=== PATIENT | male | born 1950 | race American Indian/Alaskan Native ===

== ENCOUNTER 2016-06-21 13:07 | Emergency (ER) | payer MEDICARE ==
[2016-06-21 19:16] LABS: Basophils % (Auto) 0.9 % (0.0-1.8); Eosinophils % (Auto) 1.7 % (0.0-4.3); Hematocrit 33.9 % (35.5-45.6); Hemoglobin 11.3 gm/dl (11.8-15.2); Mean Corpuscular HGB Conc 33 % (32-34); Mean Corpuscular Hemoglobin 29 pg (28-32); Mean Corpuscular Volume 85 fl (84-94); Platelet Count 353 K/mm3 (140-440); Red Blood Count 3.96 M/mm3 (3.65-5.03); Red Cell Distribution Width 16.9 % (13.2-15.2); White Blood Count 7.5 K/mm3 (4.5-11.0)
[2016-06-21 19:28] LABS: BUN/Creatinine Ratio 17.5; Calcium 10.2 mg/dL (8.4-10.2); Chloride 93.4 mmol/L (98-107); Potassium 3.9 mmol/L (3.6-5.0)
--- NOTE | 2016-06-21 21:30 | Emergency Department Report ---
ED General Adult HPI - General Chief complaint: Tube Replacement Stated complaint: G TUBE CLOGGED Time Seen by Provider: 06/21/16 21:13 Source: patient Mode of arrival: Wheelchair Limitations: No Limitations - History of Present Illness Initial comments: Patient here due to clogged G-tube since yesterday afternoon. Patient indicates that G-tube was placed approximately 3-1/2 weeks ago. He has not had any other complications prior to this. States he is feeling at his baseline otherwise. G-tube was placed due to recent stroke. Onset/Timin -: Sudden, days(s) Severity scale (0 -10): 0 Improves with: none Worsens with: none Treatments Prior to Arrival: none - Related Data Home Medications Medication Instructions Recorded Confirmed Last Taken Atenolol [Atenolol] 1 tab PO DAILY 03/13/14 03/13/14 03/13/14 Clopidogrel Bisulfate [Clopidogrel] 1 tab PO DAILY 03/13/14 03/13/14 03/13/14 Gabapentin [Gabapentin] 1 cap PO DAILY 03/13/14 03/13/14 03/13/14 Isosorbide Mononitrate [Isosorbide 20 mg PO BID 03/13/14 03/13/14 03/13/14 Mononitrate] Lisinopril [Lisinopril] 1 tab PO DAILY 03/13/14 03/13/14 03/13/14 Pantoprazole [Protonix] 1 tab PO DAILY 03/13/14 03/13/14 03/13/14 Solifenacin Succinate [Vesicare] 1 tab PO DAILY 03/13/14 03/13/14 03/13/14 Tamsulosin HCl [Tamsulosin HCl] 1 tab PO DAILY 03/13/14 03/13/14 03/13/14 Tramadol HCl [Tramadol HCl] 1 tab PO PRN PRN 03/13/14 03/13/14 Unknown Allergies Allergy/AdvReac Type Severity Reaction Status Date / Time No Known Allergies Allergy Verified 06/21/16 14:21 ED Review of Systems ROS: Stated complaint: G TUBE CLOGGED Other details as noted in HPI Constitutional: denies: fever, malaise Respiratory: denies: cough, SOB at rest Cardiovascular: denies: chest pain Gastrointestinal: other (hungry). denies: abdominal pain, nausea, vomiting ED Past Medical Hx - Past Medical History Hx Hypertension: Yes ([id number]; takes beta benita took 03/18 next dose noon 03/19) Hx Diabetes: Yes Hx Asthma: No Hx COPD: No Hx Tuberculosis: No Hx HIV: No - Social History Smoking Status: Current Every Day Smoker - Medications Home Medications: Home Medications Medication Instructions Recorded Confirmed Last Taken Type Atenolol [Atenolol] 1 tab PO DAILY 03/13/14 03/13/14 03/13/14 History Clopidogrel Bisulfate [Clopidogrel] 1 tab PO DAILY 03/13/14 03/13/14 03/13/14 History Gabapentin [Gabapentin] 1 cap PO DAILY 03/13/14 03/13/14 03/13/14 History Isosorbide Mononitrate [Isosorbide 20 mg PO BID 03/13/14 03/13/14 03/13/14 History Mononitrate] Lisinopril [Lisinopril] 1 tab PO DAILY 03/13/14 03/13/14 03/13/14 History Pantoprazole [Protonix] 1 tab PO DAILY 03/13/14 03/13/14 03/13/14 History Solifenacin Succinate [Vesicare] 1 tab PO DAILY 03/13/14 03/13/14 03/13/14 History Tamsulosin HCl [Tamsulosin HCl] 1 tab PO DAILY 03/13/14 03/13/14 03/13/14 History Tramadol HCl [Tramadol HCl] 1 tab PO PRN PRN 03/13/14 03/13/14 Unknown History ED Physical Exam - General Limitations: No Limitations, Language Barrier, Physical Limitation General appearance: alert, in no apparent distress - Head Head exam: Present: atraumatic, normocephalic - ENT ENT exam: Present: other (dry mucous membranes. Nml pharynx) - Neck Neck exam: Present: normal inspection. Absent: lymphadenopathy, thyromegaly - Respiratory Respiratory exam: Present: rales (bibasilarly). Absent: wheezes - Cardiovascular Cardiovascular Exam: Present: regular rate, normal rhythm. Absent: systolic murmur - GI/Abdominal GI/Abdominal exam: Present: other (G tube in place with button at 3cm. Well healed ostomy with no surrounding erythema. 2 little buttons sutured in place at R edge of ostomy skin margin) - Skin Skin exam: Present: warm, dry ED Course Vital Signs 06/21/16 14:18 Temperature 98.1 F Pulse Rate 86 Respiratory 18 Rate Blood Pressure 97/54 O2 Sat by Pulse 100 Oximetry - Reevaluation(s) Reevaluation #1: 06/21/16 21:34 Attempt was made to clear the obstruction and the current gastric tube using a small guidewire. This was unsuccessful. A [place] syringe was used with flushing without success. Possibly another 18 [place] G-tube was placed this was done under clean conditions after sterilely prepping the ostomy site. He' ll G-tube was removed after evacuating a total of 6 mL of fluid from the balloon the new G-tube was placed and then instilled with 14 mL of sterile water. This easily passed without difficulty there was no blood loss. I did flush and 60 mL through [place] syringe into the stomach cavity. I was then able to evacuate stomach contents without any difficulty. Patient tolerated the procedure very well. Safe for return to facility. Safe for routine use of G-tube as needed. - Procedure Description Procedures done: G-tube replacement as per notes and ED course. Procedure performed by me verbal consent given. There were no complications. Indication was clogged G-tube. ED Medical Decision Making - Lab Data Result diagrams: 06/21/16 18:57 06/21/16 18:57 Critical care attestation.: If time is entered above; I have spent that time in minutes in the direct care of this critically ill patient, excluding procedure time. ED Disposition Clinical Impression: Gastrostomy malfunction Disposition: DC/TX ANOTHER TYPE HEALTHCARE Is pt being admited?: No Does the pt Need Aspirin: No Condition: Stable Additional Instructions: Routine instructions regarding Gastrostomy tube. It has been filled with 14cc. Referrals: PRIMARY CARE, [Primary Care Provider] - 3-5 Days
[2016-06-21 22:46] VITALS: BP 124/76
== END 2016-06-21 22:00 | disposition other institution (70) ==
LOC: ED 13:07
DX: K94.23 Gastrostomy malfunction (principal); I10 Essential (primary) hypertension; E11.9 Type 2 diabetes mellitus without complications; F17.200 Nicotine dependence, unspecified, uncomplicated; Y83.3 Surgical operation with formation of external stoma as the cause of abnormal reaction of the patient, or of later complication, without mention of misadventure at the time of the procedure
CPT/HCPCS: 36415; 80048; 82962; 85025

== ENCOUNTER 2020-10-19 06:01 | Day surgery (SDC) | payer MEDICARE | END 2020-10-19 06:02 | disposition home or self-care (01) | LOC: OR 06:01 | DX: I13.2 Hypertensive heart and chronic kidney disease with heart failure and with stage 5 chronic kidney disease, or end stage renal disease (principal); E11.22 Type 2 diabetes mellitus with diabetic chronic kidney disease; I50.31 Acute diastolic (congestive) heart failure; N18.6 End stage renal disease; I25.118 Atherosclerotic heart disease of native coronary artery with other forms of angina pectoris; E78.00 Pure hypercholesterolemia, unspecified; K21.9 Gastro-esophageal reflux disease without esophagitis; F32.9 Major depressive disorder, single episode, unspecified; D64.9 Anemia, unspecified; F41.9 Anxiety disorder, unspecified; I25.2 Old myocardial infarction; E11.51 Type 2 diabetes mellitus with diabetic peripheral angiopathy without gangrene; Z98.890 Other specified postprocedural states; Z88.8 Allergy status to other drugs, medicaments and biological substances; Z79.899 Other long term (current) drug therapy; Z79.82 Long term (current) use of aspirin; Z79.4 Long term (current) use of insulin; Z86.73 Personal history of transient ischemic attack (TIA), and cerebral infarction without residual deficits | CPT/HCPCS: 36415; 36830; 64415; 80048; 82962; 85027; C1768; J0690; J0735; J1644; J2250; J2405; J2704; J3490; J7030; J7040; J7050 ==

== ENCOUNTER 2020-10-21 03:07 | Inpatient (IN) | payer MEDICARE ==
[2020-10-21] MEDS ORDERED: ONDANSETRON 4 MG/2 ML INJ IV ONE (03:11)
[2020-10-21] MEDS ORDERED: IPRATROPIUM/ALBUTEROL SULFATE 3 ML AMPUL.NEB IH ONE (03:19)
[2020-10-21] MEDS ORDERED: IPRATROPIUM 0.02% NEBU 2.5 ML IH ONE ×2 (03:19→03:31)
--- NOTE | 2020-10-21 03:20 | Emergency Department Report ---
HPI - General Time Seen by Provider: 10/21/20 03:10 - HPI HPI: This is a 70-year-old male who presents to the emergency department via EMS from home with complaints of shortness of breath, nausea with vomiting and left upper arm pain that started earlier this evening. The patient was a short stay admission here yesterday, in order to go to the OR with vascular for placement of a left brachial AV graft so the patient can start getting dialysis. His leaf binner is Dr. Dangelo. When EMS arrived the patient was moaning, vomiting, appeared short of breath, and had a pulse ox seen to be in the 70s. On top of the chronic kidney disease, the patient also has a history of hypertension, hyperlipidemia and diabetes. ED Past Medical Hx - Past Medical History Hx Hypertension: Yes Hx Heart Attack/AMI: Yes Hx Congestive Heart Failure: (ENLARGED HEART-RESOLVED) Hx Diabetes: Yes Hx Renal Disease: Yes Hx Kidney Stones: Yes (RESOLVED) Hx Asthma: No Hx COPD: No Hx Tuberculosis: No Hx HIV: No - Social History Smoking Status: Former Smoker - Medications Home Medications: Home Medications Medication Instructions Recorded Confirmed Last Taken Type Clopidogrel Bisulfate [Clopidogrel] 1 tab PO DAILY 03/13/14 10/21/20 10/18/20 History Tamsulosin HCl 1 tab PO DAILY 03/13/14 10/21/20 10/18/20 History Aspirin [Adult Aspirin] 81 mg PO DAILY 10/12/20 10/21/20 10/18/20 History AtorvaSTATin [Lipitor] 40 mg PO QHS 10/12/20 10/21/20 10/18/20 History Dicyclomine [Bentyl] 20 mg PO BID 10/12/20 10/21/20 10/18/20 History Finasteride [Proscar] 5 mg PO BID 10/12/20 10/21/20 10/18/20 History Insulin NPH Human Isophane 15 unit SQ BID 10/12/20 10/21/20 10/18/20 20:30 History [Novolin N] Insulin Regular, Human [Novolin R] 10 units SUB-Q BID 10/12/20 10/21/20 10/18/20 20:30 History Metoprolol [Lopressor TAB] 50 mg PO QDAY 10/12/20 10/21/20 10/18/20 20:30 History Sertraline [Zoloft] 100 mg PO QDAY 10/12/20 10/21/20 10/18/20 History amLODIPine 10 mg PO DAILY 10/12/20 10/21/20 10/18/20 20:30 History HYDROcodone/APAP 7.5-325 [[place] 1 each PO Q6HR PRN #40 tablet 10/19/20 10/21/20 Unknown Rx 7.5/325] Ergocalciferol (Vitamin D2) 1,250 unit PO DAILY 10/21/20 10/21/20 Unknown History [Vitamin D2] ED Review of Systems ROS: Stated complaint: LT ARM PAIN Other details as noted in HPI Comment: All other systems reviewed and negative Constitutional: denies: chills, fever Eyes: denies: eye pain, vision change ENT: denies: ear pain, throat pain Respiratory: cough, shortness of breath Cardiovascular: denies: chest pain, edema Gastrointestinal: nausea, vomiting Genitourinary: denies: dysuria, discharge Musculoskeletal: myalgia. denies: back pain Skin: denies: rash, lesions Neurological: denies: headache, numbness, paresthesias Physical Exam - Physical Exam Physical Exam: GENERAL: The patient is ill-appearing. He is actively vomiting. HENT: Normocephalic. Atraumatic. Patient has moist mucous membranes. EYES: Extraocular motions are intact. NECK: Supple. Trachea is midline. CHEST/LUNGS: Coarse breath sounds throughout the chest. There is tachypnea, conversational dyspnea and accessory muscle use. HEART/CARDIOVASCULAR: Regular. There is no tachycardia. There is no murmur. ABDOMEN: Abdomen is soft, nontender. Patient has normal bowel sounds. There is no abdominal distention. SKIN: Skin is warm and dry. There is some mild swelling and ecchymosis to the left upper extremity where the patient had a recent AV graft placement. NEURO: The patient is awake, alert, and oriented. The patient is cooperative. MUSCULOSKELETAL: There is no tenderness or deformity. There is no limitation range of motion. ED Course - Consultations Consultation #1: 10/21/20 04:[address] eHath, the leaf binner on-call for Dr. Dangelo. He says that they usually have to wait for about 2 weeks after AV graft placement before they can use it for dialysis. Since he has not yet been getting dialysis, Dr. Heath recommends an 80 mg IV Lasix dose to try and diurese from the volume overload and interstitial edema. They will evaluate the patient in the morning to see if he requires a temporary Vas-Cath or access for dialysis. ED Medical Decision Making - Lab Data Result diagrams: 10/21/20 03:14 10/21/20 03:14 Lab Results 10/21/20 10/21/20 10/21/20 Range/Units 03:14 03:14 03:14 WBC 14.5 H (4.5-11.0) K/mm3 RBC 4.28 (3.65-5.03) M/mm3 Hgb 12.9 (11.8-15.2) gm/dl Hct 38.1 (35.5-45.6) % MCV 89 (84-94) fl MCH 30 (28-32) pg MCHC 34 (32-34) % RDW 16.1 H (13.2-15.2) % Plt Count 272 (140-440) K/mm3 Add Manual Diff Complete Total Counted 100 Seg Neuts % (Manual) 85.0 H (40.0-70.0) % Band Neutrophils % 1.0 % Lymphocytes % (Manual) 7.0 L (13.4-35.0) % Monocytes % (Manual) 6.0 (0.0-7.3) % Basophils % (Manual) 1.0 (0.0-1.8) % Nucleated RBC % Not Reportable Seg Neutrophils # Man 12.3 H (1.8-7.7) K/mm3 Band Neutrophils # 0.1 K/mm3 Lymphocytes # (Manual) 1.0 L (1.2-5.4) K/mm3 Abs React Lymphs (Man) 0.0 K/mm3 Monocytes # (Manual) 0.9 H (0.0-0.8) K/mm3 Eosinophils # (Manual) 0.0 (0.0-0.4) K/mm3 Basophils # (Manual) 0.1 (0.0-0.1) K/mm3 Metamyelocytes # 0.0 K/mm3 Myelocytes # 0.0 K/mm3 Promyelocytes # 0.0 K/mm3 Blast Cells # 0.0 K/mm3 WBC Morphology Not Reportable Hypersegmented Neuts Not Reportable Hyposegmented Neuts Not Reportable Hypogranular Neuts Not Reportable Smudge Cells Not Reportable Toxic Granulation Not Reportable Toxic Vacuolation Not Reportable Dohle Bodies Not Reportable Pelger-Huet Anomaly Not Reportable Linh Rods Not Reportable Platelet Estimate Consistent w auto Clumped Platelets Not Reportable Plt Clumps, EDTA Not Reportable Large Platelets Not Reportable Giant Platelets Not Reportable Platelet Satelliting Not Reportable Plt Morphology Comment Not Reportable RBC Morphology Normal Dimorphic RBCs Not Reportable Polychromasia Not Reportable Hypochromasia Not Reportable Poikilocytosis Not Reportable Anisocytosis Not Reportable Microcytosis Not Reportable Macrocytosis Not Reportable Spherocytes Not Reportable Pappenheimer Bodies Not Reportable Sickle Cells Not Reportable Target Cells Not Reportable Tear Drop Cells Not Reportable Ovalocytes Not Reportable Helmet Cells Not Reportable [place] Bodies Not Reportable [place] Rings Not Reportable Cheryl Cells Not Reportable Bite Cells Not Reportable Crenated Cell Not Reportable Elliptocytes Not Reportable Acanthocytes (Spur) Not Reportable Rouleaux Not Reportable Hemoglobin C Crystals Not Reportable Schistocytes Not Reportable Malaria parasites Not Reportable Shay Bodies Not Reportable Hem Pathologist Commnt No PT 13.4 (12.2-14.9) Sec. INR 0.96 (0.87-1.13) APTT 23.5 L (24.2-36.6) Sec. D-Dimer 2466.38 H (0-234) ng/mlDDU Sodium 137 (137-145) mmol/L Potassium 4.3 (3.6-5.0) mmol/L Chloride 98.4 (98-107) mmol/L Carbon Dioxide 16 L D (22-30) mmol/L Anion Gap 27 mmol/L BUN 55 H (9-20) mg/dL Creatinine 3.7 H (0.8-1.3) mg/dL Estimated GFR 20 ml/min BUN/Creatinine Ratio 15 % Glucose 333 H (75-100) mg/dL Calcium 8.3 L (8.4-10.2) mg/dL Total Bilirubin 0.30 (0.1-1.2) mg/dL AST 23 (5-40) units/L ALT 7 (7-56) units/L Alkaline Phosphatase 104 (35-129) units/L Troponin T (0.00-0.029) ng/mL Total Protein 7.1 (6.3-8.2) g/dL Albumin 3.9 (3.9-5) g/dL Albumin/Globulin Ratio 1.2 % Triglycerides (2-149) mg/dL Cholesterol (50-199) mg/dL LDL Cholesterol Direct (50-130) mg/dL HDL Cholesterol (40-59) mg/dL Cholesterol/HDL Ratio % // Range/Units 03:14 WBC (4.5-11.0) K/mm3 RBC (3.65-5.03) M/mm3 Hgb (11.8-15.2) gm/dl Hct (35.5-45.6) % MCV (84-94) fl MCH (28-32) pg MCHC (32-34) % RDW (13.2-15.2) % Plt Count (140-440) K/mm3 Add Manual Diff Total Counted Seg Neuts % (Manual) (40.0-70.0) % Band Neutrophils % % Lymphocytes % (Manual) (13.4-35.0) % Monocytes % (Manual) (0.0-7.3) % Basophils % (Manual) (0.0-1.8) % Nucleated RBC % Seg Neutrophils # Man (1.8-7.7) K/mm3 Band Neutrophils # K/mm3 Lymphocytes # (Manual) (1.2-5.4) K/mm3 Abs React Lymphs (Man) K/mm3 Monocytes # (Manual) (0.0-0.8) K/mm3 Eosinophils # (Manual) (0.0-0.4) K/mm3 Basophils # (Manual) (0.0-0.1) K/mm3 Metamyelocytes # K/mm3 Myelocytes # K/mm3 Promyelocytes # K/mm3 Blast Cells # K/mm3 WBC Morphology Hypersegmented Neuts Hyposegmented Neuts Hypogranular Neuts Smudge Cells Toxic Granulation Toxic Vacuolation Dohle Bodies Pelger-Huet Anomaly Linh Rods Platelet Estimate Clumped Platelets Plt Clumps, EDTA Large Platelets Giant Platelets Platelet Satelliting Plt Morphology Comment RBC Morphology Dimorphic RBCs Polychromasia Hypochromasia Poikilocytosis Anisocytosis Microcytosis Macrocytosis Spherocytes Pappenheimer Bodies Sickle Cells Target Cells Tear Drop Cells Ovalocytes Helmet Cells [place] Bodies [place] Rings Cheryl Cells Bite Cells Crenated Cell Elliptocytes Acanthocytes (Spur) Rouleaux Hemoglobin C Crystals Schistocytes Malaria parasites Shay Bodies Hem Pathologist Commnt PT (12.2-14.9) Sec. INR (0.87-1.13) APTT (24.2-36.6) Sec. D-Dimer (0-234) ng/mlDDU Sodium (137-145) mmol/L Potassium (3.6-5.0) mmol/L Chloride (98-107) mmol/L Carbon Dioxide (22-30) mmol/L Anion Gap mmol/L BUN (9-20) mg/dL Creatinine (0.8-1.3) mg/dL Estimated GFR ml/min BUN/Creatinine Ratio % Glucose (75-100) mg/dL Calcium (8.4-10.2) mg/dL Total Bilirubin (0.1-1.2) mg/dL AST (5-40) units/L ALT (7-56) units/L Alkaline Phosphatase (35-129) units/L Troponin T 0.241 H* (0.00-0.029) ng/mL Total Protein (6.3-8.2) g/dL Albumin (3.9-5) g/dL Albumin/Globulin Ratio % Triglycerides 154 H (2-149) mg/dL Cholesterol 212 H (50-199) mg/dL LDL Cholesterol Direct 137 H (50-130) mg/dL HDL Cholesterol 65 H (40-59) mg/dL Cholesterol/HDL Ratio 3.26 % - EKG Data -: EKG Interpreted by Me EKG shows normal: sinus rhythm, axis, intervals, QRS complexes (Q waves to the inferior and septal leads), ST-T waves Rate: normal - EKG Data When compared to previous EKG there are: previous EKG unavailable Interpretation: other (Sinus rhythm at 87 bpm, normal axis, normal intervals, Q waves to the septal and inferior leads. No ST elevation [place].) - Radiology Data Radiology results: image reviewed interpreted by me: Chest x-ray shows diffuse bilateral interstitial opacities concerning for pulmonary edema. No pneumothorax. No widened mediastinum. - Medical Decision Making This patient presents with shortness of breath, nausea and vomiting that started earlier this afternoon and into this evening. He presents in some respiratory d istress with tachypnea, coarse breath sounds, conversational dyspnea and some accessory muscle use. The patient is also actively vomiting. An IV was placed and the patient was given Zofran. He was placed on a nonrebreather and given nebulized breathing treatments with both Atrovent and albuterol. Chest x-ray shows diffuse interstitial edema. After the breathing treatments, the patient was able to attempt a Venturi mask. He was doing better with his tachypnea and work of breathing, but his oxygen saturation was down into the low 90s. The patient was placed on a BiPAP. EKG does not have any morphology consistent with ST elevation myocardial infarction. Nephrology was contacted and consulted. The patient was given IV Lasix for diuresis. He was given some IV insulin for his mild hyperglycemia. The patient will be admitted to the [facility] and was accepted for admission by the hospitalist, Dr. Ward. Critical Care Time: Yes Critical care time in (mins) excluding proc time.: 35 Critical care attestation.: If time is entered above; I have spent that time in minutes in the direct care of this critically ill patient, excluding procedure time. Critical care time was spent on this patient in doing his initial evaluation, multiple reevaluations, ordering and interpretation of labs and imaging, IV Lasix for diuresis, IV insulin for hyperglycemia, BiPAP management, discussion with the nephrology service, multiple discussions with the patient and his . Critical Care Time: 35 minutes ED Disposition Clinical Impression: Hyperglycemia Acute respiratory failure Qualifiers: Respiratory failure complication: hypoxia Qualified Code(s): J96.01 - Acute respiratory failure with hypoxia Volume overload Qualifiers: Hypervolemia type: unspecified Qualified Code(s): E87.70 - Fluid overload, unspecified Hypertension Qualifiers: Hypertension type: essential hypertension Qualified Code(s): I10 - Essential (primary) hypertension CKD (chronic kidney disease) Qualifiers: Chronic kidney disease stage: unspecified stage Qualified Code(s): N18.9 - Chronic kidney disease, unspecified Pulmonary edema Qualifiers: Chronicity: acute Qualified Code(s): J81.0 - Acute pulmonary edema Disposition: OP ADMIT IP TO THIS HOSP Is pt being admited?: Yes Condition: Serious Time of Disposition: 04:52
[2020-10-21] MEDS ORDERED: ALBUTEROL 2.5 MG/3 ML NEBU IH ONE ×2 (03:21→03:29)
[2020-10-21 03:34] LABS: Hematocrit 38.1 % (35.5-45.6); Hemoglobin 12.9 gm/dl (11.8-15.2); Mean Corpuscular HGB Conc 34 % (32-34); Mean Corpuscular Volume 89 fl (84-94); Platelet Count 272 K/mm3 (140-440); Red Blood Count 4.28 M/mm3 (3.65-5.03); Red Cell Distribution Width 16.1 % (13.2-15.2)
[2020-10-21 03:47] LABS: INR 0.96 (0.87-1.13)
[2020-10-21 03:48] LABS: Partial Thromboplastin Time 23.5 Sec. (24.2-36.6)
[2020-10-21 03:56] LABS: Albumin 3.9 g/dL (3.9-5); Calcium 8.3 mg/dL (8.4-10.2)
[2020-10-21] MEDS ORDERED: INSULIN REGULAR, HUMAN 100 UNITS/1 ML IV ONE (04:03)
[2020-10-21] MEDS ORDERED: FUROSEMIDE 40 MG/4 ML INJ IV ONE (04:09)
[2020-10-21 04:13] LABS: Band Neutrophils # (Manual) 0.1 K/mm3; Platelet Estimate Consistent w Auto; RBC Morphology Normal; Total Cells Counted 100
[2020-10-21 04:23] LABS: Chol/HDL Ratio 3.26 %
[2020-10-21] MEDS ORDERED: NITROGLYCERIN 0.4 MG TAB SUBL SL PRN ×2 (05:28)
[2020-10-21] MEDS ORDERED: ACETAMINOPHEN 325 MG TAB PO PRN ×2 (05:28)
[2020-10-21] MEDS ORDERED: ALBUTEROL 2.5 MG/3 ML NEBU IH PRN (05:28)
[2020-10-21] MEDS ORDERED: ONDANSETRON 4 MG/2 ML INJ IV PRN (05:28)
--- NOTE | 2020-10-21 05:39 | History and Physical Report ---
History of Present Illness Date of examination: 10/21/20 Date of admission: 10/21/20 04:53 Chief complaint: Shortness of breath History of present illness: 70-year-old male with past medical history of hypertension, hyperlipidemia and diabetes, Chronic kidney disease was brought to the emergency department via EMS from home with complaints of shortness of breath, nausea with vomiting and left upper arm pain that started earlier this evening. The patient was a short stay admission here yesterday, in order to go to the OR with vascular for placement of a left brachial AV graft so the patient can start getting dialysis. 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 When EMS arrived the patient was moaning, vomiting, appeared short of breath, and had a pulse ox seen to be in the 70s. In the emergency room patient is found to have acute respiratory failure, volume overload pulmonary edema. Patient troponin is 0.241 Past History Past Medical History: diabetes, hypertension, hyperlipidemia, renal failure Medications and Allergies Allergies Allergy/AdvReac Type Severity Reaction Status Date / Time pollen extracts Allergy Unknown Verified 10/21/20 05:23 Home Medications Medication Instructions Recorded Confirmed Last Taken Type Clopidogrel Bisulfate [Clopidogrel] 1 tab PO DAILY 03/13/14 10/21/20 10/18/20 History Tamsulosin HCl 1 tab PO DAILY 03/13/14 10/21/20 10/18/20 History Aspirin [Adult Aspirin] 81 mg PO DAILY 10/12/20 10/21/20 10/18/20 History AtorvaSTATin [Lipitor] 40 mg PO QHS 10/12/20 10/21/20 10/18/20 History Dicyclomine [Bentyl] 20 mg PO BID 10/12/20 10/21/20 10/18/20 History Finasteride [Proscar] 5 mg PO BID 10/12/20 10/21/20 10/18/20 History Insulin NPH Human Isophane 15 unit SQ BID 10/12/20 10/21/20 10/18/20 20:30 History [Novolin N] Insulin Regular, Human [Novolin R] 10 units SUB-Q BID 10/12/20 10/21/20 10/18/20 20:30 History Metoprolol [Lopressor TAB] 50 mg PO QDAY 10/12/20 10/21/20 10/18/20 20:30 History Sertraline [Zoloft] 100 mg PO QDAY 10/12/20 10/21/20 10/18/20 History amLODIPine 10 mg PO DAILY 10/12/20 10/21/20 10/18/20 20:30 History HYDROcodone/APAP 7.5-325 [[place] 1 each PO Q6HR PRN #40 tablet 10/19/20 10/21/20 Unknown Rx 7.5/325] Ergocalciferol (Vitamin D2) 1,250 unit PO DAILY 10/21/20 10/21/20 Unknown History [Vitamin D2] Review of Systems Cardiovascular: shortness of breath, dyspnea on exertion Respiratory: cough, shortness of breath, dyspnea on exertion Musculoskeletal: myalgias Exam - Constitutional Vitals: Temp Pulse Resp BP Pulse Ox 97.5 F L 77 25 H 125/54 96 10/21/20 03:10 10/21/20 05:08 10/21/20 05:08 10/21/20 05:01 10/21/20 05:08 General appearance: Present: mild distress, well-nourished - EENT Eyes: Present: PERRL ENT: hearing intact, clear oral mucosa - Neck Neck: Present: supple, normal ROM - Respiratory Respiratory effort: normal Respiratory: bilateral: CTA, rales - Cardiovascular Heart Sounds: Present: S1 & S2. Absent: rub, click - Extremities Extremities: pulses symmetrical, No edema Peripheral Pulses: within normal limits - Abdominal General gastrointestinal: Present: soft, non-tender, non-distended, normal bowel sounds Male genitourinary: Present: normal - Integumentary Integumentary: Present: clear, warm, dry - Musculoskeletal Musculoskeletal: gait normal, strength equal bilaterally - Psychiatric Psychiatric: appropriate mood/affect, intact judgment & insight - Neurologic Neurologic: CNII-XII intact, moves all extremities HEART Score - HEART Score Troponin: Troponin T 0.241 ng/mL (0.00-0.029) H* 10/21/20 03:14 Results - Labs CBC & Chem 7: 10/21/20 03:14 10/21/20 03:14 Labs: Laboratory Last Values WBC 14.5 K/mm3 (4.5-11.0) H 10/21/20 03:14 RBC 4.28 M/mm3 (3.65-5.03) 10/21/20 03:14 Hgb 12.9 gm/dl (11.8-15.2) 10/21/20 03:14 Hct 38.1 % (35.5-45.6) 10/21/20 03:14 MCV 89 fl (84-94) 10/21/20 03:14 MCH 30 pg (28-32) 10/21/20 03:14 MCHC 34 % (32-34) 10/21/20 03:14 RDW 16.1 % (13.2-15.2) H 10/21/20 03:14 Plt Count 272 K/mm3 (140-440) 10/21/20 03:14 Add Manual Diff Complete 10/21/20 03:14 Total Counted 100 10/21/20 03:14 Seg Neuts % (Manual) 85.0 % (40.0-70.0) H 10/21/20 03:14 Band Neutrophils % 1.0 % 10/21/20 03:14 Lymphocytes % (Manual) 7.0 % (13.4-35.0) L 10/21/20 03:14 Monocytes % (Manual) 6.0 % (0.0-7.3) 10/21/20 03:14 Basophils % (Manual) 1.0 % (0.0-1.8) 10/21/20 03:14 Nucleated RBC % Not Reportable 10/21/20 03:14 Seg Neutrophils # Man 12.3 K/mm3 (1.8-7.7) H 10/21/20 03:14 Band Neutrophils # 0.1 K/mm3 10/21/20 03:14 Lymphocytes # (Manual) 1.0 K/mm3 (1.2-5.4) L 10/21/20 03:14 Abs React Lymphs (Man) 0.0 K/mm3 10/21/20 03:14 Monocytes # (Manual) 0.9 K/mm3 (0.0-0.8) H 10/21/20 03:14 Eosinophils # (Manual) 0.0 K/mm3 (0.0-0.4) 10/21/20 03:14 Basophils # (Manual) 0.1 K/mm3 (0.0-0.1) 10/21/20 03:14 Metamyelocytes # 0.0 K/mm3 10/21/20 03:14 Myelocytes # 0.0 K/mm3 10/21/20 03:14 Promyelocytes # 0.0 K/mm3 10/21/20 03:14 Blast Cells # 0.0 K/mm3 10/21/20 03:14 WBC Morphology Not Reportable 10/21/20 03:14 Hypersegmented Neuts Not Reportable 10/21/20 03:14 Hyposegmented Neuts Not Reportable 10/21/20 03:14 Hypogranular Neuts Not Reportable 10/21/20 03:14 Smudge Cells Not Reportable 10/21/20 03:14 Toxic Granulation Not Reportable 10/21/20 03:14 Toxic Vacuolation Not Reportable 10/21/20 03:14 Dohle Bodies Not Reportable 10/21/20 03:14 Pelger-Huet Anomaly Not Reportable 10/21/20 03:14 Linh Rods Not Reportable 10/21/20 03:14 Platelet Estimate Consistent w auto 10/21/20 03:14 Clumped Platelets Not Reportable 10/21/20 03:14 Plt Clumps, EDTA Not Reportable 10/21/20 03:14 Large Platelets Not Reportable 10/21/20 03:14 Giant Platelets Not Reportable 10/21/20 03:14 Platelet Satelliting Not Reportable 10/21/20 03:14 Plt Morphology Comment Not Reportable 10/21/20 03:14 RBC Morphology Normal 10/21/20 03:14 Dimorphic RBCs Not Reportable 10/21/20 03:14 Polychromasia Not Reportable 10/21/20 03:14 Hypochromasia Not Reportable 10/21/20 03:14 Poikilocytosis Not Reportable 10/21/20 03:14 Anisocytosis Not Reportable 10/21/20 03:14 Microcytosis Not Reportable 10/21/20 03:14 Macrocytosis Not Reportable 10/21/20 03:14 Spherocytes Not Reportable 10/21/20 03:14 Pappenheimer Bodies Not Reportable 10/21/20 03:14 Sickle Cells Not Reportable 10/21/20 03:14 Target Cells Not Reportable 10/21/20 03:14 Tear Drop Cells Not Reportable 10/21/20 03:14 Ovalocytes Not Reportable 10/21/20 03:14 Helmet Cells Not Reportable 10/21/20 03:14 [place] Bodies Not Reportable 10/21/20 03:14 [place] Rings Not Reportable 10/21/20 03:14 [place] Cells Not Reportable 10/21/20 03:14 Bite Cells Not Reportable 10/21/20 03:14 Crenated Cell Not Reportable 10/21/20 03:14 Elliptocytes Not Reportable 10/21/20 03:14 Acanthocytes (Spur) Not Reportable 10/21/20 03:14 Rouleaux Not Reportable 10/21/20 03:14 Hemoglobin C Crystals Not Reportable 10/21/20 03:14 Schistocytes Not Reportable 10/21/20 03:14 Malaria parasites Not Reportable 10/21/20 03:14 Shay Bodies Not Reportable 10/21/20 03:14 Hem Pathologist Commnt No 10/21/20 03:14 PT 13.4 Sec. (12.2-14.9) 10/21/20 03:14 INR 0.96 (0.87-1.13) 10/21/20 03:14 APTT 23.5 Sec. (24.2-36.6) L 10/21/20 03:14 D-Dimer 2466.38 ng/mlDDU (0-234) H 10/21/20 03:14 Sodium 137 mmol/L (137-145) 10/21/20 03:14 Potassium 4.3 mmol/L (3.6-5.0) 10/21/20 03:14 Chloride 98.4 mmol/L (98-107) 10/21/20 03:14 Carbon Dioxide 16 mmol/L (22-30) L D 10/21/20 03:14 Anion Gap 27 mmol/L 10/21/20 03:14 BUN 55 mg/dL (9-20) H 10/21/20 03:14 Creatinine 3.7 mg/dL (0.8-1.3) H 10/21/20 03:14 Estimated GFR 20 ml/min 10/21/20 03:14 BUN/Creatinine Ratio 15 % 10/21/20 03:14 Glucose 333 mg/dL (75-100) H 10/21/20 03:14 Calcium 8.3 mg/dL (8.4-10.2) L 10/21/20 03:14 Total Bilirubin 0.30 mg/dL (0.1-1.2) 10/21/20 03:14 AST 23 units/L (5-40) 10/21/20 03:14 ALT 7 units/L (7-56) 10/21/20 03:14 Alkaline Phosphatase 104 units/L (35-129) 10/21/20 03:14 Troponin T 0.241 ng/mL (0.00-0.029) H* 10/21/20 03:14 Total Protein 7.1 g/dL (6.3-8.2) 10/21/20 03:14 Albumin 3.9 g/dL (3.9-5) 10/21/20 03:14 Albumin/Globulin Ratio 1.2 % 10/21/20 03:14 Triglycerides 154 mg/dL (2-149) H 10/21/20 03:14 Cholesterol 212 mg/dL (50-199) H 10/21/20 03:14 LDL Cholesterol Direct 137 mg/dL (50-130) H 10/21/20 03:14 HDL Cholesterol 65 mg/dL (40-59) H 10/21/20 03:14 Cholesterol/HDL Ratio 3.26 % 10/21/20 03:14 - Imaging and Cardiology Chest x-ray: report reviewed Assessment and Plan VTE prophylaxis?: Chemical Plan of care discussed with patient/family: Yes - Patient Problems (1) Acute respiratory failure Current Visit: Yes Status: Acute Qualifiers: Respiratory failure complication: hypoxia Qualified Code(s): J96.01 - Acute respiratory failure with hypoxia Plan to address problem: Admit the patient to the IMCU. Put the patient on BiPAP. DuoNeb by nebulizer every 4 hours. Albuterol via nebulizer every 4 hours as needed Lasix 40 mg IV every 12 hours. Echocardiogram. Consult pulmonary if needed (2) Pulmonary edema Current Visit: Yes Status: Acute Qualifiers: Chronicity: acute Qualified Code(s): J81.0 - Acute pulmonary edema Plan to address problem: Put the patient on BiPAP. DuoNeb by nebulizer every 4 hours. Albuterol via nebulizer every 4 hours as needed, Lasix 40 mg IV every 12 hours. Fluid restriction. Maintain input output. Echocardiogram. We consulted cardiology and nephrology for evaluation (3) Elevated troponin Current Visit: Yes Status: Acute Plan to address problem: Aspirin 81 mg p.o. daily. Plavix 75 mg p.o. daily. Lipitor 40 mg p.o. daily. Nitroglycerin as needed we will do the serial cardiac enzymes we also do echocardiogram consult cardiology (4) CKD (chronic kidney disease) Current Visit: Yes Status: Acute Qualifiers: Chronic kidney disease stage: unspecified stage Qualified Code(s): N18.9 - Chronic kidney disease, unspecified Plan to address problem: Avoid nephrotoxic drug renal dose medication. We consulted nephrology for possible dialysis in the morning. Recheck BMP in the morning (5) Hyperlipidemia Current Visit: Yes Status: Acute Plan to address problem: Lipitor 40 mg p.o. nightly. Recheck lipid panel (6) Volume overload Current Visit: Yes Status: Acute Qualifiers: Hypervolemia type: unspecified Qualified Code(s): E87.70 - Fluid overload, unspecified Plan to address problem: Put the patient on BiPAP. DuoNeb by nebulizer every 4 hours. Albuterol via nebulizer every 4 hours as needed, Lasix 40 mg IV every 12 hours. Fluid restriction. Maintain input output. Echocardiogram. We consulted cardiology and nephrology for evaluation (7) Hyperglycemia Current Visit: Yes Status: Acute Plan to address problem: Insulin regular 10 units subcu twice daily. Insulin NPH 15 units subcu twice daily. Will consult diabetic education (8) Hypertension Current Visit: Yes Status: Acute Qualifiers: Hypertension type: essential hypertension Qualified Code(s): I10 - Essential (primary) hypertension (9) DVT prophylaxis Current Visit: Yes Status: Acute Plan to address problem: Heparin 5000 units subcu every 8 hours for DVT prophylaxis. Pepcid 20 mg p.o. twice daily for GI prophylaxis. Patient is a full code
[2020-10-21] MEDS ORDERED: FUROSEMIDE 40 MG/4 ML INJ IV SCH ×2 (06:00→12:53)
[2020-10-21] MEDS: IPRATROPIUM/ALBUTEROL SULFATE 3 ML AMPUL.NEB IH SCH ×3 (07:34→20:59)
[2020-10-21] MEDS ORDERED: METOPROLOL TARTRATE 50 MG TAB PO SCH (08:00)
[2020-10-21] MEDS ORDERED: INSULIN NPH, HUMAN 100 UNIT/1 ML SUB-Q SCH (08:00)
[2020-10-21 08:04] LABS: Basophils % (Auto) 0.3 % (0.0-1.8); Eosinophils % (Auto) 0.1 % (0.0-4.3); Hemoglobin 12.5 gm/dl (11.8-15.2); Lymphocytes # (Auto) 0.5 K/mm3 (1.2-5.4); Lymphocytes % (Auto) 3.7 % (13.4-35.0); Mean Corpuscular HGB Conc 33 % (32-34); Mean Corpuscular Volume 88 fl (84-94); Monocytes # (Auto) 0.9 K/mm3 (0.0-0.8); Monocytes % (Auto) 6.3 % (0.0-7.3); Platelet Count 234 K/mm3 (140-440); Red Blood Count 4.31 M/mm3 (3.65-5.03); Red Cell Distribution Width 16.4 % (13.2-15.2)
--- NOTE | 2020-10-21 08:06 | XRay Report ---
CHEST 1 VIEW INDICATION: SOB COMPARISON: None FINDINGS: SUPPORT DEVICES: None. HEART / MEDIASTINUM: No significant abnormality. LUNGS / PLEURA: Diffuse interstitial pulmonary process present.. No pneumothorax. ADDITIONAL FINDINGS: IMPRESSION: 1. Diffuse interstitial pulmonary process, pulmonary edema is Signer Name: Mono Gomez MD Signed: 10/21/2020 3:40 AM Workstation Name: [id number]
[2020-10-21 08:24] LABS: Calcium 8.3 mg/dL (8.4-10.2)
[2020-10-21] MEDS ORDERED: HEPARIN 5,000 UNIT/1 ML VIAL SUB-Q SCH (08:45)
--- NOTE | 2020-10-21 09:45 | Consultation ---
History of Present Illness Consult date: 10/21/20 Requesting physician: MELINAD FERNANDEZ Consult reason: elevated troponin History of present illness: Primary Tailing Hand: Laith Marie Pt is a 70-year-old AA male with a hx of CKD who recently underwent AV graft placement in anticipation of hemodyalisis. He presents with complaints of N/V x 1 day prior to arrival. Pt also reports progressively worsening SOB x 3 days prior to arrival. Per at bedside, pt had an episode of chest pain yesterday as well. Upon further questioning, pt states "my chest was aching from the right side to the left then back to the right." No aggravating or relieving factors. He reports the episode lasted approximately 30 minutes. He is chest pain-free upon assessment this AM. Cardiology has been consulted for evaluation of elevated cardiac enzymes. Trop 0.241 -> 0.730 thus far. ECG reveals no acute ischemic changes. CXR reveals pulmonary edema. Lexiscan stress MPI 08/27/2020 - inferoapical scar, no reversible ischemia noted. 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 Past History Past Medical History: CAD, diabetes, hypertension, hyperlipidemia, PVD, renal failure, stroke, other (aortic stenosis) Past Surgical History: PTCA Social history: smoking (former, quit 2019). denies: alcohol abuse Family history: denies: CAD Medications and Allergies Allergies Allergy/AdvReac Type Severity Reaction Status Date / Time pollen extracts Allergy Unknown Verified 10/21/20 05:23 Home Medications Medication Instructions Recorded Confirmed Last Taken Type Clopidogrel Bisulfate [Clopidogrel] 1 tab PO DAILY 03/13/14 10/21/20 10/18/20 History Tamsulosin HCl 1 tab PO DAILY 03/13/14 10/21/20 10/18/20 History Aspirin [Adult Aspirin] 81 mg PO DAILY 10/12/20 10/21/20 10/18/20 History AtorvaSTATin [Lipitor] 40 mg PO QHS 10/12/20 10/21/20 10/18/20 History Dicyclomine [Bentyl] 20 mg PO BID 10/12/20 10/21/20 10/18/20 History Finasteride [Proscar] 5 mg PO BID 10/12/20 10/21/20 10/18/20 History Insulin NPH Human [place] 15 unit SQ BID 10/12/20 10/21/20 10/18/20 20:30 History [Novolin N] Insulin Regular, Human [Novolin R] 10 units SUB-Q BID 10/12/20 10/21/20 10/18/20 20:30 History Metoprolol [Lopressor TAB] 50 mg PO QDAY 10/12/20 10/21/20 10/18/20 20:30 History Sertraline [Zoloft] 100 mg PO QDAY 10/12/20 10/21/20 10/18/20 History amLODIPine 10 mg PO DAILY 10/12/20 10/21/20 10/18/20 20:30 History HYDROcodone/APAP 7.5-325 [[place] 1 each PO Q6HR PRN #40 tablet 10/19/20 10/21/20 Unknown Rx 7.5/325] Ergocalciferol (Vitamin D2) 1,250 unit PO DAILY 10/21/20 10/21/20 Unknown History [Vitamin D2] Active Meds: Active Medications Acetaminophen (Acetaminophen 325 Mg Tab) 650 mg PO Q4H PRN PRN Reason: Pain MILD(1-3)/Fever >100.5/PRIETO Albuterol (Albuterol 2.5 Mg/3 Ml Nebu) 2.5 mg IH Q4HRT PRN PRN Reason: Shortness Of Breath Albuterol/Ipratropium (Ipratropium/Albuterol Sulfate 3 Ml Ampul.Neb) 1 ampul IH Q6HRT [facility] Last Admin: 10/21/20 07:34 Dose: 1 ampul Documented by: Amlodipine Besylate (Amlodipine 10 Mg Tab) 10 mg PO DAILY [facility] Aspirin (Aspirin Ec 81 Mg Tab) 81 mg PO DAILY [facility] Atorvastatin Calcium (Atorvastatin 40 Mg Tab) 40 mg PO QHS [facility] Cholecalciferol (Cholecalciferol (Vit D3) 1000 Unit (25 Mcg) Tab) 2,000 unit PO DAILY [facility] Clopidogrel Bisulfate (Clopidogrel 75 Mg Tab) 75 mg PO DAILY [facility] Famotidine (Famotidine 20 Mg Tab) 20 mg PO QAM [facility] Finasteride (Finasteride 5 Mg Tab) 5 mg PO BID [facility] Furosemide (Furosemide 40 Mg/4 Ml Inj) 40 mg IV BID@0600,1800 [facility] Last Admin: 10/21/20 06:25 Dose: Not Given Documented by: Heparin Sodium (Porcine) (Heparin 5,000 Unit/1 Ml Vial) 5,000 unit SUB-Q Q8HR [facility] Insulin Human Isoph/Insulin Regular (Insulin Nph/Regular 70/30 Inj) 20 unit SUB-Q BIDDIAB [facility] Insulin Human Lispro (Insulin Lispro 100 Unit/Ml) 0 unit SUB-Q ACHS [facility]; Protocol Insulin Human Regular (Insulin Regular, Human 100 Units/1 Ml) 10 units SUB-Q BIDDIAB [facility] Metoprolol Tartrate (Metoprolol Tartrate 50 Mg Tab) 50 mg PO QDAY@0800 [facility] Nitroglycerin (Nitroglycerin 0.4 Mg Tab Subl) 0.4 mg SL Q5M PRN PRN Reason: Chest Pain Ondansetron HCl (Ondansetron 4 Mg/2 Ml Inj) 4 mg IV Q8H PRN PRN Reason: Nausea And Vomiting Sertraline HCl (Sertraline 100 Mg Tab) 100 mg PO QDAY [facility] Sodium Chloride (Sodium Chloride 0.9% 10 Ml Flush Syringe) 10 ml IV BID [facility] Sodium Chloride (Sodium Chloride 0.9% 10 Ml Flush Syringe) 10 ml IV PRN PRN PRN Reason: LINE FLUSH Tamsulosin HCl (Tamsulosin 0.4 Mg Cap) 0.4 mg PO DAILY [facility] Tramadol HCl (Tramadol 50 Mg Tab) 50 mg PO Q6H PRN PRN Reason: Pain, Moderate (4-6) Review of Systems Constitutional: weakness, no fever, no chills, no sweats Ears, nose, mouth and throat: no nasal congestion, no sore throat Cardiovascular: chest pain, shortness of breath, dyspnea on exertion, no palpitations, no edema, no syncope, no lightheadedness, no paroxysmal nocturnal dyspnea, no claudication Respiratory: shortness of breath, dyspnea on exertion, no cough Gastrointestinal: nausea, vomiting, no diarrhea, no constipation Genitourinary Male: no dysuria, no flank pain Musculoskeletal: frequent falls, no neck stiffness, no neck pain Integumentary: no rash, no wounds Neurological: weakness (BLE), no head injury, no paralysis, no parathesias, no numbness, no tingling, no seizures, no syncope, no vertigo, no headaches, no change in mentation Endocrine: no cold intolerance, no heat intolerance Hematologic/Lymphatic: no easy bruising, no easy bleeding Allergic/Immunologic: no anaphylaxis Physical Examination Last Vital Signs Temp 97.5 F L 10/21/20 03:10 Pulse 82 10/21/20 14:07 Resp 24 10/21/20 14:07 BP 133/93 10/21/20 10:57 Pulse Ox 100 10/21/20 14:07 General appearance: no acute distress HEENT: Positive: EOMI, Normocephaly, Mucus Membranes Moist Neck: Positive: neck supple, trachea midline Cardiac: Positive: Reg Rate and Rhythm, S1/S2, Systolic Murmur (2/6) Lungs: Positive: Rales (bibasilar) Neuro: Positive: Grossly Intact Abdomen: Positive: Soft. Negative: Tender Skin: Negative: Rash Musculoskeletal: No Pain Extremities: Present: lower extr. pulses. Absent: edema Results 10/21/20 07:53 10/21/20 07:53 Cardiac Enzymes 10/21/20 Range/Units 03:14 AST 23 (5-40) units/L Coagulation 10/21/20 Range/Units 03:14 PT 13.4 (12.2-14.9) Sec. INR 0.96 (0.87-1.13) APTT 23.5 L (24.2-36.6) Sec. Lipids 10/21/20 Range/Units 03:14 Triglycerides 154 H (2-149) mg/dL Cholesterol 212 H (50-199) mg/dL HDL Cholesterol 65 H (40-59) mg/dL Cholesterol/HDL Ratio 3.26 % CBC 10/21/20 10/21/20 Range/Units 03:14 07:53 WBC 14.5 H 13.6 H (4.5-11.0) K/mm3 RBC 4.28 4.31 (3.65-5.03) M/mm3 Hgb 12.9 12.5 (11.8-15.2) gm/dl Hct 38.1 38.0 (35.5-45.6) % Plt Count 272 234 (140-440) K/mm3 Lymph # (Auto) 0.5 L (1.2-5.4) K/mm3 [place] # (Auto) 0.9 H (0.0-0.8) K/mm3 Eos # (Auto) 0.0 (0.0-0.4) K/mm3 Baso # (Auto) 0.0 (0.0-0.1) K/mm3 Comprehensive Metabolic Panel 10/21/20 10/21/20 Range/Units 03:14 07:53 Sodium 137 137 (137-145) mmol/L Potassium 4.3 4.7 (3.6-5.0) mmol/L Chloride 98.4 97.4 L (98-107) mmol/L Carbon Dioxide 16 L D 19 L (22-30) mmol/L BUN 55 H 63 H (9-20) mg/dL Creatinine 3.7 H 4.0 H (0.8-1.3) mg/dL Glucose 333 H 337 H (75-100) mg/dL Calcium 8.3 L 8.3 L (8.4-10.2) mg/dL AST 23 (5-40) units/L ALT 7 (7-56) units/L Alkaline Phosphatase 104 (35-129) units/L Total Protein 7.1 (6.3-8.2) g/dL Albumin 3.9 (3.9-5) g/dL - Imaging and Cardiology Echo: report reviewed (08/27/2020 - mod concentric LVH, EF 55-69%, grade 2 diastolic dysfxn, increased LA volume, mod AV stenosis, 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, mild MR, mild-mod TR, RVSP 42 mmHg, trace anterior pericardial effusion) EKG: report reviewed, image reviewed - EKG Interpretation EKG: no acute changes EKG interpretations - EKG Sinus rhythms and dysrhythmias: sinus rhythm Repolarization changes or abnormalities: nonspecific abnormality, ST segment, and/or T wave Myocardial infarction: inferior NM (old age inde Assessment and Plan Echo 08/27/2020 reviewed - mod concentric LVH, EF 55-69%, grade 2 diastolic dysfx n, increased LA volume, mod AV stenosis, 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 Trend cardiac enzymes. Initiate heparin gtt x 48 hrs total. Continue ASA, Plavix, statin, and BB. Agree with IV diuresis as per Nephro recs until adequate vascular access is achieved for initiation of HD. Plan for LHC when clinically stable. Pt seen in conjunction with Dr. Ricardo, who agrees with the assessment and plan of care. - Patient Problems (1) Acute respiratory failure Current Visit: Yes Status: Acute Qualifiers: Respiratory failure complication: hypoxia Qualified Code(s): J96.01 - Acute respiratory failure with hypoxia (2) Acute heart failure with preserved ejection fraction (HFpEF) Current Visit: Yes Status: Acute (3) Acute kidney injury superimposed on CKD Current Visit: Yes Status: Acute (4) NSTEMI (non-ST elevated myocardial infarction) Current Visit: Yes Status: Acute Plan to address problem: ?Type 2 (5) CAD (coronary artery disease) Current Visit: Yes Status: Chronic (6) S/P PTCA (percutaneous transluminal coronary angioplasty) Current Visit: Yes Status: Chronic (7) Aortic stenosis Current Visit: Yes Status: Chronic (8) Hypertension Current Visit: Yes Status: Chronic Qualifiers: Hypertension type: essential hypertension Qualified Code(s): I10 - Essential (primary) hypertension (9) Hyperlipidemia Current Visit: Yes Status: Chronic Qualifiers: Hyperlipidemia type: mixed hyperlipidemia Qualified Code(s): E78.2 - Mixed hyperlipidemia (10) DM2 (diabetes mellitus, type 2) Current Visit: Yes Status: Chronic (11) PVD (peripheral vascular disease) Current Visit: Yes Status: Chronic (12) Frequent falls Current Visit: Yes Status: Chronic (13) H/O: CVA (cerebrovascular accident) Current Visit: Yes Status: Chronic
[2020-10-21] MEDS: ASPIRIN EC 81 MG TAB PO SCH (10:55)
[2020-10-21] MEDS: FINASTERIDE 5 MG TAB PO SCH ×2 (10:55→22:09)
[2020-10-21] MEDS: CHOLECALCIFEROL (VIT D3) 1000 UNIT (25 mcg) TAB PO SCH (10:56)
[2020-10-21] MEDS: SERTRALINE 100 MG TAB PO SCH (10:56)
[2020-10-21] MEDS: INSULIN NPH/REGULAR 70/30 INJ SUB-Q SCH ×2 (10:57→17:05)
[2020-10-21] MEDS: amLODIPine 10 MG TAB PO SCH (10:57)
[2020-10-21] MEDS: FAMOTIDINE 20 MG TAB PO SCH (10:59)
[2020-10-21] MEDS: TAMSULOSIN 0.4 MG CAP PO SCH (11:02)
[2020-10-21] MEDS: CLOPIDOGREL 75 MG TAB PO SCH (11:07)
[2020-10-21] MEDS: INSULIN LISPRO 100 UNIT/ML SUB-Q SCH ×3 (11:28→22:14)
[2020-10-21] MEDS: INSULIN REGULAR, HUMAN 100 UNITS/1 ML SUB-Q SCH ×2 (11:28→17:13)
[2020-10-21] MEDS ORDERED: HEPARIN 10,000 UNITS/10 ML VIAL IV ONE (12:01)
[2020-10-21] MEDS ORDERED: HEPARIN 10,000 UNITS/10 ML VIAL IV PRN (12:01)
--- NOTE | 2020-10-21 13:01 | Consultation ---
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 in ER patient was found to be hypoxic, with O2 sat 70% on RA, CXR showed evidence of bilateral pulmonary edema, labs showed elevated troponin 0.241 -> 0.730, d-dimer 2466, elevated BUN/Cr at 63/4mg/dl along with metabolic acidosis. Pt is admitted for IV diuresis for volume control and further cardiac work up. Renal consult is requested for management of progressive CKD/volume control. Past History Past Medical History: diabetes, hypertension, hyperlipidemia, renal failure Medications and Allergies Allergies Allergy/AdvReac Type Severity Reaction Status Date / Time pollen extracts Allergy Unknown Verified 10/21/20 05:23 Home Medications Medication Instructions Recorded Confirmed Last Taken Type Clopidogrel Bisulfate [Clopidogrel] 1 tab PO DAILY 03/13/14 10/21/20 10/18/20 History Tamsulosin HCl 1 tab PO DAILY 03/13/14 10/21/20 10/18/20 History Aspirin [Adult Aspirin] 81 mg PO DAILY 10/12/20 10/21/20 10/18/20 History AtorvaSTATin [Lipitor] 40 mg PO QHS 10/12/20 10/21/20 10/18/20 History Dicyclomine [Bentyl] 20 mg PO BID 10/12/20 10/21/20 10/18/20 History Finasteride [Proscar] 5 mg PO BID 10/12/20 10/21/20 10/18/20 History Insulin NPH Human Isophane 15 unit SQ BID 10/12/20 10/21/20 10/18/20 20:30 History [Novolin N] Insulin Regular, Human [Novolin R] 10 units SUB-Q BID 10/12/20 10/21/20 10/18/20 20:30 History Metoprolol [Lopressor TAB] 50 mg PO QDAY 10/12/20 10/21/20 10/18/20 20:30 History Sertraline [Zoloft] 100 mg PO QDAY 10/12/20 10/21/20 10/18/20 History amLODIPine 10 mg PO DAILY 10/12/20 10/21/20 10/18/20 20:30 History HYDROcodone/APAP 7.5-325 [[place] 1 each PO Q6HR PRN #40 tablet 10/19/20 10/21/20 Unknown Rx 7.5/325] Ergocalciferol (Vitamin D2) 1,250 unit PO DAILY 10/21/20 10/21/20 Unknown History [Vitamin D2] Active Meds: Active Medications Acetaminophen (Acetaminophen 325 Mg Tab) 650 mg PO Q4H PRN PRN Reason: Pain MILD(1-3)/Fever >100.5/PRIETO Albuterol (Albuterol 2.5 Mg/3 Ml Nebu) 2.5 mg IH Q4HRT PRN PRN Reason: Shortness Of Breath Albuterol/Ipratropium (Ipratropium/Albuterol Sulfate 3 Ml Ampul.Neb) 1 ampul IH Q6HRT [facility] Last Admin: 10/21/20 07:34 Dose: 1 ampul Documented by: Amlodipine Besylate (Amlodipine 10 Mg Tab) 10 mg PO DAILY [facility] Last Admin: 10/21/20 10:57 Dose: 10 mg Documented by: Aspirin (Aspirin Ec 81 Mg Tab) 81 mg PO DAILY [facility] Last Admin: 10/21/20 10:55 Dose: 81 mg Documented by: Atorvastatin Calcium (Atorvastatin 40 Mg Tab) 40 mg PO QHS [facility] Cholecalciferol (Cholecalciferol (Vit D3) 1000 Unit (25 Mcg) Tab) 2,000 unit PO DAILY [facility] Last Admin: 10/21/20 10:56 Dose: 2,000 unit Documented by: Clopidogrel Bisulfate (Clopidogrel 75 Mg Tab) 75 mg PO DAILY [facility] Last Admin: 10/21/20 11:07 Dose: 75 mg Documented by: Famotidine (Famotidine 20 Mg Tab) 20 mg PO QAM [facility] Last Admin: 10/21/20 10:59 Dose: 20 mg Documented by: Finasteride (Finasteride 5 Mg Tab) 5 mg PO BID [facility] Last Admin: 10/21/20 10:55 Dose: 5 mg Documented by: Furosemide (Furosemide 100 Mg/10 Ml Inj) 80 mg IV 0600,1800 [facility] Heparin Sodium (Porcine) (Heparin 10,000 Units/10 Ml Vial) 3,200 unit 40 unit/kg (3200 unit) IV Q6H PRN PRN Reason: Anti-Xa Assay < 0.1 units/ml Heparin Sodium/Sodium Chloride (Heparin/ 0.45% Nacl-25,000 Unit/500 Ml) 25,000 unit in 500 mls @ 20 mls/hr IV TITRATE [facility]; Protocol Insulin Human Isoph/Insulin Regular (Insulin Nph/Regular 70/30 Inj) 20 unit BAR B-Q BIDDIAB [facility] Last Admin: 10/21/20 10:57 Dose: 20 unit Documented by: Insulin Human Lispro (Insulin Lispro 100 Unit/Ml) 0 unit SUB-Q ACHS [facility]; Protocol Last Admin: 10/21/20 11:28 Dose: Not Given Documented by: Insulin Human Regular (Insulin Regular, Human 100 Units/1 Ml) 10 units SUB-Q B IDDIAB [facility] Last Admin: 10/21/20 11:28 Dose: Not Given Documented by: Metoprolol Tartrate (Metoprolol Tartrate 25 Mg Tab) 25 mg PO BID [facility] Nitroglycerin (Nitroglycerin 0.4 Mg Tab Subl) 0.4 mg SL Q5M PRN PRN Reason: Chest Pain Ondansetron HCl (Ondansetron 4 Mg/2 Ml Inj) 4 mg IV Q8H PRN PRN Reason: Nausea And Vomiting Sertraline HCl (Sertraline 100 Mg Tab) 100 mg PO QDAY [facility] Last Admin: 10/21/20 10:56 Dose: 100 mg Documented by: Sodium Chloride (Sodium Chloride 0.9% 10 Ml Flush Syringe) 10 ml IV BID [facility] Sodium Chloride (Sodium Chloride 0.9% 10 Ml Flush Syringe) 10 ml IV PRN PRN PRN Reason: LINE FLUSH Tamsulosin HCl (Tamsulosin 0.4 Mg Cap) 0.4 mg PO DAILY [facility] Last Admin: 10/21/20 11:02 Dose: 0.4 mg Documented by: Tramadol HCl (Tramadol 50 Mg Tab) 50 mg PO Q6H PRN PRN Reason: Pain, Moderate (4-6) Review of Systems Constitutional: fatigue, weakness, malaise, lethargy Cardiovascular: orthopnea, shortness of breath, dyspnea on exertion, paroxysmal nocturnal dyspnea Respiratory: cough, shortness of breath, dyspnea on exertion Gastrointestinal: nausea, vomiting Exam - Vital Signs Vital signs: Vital Signs Temp Pulse Resp BP Pulse Ox 97.5 F L 105 H 36 H 176/70 85 10/21/20 03:10 10/21/20 03:10 10/21/20 03:10 10/21/20 03:10 10/21/20 03:10 - General Appearance General appearance: well-developed, well-nourished, appears stated age EENT: ATNC, PERRL, mucous membranes moist Neck: Present: neck supple Respiratory: Decreased Breath Sounds Heart: regular, S1S2 Gastrointestinal: Present: normoactive bowel sounds Integumentary: no rash, other (no pitting edema ) Neurologic: no focal deficit, alert and oriented x3, strength 5/5, CN 3-12 intact Psychiatric: mood/affect appropriate, cooperative Results - Lab Results 10/21/20 07:53 10/21/20 07:53 Most recent lab results WBC 13.6 K/mm3 (4.5-11.0) H 10/21/20 07:53 RBC 4.31 M/mm3 (3.65-5.03) 10/21/20 07:53 Hgb 12.5 gm/dl (11.8-15.2) 10/21/20 07:53 Hct 38.0 % (35.5-45.6) 10/21/20 07:53 MCV 88 fl (84-94) 10/21/20 07:53 MCH 29 pg (28-32) 10/21/20 07:53 MCHC 33 % (32-34) 10/21/20 07:53 RDW 16.4 % (13.2-15.2) H 10/21/20 07:53 Plt Count 234 K/mm3 (140-440) 10/21/20 07:53 Lymph % (Auto) 3.7 % (13.4-35.0) L 10/21/20 07:53 Green % (Auto) 6.3 % (0.0-7.3) 10/21/20 07:53 Eos % (Auto) 0.1 % (0.0-4.3) 10/21/20 07:53 Baso % (Auto) 0.3 % (0.0-1.8) 10/21/20 07:53 Lymph # (Auto) 0.5 K/mm3 (1.2-5.4) L 10/21/20 07:53 Green # (Auto) 0.9 K/mm3 (0.0-0.8) H 10/21/20 07:53 Eos # (Auto) 0.0 K/mm3 (0.0-0.4) 10/21/20 07:53 Baso # (Auto) 0.0 K/mm3 (0.0-0.1) 10/21/20 07:53 Add Manual Diff Complete 10/21/20 03:14 Total Counted 100 10/21/20 03:14 Seg Neutrophils % 89.6 % (40.0-70.0) H 10/21/20 07:53 Seg Neuts % (Manual) 85.0 % (40.0-70.0) H 10/21/20 03:14 Band Neutrophils % 1.0 % 10/21/20 03:14 Lymphocytes % (Manual) 7.0 % (13.4-35.0) L 10/21/20 03:14 Monocytes % (Manual) 6.0 % (0.0-7.3) 10/21/20 03:14 Basophils % (Manual) 1.0 % (0.0-1.8) 10/21/20 03:14 Nucleated RBC % Not Reportable 10/21/20 03:14 Seg Neutrophils # 12.2 K/mm3 (1.8-7.7) H 10/21/20 07:53 Seg Neutrophils # Man 12.3 K/mm3 (1.8-7.7) H 10/21/20 03:14 Band Neutrophils # 0.1 K/mm3 10/21/20 03:14 Lymphocytes # (Manual) 1.0 K/mm3 (1.2-5.4) L 10/21/20 03:14 Abs React Lymphs (Man) 0.0 K/mm3 10/21/20 03:14 Monocytes # (Manual) 0.9 K/mm3 (0.0-0.8) H 10/21/20 03:14 Eosinophils # (Manual) 0.0 K/mm3 (0.0-0.4) 10/21/20 03:14 Basophils # (Manual) 0.1 K/mm3 (0.0-0.1) 10/21/20 03:14 Metamyelocytes # 0.0 K/mm3 10/21/20 03:14 Myelocytes # 0.0 K/mm3 10/21/20 03:14 Promyelocytes # 0.0 K/mm3 10/21/20 03:14 Blast Cells # 0.0 K/mm3 10/21/20 03:14 WBC Morphology Not Reportable 10/21/20 03:14 Hypersegmented Neuts Not Reportable 10/21/20 03:14 Hyposegmented Neuts Not Reportable 10/21/20 03:14 Hypogranular Neuts Not Reportable 10/21/20 03:14 Smudge Cells Not Reportable 10/21/20 03:14 Toxic Granulation Not Reportable 10/21/20 03:14 Toxic Vacuolation Not Reportable 10/21/20 03:14 Dohle Bodies Not Reportable 10/21/20 03:14 Pelger-Huet Anomaly Not Reportable 10/21/20 03:14 Linh Rods Not Reportable 10/21/20 03:14 Platelet Estimate Consistent w auto 10/21/20 03:14 Clumped Platelets Not Reportable 10/21/20 03:14 Plt Clumps, EDTA Not Reportable 10/21/20 03:14 Large Platelets Not Reportable 10/21/20 03:14 Giant Platelets Not Reportable 10/21/20 03:14 Platelet Satelliting Not Reportable 10/21/20 03:14 Plt Morphology Comment Not Reportable 10/21/20 03:14 RBC Morphology Normal 10/21/20 03:14 Dimorphic RBCs Not Reportable 10/21/20 03:14 Polychromasia Not Reportable 10/21/20 03:14 Hypochromasia Not Reportable 10/21/20 03:14 Poikilocytosis Not Reportable 10/21/20 03:14 Anisocytosis Not Reportable 10/21/20 03:14 Microcytosis Not Reportable 10/21/20 03:14 Macrocytosis Not Reportable 10/21/20 03:14 Spherocytes Not Reportable 10/21/20 03:14 Pappenheimer Bodies Not Reportable 10/21/20 03:14 Sickle Cells Not Reportable 10/21/20 03:14 Target Cells Not Reportable 10/21/20 03:14 Tear Drop Cells Not Reportable 10/21/20 03:14 Ovalocytes Not Reportable 10/21/20 03:14 Helmet Cells Not Reportable 10/21/20 03:14 [place] Bodies Not Reportable 10/21/20 03:14 [place] Rings Not Reportable 10/21/20 03:14 Cheryl Cells Not Reportable 10/21/20 03:14 Bite Cells Not Reportable 10/21/20 03:14 Crenated Cell Not Reportable 10/21/20 03:14 Elliptocytes Not Reportable 10/21/20 03:14 Acanthocytes (Spur) Not Reportable 10/21/20 03:14 Rouleaux Not Reportable 10/21/20 03:14 Hemoglobin C Crystals Not Reportable 10/21/20 03:14 Schistocytes Not Reportable 10/21/20 03:14 Malaria parasites Not Reportable 10/21/20 03:14 Shay Bodies Not Reportable 10/21/20 03:14 Hem Pathologist Commnt No 10/21/20 03:14 PT 13.4 Sec. (12.2-14.9) 10/21/20 03:14 INR 0.96 (0.87-1.13) 10/21/20 03:14 APTT 23.5 Sec. (24.2-36.6) L 10/21/20 03:14 D-Dimer 2466.38 ng/mlDDU (0-234) H 10/21/20 03:14 Sodium 137 mmol/L (137-145) 10/21/20 07:53 Potassium 4.7 mmol/L (3.6-5.0) 10/21/20 07:53 Chloride 97.4 mmol/L (98-107) L 10/21/20 07:53 Carbon Dioxide 19 mmol/L (22-30) L 10/21/20 07:53 Anion Gap 25 mmol/L 10/21/20 07:53 BUN 63 mg/dL (9-20) H 10/21/20 07:53 Creatinine 4.0 mg/dL (0.8-1.3) H 10/21/20 07:53 Estimated GFR 18 ml/min 10/21/20 07:53 BUN/Creatinine Ratio 16 % 10/21/20 07:53 Glucose 337 mg/dL (75-100) H 10/21/20 07:53 POC Glucose 320 mg/dL (70-105) H 10/21/20 10:52 Calcium 8.3 mg/dL (8.4-10.2) L 10/21/20 07:53 Total Bilirubin 0.30 mg/dL (0.1-1.2) 10/21/20 03:14 AST 23 units/L (5-40) 10/21/20 03:14 ALT 7 units/L (7-56) 10/21/20 03:14 Alkaline Phosphatase 104 units/L (35-129) 10/21/20 03:14 Troponin T 0.730 ng/mL (0.00-0.029) H* D 10/21/20 10:55 Total Protein 7.1 g/dL (6.3-8.2) 10/21/20 03:14 Albumin 3.9 g/dL (3.9-5) 10/21/20 03:14 Albumin/Globulin Ratio 1.2 % 10/21/20 03:14 Triglycerides 154 mg/dL (2-149) H 10/21/20 03:14 Cholesterol 212 mg/dL (50-199) H 10/21/20 03:14 LDL Cholesterol Direct 137 mg/dL (50-130) H 10/21/20 03:14 HDL Cholesterol 65 mg/dL (40-59) H 10/21/20 03:14 Cholesterol/HDL Ratio 3.26 % 10/21/20 03:14 Assessment and Plan - Patient Problems (1) Acute heart failure with preserved ejection fraction (HFpEF) Current Visit: Yes Status: Acute Plan to address problem: due to volume overload in the setting of progressive CKD, most recent Echo from08/27/2020 reviewed - mod concentric LVH, EF 55-69%, grade 2 diastolic dysfxn, increased LA volume, mod AV stenosis, mild-mod TR, RVSP 42 mmHg, trace anterior pericardial effusion. Will cont aggressive IV diuresis with IV lasix 80mg bid to target net negative fluid balance. current on BB, RUSTY-I/ARB on hold d/t advanced CKD. Appreciate cardiology recommendations. If volume status does not improve further on escalating dose of diuretics will consider renal replacement therapy. (2) Acute respiratory failure Current Visit: Yes Status: Acute Qualifiers: Respiratory failure complication: hypoxia Qualified Code(s): J96.01 - Acute respiratory failure with hypoxia Plan to address problem: d/t pulmonary edema, IV diuresis with lasix 80mg bid (3) Pulmonary edema Current Visit: Yes Status: Acute Qualifiers: Chronicity: acute Qualified Code(s): J81.0 - Acute pulmonary edema Plan to address problem: cont IV lasix 80mg bid to target net negative fluid balance. If volume status does not improve further on escalating dose of diuretics will consider renal replacement therapy. (4) CKD (chronic kidney disease) Current Visit: Yes Status: Acute Qualifiers: Chronic kidney disease stage: unspecified stage Qualified Code(s): N18.9 - Chronic kidney disease, unspecified Plan to address problem: 2/2 underlying hypertensive nephrosclerosis/diabetic nephropathy, progressive CKD, currently being prepared for future HD, s/p LUE AVG placement on 10/19/20. Cont supportive care for CKD, avoid nephrotoxins, NSAIDs, IV contrast. cont volume control with IV lasix 80mg bid. start po Na bicarb for treatment of met acidosis. no urgent indication for renal replacement therapy at present. however If volume status does not improve further on escalating dose of diuretics, met acidosis is refractory to oral bicarb and/or significant uremic complications occur, will consider renal replacement therapy. (5) Hypertensive chronic kidney disease with stage 1 through stage 4 chronic kidney disease, or unspecified chronic kidney disease Current Visit: Yes Status: Acute Plan to address problem: monitor BP on current regimen (6) Type 2 diabetes mellitus with diabetic chronic kidney disease Current Visit: Yes Status: Acute Plan to address problem: diabetes management as per primary attending (7) Acidosis Current Visit: Yes Status: Acute Plan to address problem: start Na bicarb 650mg po bid
[2020-10-21] MEDS: HEPARIN/ 0.45% NACL DRIP 25,000 UNIT/500 ML BAG IV SCH (13:18)
[2020-10-21 15:31] LABS: Hematocrit 36.4 % (35.5-45.6); Hemoglobin 11.5 gm/dl (11.8-15.2)
[2020-10-21 15:35] LABS: INR 1.22 (0.87-1.13)
[2020-10-21 15:56] LABS: Partial Thromboplastin Time 135.3 Sec. (24.2-36.6)
[2020-10-21] MEDS: FUROSEMIDE 100 MG/10 ML INJ IV SCH (17:05)
[2020-10-21] MEDS: METOPROLOL TARTRATE 25 MG TAB PO SCH (22:08)
[2020-10-21] MEDS: SODIUM BICARBONATE 650 MG TAB PO SCH (22:08)
[2020-10-22] MEDS: IPRATROPIUM/ALBUTEROL SULFATE 3 ML AMPUL.NEB IH SCH ×4 (02:15→19:37)
[2020-10-22 03:04] LABS: Basophils # (Auto) 0.1 K/mm3 (0.0-0.1); Basophils % (Auto) 0.4 % (0.0-1.8); Eosinophils # (Auto) 0.1 K/mm3 (0.0-0.4); Eosinophils % (Auto) 0.6 % (0.0-4.3); Hematocrit 35.9 % (35.5-45.6); Hemoglobin 12.1 gm/dl (11.8-15.2); Lymphocytes # (Auto) 1.3 K/mm3 (1.2-5.4); Lymphocytes % (Auto) 8.2 % (13.4-35.0); Mean Corpuscular HGB Conc 34 % (32-34); Mean Corpuscular Volume 89 fl (84-94); Monocytes # (Auto) 1.5 K/mm3 (0.0-0.8); Monocytes % (Auto) 9.5 % (0.0-7.3); Platelet Count 224 K/mm3 (140-440); Red Blood Count 4.05 M/mm3 (3.65-5.03); Red Cell Distribution Width 16.2 % (13.2-15.2)
[2020-10-22 03:21] LABS: Calcium 8.4 mg/dL (8.4-10.2)
[2020-10-22] MEDS: FUROSEMIDE 100 MG/10 ML INJ IV SCH ×2 (05:42→17:47)
--- NOTE | 2020-10-22 07:00 | Event Note ---
Date: 10/21/20 Patient seen and reevaluated Shortness of breath is better Had extensive work-up in August Lexiscan stress MPI 08/27/2020 - inferoapical scar, no reversible ischemia noted. 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 If CHF improves patient can be discharged Will defer to primary team coming on tomorrow Patient also has chronic kidney disease Nephrology on board
[2020-10-22] MEDS: INSULIN LISPRO 100 UNIT/ML SUB-Q SCH ×4 (09:01→21:44)
[2020-10-22] MEDS: INSULIN NPH/REGULAR 70/30 INJ SUB-Q SCH ×2 (09:01→17:46)
--- NOTE | 2020-10-22 10:04 | Electrocardiograph Report ---
[facility] Test Date: 2020-10-21 Test Time: 03:53:31 Pat Name: MAGALI SHAH JR Department: Room: A473 Gender: M Department Supervisor: VANESSA : 1950 Requested By: MARY ANNE GEORGE Order Number: [id number] Reading MD: Renard Ricardo Measurements Intervals [place] Rate: 87 P: 67 [place]: 165 QRS: 7 QRSD: 82 T: 167 QT: 392 QTc: 473 Interpretive Statements Sinus rhythm Inferior infarct, old Probable anterolateral infarct, age indeterm No previous ECG available for comparison Electronically Signed On 10-22-2020 10:03:57 EDT by Renard Ricardo
[2020-10-22] MEDS: amLODIPine 10 MG TAB PO SCH (10:58)
[2020-10-22] MEDS: SERTRALINE 100 MG TAB PO SCH (10:59)
[2020-10-22] MEDS: FAMOTIDINE 20 MG TAB PO SCH (10:59)
[2020-10-22] MEDS: CLOPIDOGREL 75 MG TAB PO SCH (10:59)
[2020-10-22] MEDS: TAMSULOSIN 0.4 MG CAP PO SCH (10:59)
[2020-10-22] MEDS: SODIUM BICARBONATE 650 MG TAB PO SCH ×2 (10:59→21:43)
[2020-10-22] MEDS: CHOLECALCIFEROL (VIT D3) 1000 UNIT (25 mcg) TAB PO SCH (10:59)
[2020-10-22] MEDS: FINASTERIDE 5 MG TAB PO SCH ×2 (10:59→21:44)
[2020-10-22] MEDS: METOPROLOL TARTRATE 25 MG TAB PO SCH (10:59)
[2020-10-22] MEDS: ASPIRIN EC 81 MG TAB PO SCH (10:59)
--- NOTE | 2020-10-22 11:17 | Progress Note ---
Assessment and Plan Assessment and plan: 70-year-old male with past medical history of hypertension, hyperlipidemia and diabetes, Chronic kidney disease was brought to the emergency department via EMS from home with complaints of shortness of breath, nausea with vomiting and left upper arm pain that started earlier this evening. The patient was a short stay admission here yesterday, in order to go to the OR with vascular for placement of a left brachial AV graft so the patient can start getting dialysis. His independent consultant is Dr. Dangelo. When EMS arrived the patient was moaning, vomiting, appeared short of breath, and had a pulse ox seen to be in the 70s. In the emergency room patient is found to have acute respiratory failure, volume overload pulmonary edema. Patient troponin is 0.241 Patient this morning is in acute respiratory failure on BiPAP 10/22: Continue supportive care. Will obtain pulmonary consultation in addition to current management. Nephrology and cardiology input appreciated. Leukocytosis etiology not quite clear patient is afebrile will monitor closely if worsening or development of fever will start patient on empiric antibiotic coverage. (1) Acute respiratory failure Current Visit: Yes Status: Acute Qualifiers: Respiratory failure complication: hypoxia Qualified Code(s): J96.01 - Acute respiratory failure with hypoxia Plan to address problem: Admit the patient to the IMCU. Put the patient on BiPAP. DuoNeb by nebulizer every 4 hours. Albuterol via nebulizer every 4 hours as needed Lasix 40 mg IV every 12 hours. Echocardiogram. Consult pulmonary if needed (2) Pulmonary edema Current Visit: Yes Status: Acute Qualifiers: Chronicity: acute Qualified Code(s): J81.0 - Acute pulmonary edema Plan to address problem: Put the patient on BiPAP. DuoNeb by nebulizer every 4 hours. Albuterol via nebulizer every 4 hours as needed, Lasix 40 mg IV every 12 hours. Fluid restriction. Maintain input output. Echocardiogram. We consulted cardiology and nephrology for evaluation (3) Elevated troponin Current Visit: Yes Status: Acute Plan to address problem: Aspirin 81 mg p.o. daily. Plavix 75 mg p.o. daily. Lipitor 40 mg p.o. daily. Nitroglycerin as needed we will do the serial cardiac enzymes we also do echocardiogram consult cardiology (4) CKD (chronic kidney disease) Current Visit: Yes Status: Acute Qualifiers: Chronic kidney disease stage: unspecified stage Qualified Code(s): N18.9 - Chronic kidney disease, unspecified Plan to address problem: Avoid nephrotoxic drug renal dose medication. We consulted nephrology for possi ble dialysis in the morning. Recheck BMP in the morning (5) Hyperlipidemia Current Visit: Yes Status: Acute Plan to address problem: Lipitor 40 mg p.o. nightly. Recheck lipid panel (6) Volume overload Current Visit: Yes Status: Acute Qualifiers: Hypervolemia type: unspecified Qualified Code(s): E87.70 - Fluid overload, unspecified Plan to address problem: Put the patient on BiPAP. DuoNeb by nebulizer every 4 hours. Albuterol via nebulizer every 4 hours as needed, Lasix 40 mg IV every 12 hours. Fluid restriction. Maintain input output. Echocardiogram. We consulted cardiology and nephrology for evaluation (7) Hyperglycemia Current Visit: Yes Status: Acute Plan to address problem: Insulin regular 10 units subcu twice daily. Insulin NPH 15 units subcu twice daily. Will consult diabetic education (8) Hypertension Current Visit: Yes Status: Acute Qualifiers: Hypertension type: essential hypertension Qualified Code(s): I10 - Essential (primary) hypertension (9) systemic inflammatory response syndrome (10) Acidosis (11) DVT prophylaxis Current Visit: Yes Status: Acute Plan to address problem: Heparin 5000 units subcu every 8 hours for DVT prophylaxis. Pepcid 20 mg p.o. twice daily for GI prophylaxis. Patient is a full code History Interval history: Patient seen and examined this morning, on BiPAP, patient was upset refusing to answer any questions for me but the nurse tells me that the patient desats to the 80s when BiPAP is removed. Hospitalist Physical - Physical exam Narrative exam: VITAL SIGNS: Reviewed. GENERAL: The patient appears normally developed, otherwise increased work of breathing, vital signs as documented. HEAD: No signs of head trauma. EYES: Pupils are equal. Extraocular motions intact. EARS: Hearing grossly intact. MOUTH: Oropharynx is normal. NECK: No adenopathy, no JVD. CHEST: Chest with crackles breath sounds bilaterally. CARDIAC: Regular rate and rhythm. S1 and S2, without murmurs, gallops, or rubs. VASCULAR: No Edema. Peripheral pulses normal and equal in all extremities. ABDOMEN: Soft, non tender and non distended. No rebound or guarding, and no masses palpated. Bowel Sounds normal. MUSCULOSKELETAL: Good range of motion of all major joints. Extremities without clubbing, cyanosis or edema. NEUROLOGIC EXAM: Alert and oriented x 3 No focal sensory or strength deficits. Speech normal. Follows commands. PSYCHIATRIC: Mood normal. SKIN: detail exam as documented in skin assessment - Constitutional Vitals: Temp Pulse Resp BP Pulse Ox 99.0 F 84 26 H 166/78 95 10/22/20 08:16 10/22/20 10:59 10/22/20 10:00 10/22/20 10:59 10/22/20 10:00 General appearance: Present: no acute distress HEART Score - HEART Score Troponin: Troponin T 1.190 ng/mL (0.00-0.029) H* D 10/21/20 14:59 Results - Labs CBC & Chem 7: 10/22/20 02:45 10/22/20 02:45 Labs: Laboratory Last Values WBC 15.5 K/mm3 (4.5-11.0) H 10/22/20 02:45 RBC 4.05 M/mm3 (3.65-5.03) 10/22/20 02:45 Hgb 12.1 gm/dl (11.8-15.2) 10/22/20 02:45 Hct 35.9 % (35.5-45.6) 10/22/20 02:45 MCV 89 fl (84-94) 10/22/20 02:45 MCH 30 pg (28-32) 10/22/20 02:45 MCHC 34 % (32-34) 10/22/20 02:45 RDW 16.2 % (13.2-15.2) H 10/22/20 02:45 Plt Count 224 K/mm3 (140-440) 10/22/20 02:45 Lymph % (Auto) 8.2 % (13.4-35.0) L 10/22/20 02:45 [place] % (Auto) 9.5 % (0.0-7.3) H 10/22/20 02:45 Eos % (Auto) 0.6 % (0.0-4.3) 10/22/20 02:45 Baso % (Auto) 0.4 % (0.0-1.8) 10/22/20 02:45 Lymph # (Auto) 1.3 K/mm3 (1.2-5.4) 10/22/20 02:45 [place] # (Auto) 1.5 K/mm3 (0.0-0.8) H 10/22/20 02:45 Eos # (Auto) 0.1 K/mm3 (0.0-0.4) 10/22/20 02:45 Baso # (Auto) 0.1 K/mm3 (0.0-0.1) 10/22/20 02:45 Add Manual Diff Complete 10/21/20 03:14 Total Counted 100 10/21/20 03:14 Seg Neutrophils % 81.3 % (40.0-70.0) H 10/22/20 02:45 Seg Neuts % (Manual) 85.0 % (40.0-70.0) H 10/21/20 03:14 Band Neutrophils % 1.0 % 10/21/20 03:14 Lymphocytes % (Manual) 7.0 % (13.4-35.0) L 10/21/20 03:14 Monocytes % (Manual) 6.0 % (0.0-7.3) 10/21/20 03:14 Basophils % (Manual) 1.0 % (0.0-1.8) 10/21/20 03:14 Nucleated RBC % Not Reportable 10/21/20 03:14 Seg Neutrophils # 12.6 K/mm3 (1.8-7.7) H 10/22/20 02:45 Seg Neutrophils # Man 12.3 K/mm3 (1.8-7.7) H 10/21/20 03:14 Band Neutrophils # 0.1 K/mm3 10/21/20 03:14 Lymphocytes # (Manual) 1.0 K/mm3 (1.2-5.4) L 10/21/20 03:14 Abs React Lymphs (Man) 0.0 K/mm3 10/21/20 03:14 Monocytes # (Manual) 0.9 K/mm3 (0.0-0.8) H 10/21/20 03:14 Eosinophils # (Manual) 0.0 K/mm3 (0.0-0.4) 10/21/20 03:14 Basophils # (Manual) 0.1 K/mm3 (0.0-0.1) 10/21/20 03:14 Metamyelocytes # 0.0 K/mm3 10/21/20 03:14 Myelocytes # 0.0 K/mm3 10/21/20 03:14 Promyelocytes # 0.0 K/mm3 10/21/20 03:14 Blast Cells # 0.0 K/mm3 10/21/20 03:14 WBC Morphology Not Reportable 10/21/20 03:14 Hypersegmented Neuts Not Reportable 10/21/20 03:14 Hyposegmented Neuts Not Reportable 10/21/20 03:14 Hypogranular Neuts Not Reportable 10/21/20 03:14 Smudge Cells Not Reportable 10/21/20 03:14 Toxic Granulation Not Reportable 10/21/20 03:14 Toxic Vacuolation Not Reportable 10/21/20 03:14 Dohle Bodies Not Reportable 10/21/20 03:14 Pelger-Huet Anomaly Not Reportable 10/21/20 03:14 Linh Rods Not Reportable 10/21/20 03:14 Platelet Estimate Consistent w auto 10/21/20 03:14 Clumped Platelets Not Reportable 10/21/20 03:14 Plt Clumps, EDTA Not Reportable 10/21/20 03:14 Large Platelets Not Reportable 10/21/20 03:14 Giant Platelets Not Reportable 10/21/20 03:14 Platelet Satelliting Not Reportable 10/21/20 03:14 Plt Morphology Comment Not Reportable 10/21/20 03:14 RBC Morphology Normal 10/21/20 03:14 Dimorphic RBCs Not Reportable 10/21/20 03:14 Polychromasia Not Reportable 10/21/20 03:14 Hypochromasia Not Reportable 10/21/20 03:14 Poikilocytosis Not Reportable 10/21/20 03:14 Anisocytosis Not Reportable 10/21/20 03:14 Microcytosis Not Reportable 10/21/20 03:14 Macrocytosis Not Reportable 10/21/20 03:14 Spherocytes Not Reportable 10/21/20 03:14 Pappenheimer Bodies Not Reportable 10/21/20 03:14 Sickle Cells Not Reportable 10/21/20 03:14 Target Cells Not Reportable 10/21/20 03:14 Tear Drop Cells Not Reportable 10/21/20 03:14 Ovalocytes Not Reportable 10/21/20 03:14 Helmet Cells Not Reportable 10/21/20 03:14 [place] Bodies Not Reportable 10/21/20 03:14 [place] Rings Not Reportable 10/21/20 03:14 [place] Cells Not Reportable 10/21/20 03:14 Bite Cells Not Reportable 10/21/20 03:14 Crenated Cell Not Reportable 10/21/20 03:14 Elliptocytes Not Reportable 10/21/20 03:14 Acanthocytes (Spur) Not Reportable 10/21/20 03:14 Rouleaux Not Reportable 10/21/20 03:14 Hemoglobin C Crystals Not Reportable 10/21/20 03:14 Schistocytes Not Reportable 10/21/20 03:14 Malaria parasites Not Reportable 10/21/20 03:14 Shay Bodies Not Reportable 10/21/20 03:14 Hem Pathologist Commnt No 10/21/20 03:14 PT 15.9 Sec. (12.2-14.9) H 10/21/20 14:59 INR 1.22 (0.87-1.13) H 10/21/20 14:59 APTT 135.3 Sec. (24.2-36.6) H* 10/21/20 14:59 D-Dimer 2466.38 ng/mlDDU (0-234) H 10/21/20 03:14 Heparin Anti-Xa Level 0.51 U.I./ml (0.3-0.7) 10/22/20 07:00 Sodium 141 mmol/L (137-145) 10/22/20 02:45 Potassium 4.7 mmol/L (3.6-5.0) 10/22/20 02:45 Chloride 100.3 mmol/L (98-107) 10/22/20 02:45 Carbon Dioxide 20 mmol/L (22-30) L 10/22/20 02:45 Anion Gap 25 mmol/L 10/22/20 02:45 BUN 76 mg/dL (9-20) H 10/22/20 02:45 Creatinine 4.4 mg/dL (0.8-1.3) H 10/22/20 02:45 Estimated GFR 16 ml/min 10/22/20 02:45 BUN/Creatinine Ratio 17 % 10/22/20 02:45 Glucose 113 mg/dL (75-100) H 10/22/20 02:45 POC Glucose 181 mg/dL (70-105) H 10/22/20 08:18 Hemoglobin A1c 7.8 % (4-6) H 10/22/20 07:00 Calcium 8.4 mg/dL (8.4-10.2) 10/22/20 02:45 Total Bilirubin 0.30 mg/dL (0.1-1.2) 10/21/20 03:14 AST 23 units/L (5-40) 10/21/20 03:14 ALT 7 units/L (7-56) 10/21/20 03:14 Alkaline Phosphatase 104 units/L (35-129) 10/21/20 03:14 Troponin T 1.190 ng/mL (0.00-0.029) H* D 10/21/20 14:59 Total Protein 7.1 g/dL (6.3-8.2) 10/21/20 03:14 Albumin 3.9 g/dL (3.9-5) 10/21/20 03:14 Albumin/Globulin Ratio 1.2 % 10/21/20 03:14 Triglycerides 154 mg/dL (2-149) H 10/21/20 03:14 Cholesterol 212 mg/dL (50-199) H 10/21/20 03:14 LDL Cholesterol Direct 137 mg/dL (50-130) H 10/21/20 03:14 HDL Cholesterol 65 mg/dL (40-59) H 10/21/20 03:14 Cholesterol/HDL Ratio 3.26 % 10/21/20 03:14 [place]/IV: Voiding Method Condom Catheter Active Medications - Current Medications Current Medications: Generic Name Dose Route Start Last Admin Trade Name Freq PRN Reason Stop Dose Admin Acetaminophen 650 mg 10/21/20 05:28 Acetaminophen 325 Mg Tab PO Q4H PRN Pain MILD(1-3)/Fever >100.5/PRIETO Albuterol 2.5 mg 10/21/20 05:28 Albuterol 2.5 Mg/3 Ml Nebu IH Q4HRT PRN Shortness Of Breath Albuterol/Ipratropium 1 ampul 10/22/20 08:00 10/22/20 07:30 Ipratropium/Albuterol Sulfate 3 Ml Ampul.Neb IH 1 ampul TIDRT ALANNA Administration Amlodipine Besylate 10 mg 10/21/20 10:00 10/22/20 10:58 Amlodipine 10 Mg Tab PO 10 mg DAILY ALANAN Administration Aspirin 81 mg 10/21/20 10:00 10/22/20 10:59 Aspirin Ec 81 Mg Tab PO 81 mg DAILY ALANNA Administration Atorvastatin Calcium 40 mg 10/21/20 22:00 10/21/20 22:09 Atorvastatin 40 Mg Tab PO 40 mg QHS ALANNA Administration Cholecalciferol 2,000 unit 10/21/20 10:00 10/22/20 10:59 Cholecalciferol (Vit D3) 1000 Unit (25 Mcg) Tab PO 2,000 unit DAILY ALANNA Administration Clopidogrel Bisulfate 75 mg 10/21/20 10:00 10/22/20 10:59 Clopidogrel 75 Mg Tab PO 75 mg DAILY ALANNA Administration Famotidine 20 mg 10/21/20 10:00 10/22/20 10:59 Famotidine 20 Mg Tab PO 20 mg QAM ALANNA Administration Finasteride 5 mg 10/21/20 10:00 10/22/20 10:59 Finasteride 5 Mg Tab PO 5 mg BID [facility] Administration Furosemide 80 mg 10/21/20 18:00 10/22/20 05:42 Furosemide 100 Mg/10 Ml Inj IV 80 mg 0600,1800 ALANNA Administration Heparin Sodium (Porcine) 3,200 unit 10/21/20 12:01 Heparin 10,000 Units/10 Ml Vial 40 unit/kg (3200 unit) IV Q6H PRN Anti-Xa Assay < 0.1 units/ml Heparin Sodium/Sodium Chloride 25,000 unit in 500 mls @ 20 mls/hr 10/21/20 13:00 10/22/20 00:22 Heparin/ 0.45% Nacl-25,000 Unit/500 Ml IV 10/23/20 12:59 900 units/hr TITRATE ALANNA 18 mls/hr Titration Protocol 1,000 UNITS/HR Insulin Human Isoph/Insulin Regular 20 unit 10/21/20 09:00 10/22/20 09:01 Insulin Nph/Regular 70/30 Inj SUB-Q Not Given BIDDIAB [facility] Insulin Human Lispro 0 unit 10/21/20 11:30 10/22/20 09:01 Insulin Lispro 100 Unit/Ml SUB-Q Not Given ACHS [facility] Protocol Metoprolol Tartrate 25 mg 10/21/20 22:00 10/22/20 10:59 Metoprolol Tartrate 25 Mg Tab PO 25 mg BID ALANNA Administration Nitroglycerin 0.4 mg 10/21/20 05:28 Nitroglycerin 0.4 Mg Tab Subl SL Q5M PRN Chest Pain Ondansetron HCl 4 mg 10/21/20 05:28 Ondansetron 4 Mg/2 Ml Inj IV Q8H PRN Nausea And Vomiting Sertraline HCl 100 mg 10/21/20 10:00 10/22/20 10:59 Sertraline 100 Mg Tab PO 100 mg QDAY ALANNA Administration Sodium Bicarbonate 650 mg 10/21/20 22:00 10/22/20 10:59 Sodium Bicarbonate 650 Mg Tab PO 650 mg BID ALANNA Administration Sodium Chloride 10 ml 10/21/20 10:00 10/22/20 10:59 Sodium Chloride 0.9% 10 Ml Flush Syringe IV 10 ml BID ALANNA Administration Sodium Chloride 10 ml 10/21/20 05:28 Sodium Chloride 0.9% 10 Ml Flush Syringe IV PRN PRN LINE FLUSH Tamsulosin HCl 0.4 mg 10/21/20 10:00 10/22/20 10:59 Tamsulosin 0.4 Mg Cap PO 0.4 mg DAILY ALANNA Administration Tramadol HCl 50 mg 10/21/20 05:28 Tramadol 50 Mg Tab PO Q6H PRN Pain, Moderate (4-6)
--- NOTE | 2020-10-22 13:05 | Progress Note ---
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 Continue heparin gtt x 48 hrs total. Continue ASA, Plavix, statin, and BB. Plan for LHC when clinically stable. Minimal UOP noted overnight. Will defer to Nephro for diuretic dosing given renal fxn. Pt seen in conjunction with Dr. Ricardo, who agrees with the assessment and plan of care. - Patient Problems (1) Acute encephalopathy Current Visit: Yes Status: Acute (2) Acute respiratory failure Current Visit: Yes Status: Acute Qualifiers: Respiratory failure complication: hypoxia Qualified Code(s): J96.01 - Acute respiratory failure with hypoxia (3) Acute heart failure with preserved ejection fraction (HFpEF) Current Visit: Yes Status: Acute (4) Acute kidney injury superimposed on CKD Current Visit: Yes Status: Acute (5) NSTEMI (non-ST elevated myocardial infarction) Current Visit: Yes Status: Acute Plan to address problem: ?Type 2 (6) CAD (coronary artery disease) Current Visit: Yes Status: Chronic (7) S/P PTCA (percutaneous transluminal coronary angioplasty) Current Visit: Yes Status: Chronic (8) Aortic stenosis Current Visit: Yes Status: Chronic (9) Hypertension Current Visit: Yes Status: Chronic Qualifiers: Hypertension type: essential hypertension Qualified Code(s): I10 - Essential (primary) hypertension (10) Hyperlipidemia Current Visit: Yes Status: Chronic Qualifiers: Hyperlipidemia type: mixed hyperlipidemia Qualified Code(s): E78.2 - Mixed hyperlipidemia (11) DM2 (diabetes mellitus, type 2) Current Visit: Yes Status: Chronic (12) PVD (peripheral vascular disease) Current Visit: Yes Status: Chronic (13) Frequent falls Current Visit: Yes Status: Chronic (14) H/O: CVA (cerebrovascular accident) Current Visit: Yes Status: Chronic Subjective Date of service: 10/22/20 Principal diagnosis: NNAMDI/CKD, NSTEMI Interval history: On BiPAP upon assessment. No chest pain overnight or this AM. Mildly confused. present at bedside. Tele reviewed - SR 80-90s with occasional PVCs. Objective Last Vital Signs Temp 97.9 F 10/22/20 11:57 Pulse 82 06/04/21 14:27 Resp 27 H 10/22/20 14:27 BP 169/75 10/22/20 11:57 Pulse Ox 99 10/22/20 11:57 - Physical Examination General: No Apparent Distress HEENT: Positive: EOMI, Normocephaly, Mucus Membranes Moist Neck: Positive: neck supple, trachea midline. Negative: JVD/HJR Cardiac: Positive: Reg Rate and Rhythm Lungs: Positive: Decreased Breath Sounds (bases) Neuro: Positive: Grossly Intact Abdomen: Positive: Soft. Negative: Tender Skin: Negative: Rash Musculoskeletal: No Pain Extremities: Present: lower extr. pulses, edema (trace BLE) - Labs and Meds Coagulation 10/21/20 Range/Units 14:59 PT 15.9 H (12.2-14.9) Sec. INR 1.22 H (0.87-1.13) APTT 135.3 H* (24.2-36.6) Sec. CBC 10/21/20 10/22/20 Range/Units 14:59 02:45 WBC 15.5 H (4.5-11.0) K/mm3 RBC 4.05 (3.65-5.03) M/mm3 Hgb 11.5 L 12.1 (11.8-15.2) gm/dl Hct 36.4 35.9 (35.5-45.6) % Plt Count 241 224 (140-440) K/mm3 Lymph # (Auto) 1.3 (1.2-5.4) K/mm3 [place] # (Auto) 1.5 H (0.0-0.8) K/mm3 Eos # (Auto) 0.1 (0.0-0.4) K/mm3 Baso # (Auto) 0.1 (0.0-0.1) K/mm3 Comprehensive Metabolic Panel 10/22/20 Range/Units 02:45 Sodium 141 (137-145) mmol/L Potassium 4.7 (3.6-5.0) mmol/L Chloride 100.3 (98-107) mmol/L Carbon Dioxide 20 L (22-30) mmol/L BUN 76 H (9-20) mg/dL Creatinine 4.4 H (0.8-1.3) mg/dL Glucose 113 H (75-100) mg/dL Calcium 8.4 (8.4-10.2) mg/dL - Imaging and Cardiology EKG: report reviewed, image reviewed Pharmacologic stress test: report reviewed (08/27/2020 - inferoapical scar, no reversible ischemia noted) Echo: report reviewed (08/27/2020 - mod concentric LVH, EF 55-69%, grade 2 diastolic dysfxn, increased LA volume, mod AV stenosis, 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
--- NOTE | 2020-10-22 13:27 | Progress Note ---
Assessment and Plan - Patient Problems (1) Acute heart failure with preserved ejection fraction (HFpEF) Current Visit: Yes Status: Acute Plan to address problem: due to volume overload in the setting of progressive CKD, most recent Echo from08/27/2020 reviewed - mod concentric LVH, EF 55-69%, grade 2 diastolic dysfxn, increased LA volume, mod AV stenosis, mild-mod TR, RVSP 42 mmHg, trace anterior pericardial effusion. Cont diuresis with IV lasix 80mg bid to target net negative fluid balance. added diuril 500mg daily given persistent respiratory distress now requiring BIPAP. cont BB. RUSTY-I/ARB on hold d/t advanced CKD. Appreciate cardiology recommendations. If volume status does not improve further on escalating dose of diuretics will consider renal replacement therapy. (2) Acute respiratory failure Current Visit: Yes Status: Acute Qualifiers: Respiratory failure complication: hypoxia Qualified Code(s): J96.01 - Acute respiratory failure with hypoxia Plan to address problem: d/t pulmonary edema, IV diuresis with lasix and diuril (3) Pulmonary edema Current Visit: Yes Status: Acute Qualifiers: Chronicity: acute Qualified Code(s): J81.0 - Acute pulmonary edema Plan to address problem: cont IV lasix 80mg bid + diuril 500mg IV daily to target net negative fluid balance. If volume status does not improve further on escalating dose of diuretics will consider renal replacement therapy. (4) CKD (chronic kidney disease) Current Visit: Yes Status: Acute Qualifiers: Chronic kidney disease stage: unspecified stage Qualified Code(s): N18.9 - Chronic kidney disease, unspecified Plan to address problem: 2/2 underlying hypertensive nephrosclerosis/diabetic nephropathy, progressive CKD, currently being prepared for future HD, s/p LUE AVG placement on 10/19/20. Cont supportive care for CKD, avoid nephrotoxins, NSAIDs, IV contrast. cont volume control with IV lasix 80mg bid. start po Na bicarb for treatment of met acidosis. no urgent indication for renal replacement therapy at present. however If volume status does not improve further on escalating dose of diuretics, met acidosis is refractory to oral bicarb and/or significant uremic complications occur, will consider renal replacement therapy. (5) Hypertensive chronic kidney disease with stage 1 through stage 4 chronic kidney disease, or unspecified chronic kidney disease Current Visit: Yes Status: Acute Plan to address problem: monitor BP on current regimen (6) Type 2 diabetes mellitus with diabetic chronic kidney disease Current Visit: Yes Status: Acute Plan to address problem: diabetes management as per primary attending (7) Acidosis Current Visit: Yes Status: Acute Plan to address problem: start Na bicarb 650mg po bid Subjective Date of service: 10/22/20 Principal diagnosis: NNAMDI/CKD, NSTEMI Interval history: pt is currently on BIPAP for respiratory distress, pt with increased UOP on IV lasix. Objective - Vital Signs Vital signs: Vital Signs - 12hr 10/22/20 10/22/20 10/22/20 02:00 05:12 07:30 Temperature 98.2 F Pulse Rate 83 79 79 Pulse Rate [ Bilateral] Respiratory 27 H 24 32 H Rate Respiratory Rate [Bilateral ] Blood Pressure 145/60 Blood Pressure 140/68 [Left] O2 Sat by Pulse 98 95 94 Oximetry 10/22/20 10/22/20 10/22/20 07:35 08:16 10:00 Temperature 99.0 F Pulse Rate 64 84 Pulse Rate [ 92 H Bilateral] Respiratory 18 26 H Rate Respiratory 32 H Rate [Bilateral ] Blood Pressure 166/78 Blood Pressure [Left] O2 Sat by Pulse 93 95 Oximetry 10/22/20 10/22/20 10/22/20 10:58 10:59 11:57 Temperature 97.9 F Pulse Rate 84 84 89 Pulse Rate [ Bilateral] Respiratory 18 Rate Respiratory Rate [Bilateral ] Blood Pressure 166/78 166/78 169/75 Blood Pressure [Left] O2 Sat by Pulse 99 Oximetry - General Appearance General appearance: well-developed, well-nourished, appears stated age EENT: ATNC, PERRL, mucous membranes moist Neck: no JVD Respiratory: Present: Decreased Breath Sounds Cardiology: regular, S1S2 Gastrointestinal: normoactive bowel sounds Integumentary: no rash, other (no edema ) Neurologic: no focal deficit, alert and oriented x3, strength 5/5, CN 3-12 intact Psychiatric: mood/affect appropriate, cooperative - Lab 10/22/20 02:45 10/22/20 02:45 Most recent lab results Calcium 8.4 mg/dL (8.4-10.2) 10/22/20 02:45 Medications & Allergies - Medications Allergies/Adverse Reactions: Allergies pollen extracts Allergy (Verified 10/21/20 05:23) Unknown Home Medications: Home Medications Medication Instructions Recorded Confirmed Last Taken Type Clopidogrel Bisulfate [Clopidogrel] 1 tab PO DAILY 03/13/14 10/21/20 10/18/20 History Tamsulosin HCl 1 tab PO DAILY 03/13/14 10/21/20 10/18/20 History Aspirin [Adult Aspirin] 81 mg PO DAILY 10/12/20 10/21/20 10/18/20 History AtorvaSTATin [Lipitor] 40 mg PO QHS 10/12/20 10/21/20 10/18/20 History Dicyclomine [Bentyl] 20 mg PO BID 10/12/20 10/21/20 10/18/20 History Finasteride [Proscar] 5 mg PO BID 10/12/20 10/21/20 10/18/20 History Insulin NPH Human Isophane 15 unit SQ BID 10/12/20 10/21/20 10/18/20 20:30 History [Novolin N] Insulin Regular, Human [Novolin R] 10 units SUB-Q BID 10/12/20 10/21/20 10/18/20 20:30 History Metoprolol [Lopressor TAB] 50 mg PO QDAY 10/12/20 10/21/20 10/18/20 20:30 History Sertraline [Zoloft] 100 mg PO QDAY 10/12/20 10/21/20 10/18/20 History amLODIPine 10 mg PO DAILY 10/12/20 10/21/20 10/18/20 20:30 History HYDROcodone/APAP 7.5-325 [[place] 1 each PO Q6HR PRN #40 tablet 10/19/20 10/21/20 Unknown Rx 7.5/325] Ergocalciferol (Vitamin D2) 1,250 unit PO DAILY 10/21/20 10/21/20 Unknown History [Vitamin D2] Active Medications: Generic Name Dose Route Start Last Admin Trade Name Freq PRN Reason Stop Dose Admin Acetaminophen 650 mg 10/21/20 05:28 Acetaminophen 325 Mg Tab PO Q4H PRN Pain MILD(1-3)/Fever >100.5/PRIETO Albuterol 2.5 mg 10/21/20 05:28 Albuterol 2.5 Mg/3 Ml Nebu IH Q4HRT PRN Shortness Of Breath Albuterol/Ipratropium 1 ampul 10/22/20 08:00 10/22/20 07:30 Ipratropium/Albuterol Sulfate 3 Ml Ampul.Neb IH 1 ampul TIDRT ALANNA Administration Amlodipine Besylate 10 mg 10/21/20 10:00 10/22/20 10:58 Amlodipine 10 Mg Tab PO 10 mg DAILY ALANNA Administration Aspirin 81 mg 10/21/20 10:00 10/22/20 10:59 Aspirin Ec 81 Mg Tab PO 81 mg DAILY ALANNA Administration Atorvastatin Calcium 40 mg 10/21/20 22:00 10/21/20 22:09 Atorvastatin 40 Mg Tab PO 40 mg QHS ALANNA Administration Cholecalciferol 2,000 unit 10/21/20 10:00 10/22/20 10:59 Cholecalciferol (Vit D3) 1000 Unit (25 Mcg) Tab PO 2,000 unit DAILY ALANNA Administration Clopidogrel Bisulfate 75 mg 10/21/20 10:00 10/22/20 10:59 Clopidogrel 75 Mg Tab PO 75 mg DAILY ALANNA Administration Famotidine 20 mg 10/21/20 10:00 10/22/20 10:59 Famotidine 20 Mg Tab PO 20 mg QAM ALANNA Administration Finasteride 5 mg 10/21/20 10:00 10/22/20 10:59 Finasteride 5 Mg Tab PO 5 mg BID ALANNA Administration Furosemide 80 mg 10/21/20 18:00 10/22/20 05:42 Furosemide 100 Mg/10 Ml Inj IV 80 mg 0600,1800 ALANNA Administration Heparin Sodium (Porcine) 3,200 unit 10/21/20 12:01 Heparin 10,000 Units/10 Ml Vial 40 unit/kg (3200 unit) IV Q6H PRN Anti-Xa Assay < 0.1 units/ml Heparin Sodium/Sodium Chloride 25,000 unit in 500 mls @ 20 mls/hr 10/21/20 13:00 10/22/20 00:22 Heparin/ 0.45% Nacl-25,000 Unit/500 Ml IV 10/23/20 12:59 900 units/hr TITRATE ALANNA 18 mls/hr Titration Protocol 1,000 UNITS/HR Insulin Human Isoph/Insulin Regular 20 unit 10/21/20 09:00 10/22/20 09:01 Insulin Nph/Regular 70/30 Inj SUB-Q Not Given BIDDIAB [facility] Insulin Human Lispro 0 unit 10/21/20 11:30 10/22/20 12:02 Insulin Lispro 100 Unit/Ml SUB-Q Not Given ACHS [facility] Protocol Metoprolol Tartrate 25 mg 10/21/20 22:00 10/22/20 10:59 Metoprolol Tartrate 25 Mg Tab PO 25 mg BID ALANNA Administration Nitroglycerin 0.4 mg 10/21/20 05:28 Nitroglycerin 0.4 Mg Tab Subl SL Q5M PRN Chest Pain Ondansetron HCl 4 mg 10/21/20 05:28 Ondansetron 4 Mg/2 Ml Inj IV Q8H PRN Nausea And Vomiting Sertraline HCl 100 mg 10/21/20 10:00 10/22/20 10:59 Sertraline 100 Mg Tab PO 100 mg QDAY ALANNA Administration Sodium Bicarbonate 650 mg 10/21/20 22:00 10/22/20 10:59 Sodium Bicarbonate 650 Mg Tab PO 650 mg BID ALANNA Administration Sodium Chloride 10 ml 10/21/20 10:00 10/22/20 10:59 Sodium Chloride 0.9% 10 Ml Flush Syringe IV 10 ml BID ALANNA Administration Sodium Chloride 10 ml 10/21/20 05:28 Sodium Chloride 0.9% 10 Ml Flush Syringe IV PRN PRN LINE FLUSH Tamsulosin HCl 0.4 mg 10/21/20 10:00 10/22/20 10:59 Tamsulosin 0.4 Mg Cap PO 0.4 mg DAILY ALANNA Administration Tramadol HCl 50 mg 10/21/20 05:28 Tramadol 50 Mg Tab PO Q6H PRN Pain, Moderate (4-6)
--- NOTE | 2020-10-22 13:33 | Consultation ---
History of Present Illness Consult date: 10/22/20 Requesting physician: FORD ESPARZA Reason for consult: dyspnea, other (Acute Hypoxemic Respiratory Failure) History of present illness: PULMONARY/CCM CONSULT NOTE (Full dictation # [id number]) Please see dictated notes for full details Past History Past Medical History: CAD, diabetes, hypertension, hyperlipidemia, PVD, renal failure, stroke, other (aortic stenosis) Past Surgical History: PTCA Social history: smoking (former, quit 2020). denies: alcohol abuse Family history: denies: CAD Medications and Allergies Allergies Allergy/AdvReac Type Severity Reaction Status Date / Time pollen extracts Allergy Unknown Verified 10/21/20 05:23 Home Medications Medication Instructions Recorded Confirmed Last Taken Type Clopidogrel Bisulfate [Clopidogrel] 1 tab PO DAILY 03/13/14 10/21/20 10/18/20 History Tamsulosin HCl 1 tab PO DAILY 03/13/14 10/21/20 10/18/20 History Aspirin [Adult Aspirin] 81 mg PO DAILY 10/12/20 10/21/20 10/18/20 History AtorvaSTATin [Lipitor] 40 mg PO QHS 10/12/20 10/21/20 10/18/20 History Dicyclomine [Bentyl] 20 mg PO BID 10/12/20 10/21/20 10/18/20 History Finasteride [Proscar] 5 mg PO BID 10/12/20 10/21/20 10/18/20 History Insulin NPH Human [place]oph[place] 15 unit SQ BID 10/12/20 10/21/20 10/18/20 20:30 History [Novolin N] Insulin Regular, Human [Novolin R] 10 units SUB-Q BID 10/12/20 10/21/20 10/18/20 20:30 History Metoprolol [Lopressor TAB] 50 mg PO QDAY 10/12/20 10/21/20 10/18/20 20:30 History Sertraline [Zoloft] 100 mg PO QDAY 10/12/20 10/21/20 10/18/20 History amLODIPine 10 mg PO DAILY 10/12/20 10/21/20 10/18/20 20:30 History HYDROcodone/APAP 7.5-325 [[place] 1 each PO Q6HR PRN #40 tablet 10/19/20 10/21/20 Unknown Rx 7.5/325] Ergocalciferol (Vitamin D2) 1,250 unit PO DAILY 10/21/20 10/21/20 Unknown History [Vitamin D2] Active Meds: Active Medications Acetaminophen (Acetaminophen 325 Mg Tab) 650 mg PO Q4H PRN PRN Reason: Pain MILD(1-3)/Fever >100.5/PRIETO Albuterol (Albuterol 2.5 Mg/3 Ml Nebu) 2.5 mg IH Q4HRT PRN PRN Reason: Shortness Of Breath Albuterol/Ipratropium (Ipratropium/Albuterol Sulfate 3 Ml Ampul.Neb) 1 ampul IH TIDRT COUNT INCLUDES THE [facility] Last Admin: 10/22/20 07:30 Dose: 1 ampul Documented by: Amlodipine Besylate (Amlodipine 10 Mg Tab) 10 mg PO DAILY COUNT INCLUDES THE [facility] Last Admin: 10/22/20 10:58 Dose: 10 mg Documented by: Aspirin (Aspirin Ec 81 Mg Tab) 81 mg PO DAILY COUNT INCLUDES THE [facility] Last Admin: 10/22/20 10:59 Dose: 81 mg Documented by: Atorvastatin Calcium (Atorvastatin 40 Mg Tab) 40 mg PO QHS COUNT INCLUDES THE [facility] Last Admin: 10/21/20 22:09 Dose: 40 mg Documented by: Chlorothiazide Sodium (Chlorothiazide 500 Mg Vial) 500 mg IV QDAY COUNT INCLUDES THE [facility] Cholecalciferol (Cholecalciferol (Vit D3) 1000 Unit (25 Mcg) Tab) 2,000 unit PO DAILY COUNT INCLUDES THE [facility] Last Admin: 10/22/20 10:59 Dose: 2,000 unit Documented by: Clopidogrel Bisulfate (Clopidogrel 75 Mg Tab) 75 mg PO DAILY COUNT INCLUDES [facility] Last Admin: 10/22/20 10:59 Dose: 75 mg Documented by: Famotidine (Famotidine 20 Mg Tab) 20 mg PO QAM COUNT INCLUDES THE [facility] Last Admin: 10/22/20 10:59 Dose: 20 mg Documented by: Finasteride (Finasteride 5 Mg Tab) 5 mg PO BID COUNT INCLUDES THE [facility] Last Admin: 10/22/20 10:59 Dose: 5 mg Documented by: Furosemide (Furosemide 100 Mg/10 Ml Inj) 80 mg IV 0600,1800 COUNT INCLUDES THE [facility] Last Admin: 10/22/20 05:42 Dose: 80 mg Documented by: Heparin Sodium (Porcine) (Heparin 10,000 Units/10 Ml Vial) 3,200 unit 40 unit/kg (3200 unit) IV Q6H PRN PRN Reason: Anti-Xa Assay < 0.1 units/ml Heparin Sodium/Sodium Chloride (Heparin/ 0.45% Nacl-25,000 Unit/500 Ml) 25,000 unit in 500 mls @ 20 mls/hr IV TITRATE COUNT INCLUDES THE [facility]; Protocol Stop: 10/23/20 12:59 Last Titration: 10/22/20 00:22 Dose: 900 units/hr, 18 mls/hr Documented by: Insulin Human Isoph/Insulin Regular (Insulin Nph/Regular 70/30 Inj) 20 unit SUB-Q BIDDIAB COUNT INCLUDES THE [facility] Last Admin: 10/22/20 09:01 Dose: Not Given Documented by: Insulin Human Lispro (Insulin Lispro 100 Unit/Ml) 0 unit SUB-Q ACHS COUNT INCLUDES THE [facility]; Protocol Last Admin: 10/22/20 12:02 Dose: Not Given Documented by: Metoprolol Tartrate (Metoprolol Tartrate 25 Mg Tab) 25 mg PO BID COUNT INCLUDES THE [facility] Last Admin: 10/22/20 10:59 Dose: 25 mg Documented by: Nitroglycerin (Nitroglycerin 0.4 Mg Tab Subl) 0.4 mg SL Q5M PRN PRN Reason: Chest Pain Ondansetron HCl (Ondansetron 4 Mg/2 Ml Inj) 4 mg IV Q8H PRN PRN Reason: Nausea And Vomiting Sertraline HCl (Sertraline 100 Mg Tab) 100 mg PO QDAY COUNT INCLUDES THE [facility] Last Admin: 10/22/20 10:59 Dose: 100 mg Documented by: Sodium Bicarbonate (Sodium Bicarbonate 650 Mg Tab) 650 mg PO BID COUNT INCLUDES THE [facility] Last Admin: 10/22/20 10:59 Dose: 650 mg Documented by: Sodium Chloride (Sodium Chloride 0.9% 10 Ml Flush Syringe) 10 ml IV BID COUNT INCLUDES THE [facility] Last Admin: 10/22/20 10:59 Dose: 10 ml Documented by: Sodium Chloride (Sodium Chloride 0.9% 10 Ml Flush Syringe) 10 ml IV PRN PRN PRN Reason: LINE FLUSH Tamsulosin HCl (Tamsulosin 0.4 Mg Cap) 0.4 mg PO DAILY COUNT INCLUDES [facility] Last Admin: 10/22/20 10:59 Dose: 0.4 mg Documented by: Tramadol HCl (Tramadol 50 Mg Tab) 50 mg PO Q6H PRN PRN Reason: Pain, Moderate (4-6) Physical Examination Vital signs: Vital Signs Temp Pulse Resp BP Pulse Ox 97.5 F L 105 H 36 H 176/70 85 10/21/20 03:10 10/21/20 03:10 10/21/20 03:10 10/21/20 03:10 10/21/20 03:10 Results - Laboratory Findings CBC and BMP: 10/22/20 02:45 10/22/20 02:45 PT/INR, D-dimer PT 15.9 Sec. (12.2-14.9) H 10/21/20 14:59 INR 1.22 (0.87-1.13) H 10/21/20 14:59 D-Dimer 2466.38 ng/mlDDU (0-234) H 10/21/20 03:14 Abnormal lab findings: Abnormal Labs 10/21/20 10/21/20 10/21/20 03:14 03:14 03:14 WBC 14.5 H Hgb RDW 16.1 H Lymph % (Auto) [place] % (Auto) Lymph # (Auto) [place] # (Auto) Seg Neutrophils % Seg Neuts % (Manual) 85.0 H Lymphocytes % (Manual) 7.0 L Seg Neutrophils # Seg Neutrophils # Man 12.3 H Lymphocytes # (Manual) 1.0 L Monocytes # (Manual) 0.9 H PT INR APTT 23.5 L D-Dimer 2466.38 H Chloride Carbon Dioxide 16 L D BUN 55 H Creatinine 3.7 H Glucose 333 H POC Glucose Hemoglobin A1c Calcium 8.3 L Troponin T Triglycerides Cholesterol LDL Cholesterol Direct HDL Cholesterol 10/21/20 10/21/20 10/21/20 03:14 05:56 07:53 WBC 13.6 H Hgb RDW 16.4 H Lymph % (Auto) 3.7 L [place] % (Auto) Lymph # (Auto) 0.5 L [place] # (Auto) 0.9 H Seg Neutrophils % 89.6 H Seg Neuts % (Manual) Lymphocytes % (Manual) Seg Neutrophils # 12.2 H Seg Neutrophils # Man Lymphocytes # (Manual) Monocytes # (Manual) PT INR APTT D-Dimer Chloride Carbon Dioxide BUN Creatinine Glucose POC Glucose 307 H Hemoglobin A1c Calcium Troponin T 0.241 H* Triglycerides 154 H Cholesterol 212 H LDL Cholesterol Direct 137 H HDL Cholesterol 65 H 10/21/20 10/21/20 10/21/20 07:53 10:52 10:55 WBC Hgb RDW Lymph % (Auto) [place] % (Auto) Lymph # (Auto) [place] # (Auto) Seg Neutrophils % Seg Neuts % (Manual) Lymphocytes % (Manual) Seg Neutrophils # Seg Neutrophils # Man Lymphocytes # (Manual) Monocytes # (Manual) PT INR APTT D-Dimer Chloride 97.4 L Carbon Dioxide 19 L BUN 63 H Creatinine 4.0 H Glucose 337 H POC Glucose 320 H Hemoglobin A1c Calcium 8.3 L Troponin T 0.730 H* D Triglycerides Cholesterol LDL Cholesterol Direct HDL Cholesterol 10/21/20 10/21/20 10/21/20 14:59 14:59 14:59 WBC Hgb 11.5 L RDW Lymph % (Auto) [place] % (Auto) Lymph # (Auto) [place] # (Auto) Seg Neutrophils % Seg Neuts % (Manual) Lymphocytes % (Manual) Seg Neutrophils # Seg Neutrophils # Man Lymphocytes # (Manual) Monocytes # (Manual) PT 15.9 H INR 1.22 H APTT 135.3 H* D-Dimer Chloride Carbon Dioxide BUN Creatinine Glucose POC Glucose Hemoglobin A1c Calcium Troponin T 1.190 H* D Triglycerides Cholesterol LDL Cholesterol Direct HDL Cholesterol 10/21/20 10/22/20 10/22/20 16:55 02:45 02:45 WBC 15.5 H Hgb RDW 16.2 H Lymph % (Auto) 8.2 L [place] % (Auto) 9.5 H Lymph # (Auto) [place] # (Auto) 1.5 H Seg Neutrophils % 81.3 H Seg Neuts % (Manual) Lymphocytes % (Manual) Seg Neutrophils # 12.6 H Seg Neutrophils # Man Lymphocytes # (Manual) Monocytes # (Manual) PT INR APTT D-Dimer Chloride Carbon Dioxide 20 L BUN 76 H Creatinine 4.4 H Glucose 113 H POC Glucose 312 H Hemoglobin A1c Calcium Troponin T Triglycerides Cholesterol LDL Cholesterol Direct HDL Cholesterol 10/22/20 10/22/20 10/22/20 07:00 08:18 11:58 WBC Hgb RDW Lymph % (Auto) [place] % (Auto) Lymph # (Auto) [place] # (Auto) Seg Neutrophils % Seg Neuts % (Manual) Lymphocytes % (Manual) Seg Neutrophils # Seg Neutrophils # Man Lymphocytes # (Manual) Monocytes # (Manual) PT INR APTT D-Dimer Chloride Carbon Dioxide BUN Creatinine Glucose POC Glucose 181 H 237 H Hemoglobin A1c 7.8 H Calcium Troponin T Triglycerides Cholesterol LDL Cholesterol Direct HDL Cholesterol
[2020-10-22] MEDS: METOPROLOL TARTRATE 50 MG TAB PO SCH ×2 (17:45→21:43)
[2020-10-22] MEDS: CHLOROTHIAZIDE 500 MG VIAL IV SCH (17:50)
[2020-10-22] MEDS: HEPARIN/ 0.45% NACL DRIP 25,000 UNIT/500 ML BAG IV SCH (17:52)
--- NOTE | 2020-10-23 01:40 | Consultation ---
DATE OF CONSULTATION: 10/22/2020 PULMONARY CONSULTATION CONSULTING PHYSICIAN: Dr. Schilling. REASON FOR CONSULTATION: Shortness of breath. CHIEF COMPLAINT AND HISTORY OF PRESENT ILLNESS: As follows: The patient is a 70-year-old male with past medical history according to the records and the patient's significant for a diagnosis of chronic kidney disease, who came into the emergency room a couple of days ago with complaints of shortness of breath, nausea, vomiting, and generalized malaise. He recently had a left upper extremity brachial AV graft for tentative dialysis and he states that over the preceding days, before coming to the ER, he had just developed increasing shortness of breath and dyspnea on exertion. In the emergency room, he was found to be hypoxemic, O2 sats in the 70s. He was evaluated and admitted to the regular floor, requiring noninvasive ventilation and 50% FIO2 for management. When I stopped by to see him, he was resting in bed. He remained on continuous BiPAP therapy, but was pretty comfortable on it. He felt a little bit better. He admitted to streaky hemoptysis before coming into the hospital. He admits to a little bit of pleuritic-type chest pain. Of note, he had nausea and vomiting before admission, but denies overt aspiration. Of note, he has been tried on high dose of Lasix to see if the pulmonary edema can be relieved or improved. He denied any new-onset leg pain or swelling, either unilaterally or bilaterally prior to presentation. He does admit to a 10+ pack year tobacco smoking history, smoking as much as a pack of cigarettes a day at a point and states he is now determined to quit. This really is as much of the history of presentation as I have. PAST MEDICAL HISTORY: Hypertension, coronary artery disease, cardiomegaly, diabetes, chronic kidney disease, history of nephrolithiasis. PAST SURGICAL HISTORY: Denies. MEDICATIONS: He was on at the time I stopped by to see him, according to the medication administration record included the following: Tylenol 650 mg p.o. q. 4 hours p.r.n. mild pain or fever, albuterol nebulizer treatments 2.5 mg nebulized q. 4 hours p.r.n. shortness of breath, DuoNeb treatments as scheduled t.i.d., amlodipine 10 mg p.o. daily, aspirin 81 mg p.o. daily, Lipitor 40 mg p.o. at bedtime, chlorothiazide sodium 500 mg IV daily, vitamin D3 2000 units p.o. daily, Plavix 75 mg p.o. daily, Pepcid 20 mg p.o. daily, Proscar 5 mg p.o. b.i.d., Lasix 80 mg IV b.i.d., heparin drip per ACS protocol, insulin via sliding scale as well as 70/30 insulin 20 units subcutaneous b.i.d., metoprolol 25 mg p.o. b.i.d., p.r.n. Nitrostat 0.4 mg sublingual q. 5 minutes p.r.n. chest pain, Zofran 4 mg IV q. 8 hours p.r.n. nausea and vomiting, Zoloft 100 mg p.o. daily, Flomax 0.4 mg p.o. daily, tramadol 50 mg p.o. q. 6 hours p.r.n. moderate pain. ALLERGIES: TO POLLEN EXTRACT. NATURE OF THIS ALLERGY IS UNKNOWN. DIET: Well built gentleman. Denies acute weight loss or gain in the preceding few weeks to months. FAMILY AND SOCIAL HISTORY: Lives in the community. He has a 10+ plus pack year tobacco smoking history. He states he has actually quit for a few years now. Denies alcohol or illicit drug use or abuse. FAMILY HISTORY: Otherwise, noncontributory. REVIEW OF SYSTEMS: No loss of consciousness. No new onset seizures. No new onset focal weakness. No gross hematochezia or melena. No gross hematuria. He had the streaky hemoptysis. He denies heat or cold intolerance. He admitted to some orthopnea prior to presentation. He denies polydipsia or polyuria. Complete 13 system review of systems obtained. Pertinent positives and/or negatives as in body of history above, otherwise they are noncontributory. PHYSICAL EXAMINATION: VITAL SIGNS: At presentation in the emergency room and since he has been afebrile. On presentation, temperature 97.5 degrees Fahrenheit, pulse of 105, respiratory rate of 36, blood pressure 158/66, O2 sats were 85%. At that time, his inspired oxygen concentration was not recorded. When I stopped by to see him, O2 sats were 98%, that was on the noninvasive ventilation BiPAP, FiO2 of 50% and 18/10. GENERAL: Again, he is an elderly male. Normocephalic, atraumatic. Resting in bed with mildly increased respiratory effort at rest on the noninvasive ventilation. HEAD, EYES, EARS, NOSE, AND THROAT: No conjunctival erythema. He is anicteric. NECK: No gross jugular venous distention. No thyromegaly. Grossly, there were no palpable lymph nodes in the supraclavicular or submandibular lymph node chains. LUNGS: Auscultation of both lung hendricks with faint crackles in particular in the bases. Diminished bilateral breath sounds. No active wheezing. HEART: Sounds 1 and 2 are heard. There were regular rate and rhythm at the time of my evaluation without overt rubs or murmurs. ABDOMEN: Soft, full, bowel sounds are positive, nontender, no palpable hepatosplenomegaly. EXTREMITIES: Without overt digital clubbing or cyanosis, no pedal edema. NEUROLOGIC: Pupils are equal, round, about 3 mm, reactive to light. Extraocular muscle movements are intact. He moves all 4 extremities spontaneously. SKIN: Normal turgor in the areas examined without overt cellulitis or rash. In the left upper extremity, he has a fresh AV graft without a palpable thrill and with mild erythema around the area of the inner left upper arm. PSYCHIATRIC: His mood was normal. Affect was appropriate. He had intact judgment and insight. LABORATORY DATA: From my review are as follows: Admission white cell count 14,500, hemoglobin 12.9, hematocrit 38.1, and platelet count 272. No significant band forms on the manual differential. D-dimer was 2466. INR within normal limits. Serum sodium was 137, potassium 4.3, chloride 98, bicarbonate 16, BUN 55, creatinine 3.7, glucose was 333. Troponin was up at 0.24. It is up to 1.19 now. LDL cholesterol was 137. Liver function tests otherwise within normal limits. No microbiology studies for my review. Chest x-ray was done, which shows cardiomegaly. It is a lordotic film. It also shows perihilar and diffuse alveolar-type infiltrates. No gross pneumothorax. No gross bony fractures. ASSESSMENT: 1. Acute hypoxemic respiratory failure. 2. Acute pulmonary edema, presumably secondary to #3. 3. Acute on chronic kidney injury. 4. Cardiomyopathy, history of congestive heart failure. 5. Leukocytosis, was present at presentation. 6. Hypertension. 7. History of diabetes. 8. History of nephrolithiasis. 9. Tobacco use disorder. 10. Mild metabolic acidosis, improving. 11. Hyperlipidemia. 12. Non-ST elevation myocardial infarction. PLAN: We will keep him on noninvasive ventilation, which will be scheduled at bedtime and p.r.n. daytime use is allowed. Hopefully, they can get some fluid out of him with diuretics. If not, dialysis will likely be necessary. Oxygen will be weaned to keep sats greater than or equal to about 90%. Aspiration precautions will be maintained. No longer having episodes of nausea and vomiting thankfully at this point. No acute indication for antibiotic therapy in my opinion. I will go ahead and order a procalcitonin level, just to help better evaluate the true infectious potential of this leukocytosis. I do believe it may be partially secondary to uremia. Metabolic acidosis is better. He is appropriately on GI prophylaxis as well as DVT prophylaxis. Flu and pneumonia vaccination will be addressed per protocol. Again, thank you very much for the consult. I should mention that tobacco abstinence has been strongly counseled at the bedside. Continued tobacco abstinence that is. We will follow along and make further recommendations as picture progresses/becomes clearer. TID: [id number] RECEIPT: [id number] ARIANNA/EDDY MORGAN
[2020-10-23 05:31] LABS: Hematocrit 30.7 % (35.5-45.6); Hemoglobin 10.4 gm/dl (11.8-15.2); Mean Corpuscular HGB Conc 34 % (32-34); Mean Corpuscular Volume 88 fl (84-94); Platelet Count 207 K/mm3 (140-440); Red Blood Count 3.49 M/mm3 (3.65-5.03); Red Cell Distribution Width 15.9 % (13.2-15.2)
[2020-10-23 05:52] LABS: Calcium 8.9 mg/dL (8.4-10.2)
[2020-10-23] MEDS: FUROSEMIDE 100 MG/10 ML INJ IV SCH ×2 (06:08→19:04)
[2020-10-23] MEDS: IPRATROPIUM/ALBUTEROL SULFATE 3 ML AMPUL.NEB IH SCH ×3 (07:25→21:30)
[2020-10-23] MEDS: INSULIN LISPRO 100 UNIT/ML SUB-Q SCH ×4 (08:08→21:33)
[2020-10-23] MEDS: INSULIN NPH/REGULAR 70/30 INJ SUB-Q SCH ×2 (08:09→17:07)
--- NOTE | 2020-10-23 10:03 | Progress Note ---
Assessment and Plan - Patient Problems (1) Acute heart failure with preserved ejection fraction (HFpEF) Current Visit: Yes Status: Acute Plan to address problem: due to volume overload in the setting of progressive CKD, most recent Echo from08/27/2020 reviewed - mod concentric LVH, EF 55-69%, grade 2 diastolic dysfxn, increased LA volume, mod AV stenosis, mild-mod TR, RVSP 42 mmHg, trace anterior pericardial effusion. Cont diuresis with IV lasix 80mg bid and diuril 500mg daily to target net negative fluid balance. cont BB. RUSTY-I/ARB on hold d/t adv anced CKD. Appreciate cardiology recommendations. no urgent indication for renal replacement therapy at this time (2) Acute respiratory failure Current Visit: Yes Status: Acute Qualifiers: Respiratory failure complication: hypoxia Qualified Code(s): J96.01 - Acute respiratory failure with hypoxia Plan to address problem: d/t pulmonary edema, IV diuresis with lasix and diuril (3) Pulmonary edema Current Visit: Yes Status: Acute Qualifiers: Chronicity: acute Qualified Code(s): J81.0 - Acute pulmonary edema Plan to address problem: cont IV lasix 80mg bid + diuril 500mg IV daily to target net negative fluid balance. If volume status does not improve further on escalating dose of diure tics will consider renal replacement therapy. (4) CKD (chronic kidney disease) Current Visit: Yes Status: Acute Qualifiers: Chronic kidney disease stage: unspecified stage Qualified Code(s): N18.9 - Chronic kidney disease, unspecified Plan to address problem: 2/2 underlying hypertensive nephrosclerosis/diabetic nephropathy, progressive CKD, currently being prepared for future HD, s/p LUE AVG placement on 10/19/20. Cont supportive care for CKD, avoid nephrotoxins, NSAIDs, IV contrast. cont volume control with IV lasix 80mg bid. start po Na bicarb for treatment of met acidosis. no urgent indication for renal replacement therapy at present. however If volume status does not improve further on escalating dose of diuretics, met acidosis is refractory to oral bicarb and/or significant uremic complications occur, will consider renal replacement therapy. (5) Hypertensive chronic kidney disease with stage 1 through stage 4 chronic kidney disease, or unspecified chronic kidney disease Current Visit: Yes Status: Acute Plan to address problem: monitor BP on current regimen (6) Type 2 diabetes mellitus with diabetic chronic kidney disease Current Visit: Yes Status: Acute Plan to address problem: diabetes management as per primary attending (7) Acidosis Current Visit: Yes Status: Acute Plan to address problem: start Na bicarb 650mg po bid Subjective Date of service: 10/23/20 Principal diagnosis: NNAMDI/CKD, NSTEMI Interval history: pt is currently on BIPAP for respiratory distress, pt with good response to current IV diuretics . Objective - Vital Signs Vital signs: Vital Signs - 12hr 10/23/20 10/23/20 10/23/20 00:11 04:12 07:19 Temperature 98.0 F 98.0 F 98.9 F Pulse Rate 72 76 Respiratory 18 18 20 Rate Blood Pressure 126/56 99/43 136/49 O2 Sat by Pulse 98 100 Oximetry - General Appearance General appearance: well-developed, well-nourished, appears stated age EENT: ATNC, PERRL, mucous membranes moist Neck: no JVD Respiratory: Present: Decreased Breath Sounds Cardiology: regular, S1S2 Gastrointestinal: normoactive bowel sounds Integumentary: no rash, other (no edema ) Neurologic: no focal deficit, alert and oriented x3, strength 5/5, CN 3-12 intact Psychiatric: mood/affect appropriate, cooperative - Lab 10/23/20 04:29 10/23/20 04:29 Most recent lab results Calcium 8.9 mg/dL (8.4-10.2) 10/23/20 04:29 Medications & Allergies - Medications Allergies/Adverse Reactions: Allergies pollen extracts Allergy (Verified 10/21/20 05:23) Unknown Home Medications: Home Medications Medication Instructions Recorded Confirmed Last Taken Type Clopidogrel Bisulfate [Clopidogrel] 1 tab PO DAILY 03/13/14 10/21/20 10/18/20 History Tamsulosin HCl 1 tab PO DAILY 03/13/14 10/21/20 10/18/20 History Aspirin [Adult Aspirin] 81 mg PO DAILY 10/12/20 10/21/20 10/18/20 History AtorvaSTATin [Lipitor] 40 mg PO QHS 10/12/20 10/21/20 10/18/20 History Dicyclomine [Bentyl] 20 mg PO BID 10/12/20 10/21/20 10/18/20 History Finasteride [Proscar] 5 mg PO BID 10/12/20 10/21/20 10/18/20 History Insulin NPH Human Isophane 15 unit SQ BID 10/12/20 10/21/20 10/18/20 20:30 History [Novolin N] Insulin Regular, Human [Novolin R] 10 units SUB-Q BID 10/12/20 10/21/20 10/18/20 20:30 History Metoprolol [Lopressor TAB] 50 mg PO QDAY 10/12/20 10/21/20 10/18/20 20:30 History Sertraline [Zoloft] 100 mg PO QDAY 10/12/20 10/21/20 10/18/20 History amLODIPine 10 mg PO DAILY 10/12/20 10/21/20 10/18/20 20:30 History HYDROcodone/APAP 7.5-325 [[place] 1 each PO Q6HR PRN #40 tablet 10/19/20 10/21/20 Unknown Rx 7.5/325] Ergocalciferol (Vitamin D2) 1,250 unit PO DAILY 10/21/20 10/21/20 Unknown History [Vitamin D2] Active Medications: Generic Name Dose Route Start Last Admin Trade Name Freq PRN Reason Stop Dose Admin Acetaminophen 650 mg 10/21/20 05:28 Acetaminophen 325 Mg Tab PO Q4H PRN Pain MILD(1-3)/Fever >100.5/PRIETO Albuterol 2.5 mg 10/21/20 05:28 Albuterol 2.5 Mg/3 Ml Nebu IH Q4HRT PRN Shortness Of Breath Albuterol/Ipratropium 1 ampul 10/22/20 08:00 10/23/20 07:25 Ipratropium/Albuterol Sulfate 3 Ml Ampul.Neb IH 1 ampul TIDRT ALANNA Administration Amlodipine Besylate 10 mg 10/21/20 10:00 10/22/20 10:58 Amlodipine 10 Mg Tab PO 10 mg DAILY ALANNA Administration Aspirin 81 mg 10/21/20 10:00 10/22/20 10:59 Aspirin Ec 81 Mg Tab PO 81 mg DAILY ALANNA Administration Atorvastatin Calcium 40 mg 10/21/20 22:00 10/22/20 21:43 Atorvastatin 40 Mg Tab PO 40 mg QHS ALANNA Administration Chlorothiazide Sodium 500 mg 10/22/20 15:00 10/22/20 17:50 Chlorothiazide 500 Mg Vial IV 500 mg QDAY [facility] Administration Cholecalciferol 2,000 unit 10/21/20 10:00 10/22/20 10:59 Cholecalciferol (Vit D3) 1000 Unit (25 Mcg) Tab PO 2,000 unit DAILY ALANNA Administration Clopidogrel Bisulfate 75 mg 10/21/20 10:00 10/22/20 10:59 Clopidogrel 75 Mg Tab PO 75 mg DAILY ALANNA Administration Famotidine 20 mg 10/21/20 10:00 10/22/20 10:59 Famotidine 20 Mg Tab PO 20 mg QAM ALANNA Administration Finasteride 5 mg 10/21/20 10:00 10/22/20 21:44 Finasteride 5 Mg Tab PO 5 mg BID ALANNA Administration Furosemide 80 mg 10/21/20 18:00 10/23/20 06:08 Furosemide 100 Mg/10 Ml Inj IV 80 mg 0600,1800 [facility] Administration Heparin Sodium (Porcine) 3,200 unit 10/21/20 12:01 Heparin 10,000 Units/10 Ml Vial 40 unit/kg (3200 unit) IV Q6H PRN Anti-Xa Assay < 0.1 units/ml Heparin Sodium/Sodium Chloride 25,000 unit in 500 mls @ 20 mls/hr 10/21/20 13:00 10/23/20 06:00 Heparin/ 0.45% Nacl-25,000 Unit/500 Ml IV 10/23/20 12:59 1,000 units/hr TITRATE ALANNA 20 mls/hr Titration Protocol 1,000 UNITS/HR Insulin Human Isoph/Insulin Regular 20 unit 10/21/20 09:00 10/23/20 08:09 Insulin Nph/Regular 70/30 Inj SUB-Q Not Given BIDDIAB [facility] Insulin Human Lispro 0 unit 10/21/20 11:30 10/23/20 08:08 Insulin Lispro 100 Unit/Ml SUB-Q Not Given ACHS [facility] Protocol Metoprolol Tartrate 50 mg 10/22/20 17:00 10/22/20 21:43 Metoprolol Tartrate 50 Mg Tab PO 50 mg BID ALANNA Administration Nitroglycerin 0.4 mg 10/21/20 05:28 Nitroglycerin 0.4 Mg Tab Subl SL Q5M PRN Chest Pain Ondansetron HCl 4 mg 10/21/20 05:28 Ondansetron 4 Mg/2 Ml Inj IV Q8H PRN Nausea And Vomiting Sertraline HCl 100 mg 10/21/20 10:00 10/22/20 10:59 Sertraline 100 Mg Tab PO 100 mg QDAY ALANNA Administration Sodium Bicarbonate 650 mg 10/21/20 22:00 10/22/20 21:43 Sodium Bicarbonate 650 Mg Tab PO 650 mg BID ALANNA Administration Sodium Chloride 10 ml 10/21/20 10:00 10/22/20 21:44 Sodium Chloride 0.9% 10 Ml Flush Syringe IV 10 ml BID ALANNA Administration Sodium Chloride 10 ml 10/21/20 05:28 Sodium Chloride 0.9% 10 Ml Flush Syringe IV PRN PRN LINE FLUSH Tamsulosin HCl 0.4 mg 10/21/20 10:00 10/22/20 10:59 Tamsulosin 0.4 Mg Cap PO 0.4 mg DAILY ALANNA Administration Tramadol HCl 50 mg 10/21/20 05:28 Tramadol 50 Mg Tab PO Q6H PRN Pain, Moderate (4-6)
[2020-10-23] MEDS: FINASTERIDE 5 MG TAB PO SCH ×2 (10:58→21:34)
[2020-10-23] MEDS: SERTRALINE 100 MG TAB PO SCH (10:59)
[2020-10-23] MEDS: TAMSULOSIN 0.4 MG CAP PO SCH (10:59)
[2020-10-23] MEDS: FAMOTIDINE 20 MG TAB PO SCH (10:59)
[2020-10-23] MEDS: METOPROLOL TARTRATE 50 MG TAB PO SCH ×2 (10:59→21:34)
[2020-10-23] MEDS: CHOLECALCIFEROL (VIT D3) 1000 UNIT (25 mcg) TAB PO SCH (10:59)
[2020-10-23] MEDS: SODIUM BICARBONATE 650 MG TAB PO SCH ×2 (10:59→21:34)
[2020-10-23] MEDS: ASPIRIN EC 81 MG TAB PO SCH (10:59)
[2020-10-23] MEDS: CLOPIDOGREL 75 MG TAB PO SCH (11:00)
--- NOTE | 2020-10-23 11:10 | Progress Note ---
Assessment and Plan Assessment and plan: 70-year-old male with past medical history of hypertension, hyperlipidemia and diabetes, Chronic kidney disease was brought to the emergency department via EMS from home with complaints of shortness of breath, nausea with vomiting and left upper arm pain that started earlier this evening. The patient was a short stay admission here yesterday, in order to go to the OR with vascular for placement of a left brachial AV graft so the patient can start getting dialysis. His licensing and registration director is Dr. Dangelo. When EMS arrived the patient was moaning, vomiting, appeared short of breath, and had a pulse ox seen to be in the 70s. In the emergency room patient is found to have acute respiratory failure, volume overload pulmonary edema. Patient troponin is 0.241 Patient this morning is in acute respiratory failure on BiPAP 10/22: Continue supportive care. Will obtain pulmonary consultation in addition to current management. Nephrology and cardiology input appreciated. Leukocytosis etiology not quite clear patient is afebrile will monitor closely if worsening or development of fever will start patient on empiric antibiotic coverage. 10/23. Remains on BiPAP. On IV Lasix and Diuril. Nephrology following. No urgent indication for renal replacement therapy at this time per nephrology. Problems #Acute respiratory failure Current Visit: Yes Status: Acute Qualifiers: Respiratory failure complication: hypoxia Qualified Code(s): J96.01 - Acute respiratory failure with hypoxia Plan to address problem: Secondary to pulmonary edema Continue BiPAP Bronchodilators Diuretics Pulmonology evaluation Cardiology evaluation #Pulmonary edema Current Visit: Yes Status: Acute Qualifiers: Chronicity: acute Qualified Code(s): J81.0 - Acute pulmonary edema Plan to address problem: Management as per above #Elevated troponin Current Visit: Yes Status: Acute Plan to address problem: Continue aspirin and Plavix Statins Cardiology evaluation Heparin drip x 48 hrs Plan for left heart cath per cardiology #CKD (chronic kidney disease) Current Visit: Yes Status: Acute Qualifiers: Chronic kidney disease stage: unspecified stage Qualified Code(s): N18.9 - Chronic kidney disease, unspecified Plan to address problem: Nephrology following #Hyperlipidemia Current Visit: Yes Status: Acute Plan to address problem: Statins #Diabetes mellitus Current Visit: Yes Status: Acute Plan to address problem: Continue insulin regimen Monitor blood glucose #Hypertension Current Visit: Yes Status: Acute Qualifiers: Hypertension type: essential hypertension Qualified Code(s): I10 - Essential (primary) hypertension # DVT prophylaxis Current Visit: Yes Status: Acute Plan to address problem: Heparin drip History Interval history: Patient seen and examined at bedside this morning. Patient remains on BiPAP On diuretics States that he is hungry Hospitalist Physical - Physical exam Narrative exam: VITAL SIGNS: Reviewed. GENERAL: Awake HEAD: No signs of head trauma. EYES: Pupils are equal. Extraocular motions intact. MOUTH: Oropharynx is normal. NECK: No adenopathy, no JVD. CHEST: Diminished breath sounds bilaterally CARDIAC: normal S1 and S2, without murmurs, gallops, or rubs. ABDOMEN: Soft, non tender and non distended. No rebound or guarding, and no masses palpated. Bowel Sounds normal. MUSCULOSKELETAL: No edema NEUROLOGIC EXAM: Alert and oriented x3. No focal neurologic deficits SKIN: No obvious lesions - Constitutional Vitals: Temp Pulse Resp BP Pulse Ox 98.9 F 76 22 136/49 100 10/23/20 07:19 10/23/20 10:59 10/23/20 08:00 10/23/20 10:59 10/23/20 07:35 HEART Score - HEART Score Troponin: Troponin T 1.190 ng/mL (0.00-0.029) H* D 10/21/20 14:59 Results - Labs CBC & Chem 7: 10/23/20 04:29 10/23/20 04:29 Labs: Laboratory Last Values WBC 10.6 K/mm3 (4.5-11.0) 10/23/20 04:29 RBC 3.49 M/mm3 (3.65-5.03) L 10/23/20 04:29 Hgb 10.4 gm/dl (11.8-15.2) L 10/23/20 04:29 Hct 30.7 % (35.5-45.6) L 10/23/20 04:29 MCV 88 fl (84-94) 10/23/20 04:29 MCH 30 pg (28-32) 10/23/20 04:29 MCHC 34 % (32-34) 10/23/20 04:29 RDW 15.9 % (13.2-15.2) H 10/23/20 04:29 Plt Count 207 K/mm3 (140-440) 10/23/20 04:29 Lymph % (Auto) 8.2 % (13.4-35.0) L 10/22/20 02:45 [place] % (Auto) 9.5 % (0.0-7.3) H 10/22/20 02:45 Eos % (Auto) 0.6 % (0.0-4.3) 10/22/20 02:45 Baso % (Auto) 0.4 % (0.0-1.8) 10/22/20 02:45 Lymph # (Auto) 1.3 K/mm3 (1.2-5.4) 10/22/20 02:45 [place] # (Auto) 1.5 K/mm3 (0.0-0.8) H 10/22/20 02:45 Eos # (Auto) 0.1 K/mm3 (0.0-0.4) 10/22/20 02:45 Baso # (Auto) 0.1 K/mm3 (0.0-0.1) 10/22/20 02:45 Add Manual Diff Complete 10/21/20 03:14 Total Counted 100 10/21/20 03:14 Seg Neutrophils % 81.3 % (40.0-70.0) H 10/22/20 02:45 Seg Neuts % (Manual) 85.0 % (40.0-70.0) H 10/21/20 03:14 Band Neutrophils % 1.0 % 10/21/20 03:14 Lymphocytes % (Manual) 7.0 % (13.4-35.0) L 10/21/20 03:14 Monocytes % (Manual) 6.0 % (0.0-7.3) 10/21/20 03:14 Basophils % (Manual) 1.0 % (0.0-1.8) 10/21/20 03:14 Nucleated RBC % Not Reportable 10/21/20 03:14 Seg Neutrophils # 12.6 K/mm3 (1.8-7.7) H 10/22/20 02:45 Seg Neutrophils # Man 12.3 K/mm3 (1.8-7.7) H 10/21/20 03:14 Band Neutrophils # 0.1 K/mm3 10/21/20 03:14 Lymphocytes # (Manual) 1.0 K/mm3 (1.2-5.4) L 10/21/20 03:14 Abs React Lymphs (Man) 0.0 K/mm3 10/21/20 03:14 Monocytes # (Manual) 0.9 K/mm3 (0.0-0.8) H 10/21/20 03:14 Eosinophils # (Manual) 0.0 K/mm3 (0.0-0.4) 10/21/20 03:14 Basophils # (Manual) 0.1 K/mm3 (0.0-0.1) 10/21/20 03:14 Metamyelocytes # 0.0 K/mm3 10/21/20 03:14 Myelocytes # 0.0 K/mm3 10/21/20 03:14 Promyelocytes # 0.0 K/mm3 10/21/20 03:14 Blast Cells # 0.0 K/mm3 10/21/20 03:14 WBC Morphology Not Reportable 10/21/20 03:14 Hypersegmented Neuts Not Reportable 10/21/20 03:14 Hyposegmented Neuts Not Reportable 10/21/20 03:14 Hypogranular Neuts Not Reportable 10/21/20 03:14 Smudge Cells Not Reportable 10/21/20 03:14 Toxic Granulation Not Reportable 10/21/20 03:14 Toxic Vacuolation Not Reportable 10/21/20 03:14 Dohle Bodies Not Reportable 10/21/20 03:14 Pelger-Huet Anomaly Not Reportable 10/21/20 03:14 Linh Rods Not Reportable 10/21/20 03:14 Platelet Estimate Consistent w auto 10/21/20 03:14 Clumped Platelets Not Reportable 10/21/20 03:14 Plt Clumps, EDTA Not Reportable 10/21/20 03:14 Large Platelets Not Reportable 10/21/20 03:14 Giant Platelets Not Reportable 10/21/20 03:14 Platelet Satelliting Not Reportable 10/21/20 03:14 Plt Morphology Comment Not Reportable 10/21/20 03:14 RBC Morphology Normal 10/21/20 03:14 Dimorphic RBCs Not Reportable 10/21/20 03:14 Polychromasia Not Reportable 10/21/20 03:14 Hypochromasia Not Reportable 10/21/20 03:14 Poikilocytosis Not Reportable 10/21/20 03:14 Anisocytosis Not Reportable 10/21/20 03:14 Microcytosis Not Reportable 10/21/20 03:14 Macrocytosis Not Reportable 10/21/20 03:14 Spherocytes Not Reportable 10/21/20 03:14 Pappenheimer Bodies Not Reportable 10/21/20 03:14 Sickle Cells Not Reportable 10/21/20 03:14 Target Cells Not Reportable 10/21/20 03:14 Tear Drop Cells Not Reportable 10/21/20 03:14 Ovalocytes Not Reportable 10/21/20 03:14 Helmet Cells Not Reportable 10/21/20 03:14 Wray-[place]garden Bodies Not Reportable 10/21/20 03:14 Boyden Rings Not Reportable 10/21/20 03:14 [place] Cells Not Reportable 10/21/20 03:14 Bite Cells Not Reportable 10/21/20 03:14 Crenated Cell Not Reportable 10/21/20 03:14 Elliptocytes Not Reportable 10/21/20 03:14 Acanthocytes (Spur) Not Reportable 10/21/20 03:14 Rouleaux Not Reportable 10/21/20 03:14 Hemoglobin C Crystals Not Reportable 10/21/20 03:14 Schistocytes Not Reportable 10/21/20 03:14 Malaria parasites Not Reportable 10/21/20 03:14 Shay Bodies Not Reportable 10/21/20 03:14 Hem Pathologist Commnt No 10/21/20 03:14 PT 15.9 Sec. (12.2-14.9) H 10/21/20 14:59 INR 1.22 (0.87-1.13) H 10/21/20 14:59 APTT 135.3 Sec. (24.2-36.6) H* 10/21/20 14:59 D-Dimer 2466.38 ng/mlDDU (0-234) H 10/21/20 03:14 Heparin Anti-Xa Level 0.20 U.I./ml (0.3-0.7) L 10/23/20 04:29 Sodium 139 mmol/L (137-145) 10/23/20 04:29 Potassium 4.5 mmol/L (3.6-5.0) 10/23/20 04:29 Chloride 99.5 mmol/L (98-107) 10/23/20 04:29 Carbon Dioxide 25 mmol/L (22-30) 10/23/20 04:29 Anion Gap 19 mmol/L 10/23/20 04:29 BUN 78 mg/dL (9-20) H 10/23/20 04:29 Creatinine 4.3 mg/dL (0.8-1.3) H 10/23/20 04:29 Estimated GFR 17 ml/min 10/23/20 04:29 BUN/Creatinine Ratio 18 % 10/23/20 04:29 Glucose 139 mg/dL (75-100) H 10/23/20 04:29 POC Glucose 272 mg/dL (70-105) H 10/22/20 21:25 Hemoglobin A1c 7.8 % (4-6) H 10/22/20 07:00 Calcium 8.9 mg/dL (8.4-10.2) 10/23/20 04:29 Total Bilirubin 0.30 mg/dL (0.1-1.2) 10/21/20 03:14 AST 23 units/L (5-40) 10/21/20 03:14 ALT 7 units/L (7-56) 10/21/20 03:14 Alkaline Phosphatase 104 units/L (35-129) 10/21/20 03:14 Troponin T 1.190 ng/mL (0.00-0.029) H* D 10/21/20 14:59 Total Protein 7.1 g/dL (6.3-8.2) 10/21/20 03:14 Albumin 3.9 g/dL (3.9-5) 10/21/20 03:14 Albumin/Globulin Ratio 1.2 % 10/21/20 03:14 Triglycerides 154 mg/dL (2-149) H 10/21/20 03:14 Cholesterol 212 mg/dL (50-199) H 10/21/20 03:14 LDL Cholesterol Direct 137 mg/dL (50-130) H 10/21/20 03:14 HDL Cholesterol 65 mg/dL (40-59) H 10/21/20 03:14 Cholesterol/HDL Ratio 3.26 % 10/21/20 03:14 [place]/IV: Voiding Method Urinal Active Medications - Current Medications Current Medications: Generic Name Dose Route Start Last Admin Trade Name Freq PRN Reason Stop Dose Admin Acetaminophen 650 mg 10/21/20 05:28 Acetaminophen 325 Mg Tab PO Q4H PRN Pain MILD(1-3)/Fever >100.5/PRIETO Albuterol 2.5 mg 10/21/20 05:28 Albuterol 2.5 Mg/3 Ml Nebu IH Q4HRT PRN Shortness Of Breath Albuterol/Ipratropium 1 ampul 10/22/20 08:00 10/23/20 07:25 Ipratropium/Albuterol Sulfate 3 Ml Ampul.Neb IH 1 ampul TIDRT ALANNA Administration Amlodipine Besylate 10 mg 10/21/20 10:00 10/22/20 10:58 Amlodipine 10 Mg Tab PO 10 mg DAILY ALANNA Administration Aspirin 81 mg 10/21/20 10:00 10/23/20 10:59 Aspirin Ec 81 Mg Tab PO 81 mg DAILY ALANNA Administration Atorvastatin Calcium 40 mg 10/21/20 22:00 10/22/20 21:43 Atorvastatin 40 Mg Tab PO 40 mg QHS ALANNA Administration Chlorothiazide Sodium 500 mg 10/22/20 15:00 10/22/20 17:50 Chlorothiazide 500 Mg Vial IV 500 mg QDAY ALANNA Administration Cholecalciferol 2,000 unit 10/21/20 10:00 10/23/20 10:59 Cholecalciferol (Vit D3) 1000 Unit (25 Mcg) Tab PO 2,000 unit DAILY ALANNA Administration Clopidogrel Bisulfate 75 mg 10/21/20 10:00 10/23/20 11:00 Clopidogrel 75 Mg Tab PO 75 mg DAILY ALANNA Administration Famotidine 20 mg 10/21/20 10:00 10/23/20 10:59 Famotidine 20 Mg Tab PO 20 mg QAM ALANNA Administration Finasteride 5 mg 10/21/20 10:00 10/23/20 10:58 Finasteride 5 Mg Tab PO 5 mg BID ALANNA Administration Furosemide 80 mg 10/21/20 18:00 10/23/20 06:08 Furosemide 100 Mg/10 Ml Inj IV 80 mg 0600,1800 ALANNA Administration Heparin Sodium (Porcine) 3,200 unit 10/21/20 12:01 Heparin 10,000 Units/10 Ml Vial 40 unit/kg (3200 unit) IV Q6H PRN Anti-Xa Assay < 0.1 units/ml Heparin Sodium/Sodium Chloride 25,000 unit in 500 mls @ 20 mls/hr 06/03/21 13:00 10/23/20 06:00 Heparin/ 0.45% Nacl-25,000 Unit/500 Ml IV 10/23/20 12:59 1,000 units/hr TITRATE ALANNA 20 mls/hr Titration Protocol 1,000 UNITS/HR Insulin Human Isoph/Insulin Regular 20 unit 10/21/20 09:00 10/23/20 08:09 Insulin Nph/Regular 70/30 Inj SUB-Q Not Given BIDDIAB ALANNA Insulin Human Lispro 0 unit 10/21/20 11:30 10/23/20 08:08 Insulin Lispro 100 Unit/Ml SUB-Q Not Given ACHS [facility] Protocol Metoprolol Tartrate 50 mg 10/22/20 17:00 10/23/20 10:59 Metoprolol Tartrate 50 Mg Tab PO 50 mg BID ALANNA Administration Nitroglycerin 0.4 mg 10/21/20 05:28 Nitroglycerin 0.4 Mg Tab Subl SL Q5M PRN Chest Pain Ondansetron HCl 4 mg 10/21/20 05:28 Ondansetron 4 Mg/2 Ml Inj IV Q8H PRN Nausea And Vomiting Sertraline HCl 100 mg 10/21/20 10:00 10/23/20 10:59 Sertraline 100 Mg Tab PO 100 mg QDAY ALANNA Administration Sodium Bicarbonate 650 mg 10/21/20 22:00 10/23/20 10:59 Sodium Bicarbonate 650 Mg Tab PO 650 mg BID ALANNA Administration Sodium Chloride 10 ml 10/21/20 10:00 10/23/20 11:00 Sodium Chloride 0.9% 10 Ml Flush Syringe IV 10 ml BID ALANNA Administration Sodium Chloride 10 ml 10/21/20 05:28 Sodium Chloride 0.9% 10 Ml Flush Syringe IV PRN PRN LINE FLUSH Tamsulosin HCl 0.4 mg 10/21/20 10:00 10/23/20 10:59 Tamsulosin 0.4 Mg Cap PO 0.4 mg DAILY ALANNA Administration Tramadol HCl 50 mg 10/21/20 05:28 Tramadol 50 Mg Tab PO Q6H PRN Pain, Moderate (4-6)
[2020-10-23] MEDS: amLODIPine 10 MG TAB PO SCH (11:21)
--- NOTE | 2020-10-23 13:01 | Progress Note ---
Assessment and Plan Acute hypoxemic respiratory failure Acute pulmonary edema Acute on chronic kidney injury Cardiomyopathy (H/O CHF) Leukocytosis Hypertension History of diabetes History of nephrolithiasis Tobacco use disorder Mild metabolic acidosis, improving Hyperlipidemia Non-ST elevation myocardial infarction - continue diuresis (good negative fluid balance) - HD/UF per nephrology prescription (no acute indication) - continue BIPAP scheduled qhs with prn daytime use - continue care as below otherwise; - continue to wean supplemental oxygen to keep O2 sats > 90% - prn bronchodilators (MICHELET) with pulm hygiene per RT - continue to avoid nephrotoxins, renally dose all medications - mobility protocols to prevent pressure ulcers - PT/OT as tolerated - Wound care per RN/WCT - accuchecks with glycemic control per SSI for target blood glucose < 180 mg/dL - continued tobacco abstinence strongly counseled at the bedside - home oxygen evaluation at discharge - GI & VTE prophylaxis - Flu & pneumovax per protocol - Pulmonary out patient follow up for PFTs and optimization of respiratory status - continue other care per attending / other consultants - prn analgesia per pain score ... re-evaluate in am & prn Subjective Date of service: 10/23/20 Principal diagnosis: Ac. hypoxemic resp failure; Pulm edema; NNAMDI; H/O CHF; DM II; NSTEMI Interval history: Patient is seen today for: Acute hypoxemic respiratory failure; Acute pulmonary edema; NNAMDI on CKD; H/O CHF; Leukocytosis; DM II; NSTEMI Seen and examined at bedside; 24hour events reviewed; nursing and respiratory care staff consulted; no adverse overnight events reported to me; resting peacefully in bed; still requesting BIPAP use during the day intermittently; denies acute chest pains or palpitations; afebrile Objective Vital Signs - 12hr 10/23/20 10/23/20 10/23/20 04:12 07:19 07:30 Temperature 98.0 F 98.9 F Pulse Rate 76 Pulse Rate [ Anterior Bilateral Throughout] Respiratory 18 20 Rate Respiratory Rate [Anterior Bilateral Throughout] Blood Pressure 99/43 136/49 O2 Sat by Pulse 100 100 Oximetry 10/23/20 10/23/20 10/23/20 07:35 08:00 10:59 Temperature Pulse Rate 76 76 Pulse Rate [ 76 Anterior Bilateral Throughout] Respiratory 22 Rate Respiratory 22 Rate [Anterior Bilateral Throughout] Blood Pressure 136/49 O2 Sat by Pulse 100 Oximetry 10/23/20 10/23/20 10/23/20 11:08 11:21 12:17 Temperature 98.3 F Pulse Rate 78 78 Pulse Rate [ Anterior Bilateral Throughout] Respiratory 20 Rate Respiratory Rate [Anterior Bilateral Throughout] Blood Pressure 132/56 132/56 O2 Sat by Pulse 97 98 Oximetry Constitutional: appears uncomfortable, other (elderly male with mildly increased respiratory effort at rest) Eyes: non-icteric ENT: oropharynx moist Neck: supple, no lymphadenopathy, no JVD Effort: mildly labored Ascultation: Bilateral: diminished breath sounds, rhonchi Percussion: Bilateral: not dull Cardiovascular: regular rate and rhythm Gastrointestinal: normoactive bowel sounds, soft, non-tender, non-distended (protuberant) Integumentary: normal Extremities: no cyanosis, no edema, pulses normal, no ischemia or petechiae Neurologic: normal mental status, non-focal exam, pupils equal and round, motor strength normal and Psychiatric: mood appropriate, affect normal CBC and BMP: 10/23/20 04:29 10/24/20 10:56 ABG, PT/INR, D-dimer: PT/INR, D-dimer PT 15.9 Sec. (12.2-14.9) H 10/21/20 14:59 INR 1.22 (0.87-1.13) H 10/21/20 14:59 D-Dimer 2466.38 ng/mlDDU (0-234) H 10/21/20 03:14 Abnormal lab findings: Abnormal Labs 10/21/20 10/21/20 10/21/20 03:14 03:14 03:14 WBC 14.5 H RBC Hgb Hct RDW 16.1 H Lymph % (Auto) [place] % (Auto) Lymph # (Auto) [place] # (Auto) Seg Neutrophils % Seg Neuts % (Manual) 85.0 H Lymphocytes % (Manual) 7.0 L Seg Neutrophils # Seg Neutrophils # Man 12.3 H Lymphocytes # (Manual) 1.0 L Monocytes # (Manual) 0.9 H PT INR APTT 23.5 L D-Dimer 2466.38 H Heparin Anti-Xa Level Chloride Carbon Dioxide 16 L D BUN 55 H Creatinine 3.7 H Glucose 333 H POC Glucose Hemoglobin A1c Calcium 8.3 L Troponin T Triglycerides Cholesterol LDL Cholesterol Direct HDL Cholesterol 06/03/21 06/03/21 06/03/21 03:14 05:56 07:53 WBC 13.6 H RBC Hgb Hct RDW 16.4 H Lymph % (Auto) 3.7 L [place] % (Auto) Lymph # (Auto) 0.5 L [place] # (Auto) 0.9 H Seg Neutrophils % 89.6 H Seg Neuts % (Manual) Lymphocytes % (Manual) Seg Neutrophils # 12.2 H Seg Neutrophils # Man Lymphocytes # (Manual) Monocytes # (Manual) PT INR APTT D-Dimer Heparin Anti-Xa Level Chloride Carbon Dioxide BUN Creatinine Glucose POC Glucose 307 H Hemoglobin A1c Calcium Troponin T 0.241 H* Triglycerides 154 H Cholesterol 212 H LDL Cholesterol Direct 137 H HDL Cholesterol 65 H 10/21/20 10/21/20 10/21/20 07:53 10:52 10:55 WBC RBC Hgb Hct RDW Lymph % (Auto) [place] % (Auto) Lymph # (Auto) [place] # (Auto) Seg Neutrophils % Seg Neuts % (Manual) Lymphocytes % (Manual) Seg Neutrophils # Seg Neutrophils # Man Lymphocytes # (Manual) Monocytes # (Manual) PT INR APTT D-Dimer Heparin Anti-Xa Level Chloride 97.4 L Carbon Dioxide 19 L BUN 63 H Creatinine 4.0 H Glucose 337 H POC Glucose 320 H Hemoglobin A1c Calcium 8.3 L Troponin T 0.730 H* D Triglycerides Cholesterol LDL Cholesterol Direct HDL Cholesterol 10/21/20 10/21/20 10/21/20 14:59 14:59 14:59 WBC RBC Hgb 11.5 L Hct RDW Lymph % (Auto) [place] % (Auto) Lymph # (Auto) [place] # (Auto) Seg Neutrophils % Seg Neuts % (Manual) Lymphocytes % (Manual) Seg Neutrophils # Seg Neutrophils # Man Lymphocytes # (Manual) Monocytes # (Manual) PT 15.9 H INR 1.22 H APTT 135.3 H* D-Dimer Heparin Anti-Xa Level Chloride Carbon Dioxide BUN Creatinine Glucose POC Glucose Hemoglobin A1c Calcium Troponin T 1.190 H* D Triglycerides Cholesterol LDL Cholesterol Direct HDL Cholesterol 10/21/20 10/22/20 10/22/20 16:55 02:45 02:45 WBC 15.5 H RBC Hgb Hct RDW 16.2 H Lymph % (Auto) 8.2 L [place] % (Auto) 9.5 H Lymph # (Auto) [place] # (Auto) 1.5 H Seg Neutrophils % 81.3 H Seg Neuts % (Manual) Lymphocytes % (Manual) Seg Neutrophils # 12.6 H Seg Neutrophils # Man Lymphocytes # (Manual) Monocytes # (Manual) PT INR APTT D-Dimer Heparin Anti-Xa Level Chloride Carbon Dioxide 20 L BUN 76 H Creatinine 4.4 H Glucose 113 H POC Glucose 312 H Hemoglobin A1c Calcium Troponin T Triglycerides Cholesterol LDL Cholesterol Direct HDL Cholesterol 10/22/20 10/22/20 10/22/20 07:00 08:18 11:58 WBC RBC Hgb Hct RDW Lymph % (Auto) [place] % (Auto) Lymph # (Auto) [place] # (Auto) Seg Neutrophils % Seg Neuts % (Manual) Lymphocytes % (Manual) Seg Neutrophils # Seg Neutrophils # Man Lymphocytes # (Manual) Monocytes # (Manual) PT INR APTT D-Dimer Heparin Anti-Xa Level Chloride Carbon Dioxide BUN Creatinine Glucose POC Glucose 181 H 237 H Hemoglobin A1c 7.8 H Calcium Troponin T Triglycerides Cholesterol LDL Cholesterol Direct HDL Cholesterol 10/22/20 10/22/20 10/23/20 16:58 21:25 04:29 WBC RBC 3.49 L Hgb 10.4 L Hct 30.7 L RDW 15.9 H Lymph % (Auto) [place] % (Auto) Lymph # (Auto) [place] # (Auto) Seg Neutrophils % Seg Neuts % (Manual) Lymphocytes % (Manual) Seg Neutrophils # Seg Neutrophils # Man Lymphocytes # (Manual) Monocytes # (Manual) PT INR APTT D-Dimer Heparin Anti-Xa Level Chloride Carbon Dioxide BUN Creatinine Glucose POC Glucose 273 H 272 H Hemoglobin A1c Calcium Troponin T Triglycerides Cholesterol LDL Cholesterol Direct HDL Cholesterol 10/23/20 10/23/20 10/23/20 04:29 04:29 07:26 WBC RBC Hgb Hct RDW Lymph % (Auto) [place] % (Auto) Lymph # (Auto) [place] # (Auto) Seg Neutrophils % Seg Neuts % (Manual) Lymphocytes % (Manual) Seg Neutrophils # Seg Neutrophils # Man Lymphocytes # (Manual) Monocytes # (Manual) PT INR APTT D-Dimer Heparin Anti-Xa Level 0.20 L Chloride Carbon Dioxide BUN 78 H Creatinine 4.3 H Glucose 139 H POC Glucose 158 H Hemoglobin A1c Calcium Troponin T Triglycerides Cholesterol LDL Cholesterol Direct HDL Cholesterol 10/23/20 10/23/20 11:07 11:50 WBC RBC Hgb Hct RDW Lymph % (Auto) [place] % (Auto) Lymph # (Auto) [place] # (Auto) Seg Neutrophils % Seg Neuts % (Manual) Lymphocytes % (Manual) Seg Neutrophils # Seg Neutrophils # Man Lymphocytes # (Manual) Monocytes # (Manual) PT INR APTT D-Dimer Heparin Anti-Xa Level 0.27 L Chloride Carbon Dioxide BUN Creatinine Glucose POC Glucose 201 H Hemoglobin A1c Calcium Troponin T Triglycerides Cholesterol LDL Cholesterol Direct HDL Cholesterol Chest x-ray: pending Allied health notes reviewed: nursing
[2020-10-23] MEDS: CHLOROTHIAZIDE 500 MG VIAL IV SCH (13:55)
--- NOTE | 2020-10-23 16:07 | Progress Note ---
Assessment and Plan Continue heparin gtt x 48 hrs total. Continue ASA, Plavix, statin, and BB. Plan for LHC when clinically stable. May have to be arranged as an outpatient after adequate access is established for HD. Decent UOP (-1250 mL) noted/24 hrs. Continue IV diuresis as per Nephro recs. Pt seen in conjunction with Dr. Marie, who agrees with the assessment and plan of care. - Patient Problems (1) Acute respiratory failure Current Visit: Yes Status: Acute Qualifiers: Respiratory failure complication: hypoxia Qualified Code(s): J96.01 - Acute respiratory failure with hypoxia (2) Acute heart failure with preserved ejection fraction (HFpEF) Current Visit: Yes Status: Acute (3) Acute kidney injury superimposed on CKD Current Visit: Yes Status: Acute (4) Anemia Current Visit: Yes Status: Acute (5) NSTEMI (non-ST elevated myocardial infarction) Current Visit: Yes Status: Acute Plan to address problem: ?Type 2 (in the setting of progressive renal disease) (6) CAD (coronary artery disease) Current Visit: Yes Status: Chronic (7) S/P PTCA (percutaneous transluminal coronary angioplasty) Current Visit: Yes Status: Chronic Plan to address problem: 2013 (8) Aortic stenosis Current Visit: Yes Status: Chronic (9) Hypertension Current Visit: Yes Status: Chronic Qualifiers: Hypertension type: essential hypertension Qualified Code(s): I10 - Essential (primary) hypertension (10) Hyperlipidemia Current Visit: Yes Status: Chronic Qualifiers: Hyperlipidemia type: mixed hyperlipidemia Qualified Code(s): E78.2 - Mixed hyperlipidemia (11) DM2 (diabetes mellitus, type 2) Current Visit: Yes Status: Chronic (12) PVD (peripheral vascular disease) Current Visit: Yes Status: Chronic (13) Aorto-iliac disease Current Visit: Yes Status: Chronic (14) H/O: CVA (cerebrovascular accident) Current Visit: Yes Status: Chronic (15) Frequent falls Current Visit: Yes Status: Chronic Subjective Date of service: 10/23/20 Principal diagnosis: NNAMDI/CKD, NSTEMI Interval history: Looking and feeling much better today. Alert and oriented. On NC. Denies any complaints. No further chest pain overnight or this AM. present at bedside. Objective Last Vital Signs Temp 98.3 F 10/23/20 11:08 Pulse 85 10/23/20 14:00 Resp 18 10/23/20 14:00 BP 132/56 10/23/20 11:21 Pulse Ox 98 10/23/20 12:17 - Physical Examination General: No Apparent Distress HEENT: Positive: EOMI, Normocephaly, Mucus Membranes Moist Neck: Positive: neck supple, trachea midline. Negative: JVD/HJR Cardiac: Positive: Reg Rate and Rhythm, S1/S2, Systolic Murmur (2/6) Lungs: Positive: Decreased Breath Sounds (bases) Neuro: Positive: Grossly Intact Abdomen: Positive: Soft. Negative: Tender Skin: Negative: Rash Musculoskeletal: No Pain Extremities: Present: lower extr. pulses. Absent: edema - Labs and Meds CBC 10/23/20 Range/Units 04:29 WBC 10.6 (4.5-11.0) K/mm3 RBC 3.49 L (3.65-5.03) M/mm3 Hgb 10.4 L (11.8-15.2) gm/dl Hct 30.7 L (35.5-45.6) % Plt Count 207 (140-440) K/mm3 Comprehensive Metabolic Panel 10/23/20 Range/Units 04:29 Sodium 139 (137-145) mmol/L Potassium 4.5 (3.6-5.0) mmol/L Chloride 99.5 (98-107) mmol/L Carbon Dioxide 25 (22-30) mmol/L BUN 78 H (9-20) mg/dL Creatinine 4.3 H (0.8-1.3) mg/dL Glucose 139 H (75-100) mg/dL Calcium 8.9 (8.4-10.2) mg/dL - Imaging and Cardiology EKG: report reviewed, image reviewed Pharmacologic stress test: report reviewed (08/27/2020 - inferoapical scar, no reversible ischemia noted) Echo: report reviewed (08/27/2020 - mod concentric LVH, EF 55-69%, grade 2 diastolic dysfxn, increased LA volume, mod AV stenosis, 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
[2020-10-23] MEDS: traMADol 50 MG TAB PO PRN (17:58)
[2020-10-24] MEDS: FUROSEMIDE 100 MG/10 ML INJ IV SCH ×2 (05:35→17:44)
[2020-10-24] MEDS: INSULIN LISPRO 100 UNIT/ML SUB-Q SCH ×4 (08:29→22:41)
[2020-10-24] MEDS: IPRATROPIUM/ALBUTEROL SULFATE 3 ML AMPUL.NEB IH SCH ×3 (08:34→20:39)
[2020-10-24] MEDS: ASPIRIN EC 81 MG TAB PO SCH (09:20)
[2020-10-24] MEDS: SODIUM BICARBONATE 650 MG TAB PO SCH ×2 (09:20→21:19)
[2020-10-24] MEDS: FINASTERIDE 5 MG TAB PO SCH ×2 (09:20→21:19)
[2020-10-24] MEDS: CLOPIDOGREL 75 MG TAB PO SCH (09:20)
[2020-10-24] MEDS: TAMSULOSIN 0.4 MG CAP PO SCH (09:20)
[2020-10-24] MEDS: SERTRALINE 100 MG TAB PO SCH (09:20)
[2020-10-24] MEDS: CHLOROTHIAZIDE 500 MG VIAL IV SCH (09:20)
[2020-10-24] MEDS: amLODIPine 10 MG TAB PO SCH (09:20)
[2020-10-24] MEDS: METOPROLOL TARTRATE 50 MG TAB PO SCH ×2 (09:21→21:19)
[2020-10-24] MEDS: FAMOTIDINE 20 MG TAB PO SCH (09:21)
[2020-10-24] MEDS: CHOLECALCIFEROL (VIT D3) 1000 UNIT (25 mcg) TAB PO SCH (09:21)
[2020-10-24] MEDS: INSULIN NPH/REGULAR 70/30 INJ SUB-Q SCH ×2 (09:24→16:41)
--- NOTE | 2020-10-24 09:29 | Progress Note ---
Assessment and Plan - Patient Problems (1) Acute heart failure with preserved ejection fraction (HFpEF) Current Visit: Yes Status: Acute Plan to address problem: due to volume overload in the setting of progressive CKD, most recent Echo from 08/27/2020 reviewed - mod concentric LVH, EF 55-69%, grade 2 diastolic dysfxn, increased LA volume, mod AV stenosis, mild-mod TR, RVSP 42 mmHg, trace anterior pericardial effusion. Volume and respiratory status improved with IV diuresis, will d/c diuril and cont lasix 80mg IV bid only, transition to PO diuretics if volume status continues to improve. reinforced Na/fluid restriction cont BB. RUSTY-I/ARB on hold d/t advanced CKD. Appreciate cardiology recommendations. no urgent indication for renal replacement therapy at this time (2) Acute respiratory failure Current Visit: Yes Status: Acute Qualifiers: Respiratory failure complication: hypoxia Qualified Code(s): J96.01 - Acute respiratory failure with hypoxia Plan to address problem: d/t pulmonary edema, IV diuresis with lasix and diuril (3) Pulmonary edema Current Visit: Yes Status: Acute Qualifiers: Chronicity: acute Qualified Code(s): J81.0 - Acute pulmonary edema Plan to address problem: cont IV lasix 80mg bid + diuril 500mg IV daily to target net negative fluid balance. If volume status does not improve further on escalating dose of diuretics will consider renal replacement therapy. (4) CKD (chronic kidney disease) Current Visit: Yes Status: Acute Qualifiers: Chronic kidney disease stage: unspecified stage Qualified Code(s): N18.9 - Chronic kidney disease, unspecified Plan to address problem: 2/2 underlying hypertensive nephrosclerosis/diabetic nephropathy, progressive CKD, currently being prepared for future HD, s/p LUE AVG placement on 10/19/20. Cont supportive care for CKD, avoid nephrotoxins, NSAIDs, IV contrast. cont volume control with IV lasix 80mg bid. start po Na bicarb for treatment of met acidosis. no urgent indication for renal replacement therapy at present. however If volume status does not improve further on escalating dose of diuretics, met acidosis is refractory to oral bicarb and/or significant uremic complications occur, will consider renal replacement therapy. (5) Hypertensive chronic kidney disease with stage 1 through stage 4 chronic kidney disease, or unspecified chronic kidney disease Current Visit: Yes Status: Acute Plan to address problem: monitor BP on current regimen (6) Type 2 diabetes mellitus with diabetic chronic kidney disease Current Visit: Yes Status: Acute Plan to address problem: diabetes management as per primary attending (7) Acidosis Current Visit: Yes Status: Acute Plan to address problem: start Na bicarb 650mg po bid Subjective Date of service: 10/24/20 Principal diagnosis: NNAMDI/CKD, NSTEMI Interval history: pt is currently on 2L NC, denies acute respiratory distress. pt with good response to current IV diuretics, UOP > 1.9L/day . Objective - Vital Signs Vital signs: Vital Signs - 12hr 10/23/20 10/23/20 10/23/20 21:34 21:35 22:00 Temperature Pulse Rate 85 79 Pulse Rate [ 85 Anterior Bilateral Throughout] Pulse Rate [ 91 H Bilateral] Respiratory Rate Respiratory 22 Rate [Anterior Bilateral Throughout] Respiratory 20 Rate [Bilateral ] Blood Pressure Blood Pressure [Left] O2 Sat by Pulse 88 Oximetry 10/23/20 10/24/20 10/24/20 22:10 00:00 04:00 Temperature 98.9 F 98.2 F Pulse Rate 82 87 78 Pulse Rate [ Anterior Bilateral Throughout] Pulse Rate [ Bilateral] Respiratory 2 L 20 18 Rate Respiratory Rate [Anterior Bilateral Throughout] Respiratory Rate [Bilateral ] Blood Pressure Blood Pressure 121/77 135/57 [Left] O2 Sat by Pulse 95 98 96 Oximetry 10/24/20 10/24/20 10/24/20 07:24 07:41 08:34 Temperature 97.7 F Pulse Rate 67 73 Pulse Rate [ 73 Anterior Bilateral Throughout] Pulse Rate [ Bilateral] Respiratory 20 Rate Respiratory 18 Rate [Anterior Bilateral Throughout] Respiratory Rate [Bilateral ] Blood Pressure 145/55 Blood Pressure [Left] O2 Sat by Pulse 95 Oximetry 10/24/20 08:37 Temperature Pulse Rate Pulse Rate [ Anterior Bilateral Throughout] Pulse Rate [ Bilateral] Respiratory Rate Respiratory Rate [Anterior Bilateral Throughout] Respiratory Rate [Bilateral ] Blood Pressure Blood Pressure [Left] O2 Sat by Pulse 95 Oximetry - General Appearance General appearance: well-developed, well-nourished, appears stated age EENT: ATNC, PERRL, mucous membranes moist Neck: no JVD Respiratory: Present: Clear to Ascultation Cardiology: regular, S1S2 Gastrointestinal: normoactive bowel sounds Integumentary: no rash, other (no edema ) Neurologic: no focal deficit, alert and oriented x3, strength 5/5, CN 3-12 intact Psychiatric: mood/affect appropriate, cooperative - Lab 10/23/20 04:29 10/23/20 04:29 Most recent lab results Calcium 8.9 mg/dL (8.4-10.2) 10/23/20 04:29 Medications & Allergies - Medications Allergies/Adverse Reactions: Allergies pollen extracts Allergy (Verified 10/21/20 05:23) Unknown Home Medications: Home Medications Medication Instructions Recorded Confirmed Last Taken Type Clopidogrel Bisulfate [Clopidogrel] 1 tab PO DAILY 03/13/14 10/21/20 10/18/20 History Tamsulosin HCl 1 tab PO DAILY 03/13/14 10/21/20 10/18/20 History Aspirin [Adult Aspirin] 81 mg PO DAILY 10/12/20 10/21/20 10/18/20 History AtorvaSTATin [Lipitor] 40 mg PO QHS 10/12/20 10/21/20 10/18/20 History Dicyclomine [Bentyl] 20 mg PO BID 10/12/20 10/21/20 10/18/20 History Finasteride [Proscar] 5 mg PO BID 10/12/20 10/21/20 10/18/20 History Insulin NPH Human Isophane 15 unit SQ BID 10/12/20 10/21/20 10/18/20 20:30 History [Novolin N] Insulin Regular, Human [Novolin R] 10 units SUB-Q BID 10/12/20 10/21/20 10/18/20 20:30 History Metoprolol [Lopressor TAB] 50 mg PO QDAY 10/12/20 10/21/20 10/18/20 20:30 History Sertraline [Zoloft] 100 mg PO QDAY 10/12/20 10/21/20 10/18/20 History amLODIPine 10 mg PO DAILY 10/12/20 10/21/20 10/18/20 20:30 History HYDROcodone/APAP 7.5-325 [[place] 1 each PO Q6HR PRN #40 tablet 10/19/20 10/21/20 Unknown Rx 7.5/325] Ergocalciferol (Vitamin D2) 1,250 unit PO DAILY 10/21/20 10/21/20 Unknown History [Vitamin D2] Active Medications: Generic Name Dose Route Start Last Admin Trade Name Freq PRN Reason Stop Dose Admin Acetaminophen 650 mg 10/21/20 05:28 Acetaminophen 325 Mg Tab PO Q4H PRN Pain MILD(1-3)/Fever >100.5/PRIETO Albuterol 2.5 mg 10/21/20 05:28 Albuterol 2.5 Mg/3 Ml Nebu IH Q4HRT PRN Shortness Of Breath Albuterol/Ipratropium 1 ampul 10/22/20 08:00 10/24/20 08:34 Ipratropium/Albuterol Sulfate 3 Ml Ampul.Neb IH 1 ampul TIDRT ALANNA Administration Amlodipine Besylate 10 mg 10/21/20 10:00 10/23/20 11:21 Amlodipine 10 Mg Tab PO 10 mg DAILY ALANNA Administration Aspirin 81 mg 10/21/20 10:00 10/23/20 10:59 Aspirin Ec 81 Mg Tab PO 81 mg DAILY ALANNA Administration Atorvastatin Calcium 40 mg 10/21/20 22:00 10/23/20 21:34 Atorvastatin 40 Mg Tab PO 40 mg QHS ALANNA Administration Cholecalciferol 2,000 unit 10/21/20 10:00 10/23/20 10:59 Cholecalciferol (Vit D3) 1000 Unit (25 Mcg) Tab PO 2,000 unit DAILY ALANNA Administration Clopidogrel Bisulfate 75 mg 10/21/20 10:00 10/23/20 11:00 Clopidogrel 75 Mg Tab PO 75 mg DAILY ALANNA Administration Famotidine 20 mg 10/21/20 10:00 10/23/20 10:59 Famotidine 20 Mg Tab PO 20 mg QAM ALANNA Administration Finasteride 5 mg 10/21/20 10:00 10/23/20 21:34 Finasteride 5 Mg Tab PO 5 mg BID ALANNA Administration Furosemide 80 mg 10/21/20 18:00 10/24/20 05:35 Furosemide 100 Mg/10 Ml Inj IV 80 mg 0600,1800 ALANNA Administration Heparin Sodium (Porcine) 3,200 unit 10/21/20 12:01 Heparin 10,000 Units/10 Ml Vial 40 unit/kg (3200 unit) IV Q6H PRN Anti-Xa Assay < 0.1 units/ml Insulin Human Isoph/Insulin Regular 20 unit 10/21/20 09:00 10/23/20 17:07 Insulin Nph/Regular 70/30 Inj SUB-Q 20 unit BIDDIAB ALANNA Administration Insulin Human Lispro 0 unit 10/21/20 11:30 10/24/20 08:29 Insulin Lispro 100 Unit/Ml SUB-Q Not Given ACHS [facility] Protocol Metoprolol Tartrate 50 mg 10/22/20 17:00 10/23/20 21:34 Metoprolol Tartrate 50 Mg Tab PO 50 mg BID ALANNA Administration Nitroglycerin 0.4 mg 10/21/20 05:28 Nitroglycerin 0.4 Mg Tab Subl SL Q5M PRN Chest Pain Ondansetron HCl 4 mg 10/21/20 05:28 Ondansetron 4 Mg/2 Ml Inj IV Q8H PRN Nausea And Vomiting Sertraline HCl 100 mg 10/21/20 10:00 10/23/20 10:59 Sertraline 100 Mg Tab PO 100 mg QDAY ALANNA Administration Sodium Bicarbonate 650 mg 10/21/20 22:00 10/23/20 21:34 Sodium Bicarbonate 650 Mg Tab PO 650 mg BID ALANNA Administration Sodium Chloride 10 ml 10/21/20 10:00 10/23/20 21:35 Sodium Chloride 0.9% 10 Ml Flush Syringe IV 10 ml BID ALANNA Administration Sodium Chloride 10 ml 10/21/20 05:28 Sodium Chloride 0.9% 10 Ml Flush Syringe IV PRN PRN LINE FLUSH Tamsulosin HCl 0.4 mg 10/21/20 10:00 10/23/20 10:59 Tamsulosin 0.4 Mg Cap PO 0.4 mg DAILY ALANNA Administration Tramadol HCl 50 mg 10/21/20 05:28 10/23/20 17:58 Tramadol 50 Mg Tab PO 50 mg Q6H PRN Administration Pain, Moderate (4-6)
--- NOTE | 2020-10-24 11:00 | Progress Note ---
Assessment and Plan Assessment and plan: 70-year-old male with past medical history of hypertension, hyperlipidemia and diabetes, Chronic kidney disease was brought to the emergency department via EMS from home with complaints of shortness of breath, nausea with vomiting and left upper arm pain that started earlier this evening. The patient was a short stay admission here yesterday, in order to go to the OR with vascular for placement of a left brachial AV graft so the patient can start getting dialysis. His science intern is Dr. Dangelo. When EMS arrived the patient was moaning, vomiting, appeared short of breath, and had a pulse ox seen to be in the 70s. In the emergency room patient is found to have acute respiratory failure, volume overload pulmonary edema. Patient troponin is 0.241 Patient this morning is in acute respiratory failure on BiPAP 10/22: Continue supportive care. Will obtain pulmonary consultation in addition to current management. Nephrology and cardiology input appreciated. Leukocytosis etiology not quite clear patient is afebrile will monitor closely if worsening or development of fever will start patient on empiric antibiotic coverage. 10/23. Remains on BiPAP. On IV Lasix and Diuril. Nephrology following. No urgent indication for renal replacement therapy at this time per nephrology. 10/24. Off BIPAP. On oxygen supplementation. Has no complaints. Making good urine. On diuretics. Awaiting AM labs. No indication for TILE INSTALLER per nephrology. Problems #Acute respiratory failure Current Visit: Yes Status: Acute Qualifiers: Respiratory failure complication: hypoxia Qualified Code(s): J96.01 - Acute respiratory failure with hypoxia Plan to address problem: Secondary to pulmonary edema Continue BiPAP Bronchodilators Diuretics Pulmonology evaluation Cardiology evaluation #Pulmonary edema Current Visit: Yes Status: Acute Qualifiers: Chronicity: acute Qualified Code(s): J81.0 - Acute pulmonary edema Plan to address problem: Management as per above #Elevated troponin Current Visit: Yes Status: Acute Plan to address problem: Continue aspirin and Plavix Statins Cardiology evaluation Heparin drip x 48 hrs Plan for left heart cath per cardiology #CKD (chronic kidney disease) Current Visit: Yes Status: Acute Qualifiers: Chronic kidney disease stage: unspecified stage Qualified Code(s): N18.9 - Chronic kidney disease, unspecified Plan to address problem: Nephrology following #Hyperlipidemia Current Visit: Yes Status: Acute Plan to address problem: Statins #Diabetes mellitus Current Visit: Yes Status: Acute Plan to address problem: Continue insulin regimen Monitor blood glucose #Hypertension Current Visit: Yes Status: Acute Qualifiers: Hypertension type: essential hypertension Qualified Code(s): I10 - Essential (primary) hypertension # DVT prophylaxis Current Visit: Yes Status: Acute Plan to address problem: Heparin drip History Interval history: Patient seen and examined at bedside this morning. No complaints. AM labs pending Hospitalist Physical - Physical exam Narrative exam: VITAL SIGNS: Reviewed. GENERAL: Awake HEAD: No signs of head trauma. EYES: Pupils are equal. Extraocular motions intact. MOUTH: Oropharynx is normal. NECK: No adenopathy, no JVD. CHEST: Diminished breath sounds bilaterally CARDIAC: normal S1 and S2, without murmurs, gallops, or rubs. ABDOMEN: Soft, non tender and non distended. No rebound or guarding, and no masses palpated. Bowel Sounds normal. MUSCULOSKELETAL: No edema NEUROLOGIC EXAM: Alert and oriented x3. No focal neurologic deficits SKIN: No obvious lesions - Constitutional Vitals: Temp Pulse Resp BP Pulse Ox 97.7 F 73 18 145/55 95 10/24/20 07:24 10/24/20 09:21 10/24/20 08:34 10/24/20 09:21 10/24/20 08:37 HEART Score - HEART Score Troponin: Troponin T 1.190 ng/mL (0.00-0.029) H* D 10/21/20 14:59 Results - Labs CBC & Chem 7: 10/23/20 04:29 10/24/20 10:56 Labs: Laboratory Last Values WBC 10.6 K/mm3 (4.5-11.0) 10/23/20 04:29 RBC 3.49 M/mm3 (3.65-5.03) L 10/23/20 04:29 Hgb 10.4 gm/dl (11.8-15.2) L 10/23/20 04:29 Hct 30.7 % (35.5-45.6) L 10/23/20 04:29 MCV 88 fl (84-94) 10/23/20 04:29 MCH 30 pg (28-32) 10/23/20 04:29 MCHC 34 % (32-34) 10/23/20 04:29 RDW 15.9 % (13.2-15.2) H 10/23/20 04:29 Plt Count 207 K/mm3 (140-440) 10/23/20 04:29 Lymph % (Auto) 8.2 % (13.4-35.0) L 10/22/20 02:45 [place] % (Auto) 9.5 % (0.0-7.3) H 10/22/20 02:45 Eos % (Auto) 0.6 % (0.0-4.3) 10/22/20 02:45 Baso % (Auto) 0.4 % (0.0-1.8) 10/22/20 02:45 Lymph # (Auto) 1.3 K/mm3 (1.2-5.4) 10/22/20 02:45 [place] # (Auto) 1.5 K/mm3 (0.0-0.8) H 10/22/20 02:45 Eos # (Auto) 0.1 K/mm3 (0.0-0.4) 10/22/20 02:45 Baso # (Auto) 0.1 K/mm3 (0.0-0.1) 10/22/20 02:45 Add Manual Diff Complete 10/21/20 03:14 Total Counted 100 10/21/20 03:14 Seg Neutrophils % 81.3 % (40.0-70.0) H 10/22/20 02:45 Seg Neuts % (Manual) 85.0 % (40.0-70.0) H 10/21/20 03:14 Band Neutrophils % 1.0 % 10/21/20 03:14 Lymphocytes % (Manual) 7.0 % (13.4-35.0) L 10/21/20 03:14 Monocytes % (Manual) 6.0 % (0.0-7.3) 10/21/20 03:14 Basophils % (Manual) 1.0 % (0.0-1.8) 10/21/20 03:14 Nucleated RBC % Not Reportable 10/21/20 03:14 Seg Neutrophils # 12.6 K/mm3 (1.8-7.7) H 10/22/20 02:45 Seg Neutrophils # Man 12.3 K/mm3 (1.8-7.7) H 10/21/20 03:14 Band Neutrophils # 0.1 K/mm3 10/21/20 03:14 Lymphocytes # (Manual) 1.0 K/mm3 (1.2-5.4) L 10/21/20 03:14 Abs React Lymphs (Man) 0.0 K/mm3 10/21/20 03:14 Monocytes # (Manual) 0.9 K/mm3 (0.0-0.8) H 10/21/20 03:14 Eosinophils # (Manual) 0.0 K/mm3 (0.0-0.4) 10/21/20 03:14 Basophils # (Manual) 0.1 K/mm3 (0.0-0.1) 10/21/20 03:14 Metamyelocytes # 0.0 K/mm3 10/21/20 03:14 Myelocytes # 0.0 K/mm3 10/21/20 03:14 Promyelocytes # 0.0 K/mm3 10/21/20 03:14 Blast Cells # 0.0 K/mm3 10/21/20 03:14 WBC Morphology Not Reportable 10/21/20 03:14 Hypersegmented Neuts Not Reportable 10/21/20 03:14 Hyposegmented Neuts Not Reportable 10/21/20 03:14 Hypogranular Neuts Not Reportable 10/21/20 03:14 Smudge Cells Not Reportable 10/21/20 03:14 Toxic Granulation Not Reportable 10/21/20 03:14 Toxic Vacuolation Not Reportable 10/21/20 03:14 Dohle Bodies Not Reportable 10/21/20 03:14 Pelger-Huet Anomaly Not Reportable 10/21/20 03:14 Linh Rods Not Reportable 10/21/20 03:14 Platelet Estimate Consistent w auto 10/21/20 03:14 Clumped Platelets Not Reportable 10/21/20 03:14 Plt Clumps, EDTA Not Reportable 10/21/20 03:14 Large Platelets Not Reportable 10/21/20 03:14 Giant Platelets Not Reportable 10/21/20 03:14 Platelet Satelliting Not Reportable 10/21/20 03:14 Plt Morphology Comment Not Reportable 10/21/20 03:14 RBC Morphology Normal 10/21/20 03:14 Dimorphic RBCs Not Reportable 10/21/20 03:14 Polychromasia Not Reportable 10/21/20 03:14 Hypochromasia Not Reportable 10/21/20 03:14 Poikilocytosis Not Reportable 10/21/20 03:14 Anisocytosis Not Reportable 10/21/20 03:14 Microcytosis Not Reportable 10/21/20 03:14 Macrocytosis Not Reportable 10/21/20 03:14 Spherocytes Not Reportable 10/21/20 03:14 Pappenheimer Bodies Not Reportable 10/21/20 03:14 Sickle Cells Not Reportable 10/21/20 03:14 Target Cells Not Reportable 10/21/20 03:14 Tear Drop Cells Not Reportable 10/21/20 03:14 Ovalocytes Not Reportable 10/21/20 03:14 Helmet Cells Not Reportable 10/21/20 03:14 [place] Bodies Not Reportable 10/21/20 03:14 [place] Rings Not Reportable 10/21/20 03:14 [place]yl Cells Not Reportable 10/21/20 03:14 Bite Cells Not Reportable 10/21/20 03:14 Crenated Cell Not Reportable 10/21/20 03:14 Elliptocytes Not Reportable 10/21/20 03:14 Acanthocytes (Spur) Not Reportable 10/21/20 03:14 Rouleaux Not Reportable 10/21/20 03:14 Hemoglobin C Crystals Not Reportable 10/21/20 03:14 Schistocytes Not Reportable 10/21/20 03:14 Malaria parasites Not Reportable 10/21/20 03:14 Shay Bodies Not Reportable 10/21/20 03:14 Hem Pathologist Commnt No 10/21/20 03:14 PT 15.9 Sec. (12.2-14.9) H 10/21/20 14:59 INR 1.22 (0.87-1.13) H 10/21/20 14:59 APTT 135.3 Sec. (24.2-36.6) H* 10/21/20 14:59 D-Dimer 2466.38 ng/mlDDU (0-234) H 10/21/20 03:14 Heparin Anti-Xa Level 0.27 U.I./ml (0.3-0.7) L 10/23/20 11:50 Sodium 139 mmol/L (137-145) 10/23/20 04:29 Potassium 4.5 mmol/L (3.6-5.0) 10/23/20 04:29 Chloride 99.5 mmol/L (98-107) 10/23/20 04:29 Carbon Dioxide 25 mmol/L (22-30) 10/23/20 04:29 Anion Gap 19 mmol/L 10/23/20 04:29 BUN 78 mg/dL (9-20) H 10/23/20 04:29 Creatinine 4.3 mg/dL (0.8-1.3) H 10/23/20 04:29 Estimated GFR 17 ml/min 10/23/20 04:29 BUN/Creatinine Ratio 18 % 10/23/20 04:29 Glucose 139 mg/dL (75-100) H 10/23/20 04:29 POC Glucose 259 mg/dL (70-105) H 10/23/20 20:15 Hemoglobin A1c 7.8 % (4-6) H 10/22/20 07:00 Calcium 8.9 mg/dL (8.4-10.2) 10/23/20 04:29 Total Bilirubin 0.30 mg/dL (0.1-1.2) 10/21/20 03:14 AST 23 units/L (5-40) 10/21/20 03:14 ALT 7 units/L (7-56) 10/21/20 03:14 Alkaline Phosphatase 104 units/L (35-129) 10/21/20 03:14 Troponin T 1.190 ng/mL (0.00-0.029) H* D 10/21/20 14:59 Total Protein 7.1 g/dL (6.3-8.2) 10/21/20 03:14 Albumin 3.9 g/dL (3.9-5) 10/21/20 03:14 Albumin/Globulin Ratio 1.2 % 10/21/20 03:14 Triglycerides 154 mg/dL (2-149) H 10/21/20 03:14 Cholesterol 212 mg/dL (50-199) H 10/21/20 03:14 LDL Cholesterol Direct 137 mg/dL (50-130) H 10/21/20 03:14 HDL Cholesterol 65 mg/dL (40-59) H 10/21/20 03:14 Cholesterol/HDL Ratio 3.26 % 10/21/20 03:14 [place]/IV: Voiding Method Toilet Active Medications - Current Medications Current Medications: Generic Name Dose Route Start Last Admin Trade Name Freq PRN Reason Stop Dose Admin Acetaminophen 650 mg 10/21/20 05:28 Acetaminophen 325 Mg Tab PO Q4H PRN Pain MILD(1-3)/Fever >100.5/PRIETO Albuterol 2.5 mg 10/21/20 05:28 Albuterol 2.5 Mg/3 Ml Nebu IH Q4HRT PRN Shortness Of Breath Albuterol/Ipratropium 1 ampul 10/22/20 08:00 10/24/20 08:34 Ipratropium/Albuterol Sulfate 3 Ml Ampul.Neb IH 1 ampul TIDRT ALANNA Administration Amlodipine Besylate 10 mg 10/21/20 10:00 10/24/20 09:20 Amlodipine 10 Mg Tab PO 10 mg DAILY ALANNA Administration Aspirin 81 mg 10/21/20 10:00 10/24/20 09:20 Aspirin Ec 81 Mg Tab PO 81 mg DAILY ALANNA Administration Atorvastatin Calcium 40 mg 10/21/20 22:00 10/23/20 21:34 Atorvastatin 40 Mg Tab PO 40 mg QHS ALANNA Administration Cholecalciferol 2,000 unit 10/21/20 10:00 10/24/20 09:21 Cholecalciferol (Vit D3) 1000 Unit (25 Mcg) Tab PO 2,000 unit DAILY ALANNA Administration Clopidogrel Bisulfate 75 mg 10/21/20 10:00 10/24/20 09:20 Clopidogrel 75 Mg Tab PO 75 mg DAILY ALANNA Administration Famotidine 20 mg 10/21/20 10:00 10/24/20 09:21 Famotidine 20 Mg Tab PO 20 mg QAM ALANNA Administration Finasteride 5 mg 10/21/20 10:00 10/24/20 09:20 Finasteride 5 Mg Tab PO 5 mg BID ALANNA Administration Furosemide 80 mg 10/21/20 18:00 10/24/20 05:35 Furosemide 100 Mg/10 Ml Inj IV 80 mg 0600,1800 ALANNA Administration Heparin Sodium (Porcine) 3,200 unit 10/21/20 12:01 Heparin 10,000 Units/10 Ml Vial 40 unit/kg (3200 unit) IV Q6H PRN Anti-Xa Assay < 0.1 units/ml Insulin Human Isoph/Insulin Regular 20 unit 10/21/20 09:00 10/24/20 09:24 Insulin Nph/Regular 70/30 Inj SUB-Q 20 unit BIDDIAB ALANNA Administration Insulin Human Lispro 0 unit 10/21/20 11:30 10/24/20 08:29 Insulin Lispro 100 Unit/Ml SUB-Q Not Given A[facility] Protocol Metoprolol Tartrate 50 mg 10/22/20 17:00 10/24/20 09:21 Metoprolol Tartrate 50 Mg Tab PO 50 mg BID ALANNA Administration Nitroglycerin 0.4 mg 10/21/20 05:28 Nitroglycerin 0.4 Mg Tab Subl SL Q5M PRN Chest Pain Ondansetron HCl 4 mg 10/21/20 05:28 Ondansetron 4 Mg/2 Ml Inj IV Q8H PRN Nausea And Vomiting Sertraline HCl 100 mg 10/21/20 10:00 10/24/20 09:20 Sertraline 100 Mg Tab PO 100 mg QDAY ALANNA Administration Sodium Bicarbonate 650 mg 10/21/20 22:00 10/24/20 09:20 Sodium Bicarbonate 650 Mg Tab PO 650 mg BID ALANNA Administration Sodium Chloride 10 ml 10/21/20 10:00 10/24/20 09:23 Sodium Chloride 0.9% 10 Ml Flush Syringe IV 10 ml BID ALANNA Administration Sodium Chloride 10 ml 10/21/20 05:28 Sodium Chloride 0.9% 10 Ml Flush Syringe IV PRN PRN LINE FLUSH Tamsulosin HCl 0.4 mg 10/21/20 10:00 10/24/20 09:20 Tamsulosin 0.4 Mg Cap PO 0.4 mg DAILY ALANNA Administration Tramadol HCl 50 mg 10/21/20 05:28 10/23/20 17:58 Tramadol 50 Mg Tab PO 50 mg Q6H PRN Administration Pain, Moderate (4-6)
[2020-10-24 11:26] LABS: Albumin 3.9 g/dL (3.9-5); Calcium 9.5 mg/dL (8.4-10.2)
--- NOTE | 2020-10-24 11:59 | Progress Note ---
Assessment and Plan Recent Lexiscan stress MPI 08/27/2020 reviewed - inferoapical scar, no reversible ischemia noted. No urgent indication for cardiac catheterization. Will likely have to defer until adequate vascular access is obtained for initiation of HD. Continue heparin gtt x 48 hrs total. Continue ASA, Plavix, statin, and BB. Good UOP noted (-1900 mL/24 hrs). Continue IV diuresis as per Nephro recs. Pt seen in conjunction with Dr. Marie, who agrees with the assessment and plan of care. - Patient Problems (1) Acute respiratory failure Current Visit: Yes Status: Acute Qualifiers: Respiratory failure complication: hypoxia Qualified Code(s): J96.01 - Acute respiratory failure with hypoxia (2) Acute heart failure with preserved ejection fraction (HFpEF) Current Visit: Yes Status: Acute (3) Acute kidney injury superimposed on CKD Current Visit: Yes Status: Acute (4) Anemia Current Visit: Yes Status: Acute (5) NSTEMI (non-ST elevated myocardial infarction) Current Visit: Yes Status: Acute Plan to address problem: ?Type 2 (in the setting of progressive renal disease) (6) CAD (coronary artery disease) Current Visit: Yes Status: Chronic (7) S/P PTCA (percutaneous transluminal coronary angioplasty) Current Visit: Yes Status: Chronic (8) Aortic stenosis Current Visit: Yes Status: Chronic (9) Hypertension Current Visit: Yes Status: Chronic Qualifiers: Hypertension type: essential hypertension Qualified Code(s): I10 - Essential (primary) hypertension (10) Hyperlipidemia Current Visit: Yes Status: Chronic Qualifiers: Hyperlipidemia type: mixed hyperlipidemia Qualified Code(s): E78.2 - Mixed hyperlipidemia (11) DM2 (diabetes mellitus, type 2) Current Visit: Yes Status: Chronic (12) PVD (peripheral vascular disease) Current Visit: Yes Status: Chronic (13) Aorto-iliac disease Current Visit: Yes Status: Chronic (14) H/O: CVA (cerebrovascular accident) Current Visit: Yes Status: Chronic (15) Frequent falls Current Visit: Yes Status: Chronic Subjective Date of service: 10/24/20 Principal diagnosis: NNAMDI/CKD, NSTEMI Interval history: Respiratory status improving. No further complaints of chest pain. present at bedside. Tele reviewed - SR 80s, no events. Objective Last Vital Signs Temp 97.3 F L 10/24/20 11:30 Pulse 80 10/24/20 11:30 Resp 20 10/24/20 11:30 BP 121/58 10/24/20 11:30 Pulse Ox 93 10/24/20 11:30 - Physical Examination General: No Apparent Distress HEENT: Positive: EOMI, Normocephaly, Mucus Membranes Moist Neck: Positive: neck supple, trachea midline. Negative: JVD/HJR Cardiac: Positive: Reg Rate and Rhythm, S1/S2, Systolic Murmur (2/6) Lungs: Positive: Decreased Breath Sounds (bases) Neuro: Positive: Grossly Intact Abdomen: Positive: Soft. Negative: Tender Skin: Negative: Rash Musculoskeletal: No Pain Extremities: Present: lower extr. pulses, warm. Absent: edema - Labs and Meds Cardiac Enzymes 10/24/20 Range/Units 10:56 AST 21 (5-40) units/L Comprehensive Metabolic Panel 10/24/20 Range/Units 10:56 Sodium 137 (137-145) mmol/L Potassium 3.9 (3.6-5.0) mmol/L Chloride 94.8 L (98-107) mmol/L Carbon Dioxide 25 (22-30) mmol/L BUN 88 H (9-20) mg/dL Creatinine 4.3 H (0.8-1.3) mg/dL Glucose 236 H (75-100) mg/dL Calcium 9.5 (8.4-10.2) mg/dL AST 21 (5-40) units/L ALT 9 (7-56) units/L Alkaline Phosphatase 71 (35-129) units/L Total Protein 6.7 (6.3-8.2) g/dL Albumin 3.9 (3.9-5) g/dL - Imaging and Cardiology EKG: report reviewed, image reviewed Pharmacologic stress test: report reviewed (08/27/2020 - inferoapical scar, no reversible ischemia noted) Echo: report reviewed (08/27/2020 - mod concentric LVH, EF 55-69%, grade 2 diastolic dysfxn, increased LA volume, mod AV stenosis, 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
[2020-10-24] MEDS: HEPARIN 5,000 UNIT/1 ML VIAL SUB-Q SCH ×2 (13:22→21:19)
--- NOTE | 2020-10-24 15:12 | Progress Note ---
Assessment and Plan Acute hypoxemic respiratory failure Acute pulmonary edema Acute on chronic kidney injury Cardiomyopathy (H/O CHF) Leukocytosis Hypertension History of diabetes History of nephrolithiasis Tobacco use disorder Mild metabolic acidosis, improving Hyperlipidemia Non-ST elevation myocardial infarction - continue diuresis (good negative fluid balance) - HD/UF per nephrology prescription (no acute indication) - continue BIPAP scheduled qhs with prn daytime use - continue care as below otherwise; - continue to wean supplemental oxygen to keep O2 sats > 90% - prn bronchodilators (MICHELET) with pulm hygiene per RT - continue to avoid nephrotoxins, renally dose all medications - mobility protocols to prevent pressure ulcers - PT/OT as tolerated - Wound care per RN/WCT - accuchecks with glycemic control per SSI for target blood glucose < 180 mg/dL - continued tobacco abstinence strongly counseled at the bedside - home oxygen evaluation at discharge - GI & VTE prophylaxis - Flu & pneumovax per protocol - Pulmonary out patient follow up for PFTs and optimization of respiratory status - continue other care per attending / other consultants - prn analgesia per pain score ... re-evaluate in am & prn Subjective Date of service: 10/24/20 Principal diagnosis: Ac. hypoxemic resp failure; Pulm edema; NNAMDI; H/O CHF; DM II; NSTEMI Interval history: Patient is seen today for: Acute hypoxemic respiratory failure; Acute pulmonary edema; NNAMDI on CKD; H/O CHF; Leukocytosis; DM II; NSTEMI Seen and examined at bedside; 24hour events reviewed; nursing and respiratory care staff consulted; no adverse overnight events reported to me; resting peacefully in bed; less SOB; denies acute chest pain Objective Vital Signs - 12hr 10/24/20 10/24/20 10/24/20 04:00 07:24 07:41 Temperature 98.2 F 97.7 F Pulse Rate 78 67 73 Pulse Rate [ Anterior Bilateral Throughout] Respiratory 18 20 Rate Respiratory Rate [Anterior Bilateral Throughout] Blood Pressure 145/55 Blood Pressure 135/57 [Left] O2 Sat by Pulse 96 95 Oximetry 10/24/20 10/24/20 10/24/20 08:34 08:37 09:20 Temperature Pulse Rate 73 Pulse Rate [ 73 Anterior Bilateral Throughout] Respiratory Rate Respiratory 18 Rate [Anterior Bilateral Throughout] Blood Pressure 145/55 Blood Pressure [Left] O2 Sat by Pulse 95 Oximetry 10/24/20 10/24/20 10/24/20 09:21 11:26 11:30 Temperature 97.3 F L Pulse Rate 73 80 Pulse Rate [ Anterior Bilateral Throughout] Respiratory 20 Rate Respiratory Rate [Anterior Bilateral Throughout] Blood Pressure 145/55 121/58 Blood Pressure [Left] O2 Sat by Pulse 97 93 Oximetry Constitutional: appears uncomfortable, other (elderly male with mildly increased respiratory effort at rest) Eyes: non-icteric ENT: oropharynx moist Neck: supple, no lymphadenopathy, no JVD Effort: mildly labored Ascultation: Bilateral: diminished breath sounds, rhonchi Percussion: Bilateral: not dull Cardiovascular: regular rate and rhythm Gastrointestinal: normoactive bowel sounds, soft, non-tender, non-distended (protuberant) Integumentary: normal Extremities: no cyanosis, no edema, pulses normal, no ischemia or petechiae Neurologic: normal mental status, non-focal exam, pupils equal and round, motor strength normal and Psychiatric: mood appropriate, affect normal CBC and BMP: 10/28/20 04:00 10/28/20 04:00 ABG, PT/INR, D-dimer: ABG ABG pH 7.387 (7.320-7.450) 10/24/20 10:25 POC ABG pCO2 35.6 mmHg (32.0-48.0) 10/24/20 10:25 POC ABG pO2 64.0 mmHg (83-108) L 10/24/20 10:25 POC ABG HCO3 20.9 10/24/20 10:25 ABG O2 Saturation 90.7 (0-100) 10/24/20 10:25 PT/INR, D-dimer PT 15.9 Sec. (12.2-14.9) H 10/21/20 14:59 INR 1.22 (0.87-1.13) H 10/21/20 14:59 D-Dimer 2466.38 ng/mlDDU (0-234) H 10/21/20 03:14 Abnormal lab findings: Abnormal Labs 10/21/20 10/21/20 10/21/20 03:14 03:14 03:14 WBC 14.5 H RBC Hgb Hct RDW 16.1 H Lymph % (Auto) Greene % (Auto) Lymph # (Auto) Greene # (Auto) Seg Neutrophils % Seg Neuts % (Manual) 85.0 H Lymphocytes % (Manual) 7.0 L Seg Neutrophils # Seg Neutrophils # Man 12.3 H Lymphocytes # (Manual) 1.0 L Monocytes # (Manual) 0.9 H PT INR APTT 23.5 L D-Dimer 2466.38 H Heparin Anti-Xa Level POC ABG pO2 ABG Hemoglobin ABG Oxyhemoglobin ABG Sodium ABG Glucose Carboxyhemoglobin Chloride Carbon Dioxide 16 L D BUN 55 H Creatinine 3.7 H Glucose 333 H POC Glucose Hemoglobin A1c Calcium 8.3 L Troponin T Triglycerides Cholesterol LDL Cholesterol Direct HDL Cholesterol Arterial Blood Glucose 10/21/20 10/21/20 10/21/20 03:14 05:56 07:53 WBC 13.6 H RBC Hgb Hct RDW 16.4 H Lymph % (Auto) 3.7 L Greene % (Auto) Lymph # (Auto) 0.5 L Greene # (Auto) 0.9 H Seg Neutrophils % 89.6 H Seg Neuts % (Manual) Lymphocytes % (Manual) Seg Neutrophils # 12.2 H Seg Neutrophils # Man Lymphocytes # (Manual) Monocytes # (Manual) PT INR APTT D-Dimer Heparin Anti-Xa Level POC ABG pO2 ABG Hemoglobin ABG Oxyhemoglobin ABG Sodium ABG Glucose Carboxyhemoglobin Chloride Carbon Dioxide BUN Creatinine Glucose POC Glucose 307 H Hemoglobin A1c Calcium Troponin T 0.241 H* Triglycerides 154 H Cholesterol 212 H LDL Cholesterol Direct 137 H HDL Cholesterol 65 H Arterial Blood Glucose 10/21/20 10/21/20 10/21/20 07:53 10:52 10:55 WBC RBC Hgb Hct RDW Lymph % (Auto) Greene % (Auto) Lymph # (Auto) Greene # (Auto) Seg Neutrophils % Seg Neuts % (Manual) Lymphocytes % (Manual) Seg Neutrophils # Seg Neutrophils # Man Lymphocytes # (Manual) Monocytes # (Manual) PT INR APTT D-Dimer Heparin Anti-Xa Level POC ABG pO2 ABG Hemoglobin ABG Oxyhemoglobin ABG Sodium ABG Glucose Carboxyhemoglobin Chloride 97.4 L Carbon Dioxide 19 L BUN 63 H Creatinine 4.0 H Glucose 337 H POC Glucose 320 H Hemoglobin A1c Calcium 8.3 L Troponin T 0.730 H* D Triglycerides Cholesterol LDL Cholesterol Direct HDL Cholesterol Arterial Blood Glucose 06/03/21 06/03/21 06/03/21 14:59 14:59 14:59 WBC RBC Hgb 11.5 L Hct RDW Lymph % (Auto) Greene % (Auto) Lymph # (Auto) Greene # (Auto) Seg Neutrophils % Seg Neuts % (Manual) Lymphocytes % (Manual) Seg Neutrophils # Seg Neutrophils # Man Lymphocytes # (Manual) Monocytes # (Manual) PT 15.9 H INR 1.22 H APTT 135.3 H* D-Dimer Heparin Anti-Xa Level POC ABG pO2 ABG Hemoglobin ABG Oxyhemoglobin ABG Sodium ABG Glucose Carboxyhemoglobin Chloride Carbon Dioxide BUN Creatinine Glucose POC Glucose Hemoglobin A1c Calcium Troponin T 1.190 H* D Triglycerides Cholesterol LDL Cholesterol Direct HDL Cholesterol Arterial Blood Glucose 10/21/20 10/22/20 10/22/20 16:55 02:45 02:45 WBC 15.5 H RBC Hgb Hct RDW 16.2 H Lymph % (Auto) 8.2 L Greene % (Auto) 9.5 H Lymph # (Auto) Greene # (Auto) 1.5 H Seg Neutrophils % 81.3 H Seg Neuts % (Manual) Lymphocytes % (Manual) Seg Neutrophils # 12.6 H Seg Neutrophils # Man Lymphocytes # (Manual) Monocytes # (Manual) PT INR APTT D-Dimer Heparin Anti-Xa Level POC ABG pO2 ABG Hemoglobin ABG Oxyhemoglobin ABG Sodium ABG Glucose Carboxyhemoglobin Chloride Carbon Dioxide 20 L BUN 76 H Creatinine 4.4 H Glucose 113 H POC Glucose 312 H Hemoglobin A1c Calcium Troponin T Triglycerides Cholesterol LDL Cholesterol Direct HDL Cholesterol Arterial Blood Glucose 10/22/20 10/22/20 10/22/20 07:00 08:18 11:58 WBC RBC Hgb Hct RDW Lymph % (Auto) Greene % (Auto) Lymph # (Auto) Greene # (Auto) Seg Neutrophils % Seg Neuts % (Manual) Lymphocytes % (Manual) Seg Neutrophils # Seg Neutrophils # Man Lymphocytes # (Manual) Monocytes # (Manual) PT INR APTT D-Dimer Heparin Anti-Xa Level POC ABG pO2 ABG Hemoglobin ABG Oxyhemoglobin ABG Sodium ABG Glucose Carboxyhemoglobin Chloride Carbon Dioxide BUN Creatinine Glucose POC Glucose 181 H 237 H Hemoglobin A1c 7.8 H Calcium Troponin T Triglycerides Cholesterol LDL Cholesterol Direct HDL Cholesterol Arterial Blood Glucose 10/22/20 10/22/20 10/23/20 16:58 21:25 04:29 WBC RBC 3.49 L Hgb 10.4 L Hct 30.7 L RDW 15.9 H Lymph % (Auto) Greene % (Auto) Lymph # (Auto) Greene # (Auto) Seg Neutrophils % Seg Neuts % (Manual) Lymphocytes % (Manual) Seg Neutrophils # Seg Neutrophils # Man Lymphocytes # (Manual) Monocytes # (Manual) PT INR APTT D-Dimer Heparin Anti-Xa Level POC ABG pO2 ABG Hemoglobin ABG Oxyhemoglobin ABG Sodium ABG Glucose Carboxyhemoglobin Chloride Carbon Dioxide BUN Creatinine Glucose POC Glucose 273 H 272 H Hemoglobin A1c Calcium Troponin T Triglycerides Cholesterol LDL Cholesterol Direct HDL Cholesterol Arterial Blood Glucose 10/23/20 10/23/20 10/23/20 04:29 04:29 07:26 WBC RBC Hgb Hct RDW Lymph % (Auto) Greene % (Auto) Lymph # (Auto) Greene # (Auto) Seg Neutrophils % Seg Neuts % (Manual) Lymphocytes % (Manual) Seg Neutrophils # Seg Neutrophils # Man Lymphocytes # (Manual) Monocytes # (Manual) PT INR APTT D-Dimer Heparin Anti-Xa Level 0.20 L POC ABG pO2 ABG Hemoglobin ABG Oxyhemoglobin ABG Sodium ABG Glucose Carboxyhemoglobin Chloride Carbon Dioxide BUN 78 H Creatinine 4.3 H Glucose 139 H POC Glucose 158 H Hemoglobin A1c Calcium Troponin T Triglycerides Cholesterol LDL Cholesterol Direct HDL Cholesterol Arterial Blood Glucose 10/23/20 10/23/20 10/23/20 11:07 11:50 15:19 WBC RBC Hgb Hct RDW Lymph % (Auto) Greene % (Auto) Lymph # (Auto) Greene # (Auto) Seg Neutrophils % Seg Neuts % (Manual) Lymphocytes % (Manual) Seg Neutrophils # Seg Neutrophils # Man Lymphocytes # (Manual) Monocytes # (Manual) PT INR APTT D-Dimer Heparin Anti-Xa Level 0.27 L POC ABG pO2 ABG Hemoglobin ABG Oxyhemoglobin ABG Sodium ABG Glucose Carboxyhemoglobin Chloride Carbon Dioxide BUN Creatinine Glucose POC Glucose 201 H 324 H Hemoglobin A1c Calcium Troponin T Triglycerides Cholesterol LDL Cholesterol Direct HDL Cholesterol Arterial Blood Glucose 10/23/20 10/24/20 10/24/20 20:15 07:25 10:21 WBC RBC Hgb Hct RDW Lymph % (Auto) Greene % (Auto) Lymph # (Auto) Greene # (Auto) Seg Neutrophils % Seg Neuts % (Manual) Lymphocytes % (Manual) Seg Neutrophils # Seg Neutrophils # Man Lymphocytes # (Manual) Monocytes # (Manual) PT INR APTT D-Dimer Heparin Anti-Xa Level POC ABG pO2 ABG Hemoglobin ABG Oxyhemoglobin ABG Sodium ABG Glucose Carboxyhemoglobin Chloride Carbon Dioxide BUN Creatinine Glucose POC Glucose 259 H 145 H Hemoglobin A1c Calcium Troponin T 2.650 H* D Triglycerides Cholesterol LDL Cholesterol Direct HDL Cholesterol Arterial Blood Glucose 10/24/20 10/24/20 10/24/20 10:25 10:56 11:32 WBC RBC Hgb Hct RDW Lymph % (Auto) Greene % (Auto) Lymph # (Auto) Greene # (Auto) Seg Neutrophils % Seg Neuts % (Manual) Lymphocytes % (Manual) Seg Neutrophils # Seg Neutrophils # Man Lymphocytes # (Manual) Monocytes # (Manual) PT INR APTT D-Dimer Heparin Anti-Xa Level POC ABG pO2 64.0 L ABG Hemoglobin 11.3 L ABG Oxyhemoglobin 90.1 L ABG Sodium 134.0 L ABG Glucose 246 H Carboxyhemoglobin 0.4 L Chloride 94.8 L Carbon Dioxide BUN 88 H Creatinine 4.3 H Glucose 236 H POC Glucose 228 H Hemoglobin A1c Calcium Troponin T Triglycerides Cholesterol LDL Cholesterol Direct HDL Cholesterol Arterial Blood Glucose 246 H Allied health notes reviewed: nursing
[2020-10-24] MEDS: traMADol 50 MG TAB PO PRN (21:19)
[2020-10-24] MEDS ORDERED: LORazepam 2 MG/ML VIAL IV ONE (22:31)
[2020-10-25 06:29] LABS: Albumin 3.8 g/dL (3.9-5); Calcium 9.5 mg/dL (8.4-10.2)
[2020-10-25] MEDS: HEPARIN 5,000 UNIT/1 ML VIAL SUB-Q SCH ×3 (06:32→22:13)
[2020-10-25] MEDS: FUROSEMIDE 100 MG/10 ML INJ IV SCH ×2 (06:32→18:18)
--- NOTE | 2020-10-25 07:59 | Cat Scan Report ---
CT HEAD WITHOUT CONTRAST HISTORY: post fall. Head injury. TECHNIQUE: Axial imaging performed from the skull apex through the skull base without the use of con trast. All CT scans at this location are performed using CT dose reduction for ALARA by means of aut omated exposure control. COMPARISON: None FINDINGS: Parenchyma: There is mild to moderate motion artifact at the level of the skull base which slightly l imits this exam. No acute intracranial hemorrhage or parenchymal abnormality. No extra-axial fluid co llection or chronic infarct.. Moderate hypoattenuation throughout the white matter is noted and consi stent with chronic microvascular ischemic disease. Ventricles: There is mild diffuse brain atrophy with commensurate ventricular enlargement which is l ikely age appropriate. Soft tissues: Soft tissues including the orbits appear normal. Bones: No acute osseous abnormality. Sinuses: Sinuses and mastoid air cells are clear. IMPRESSION: No acute abnormality. Mild diffuse volume loss and moderate chronic white matter changes. Signer Name: Nitesh Awan Jr, MD Signed: 10/25/2020 7:54 AM Workstation Name: [id number]
[2020-10-25] MEDS: IPRATROPIUM/ALBUTEROL SULFATE 3 ML AMPUL.NEB IH SCH ×3 (08:08→22:13)
--- NOTE | 2020-10-25 08:58 | XRay Report ---
CHEST 1 VIEW INDICATION: Hypoxia. COMPARISON: 10/21/2020 FINDINGS: SUPPORT DEVICES: None. HEART: Within normal limits. LUNGS/PLEURA: Prominent diffuse interstitial lung markings again noted although significantly improve d since the previous exam. ADDITIONAL FINDINGS: None. IMPRESSION: 1. Improved exam. Signer Name: Nish Heredia MD Signed: 10/25/2020 8:53 AM Workstation Name: [id number]
[2020-10-25] MEDS: INSULIN LISPRO 100 UNIT/ML SUB-Q SCH ×4 (09:00→22:14)
--- NOTE | 2020-10-25 10:29 | Progress Note ---
Assessment and Plan Assessment and plan: 70-year-old male with past medical history of hypertension, hyperlipidemia and diabetes, Chronic kidney disease was brought to the emergency department via EMS from home with complaints of shortness of breath, nausea with vomiting and left upper arm pain that started earlier this evening. The patient was a short stay admission here yesterday, in order to go to the OR with vascular for placement of a left brachial AV graft so the patient can start getting dialysis. His administrative services director is Dr. Dangelo. When EMS arrived the patient was moaning, vomiting, appeared short of breath, and had a pulse ox seen to be in the 70s. In the emergency room patient is found to have acute respiratory failure, volume overload pulmonary edema. Patient troponin is 0.241 Patient this morning is in acute respiratory failure on BiPAP 10/22: Continue supportive care. Will obtain pulmonary consultation in addition to current management. Nephrology and cardiology input appreciated. Leukocytosis etiology not quite clear patient is afebrile will monitor closely if worsening or development of fever will start patient on empiric antibiotic coverage. 10/23. Remains on BiPAP. On IV Lasix and Diuril. Nephrology following. No urgent indication for renal replacement therapy at this time per nephrology. 10/24. Off BIPAP. On oxygen supplementation. Has no complaints. Making good urine. On diuretics. Awaiting AM labs. 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 10/25. Patient had an episode of confusion last night. Try to get up from bed and fell. CT head negative for any acute pathology. Remains on IV diuretics. Renal function slightly better today. Nephrology following. He is still on oxygen supplementation-high flow oxygen. Cardiology and pulmonology on board Problems #Acute respiratory failure Current Visit: Yes Status: Acute Qualifiers: Respiratory failure complication: hypoxia Qualified Code(s): J96.01 - Acute respiratory failure with hypoxia Plan to address problem: Secondary to pulmonary edema Oxygen supplementation Bronchodilators Diuretics Pulmonology and cardiology following. #Pulmonary edema Current Visit: Yes Status: Acute Qualifiers: Chronicity: acute Qualified Code(s): J81.0 - Acute pulmonary edema Plan to address problem: Management as per above #Elevated troponin Current Visit: Yes Status: Acute Plan to address problem: Continue aspirin and Plavix Statins Cardiology evaluation s/p Heparin drip x 48 hrs Plan for left heart cath per cardiology #CKD (chronic kidney disease) Current Visit: Yes Status: Acute Qualifiers: Chronic kidney disease stage: unspecified stage Qualified Code(s): N18.9 - Chronic kidney disease, unspecified Plan to address problem: Nephrology following #Hyperlipidemia Current Visit: Yes Status: Acute Plan to address problem: Statins #Diabetes mellitus Current Visit: Yes Status: Acute Plan to address problem: Continue insulin regimen Monitor blood glucose #Hypertension Current Visit: Yes Status: Acute Qualifiers: Hypertension type: essential hypertension Qualified Code(s): I10 - Essential (primary) hypertension Continue blood pressure medications # DVT prophylaxis Current Visit: Yes Status: Acute Plan to address problem: Heparin History Interval history: Patient seen and examined at bedside this morning. Had a fall yesterday as he tried to get up from his bed. CT head negative for acute findings. He remains on high flow oxygen Getting diuresis Hospitalist Physical - Physical exam Narrative exam: VITAL SIGNS: Reviewed. GENERAL: Awake HEAD: No signs of head trauma. EYES: Pupils are equal. Extraocular motions intact. MOUTH: Oropharynx is normal. NECK: No adenopathy, no JVD. CHEST: Diminished breath sounds bilaterally CARDIAC: normal S1 and S2, without murmurs, gallops, or rubs. ABDOMEN: Soft, non tender and non distended. No rebound or guarding, and no masses palpated. Bowel Sounds normal. MUSCULOSKELETAL: No edema NEUROLOGIC EXAM: Alert and oriented x3. No focal neurologic deficits SKIN: No obvious lesions - Constitutional Vitals: Temp Pulse Resp BP Pulse Ox 98.0 F 77 20 156/106 90 10/25/20 08:28 10/25/20 08:28 10/25/20 08:28 10/25/20 08:28 10/25/20 08:28 HEART Score - HEART Score Troponin: Troponin T 2.650 ng/mL (0.00-0.029) H* D 10/24/20 10:21 Results - Labs CBC & Chem 7: 10/23/20 04:29 10/25/20 04:46 Labs: Laboratory Last Values WBC 10.6 K/mm3 (4.5-11.0) 10/23/20 04:29 RBC 3.49 M/mm3 (3.65-5.03) L 10/23/20 04:29 Hgb 10.4 gm/dl (11.8-15.2) L 10/23/20 04:29 Hct 30.7 % (35.5-45.6) L 10/23/20 04:29 MCV 88 fl (84-94) 10/23/20 04:29 MCH 30 pg (28-32) 10/23/20 04:29 MCHC 34 % (32-34) 10/23/20 04:29 RDW 15.9 % (13.2-15.2) H 10/23/20 04:29 Plt Count 207 K/mm3 (140-440) 10/23/20 04:29 Lymph % (Auto) 8.2 % (13.4-35.0) L 10/22/20 02:45 [place] % (Auto) 9.5 % (0.0-7.3) H 10/22/20 02:45 Eos % (Auto) 0.6 % (0.0-4.3) 10/22/20 02:45 Baso % (Auto) 0.4 % (0.0-1.8) 10/22/20 02:45 Lymph # (Auto) 1.3 K/mm3 (1.2-5.4) 10/22/20 02:45 [place] # (Auto) 1.5 K/mm3 (0.0-0.8) H 10/22/20 02:45 Eos # (Auto) 0.1 K/mm3 (0.0-0.4) 10/22/20 02:45 Baso # (Auto) 0.1 K/mm3 (0.0-0.1) 10/22/20 02:45 Add Manual Diff Complete 10/21/20 03:14 Total Counted 100 10/21/20 03:14 Seg Neutrophils % 81.3 % (40.0-70.0) H 10/22/20 02:45 Seg Neuts % (Manual) 85.0 % (40.0-70.0) H 10/21/20 03:14 Band Neutrophils % 1.0 % 10/21/20 03:14 Lymphocytes % (Manual) 7.0 % (13.4-35.0) L 10/21/20 03:14 Monocytes % (Manual) 6.0 % (0.0-7.3) 10/21/20 03:14 Basophils % (Manual) 1.0 % (0.0-1.8) 10/21/20 03:14 Nucleated RBC % Not Reportable 10/21/20 03:14 Seg Neutrophils # 12.6 K/mm3 (1.8-7.7) H 10/22/20 02:45 Seg Neutrophils # Man 12.3 K/mm3 (1.8-7.7) H 10/21/20 03:14 Band Neutrophils # 0.1 K/mm3 10/21/20 03:14 Lymphocytes # (Manual) 1.0 K/mm3 (1.2-5.4) L 10/21/20 03:14 Abs React Lymphs (Man) 0.0 K/mm3 10/21/20 03:14 Monocytes # (Manual) 0.9 K/mm3 (0.0-0.8) H 10/21/20 03:14 Eosinophils # (Manual) 0.0 K/mm3 (0.0-0.4) 10/21/20 03:14 Basophils # (Manual) 0.1 K/mm3 (0.0-0.1) 10/21/20 03:14 Metamyelocytes # 0.0 K/mm3 10/21/20 03:14 Myelocytes # 0.0 K/mm3 10/21/20 03:14 Promyelocytes # 0.0 K/mm3 10/21/20 03:14 Blast Cells # 0.0 K/mm3 10/21/20 03:14 WBC Morphology Not Reportable 10/21/20 03:14 Hypersegmented Neuts Not Reportable 10/21/20 03:14 Hyposegmented Neuts Not Reportable 10/21/20 03:14 Hypogranular Neuts Not Reportable 10/21/20 03:14 Smudge Cells Not Reportable 10/21/20 03:14 Toxic Granulation Not Reportable 10/21/20 03:14 Toxic Vacuolation Not Reportable 10/21/20 03:14 Dohle Bodies Not Reportable 10/21/20 03:14 Pelger-Huet Anomaly Not Reportable 10/21/20 03:14 Linh Rods Not Reportable 10/21/20 03:14 Platelet Estimate Consistent w auto 10/21/20 03:14 Clumped Platelets Not Reportable 10/21/20 03:14 Plt Clumps, EDTA Not Reportable 10/21/20 03:14 Large Platelets Not Reportable 10/21/20 03:14 Giant Platelets Not Reportable 10/21/20 03:14 Platelet Satelliting Not Reportable 10/21/20 03:14 Plt Morphology Comment Not Reportable 10/21/20 03:14 RBC Morphology Normal 10/21/20 03:14 Dimorphic RBCs Not Reportable 10/21/20 03:14 Polychromasia Not Reportable 10/21/20 03:14 Hypochromasia Not Reportable 10/21/20 03:14 Poikilocytosis Not Reportable 10/21/20 03:14 Anisocytosis Not Reportable 10/21/20 03:14 Microcytosis Not Reportable 10/21/20 03:14 Macrocytosis Not Reportable 10/21/20 03:14 Spherocytes Not Reportable 10/21/20 03:14 Pappenheimer Bodies Not Reportable 10/21/20 03:14 Sickle Cells Not Reportable 10/21/20 03:14 Target Cells Not Reportable 10/21/20 03:14 Tear Drop Cells Not Reportable 10/21/20 03:14 Ovalocytes Not Reportable 10/21/20 03:14 Helmet Cells Not Reportable 10/21/20 03:14 [place] Bodies Not Reportable 10/21/20 03:14 [place] Rings Not Reportable 10/21/20 03:14 [place] Pillar Cells Not Reportable 10/21/20 03:14 Bite Cells Not Reportable 10/21/20 03:14 Crenated Cell Not Reportable 10/21/20 03:14 Elliptocytes Not Reportable 10/21/20 03:14 Acanthocytes (Spur) Not Reportable 10/21/20 03:14 Rouleaux Not Reportable 10/21/20 03:14 Hemoglobin C Crystals Not Reportable 10/21/20 03:14 Schistocytes Not Reportable 10/21/20 03:14 Malaria parasites Not Reportable 10/21/20 03:14 Shay Bodies Not Reportable 10/21/20 03:14 Hem Pathologist Commnt No 10/21/20 03:14 PT 15.9 Sec. (12.2-14.9) H 10/21/20 14:59 INR 1.22 (0.87-1.13) H 10/21/20 14:59 APTT 135.3 Sec. (24.2-36.6) H* 10/21/20 14:59 D-Dimer 2466.38 ng/mlDDU (0-234) H 10/21/20 03:14 Heparin Anti-Xa Level 0.27 U.I./ml (0.3-0.7) L 10/23/20 11:50 ABG pH 7.387 (7.320-7.450) 10/24/20 10:25 POC ABG pCO2 35.6 mmHg (32.0-48.0) 10/24/20 10:25 POC ABG pO2 64.0 mmHg (83-108) L 10/24/20 10:25 POC ABG HCO3 20.9 10/24/20 10:25 ABG O2 Saturation 90.7 (0-100) 10/24/20 10:25 POC ABG Base Excess -3.5 10/24/20 10:25 ABG Hemoglobin 11.3 (12.0-17.5) L 10/24/20 10:25 ABG Oxyhemoglobin 90.1 (94-98) L 10/24/20 10:25 ABG Methemoglobin 0.3 (0.0-1.5) 10/24/20 10:25 ABG Sodium 134.0 mmol/L (136.0-145.0) L 10/24/20 10:25 ABG Potassium 3.8 mmol/L (3.40-4.50) 10/24/20 10:25 ABG Chloride 100.0 mmol/L (98-107) 10/24/20 10:25 ABG Glucose 246 mg/dL (65-95) H 10/24/20 10:25 Carboxyhemoglobin 0.4 (0.5-1.5) L 10/24/20 10:25 FiO2 % 50.0 10/24/20 10:25 Sodium 137 mmol/L (137-145) 10/25/20 04:46 Potassium 3.8 mmol/L (3.6-5.0) 10/25/20 04:46 Chloride 95.4 mmol/L (98-107) L 10/25/20 04:46 Carbon Dioxide 26 mmol/L (22-30) 10/25/20 04:46 Anion Gap 19 mmol/L 10/25/20 04:46 BUN 94 mg/dL (9-20) H 10/25/20 04:46 Creatinine 4.0 mg/dL (0.8-1.3) H 10/25/20 04:46 Estimated GFR 18 ml/min 10/25/20 04:46 BUN/Creatinine Ratio 24 % 10/25/20 04:46 Glucose 243 mg/dL (75-100) H 10/25/20 04:46 POC Glucose 188 mg/dL (70-105) H 10/24/20 20:32 Hemoglobin A1c 7.8 % (4-6) H 10/22/20 07:00 Calcium 9.5 mg/dL (8.4-10.2) 10/25/20 04:46 Magnesium 2.20 mg/dL (1.7-2.3) 10/24/20 10:56 Total Bilirubin 0.30 mg/dL (0.1-1.2) 10/25/20 04:46 AST 24 units/L (5-40) 10/25/20 04:46 ALT 11 units/L (7-56) 10/25/20 04:46 Alkaline Phosphatase 84 units/L (35-129) 10/25/20 04:46 Troponin T 2.650 ng/mL (0.00-0.029) H* D 10/24/20 10:21 NT-Pro-B Natriuret Pep 4199 pg/mL (0-900) H 10/25/20 04:46 Total Protein 7.4 g/dL (6.3-8.2) 10/25/20 04:46 Albumin 3.8 g/dL (3.9-5) L 10/25/20 04:46 Albumin/Globulin Ratio 1.1 % 10/25/20 04:46 Triglycerides 154 mg/dL (2-149) H 10/21/20 03:14 Cholesterol 212 mg/dL (50-199) H 10/21/20 03:14 LDL Cholesterol Direct 137 mg/dL (50-130) H 10/21/20 03:14 HDL Cholesterol 65 mg/dL (40-59) H 10/21/20 03:14 Cholesterol/HDL Ratio 3.26 % 10/21/20 03:14 Procalcitonin 0.82 ng/mL (<0.15) 10/25/20 04:46 Arterial Blood Glucose 246 mg/dL (65-95) H 10/24/20 10:25 Arterial Blood Ionized Calcium 4.6 mg/dL (4.6-5.3) 10/24/20 10:25 [place]/IV: Voiding Method Urinal Active Medications - Current Medications Current Medications: Generic Name Dose Route Start Last Admin Trade Name Freq PRN Reason Stop Dose Admin Acetaminophen 650 mg 10/21/20 05:28 Acetaminophen 325 Mg Tab PO Q4H PRN Pain MILD(1-3)/Fever >100.5/PRIETO Albuterol 2.5 mg 10/21/20 05:28 Albuterol 2.5 Mg/3 Ml Nebu IH Q4HRT PRN Shortness Of Breath Albuterol/Ipratropium 1 ampul 10/22/20 08:00 10/25/20 08:08 Ipratropium/Albuterol Sulfate 3 Ml Ampul.Neb IH 1 ampul TIDRT ALANNA Administration Amlodipine Besylate 10 mg 10/21/20 10:00 10/24/20 09:20 Amlodipine 10 Mg Tab PO 10 mg DAILY ALANNA Administration Aspirin 81 mg 10/21/20 10:00 10/24/20 09:20 Aspirin Ec 81 Mg Tab PO 81 mg DAILY ALANNA Administration Atorvastatin Calcium 40 mg 10/21/20 22:00 10/24/20 21:19 Atorvastatin 40 Mg Tab PO 40 mg QHS ALANNA Administration Cholecalciferol 2,000 unit 10/21/20 10:00 10/24/20 09:21 Cholecalciferol (Vit D3) 1000 Unit (25 Mcg) Tab PO 2,000 unit DAILY ALANNA Administration Clopidogrel Bisulfate 75 mg 10/21/20 10:00 10/24/20 09:20 Clopidogrel 75 Mg Tab PO 75 mg DAILY ALANNA Administration Famotidine 20 mg 10/21/20 10:00 10/24/20 09:21 Famotidine 20 Mg Tab PO 20 mg QAM ALANNA Administration Finasteride 5 mg 10/21/20 10:00 10/24/20 21:19 Finasteride 5 Mg Tab PO 5 mg BID ALANNA Administration Furosemide 80 mg 10/21/20 18:00 10/25/20 06:32 Furosemide 100 Mg/10 Ml Inj IV 80 mg 0600,1800 ALANNA Administration Heparin Sodium (Porcine) 5,000 unit 10/24/20 14:00 10/25/20 06:32 Heparin 5,000 Unit/1 Ml Vial SUB-Q 5,000 unit Q8HR ALANNA Administration Insulin Human Isoph/Insulin Regular 20 unit 10/21/20 09:00 10/24/20 16:41 Insulin Nph/Regular 70/30 Inj SUB-Q 20 unit BIDDIAB ALANNA Administration Insulin Human Lispro 0 unit 10/21/20 11:30 10/24/20 22:41 Insulin Lispro 100 Unit/Ml SUB-Q 3 unit ACHS ALANNA Administration Protocol Metoprolol Tartrate 50 mg 10/22/20 17:00 10/24/20 21:19 Metoprolol Tartrate 50 Mg Tab PO 50 mg BID ALANNA Administration Nitroglycerin 0.4 mg 10/21/20 05:28 Nitroglycerin 0.4 Mg Tab Subl SL Q5M PRN Chest Pain Ondansetron HCl 4 mg 10/21/20 05:28 Ondansetron 4 Mg/2 Ml Inj IV Q8H PRN Nausea And Vomiting Sertraline HCl 100 mg 10/21/20 10:00 10/24/20 09:20 Sertraline 100 Mg Tab PO 100 mg QDAY ALANNA Administration Sodium Bicarbonate 650 mg 10/21/20 22:00 10/24/20 21:19 Sodium Bicarbonate 650 Mg Tab PO 650 mg BID ALANNA Administration Sodium Chloride 10 ml 10/21/20 10:00 10/24/20 21:22 Sodium Chloride 0.9% 10 Ml Flush Syringe IV 10 ml BID ALANNA Administration Sodium Chloride 10 ml 10/21/20 05:28 Sodium Chloride 0.9% 10 Ml Flush Syringe IV PRN PRN LINE FLUSH Tamsulosin HCl 0.4 mg 10/21/20 10:00 10/24/20 09:20 Tamsulosin 0.4 Mg Cap PO 0.4 mg DAILY ALANNA Administration Tramadol HCl 50 mg 10/21/20 05:28 10/24/20 21:19 Tramadol 50 Mg Tab PO 50 mg Q6H PRN Administration Pain, Moderate (4-6)
[2020-10-25] MEDS: INSULIN NPH/REGULAR 70/30 INJ SUB-Q SCH ×2 (11:00→18:16)
[2020-10-25] MEDS: ASPIRIN EC 81 MG TAB PO SCH (11:48)
[2020-10-25] MEDS: amLODIPine 10 MG TAB PO SCH (11:49)
[2020-10-25] MEDS: SODIUM BICARBONATE 650 MG TAB PO SCH ×2 (11:49→22:12)
[2020-10-25] MEDS: TAMSULOSIN 0.4 MG CAP PO SCH (11:49)
[2020-10-25] MEDS: CLOPIDOGREL 75 MG TAB PO SCH (11:51)
[2020-10-25] MEDS: FAMOTIDINE 20 MG TAB PO SCH (11:51)
[2020-10-25] MEDS: METOPROLOL TARTRATE 50 MG TAB PO SCH ×2 (11:51→22:11)
[2020-10-25] MEDS: FINASTERIDE 5 MG TAB PO SCH ×2 (11:52→22:12)
[2020-10-25] MEDS: CHOLECALCIFEROL (VIT D3) 1000 UNIT (25 mcg) TAB PO SCH (11:52)
[2020-10-25] MEDS: SERTRALINE 100 MG TAB PO SCH (12:19)
--- NOTE | 2020-10-25 12:42 | Progress Note ---
Assessment and Plan Telemetry reviewed: Sinus rhythm 68. No events #NSTEMI suspect type II in setting of progressive renal disease * Patient is currently chest pain-free with no cardiac symptoms. * Troponin is elevated and trending upwards. Continue to trend CE's. Will reevaluate in a.m. indications for ischemic eval * Recent Lexiscan stress MPI 08/27/2020 reviewed - inferoapical scar, no reversible ischemia noted. #Acute heart failure with preserved ejection fraction * Patient is on regular dialysis M/W/F. Volume optimization per nephrology * Continue current cardiac regimen amlodipine 10 mg daily, metoprolol 50 mg twice daily, ASA 81 mg daily, atorvastatin 40 mg nightly #NNAMDI in setting of CKD on hemodialysis * Nephrology is following #DVT prophylaxis * Heparin SQ We will follow This patient was seen in conjunction with Dr Samuel San who agrees with this assessment and plan of care - Patient Problems (1) Acute respiratory failure Current Visit: Yes Status: Acute Qualifiers: Respiratory failure complication: hypoxia Qualified Code(s): J96.01 - Acute respiratory failure with hypoxia (2) Acute heart failure with preserved ejection fraction (HFpEF) Current Visit: Yes Status: Acute (3) Acute kidney injury superimposed on CKD Current Visit: Yes Status: Acute (4) Anemia Current Visit: Yes Status: Acute (5) NSTEMI (non-ST elevated myocardial infarction) Current Visit: Yes Status: Acute Plan to address problem: ?Type 2 (in the setting of progressive renal disease) (6) CAD (coronary artery disease) Current Visit: Yes Status: Chronic (7) S/P PTCA (percutaneous transluminal coronary angioplasty) Current Visit: Yes Status: Chronic (8) Aortic stenosis Current Visit: Yes Status: Chronic (9) Hypertension Current Visit: Yes Status: Chronic Qualifiers: Hypertension type: essential hypertension Qualified Code(s): I10 - Essential (primary) hypertension (10) Hyperlipidemia Current Visit: Yes Status: Chronic Qualifiers: Hyperlipidemia type: mixed hyperlipidemia Qualified Code(s): E78.2 - Mixed hyperlipidemia (11) DM2 (diabetes mellitus, type 2) Current Visit: Yes Status: Chronic (12) PVD (peripheral vascular disease) Current Visit: Yes Status: Chronic (13) Aorto-iliac disease Current Visit: Yes Status: Chronic (14) H/O: CVA (cerebrovascular accident) Current Visit: Yes Status: Chronic (15) Frequent falls Current Visit: Yes Status: Chronic Subjective Date of service: 10/25/20 Principal diagnosis: NNAMDI/CKD, NSTEMI Interval history: Patient resting comfortably in bed. No chest pain or shortness of breath overnight. Telemetry reviewed: Sinus rhythm 68. No events Objective Last Vital Signs Temp 98.0 F 10/25/20 12:08 Pulse 73 10/25/20 12:08 Resp 18 10/25/20 12:08 BP 130/73 10/25/20 12:08 Pulse Ox 90 10/25/20 12:08 - Physical Examination General: No Apparent Distress HEENT: Positive: EOMI, Normocephaly, Mucus Membranes Moist Neck: Positive: neck supple, trachea midline. Negative: JVD/HJR Cardiac: Positive: Reg Rate and Rhythm, S1/S2 Lungs: Positive: Normal Exam, Normal Breath Sounds Neuro: Positive: Grossly Intact Abdomen: Positive: Soft. Negative: Tender Skin: Negative: Rash Musculoskeletal: No Pain Extremities: Present: lower extr. pulses, warm. Absent: edema - Labs and Meds Cardiac Enzymes 10/25/20 Range/Units 04:46 AST 24 (5-40) units/L Comprehensive Metabolic Panel 10/25/20 Range/Units 04:46 Sodium 137 (137-145) mmol/L Potassium 3.8 (3.6-5.0) mmol/L Chloride 95.4 L (98-107) mmol/L Carbon Dioxide 26 (22-30) mmol/L BUN 94 H (9-20) mg/dL Creatinine 4.0 H (0.8-1.3) mg/dL Glucose 243 H (75-100) mg/dL Calcium 9.5 (8.4-10.2) mg/dL AST 24 (5-40) units/L ALT 11 (7-56) units/L Alkaline Phosphatase 84 (35-129) units/L Total Protein 7.4 (6.3-8.2) g/dL Albumin 3.8 L (3.9-5) g/dL - Imaging and Cardiology EKG: report reviewed, image reviewed Echo: report reviewed (08/27/2020 - mod concentric LVH, EF 55-69%, grade 2 diasto lic dysfxn, increased LA volume, mod AV stenosis, 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
--- NOTE | 2020-10-25 13:22 | Progress Note ---
Assessment and Plan - Patient Problems (1) Acute heart failure with preserved ejection fraction (HFpEF) Current Visit: Yes Status: Acute Plan to address problem: continue with current diuretic regimen. Recommendations from cardiology appreciated. Counseled on importance of maintaining low-sodium diet as well as appropriate fluid restriction. Discontinue Diuril in the setting of elevated BUN but I would continue the current Lasix 80 mg IV twice a day dose for now until we see further improvement of the overall respiratory status. At that time will consider changing to oral regimen. (2) Pulmonary edema Current Visit: Yes Status: Acute Qualifiers: Chronicity: acute Qualified Code(s): J81.0 - Acute pulmonary edema Plan to address problem: continue current diuretic regimen. (3) Acute kidney injury superimposed on CKD Current Visit: Yes Status: Acute Plan to address problem: patient remains in chronic kidney disease stage IV without any acute uremic symptoms or necessity to start hemodialysis at this time. He has a functional left upper extremity AV fistula without any issues currently. We will continue to monitor closely. (4) Acidosis Current Visit: Yes Status: Acute Plan to address problem: patient started on sodium bicarbonate supplementation. (5) DM2 (diabetes mellitus, type 2) Current Visit: Yes Status: Chronic Plan to address problem: diabetes management per primary attending. (6) Hypertension Current Visit: Yes Status: Chronic Qualifiers: Hypertension type: essential hypertension Qualified Code(s): I10 - Essential (primary) hypertension Plan to address problem: monitor blood pressure on the current regimen. Subjective Date of service: 10/25/20 Principal diagnosis: NNAMDI/CKD, NSTEMI Interval history: patient apparently had a fall out of his bed yesterday. Questionable head trauma. Head CT of the head done which was inconclusive because of movement. Pending repeat CT scan study today. No acute changes from a renal standpoint. Continues to have adequate diuresis with current regimen. Objective - Vital Signs Vital signs: Vital Signs - 12hr 10/25/20 10/25/20 10/25/20 04:37 08:05 08:06 Temperature 98.0 F Pulse Rate 75 Pulse Rate [ 73 Anterior Bilateral Throughout] Pulse Rate [ 73 Bilateral] Respiratory 18 Rate Respiratory 16 Rate [Anterior Bilateral Throughout] Respiratory 18 Rate [Bilateral ] Blood Pressure 182/74 Blood Pressure [Left] O2 Sat by Pulse 98 100 Oximetry 10/25/20 10/25/20 10/25/20 08:28 11:49 11:51 Temperature 98.0 F Pulse Rate 77 69 68 Pulse Rate [ Anterior Bilateral Throughout] Pulse Rate [ Bilateral] Respiratory 20 Rate Respiratory Rate [Anterior Bilateral Throughout] Respiratory Rate [Bilateral ] Blood Pressure Blood Pressure 156/106 [Left] O2 Sat by Pulse 90 Oximetry 10/25/20 12:08 Temperature 98.0 F Pulse Rate 73 Pulse Rate [ Anterior Bilateral Throughout] Pulse Rate [ Bilateral] Respiratory 18 Rate Respiratory Rate [Anterior Bilateral Throughout] Respiratory Rate [Bilateral ] Blood Pressure Blood Pressure 130/73 [Left] O2 Sat by Pulse 90 Oximetry - General Appearance General appearance: well-nourished, appears stated age EENT: ATNC Neck: no JVD Respiratory: Present: Decreased Breath Sounds Cardiology: regular Gastrointestinal: normal Integumentary: no rash Musculoskeletal: deferred Psychiatric: cooperative - Lab 10/23/20 04:29 10/25/20 04:46 Most recent lab results ABG pH 7.387 (7.320-7.450) 10/24/20 10:25 ABG O2 Saturation 90.7 (0-100) 10/24/20 10:25 Calcium 9.5 mg/dL (8.4-10.2) 10/25/20 04:46 Magnesium 2.20 mg/dL (1.7-2.3) 10/24/20 10:56 - Imaging Chest x-ray: report reviewed - Allied health notes Allied health notes reviewed: nursing Medications & Allergies - Medications Allergies/Adverse Reactions: Allergies pollen extracts Allergy (Verified 10/21/20 05:23) Unknown Home Medications: Home Medications Medication Instructions Recorded Confirmed Last Taken Type Clopidogrel Bisulfate [Clopidogrel] 1 tab PO DAILY 03/13/14 10/21/20 10/18/20 History Tamsulosin HCl 1 tab PO DAILY 03/13/14 10/21/20 10/18/20 History Aspirin [Adult Aspirin] 81 mg PO DAILY 10/12/20 10/21/20 10/18/20 History AtorvaSTATin [Lipitor] 40 mg PO QHS 10/12/20 10/21/20 10/18/20 History Dicyclomine [Bentyl] 20 mg PO BID 10/12/20 10/21/20 10/18/20 History Finasteride [Proscar] 5 mg PO BID 10/12/20 10/21/20 10/18/20 History Insulin NPH Human Isophane 15 unit SQ BID 10/12/20 10/21/20 10/18/20 20:30 History [Novolin N] Insulin Regular, Human [Novolin R] 10 units SUB-Q BID 10/12/20 10/21/20 10/18/20 20:30 History Metoprolol [Lopressor TAB] 50 mg PO QDAY 10/12/20 10/21/20 10/18/20 20:30 History Sertraline [Zoloft] 100 mg PO QDAY 10/12/20 10/21/20 10/18/20 History amLODIPine 10 mg PO DAILY 10/12/20 10/21/20 10/18/20 20:30 History HYDROcodone/APAP 7.5-325 [[place] 1 each PO Q6HR PRN #40 tablet 10/19/20 10/21/20 Unknown Rx 7.5/325] Ergocalciferol (Vitamin D2) 1,250 unit PO DAILY 10/21/20 10/21/20 Unknown History [Vitamin D2] Active Medications: Generic Name Dose Route Start Last Admin Trade Name Freq PRN Reason Stop Dose Admin Acetaminophen 650 mg 10/21/20 05:28 Acetaminophen 325 Mg Tab PO Q4H PRN Pain MILD(1-3)/Fever >100.5/PRIETO Albuterol 2.5 mg 10/21/20 05:28 Albuterol 2.5 Mg/3 Ml Nebu IH Q4HRT PRN Shortness Of Breath Albuterol/Ipratropium 1 ampul 10/22/20 08:00 10/25/20 08:08 Ipratropium/Albuterol Sulfate 3 Ml Ampul.Neb IH 1 ampul TIDRT ALANNA Administration Amlodipine Besylate 10 mg 10/21/20 10:00 10/25/20 11:49 Amlodipine 10 Mg Tab PO 10 mg DAILY ALANNA Administration Aspirin 81 mg 10/21/20 10:00 10/25/20 11:48 Aspirin Ec 81 Mg Tab PO 81 mg DAILY ALANNA Administration Atorvastatin Calcium 40 mg 10/21/20 22:00 10/24/20 21:19 Atorvastatin 40 Mg Tab PO 40 mg QHS ALANNA Administration Cholecalciferol 2,000 unit 10/21/20 10:00 10/25/20 11:52 Cholecalciferol (Vit D3) 1000 Unit (25 Mcg) Tab PO 2,000 unit DAILY ALANNA Administration Clopidogrel Bisulfate 75 mg 10/21/20 10:00 10/25/20 11:51 Clopidogrel 75 Mg Tab PO 75 mg DAILY ALANNA Administration Famotidine 20 mg 10/21/20 10:00 10/25/20 11:51 Famotidine 20 Mg Tab PO 20 mg QAM ALANNA Administration Finasteride 5 mg 10/21/20 10:00 10/25/20 11:52 Finasteride 5 Mg Tab PO 5 mg BID ALANNA Administration Furosemide 80 mg 10/21/20 18:00 10/25/20 06:32 Furosemide 100 Mg/10 Ml Inj IV 80 mg 0600,1800 ALANNA Administration Heparin Sodium (Porcine) 5,000 unit 10/24/20 14:00 10/25/20 06:32 Heparin 5,000 Unit/1 Ml Vial SUB-Q 5,000 unit Q8HR ALANNA Administration Hydralazine HCl 25 mg 10/25/20 14:00 Hydralazine 25 Mg Tab PO Q8HR ALANNA Insulin Human Isoph/Insulin Regular 20 unit 10/21/20 09:00 10/25/20 11:00 Insulin Nph/Regular 70/30 Inj SUB-Q 20 unit BIDDIAB ALANNA Administration Insulin Human Lispro 0 unit 10/21/20 11:30 10/25/20 11:43 Insulin Lispro 100 Unit/Ml SUB-Q 8 unit ACHS ALANNA Administration Protocol Metoprolol Tartrate 50 mg 10/22/20 17:00 10/25/20 11:51 Metoprolol Tartrate 50 Mg Tab PO 50 mg BID ALANNA Administration Nitroglycerin 0.4 mg 10/21/20 05:28 Nitroglycerin 0.4 Mg Tab Subl SL Q5M PRN Chest Pain Ondansetron HCl 4 mg 10/21/20 05:28 Ondansetron 4 Mg/2 Ml Inj IV Q8H PRN Nausea And Vomiting Sertraline HCl 100 mg 10/21/20 10:00 10/25/20 12:19 Sertraline 100 Mg Tab PO 100 mg QDAY ALANNA Administration Sodium Bicarbonate 650 mg 10/21/20 22:00 10/25/20 11:49 Sodium Bicarbonate 650 Mg Tab PO 650 mg BID ALANNA Administration Sodium Chloride 10 ml 10/21/20 10:00 10/25/20 11:52 Sodium Chloride 0.9% 10 Ml Flush Syringe IV 10 ml BID ALANNA Administration Sodium Chloride 10 ml 10/21/20 05:28 Sodium Chloride 0.9% 10 Ml Flush Syringe IV PRN PRN LINE FLUSH Tamsulosin HCl 0.4 mg 10/21/20 10:00 10/25/20 11:49 Tamsulosin 0.4 Mg Cap PO 0.4 mg DAILY ALANNA Administration Tramadol HCl 50 mg 10/21/20 05:28 10/24/20 21:19 Tramadol 50 Mg Tab PO 50 mg Q6H PRN Administration Pain, Moderate (4-6)
--- NOTE | 2020-10-25 14:08 | Progress Note ---
Assessment and Plan Patient alert, awake. Patient resting on High flow o2. On Vapotherm and FIO2 60%. O2 saturation 96%. BIPAP stand by in the room. Patient afebrile. No leukocytosis. Chest xray done 10/25/20 reported Prominent diffuse interstitial lung markings again noted although significantly improved since the previous exam. Patient is on albuterol/atrovent aerosol treatments, S/C Heparin and famotidine. - Patient Problems (1) Acute respiratory failure Current Visit: Yes Status: Acute Qualifiers: Respiratory failure complication: hypoxia Qualified Code(s): J96.01 - Acute respiratory failure with hypoxia Plan to address problem: High flow O2, FIO2 60% BIPAP stand by in the room. Albuterol/atrovent aerosol treatments, S/C Heparin Famotidine. (2) Acidosis Current Visit: Yes Status: Acute Plan to address problem: Improving. Anion gap 19 to day. (3) Acute encephalopathy Current Visit: Yes Status: Acute Plan to address problem: Management as per primary care. (4) Acute heart failure with preserved ejection fraction (HFpEF) Current Visit: Yes Status: Acute Plan to address problem: Management as per cardiology. (5) Acute kidney injury superimposed on CKD Current Visit: Yes Status: Acute Plan to address problem: Management as per nephrolgy. (6) Anemia Current Visit: Yes Status: Acute Plan to address problem: Management as per primary care. (7) CAD (coronary artery disease) Current Visit: Yes Status: Chronic Plan to address problem: Management as per cardiology. (8) DM2 (diabetes mellitus, type 2) Current Visit: Yes Status: Chronic Plan to address problem: Management as per primary care. (9) H/O: CVA (cerebrovascular accident) Current Visit: Yes Status: Chronic Plan to address problem: Management as per primary care. (10) Hypertension Current Visit: Yes Status: Chronic Qualifiers: Hypertension type: essential hypertension Qualified Code(s): I10 - Essential (primary) hypertension Plan to address problem: Management as per primary care. Subjective Date of service: 10/25/20 Principal diagnosis: NNAMDI/CKD, NSTEMI Interval history: Patient alert, awake. Patient resting on High flow o2. On Vapotherm and FIO2 60%. O2 saturation 96%. BIPAP stand by in the room. Patient afebrile. No leukocytosis. Chest xray done 10/25/20 reported Prominent diffuse interstitial lung markings again noted although significantly improved since the previous exam. Patient is on albuterol/atrovent aerosol treatments, S/C Heparin and famotidine. Objective Vital Signs - 12hr 10/25/20 10/25/20 10/25/20 04:37 08:05 08:06 Temperature 98.0 F Pulse Rate 75 Pulse Rate [ 73 Anterior Bilateral Throughout] Pulse Rate [ 73 Bilateral] Respiratory 18 Rate Respiratory 16 Rate [Anterior Bilateral Throughout] Respiratory 18 Rate [Bilateral ] Blood Pressure 182/74 Blood Pressure [Left] O2 Sat by Pulse 98 100 Oximetry 10/25/20 10/25/20 10/25/20 08:28 11:49 11:51 Temperature 98.0 F Pulse Rate 77 69 68 Pulse Rate [ Anterior Bilateral Throughout] Pulse Rate [ Bilateral] Respiratory 20 Rate Respiratory Rate [Anterior Bilateral Throughout] Respiratory Rate [Bilateral ] Blood Pressure Blood Pressure 156/106 [Left] O2 Sat by Pulse 90 Oximetry 10/25/20 12:08 Temperature 98.0 F Pulse Rate 73 Pulse Rate [ Anterior Bilateral Throughout] Pulse Rate [ Bilateral] Respiratory 18 Rate Respiratory Rate [Anterior Bilateral Throughout] Respiratory Rate [Bilateral ] Blood Pressure Blood Pressure 130/73 [Left] O2 Sat by Pulse 90 Oximetry Constitutional: no acute distress, appears uncomfortable, other (elderly male with mildly increased respiratory effort at rest) Eyes: non-icteric ENT: oropharynx moist Neck: supple, no lymphadenopathy, no JVD Effort: mildly labored Ascultation: Bilateral: diminished breath sounds, rhonchi Percussion: Bilateral: not dull Cardiovascular: regular rate and rhythm Gastrointestinal: normoactive bowel sounds, soft, non-tender, non-distended (protuberant) Integumentary: normal Extremities: no cyanosis, no edema, pulses normal, no ischemia or petechiae Neurologic: normal mental status, non-focal exam, pupils equal and round, motor strength normal and Psychiatric: mood appropriate, affect normal CBC and BMP: 10/23/20 04:29 10/25/20 04:46 ABG, PT/INR, D-dimer: ABG ABG pH 7.387 (7.320-7.450) 10/24/20 10:25 POC ABG pCO2 35.6 mmHg (32.0-48.0) 10/24/20 10:25 POC ABG pO2 64.0 mmHg (83-108) L 10/24/20 10:25 POC ABG HCO3 20.9 10/24/20 10:25 ABG O2 Saturation 90.7 (0-100) 10/24/20 10:25 PT/INR, D-dimer PT 15.9 Sec. (12.2-14.9) H 10/21/20 14:59 INR 1.22 (0.87-1.13) H 10/21/20 14:59 D-Dimer 2466.38 ng/mlDDU (0-234) H 10/21/20 03:14 Abnormal lab findings: Abnormal Labs 10/21/20 10/21/20 10/21/20 03:14 03:14 03:14 WBC 14.5 H RBC Hgb Hct RDW 16.1 H Lymph % (Auto) Jack % (Auto) Lymph # (Auto) Jack # (Auto) Seg Neutrophils % Seg Neuts % (Manual) 85.0 H Lymphocytes % (Manual) 7.0 L Seg Neutrophils # Seg Neutrophils # Man 12.3 H Lymphocytes # (Manual) 1.0 L Monocytes # (Manual) 0.9 H PT INR APTT 23.5 L D-Dimer 2466.38 H Heparin Anti-Xa Level POC ABG pO2 ABG Hemoglobin ABG Oxyhemoglobin ABG Sodium ABG Glucose Carboxyhemoglobin Chloride Carbon Dioxide 16 L D BUN 55 H Creatinine 3.7 H Glucose 333 H POC Glucose Hemoglobin A1c Calcium 8.3 L Troponin T NT-Pro-B Natriuret Pep Albumin Triglycerides Cholesterol LDL Cholesterol Direct HDL Cholesterol Arterial Blood Glucose 10/21/20 10/21/20 10/21/20 03:14 05:56 07:53 WBC 13.6 H RBC Hgb Hct RDW 16.4 H Lymph % (Auto) 3.7 L Jack % (Auto) Lymph # (Auto) 0.5 L Jack # (Auto) 0.9 H Seg Neutrophils % 89.6 H Seg Neuts % (Manual) Lymphocytes % (Manual) Seg Neutrophils # 12.2 H Seg Neutrophils # Man Lymphocytes # (Manual) Monocytes # (Manual) PT INR APTT D-Dimer Heparin Anti-Xa Level POC ABG pO2 ABG Hemoglobin ABG Oxyhemoglobin ABG Sodium ABG Glucose Carboxyhemoglobin Chloride Carbon Dioxide BUN Creatinine Glucose POC Glucose 307 H Hemoglobin A1c Calcium Troponin T 0.241 H* NT-Pro-B Natriuret Pep Albumin Triglycerides 154 H Cholesterol 212 H LDL Cholesterol Direct 137 H HDL Cholesterol 65 H Arterial Blood Glucose 10/21/20 10/21/20 10/21/20 07:53 10:52 10:55 WBC RBC Hgb Hct RDW Lymph % (Auto) Jack % (Auto) Lymph # (Auto) Jack # (Auto) Seg Neutrophils % Seg Neuts % (Manual) Lymphocytes % (Manual) Seg Neutrophils # Seg Neutrophils # Man Lymphocytes # (Manual) Monocytes # (Manual) PT INR APTT D-Dimer Heparin Anti-Xa Level POC ABG pO2 ABG Hemoglobin ABG Oxyhemoglobin ABG Sodium ABG Glucose Carboxyhemoglobin Chloride 97.4 L Carbon Dioxide 19 L BUN 63 H Creatinine 4.0 H Glucose 337 H POC Glucose 320 H Hemoglobin A1c Calcium 8.3 L Troponin T 0.730 H* D NT-Pro-B Natriuret Pep Albumin Triglycerides Cholesterol LDL Cholesterol Direct HDL Cholesterol Arterial Blood Glucose 10/21/20 10/21/20 10/21/20 14:59 14:59 14:59 WBC RBC Hgb 11.5 L Hct RDW Lymph % (Auto) Jack % (Auto) Lymph # (Auto) Jack # (Auto) Seg Neutrophils % Seg Neuts % (Manual) Lymphocytes % (Manual) Seg Neutrophils # Seg Neutrophils # Man Lymphocytes # (Manual) Monocytes # (Manual) PT 15.9 H INR 1.22 H APTT 135.3 H* D-Dimer Heparin Anti-Xa Level POC ABG pO2 ABG Hemoglobin ABG Oxyhemoglobin ABG Sodium ABG Glucose Carboxyhemoglobin Chloride Carbon Dioxide BUN Creatinine Glucose POC Glucose Hemoglobin A1c Calcium Troponin T 1.190 H* D NT-Pro-B Natriuret Pep Albumin Triglycerides Cholesterol LDL Cholesterol Direct HDL Cholesterol Arterial Blood Glucose 10/21/20 10/22/20 10/22/20 16:55 02:45 02:45 WBC 15.5 H RBC Hgb Hct RDW 16.2 H Lymph % (Auto) 8.2 L Jack % (Auto) 9.5 H Lymph # (Auto) Jack # (Auto) 1.5 H Seg Neutrophils % 81.3 H Seg Neuts % (Manual) Lymphocytes % (Manual) Seg Neutrophils # 12.6 H Seg Neutrophils # Man Lymphocytes # (Manual) Monocytes # (Manual) PT INR APTT D-Dimer Heparin Anti-Xa Level POC ABG pO2 ABG Hemoglobin ABG Oxyhemoglobin ABG Sodium ABG Glucose Carboxyhemoglobin Chloride Carbon Dioxide 20 L BUN 76 H Creatinine 4.4 H Glucose 113 H POC Glucose 312 H Hemoglobin A1c Calcium Troponin T NT-Pro-B Natriuret Pep Albumin Triglycerides Cholesterol LDL Cholesterol Direct HDL Cholesterol Arterial Blood Glucose 10/22/20 10/22/20 10/22/20 07:00 08:18 11:58 WBC RBC Hgb Hct RDW Lymph % (Auto) Jack % (Auto) Lymph # (Auto) Jack # (Auto) Seg Neutrophils % Seg Neuts % (Manual) Lymphocytes % (Manual) Seg Neutrophils # Seg Neutrophils # Man Lymphocytes # (Manual) Monocytes # (Manual) PT INR APTT D-Dimer Heparin Anti-Xa Level POC ABG pO2 ABG Hemoglobin ABG Oxyhemoglobin ABG Sodium ABG Glucose Carboxyhemoglobin Chloride Carbon Dioxide BUN Creatinine Glucose POC Glucose 181 H 237 H Hemoglobin A1c 7.8 H Calcium Troponin T NT-Pro-B Natriuret Pep Albumin Triglycerides Cholesterol LDL Cholesterol Direct HDL Cholesterol Arterial Blood Glucose 10/22/20 10/22/20 10/23/20 16:58 21:25 04:29 WBC RBC 3.49 L Hgb 10.4 L Hct 30.7 L RDW 15.9 H Lymph % (Auto) Jack % (Auto) Lymph # (Auto) Jack # (Auto) Seg Neutrophils % Seg Neuts % (Manual) Lymphocytes % (Manual) Seg Neutrophils # Seg Neutrophils # Man Lymphocytes # (Manual) Monocytes # (Manual) PT INR APTT D-Dimer Heparin Anti-Xa Level POC ABG pO2 ABG Hemoglobin ABG Oxyhemoglobin ABG Sodium ABG Glucose Carboxyhemoglobin Chloride Carbon Dioxide BUN Creatinine Glucose POC Glucose 273 H 272 H Hemoglobin A1c Calcium Troponin T NT-Pro-B Natriuret Pep Albumin Triglycerides Cholesterol LDL Cholesterol Direct HDL Cholesterol Arterial Blood Glucose 10/23/20 10/23/20 10/23/20 04:29 04:29 07:26 WBC RBC Hgb Hct RDW Lymph % (Auto) Jack % (Auto) Lymph # (Auto) Jack # (Auto) Seg Neutrophils % Seg Neuts % (Manual) Lymphocytes % (Manual) Seg Neutrophils # Seg Neutrophils # Man Lymphocytes # (Manual) Monocytes # (Manual) PT INR APTT D-Dimer Heparin Anti-Xa Level 0.20 L POC ABG pO2 ABG Hemoglobin ABG Oxyhemoglobin ABG Sodium ABG Glucose Carboxyhemoglobin Chloride Carbon Dioxide BUN 78 H Creatinine 4.3 H Glucose 139 H POC Glucose 158 H Hemoglobin A1c Calcium Troponin T NT-Pro-B Natriuret Pep Albumin Triglycerides Cholesterol LDL Cholesterol Direct HDL Cholesterol Arterial Blood Glucose 10/23/20 10/23/20 10/23/20 11:07 11:50 15:19 WBC RBC Hgb Hct RDW Lymph % (Auto) Jack % (Auto) Lymph # (Auto) Jack # (Auto) Seg Neutrophils % Seg Neuts % (Manual) Lymphocytes % (Manual) Seg Neutrophils # Seg Neutrophils # Man Lymphocytes # (Manual) Monocytes # (Manual) PT INR APTT D-Dimer Heparin Anti-Xa Level 0.27 L POC ABG pO2 ABG Hemoglobin ABG Oxyhemoglobin ABG Sodium ABG Glucose Carboxyhemoglobin Chloride Carbon Dioxide BUN Creatinine Glucose POC Glucose 201 H 324 H Hemoglobin A1c Calcium Troponin T NT-Pro-B Natriuret Pep Albumin Triglycerides Cholesterol LDL Cholesterol Direct HDL Cholesterol Arterial Blood Glucose 10/23/20 10/24/20 10/24/20 20:15 07:25 10:21 WBC RBC Hgb Hct RDW Lymph % (Auto) Jack % (Auto) Lymph # (Auto) Jack # (Auto) Seg Neutrophils % Seg Neuts % (Manual) Lymphocytes % (Manual) Seg Neutrophils # Seg Neutrophils # Man Lymphocytes # (Manual) Monocytes # (Manual) PT INR APTT D-Dimer Heparin Anti-Xa Level POC ABG pO2 ABG Hemoglobin ABG Oxyhemoglobin ABG Sodium ABG Glucose Carboxyhemoglobin Chloride Carbon Dioxide BUN Creatinine Glucose POC Glucose 259 H 145 H Hemoglobin A1c Calcium Troponin T 2.650 H* D NT-Pro-B Natriuret Pep Albumin Triglycerides Cholesterol LDL Cholesterol Direct HDL Cholesterol Arterial Blood Glucose 10/24/20 10/24/20 10/24/20 10:25 10:56 11:32 WBC RBC Hgb Hct RDW Lymph % (Auto) Jack % (Auto) Lymph # (Auto) Jack # (Auto) Seg Neutrophils % Seg Neuts % (Manual) Lymphocytes % (Manual) Seg Neutrophils # Seg Neutrophils # Man Lymphocytes # (Manual) Monocytes # (Manual) PT INR APTT D-Dimer Heparin Anti-Xa Level POC ABG pO2 64.0 L ABG Hemoglobin 11.3 L ABG Oxyhemoglobin 90.1 L ABG Sodium 134.0 L ABG Glucose 246 H Carboxyhemoglobin 0.4 L Chloride 94.8 L Carbon Dioxide BUN 88 H Creatinine 4.3 H Glucose 236 H POC Glucose 228 H Hemoglobin A1c Calcium Troponin T NT-Pro-B Natriuret Pep Albumin Triglycerides Cholesterol LDL Cholesterol Direct HDL Cholesterol Arterial Blood Glucose 246 H 10/24/20 10/24/20 10/25/20 16:36 20:32 04:46 WBC RBC Hgb Hct RDW Lymph % (Auto) Jack % (Auto) Lymph # (Auto) Jack # (Auto) Seg Neutrophils % Seg Neuts % (Manual) Lymphocytes % (Manual) Seg Neutrophils # Seg Neutrophils # Man Lymphocytes # (Manual) Monocytes # (Manual) PT INR APTT D-Dimer Heparin Anti-Xa Level POC ABG pO2 ABG Hemoglobin ABG Oxyhemoglobin ABG Sodium ABG Glucose Carboxyhemoglobin Chloride 95.4 L Carbon Dioxide BUN 94 H Creatinine 4.0 H Glucose 243 H POC Glucose 214 H 188 H Hemoglobin A1c Calcium Troponin T NT-Pro-B Natriuret Pep 4199 H Albumin 3.8 L Triglycerides Cholesterol LDL Cholesterol Direct HDL Cholesterol Arterial Blood Glucose 10/25/20 10/25/20 07:27 11:09 WBC RBC Hgb Hct RDW Lymph % (Auto) Jack % (Auto) Lymph # (Auto) Jack # (Auto) Seg Neutrophils % Seg Neuts % (Manual) Lymphocytes % (Manual) Seg Neutrophils # Seg Neutrophils # Man Lymphocytes # (Manual) Monocytes # (Manual) PT INR APTT D-Dimer Heparin Anti-Xa Level POC ABG pO2 ABG Hemoglobin ABG Oxyhemoglobin ABG Sodium ABG Glucose Carboxyhemoglobin Chloride Carbon Dioxide BUN Creatinine Glucose POC Glucose 271 H 301 H Hemoglobin A1c Calcium Troponin T NT-Pro-B Natriuret Pep Albumin Triglycerides Cholesterol LDL Cholesterol Direct HDL Cholesterol Arterial Blood Glucose Chest x-ray: report reviewed, image reviewed Additional Studies: CHEST 1 VIEW 10/25/20 INDICATION: Hypoxia. COMPARISON: 10/21/2020 FINDINGS: SUPPORT DEVICES: None. HEART: Within normal limits. LUNGS/PLEURA: Prominent diffuse interstitial lung markings again noted although significantly improved since the previous exam. ADDITIONAL FINDINGS: None. IMPRESSION: 1. Improved exam. Allied health notes reviewed: nursing
[2020-10-25] MEDS: hydrALAZINE 25 MG TAB PO SCH ×2 (16:23→22:52)
[2020-10-26] MEDS: FUROSEMIDE 100 MG/10 ML INJ IV SCH ×2 (05:39→17:25)
[2020-10-26] MEDS: hydrALAZINE 25 MG TAB PO SCH ×3 (05:40→23:33)
[2020-10-26] MEDS: HEPARIN 5,000 UNIT/1 ML VIAL SUB-Q SCH (05:40)
[2020-10-26] MEDS ORDERED: FUROSEMIDE 40 MG TAB PO ONE (06:00)
[2020-10-26 06:43] LABS: Hematocrit 34.6 % (35.5-45.6); Hemoglobin 11.8 gm/dl (11.8-15.2); Mean Corpuscular HGB Conc 34 % (32-34); Mean Corpuscular Volume 87 fl (84-94); Platelet Count 261 K/mm3 (140-440); Red Blood Count 3.97 M/mm3 (3.65-5.03); Red Cell Distribution Width 15.6 % (13.2-15.2)
[2020-10-26 06:54] LABS: Albumin 3.8 g/dL (3.9-5); Calcium 9.8 mg/dL (8.4-10.2)
[2020-10-26] MEDS: IPRATROPIUM/ALBUTEROL SULFATE 3 ML AMPUL.NEB IH SCH ×3 (08:00→21:41)
[2020-10-26] MEDS: INSULIN NPH/REGULAR 70/30 INJ SUB-Q SCH ×3 (09:05→17:24)
[2020-10-26] MEDS: INSULIN LISPRO 100 UNIT/ML SUB-Q SCH ×4 (09:05→23:34)
[2020-10-26] MEDS: SODIUM BICARBONATE 650 MG TAB PO SCH ×2 (09:16→23:33)
[2020-10-26] MEDS: FAMOTIDINE 20 MG TAB PO SCH (09:16)
[2020-10-26] MEDS: SERTRALINE 100 MG TAB PO SCH (09:16)
[2020-10-26] MEDS: CLOPIDOGREL 75 MG TAB PO SCH (09:16)
[2020-10-26] MEDS: CHOLECALCIFEROL (VIT D3) 1000 UNIT (25 mcg) TAB PO SCH (09:16)
[2020-10-26] MEDS: METOPROLOL TARTRATE 50 MG TAB PO SCH ×2 (09:16→23:33)
[2020-10-26] MEDS: ASPIRIN EC 81 MG TAB PO SCH (09:16)
[2020-10-26] MEDS: FINASTERIDE 5 MG TAB PO SCH ×2 (09:16→23:32)
[2020-10-26] MEDS: amLODIPine 10 MG TAB PO SCH (09:17)
[2020-10-26] MEDS: TAMSULOSIN 0.4 MG CAP PO SCH (09:17)
--- NOTE | 2020-10-26 09:44 | Progress Note ---
Assessment and Plan Telemetry reviewed: Sinus rhythm 68. No events #NSTEMI suspect type II in setting of progressive renal disease * Patient is currently chest pain-free with no cardiac symptoms. * Recent Lexiscan stress MPI 08/27/2020 reviewed - inferoapical scar, no reversible ischemia noted. * Troponins are trending upwards. Resume heparin drip. We will continue to trend troponins in combination with CK-MB. #Elevated D-dimer * Management per primary team. CTA chest pending #Acute heart failure with preserved ejection fraction * Patient is on regular dialysis M/W/F. Volume optimization per nephrology * Continue current cardiac regimen amlodipine 10 mg daily, metoprolol 50 mg twice daily, ASA 81 mg daily, atorvastatin 40 mg nightly #NNAMDI in setting of CKD * In anticipation of hemodialysis, AV fistula was recently placed in left arm but is not serviceable until 2 weeks post procedure. Nephrology is following #DVT prophylaxis * Heparin SQ Considering further ischemic eval pending additional test results. HD access will likely need to be coordinated with nephrology and primary team if additional contrast studies are indicated. We will follow This patient was seen in conjunction with Dr Samuel San who agrees with this assessment and plan of care - Patient Problems (1) Acute respiratory failure Current Visit: Yes Status: Acute Qualifiers: Respiratory failure complication: hypoxia Qualified Code(s): J96.01 - Acute respiratory failure with hypoxia (2) Acute heart failure with preserved ejection fraction (HFpEF) Current Visit: Yes Status: Acute (3) Acute kidney injury superimposed on CKD Current Visit: Yes Status: Acute (4) Anemia Current Visit: Yes Status: Acute (5) NSTEMI (non-ST elevated myocardial infarction) Current Visit: Yes Status: Acute Plan to address problem: ?Type 2 (in the setting of progressive renal disease) (6) CAD (coronary artery disease) Current Visit: Yes Status: Chronic (7) S/P PTCA (percutaneous transluminal coronary angioplasty) Current Visit: Yes Status: Chronic (8) Aortic stenosis Current Visit: Yes Status: Chronic (9) Hypertension Current Visit: Yes Status: Chronic Qualifiers: Hypertension type: essential hypertension Qualified Code(s): I10 - Essential (primary) hypertension (10) Hyperlipidemia Current Visit: Yes Status: Chronic Qualifiers: Hyperlipidemia type: mixed hyperlipidemia Qualified Code(s): E78.2 - Mixed hyperlipidemia (11) DM2 (diabetes mellitus, type 2) Current Visit: Yes Status: Chronic (12) PVD (peripheral vascular disease) Current Visit: Yes Status: Chronic (13) Aorto-iliac disease Current Visit: Yes Status: Chronic (14) H/O: CVA (cerebrovascular accident) Current Visit: Yes Status: Chronic (15) Frequent falls Current Visit: Yes Status: Chronic Subjective Date of service: 10/26/20 Principal diagnosis: NNAMDI/CKD, NSTEMI Interval history: Patient resting comfortably in bed. No chest pain or shortness of breath overnight. Telemetry reviewed: Sinus rhythm 98, high of sinus tach 130. No events. Objective Last Vital Signs Temp 98.1 F 10/26/20 08:30 Pulse 81 10/26/20 08:30 Resp 18 10/26/20 08:30 BP 117/52 10/26/20 09:16 Pulse Ox 92 10/26/20 08:30 - Physical Examination General: No Apparent Distress HEENT: Positive: EOMI, Normocephaly, Mucus Membranes Moist Neck: Positive: neck supple, trachea midline. Negative: JVD/HJR Cardiac: Positive: Reg Rate and Rhythm, S1/S2 Lungs: Positive: Normal Exam, Normal Breath Sounds Neuro: Positive: Grossly Intact Abdomen: Positive: Soft. Negative: Tender Skin: Negative: Rash Musculoskeletal: No Pain Extremities: Present: lower extr. pulses, warm. Absent: edema - Labs and Meds Cardiac Enzymes 10/26/20 Range/Units 05:37 AST 22 (5-40) units/L CBC 10/26/20 Range/Units 05:37 WBC 9.2 (4.5-11.0) K/mm3 RBC 3.97 (3.65-5.03) M/mm3 Hgb 11.8 (11.8-15.2) gm/dl Hct 34.6 L (35.5-45.6) % Plt Count 261 (140-440) K/mm3 Comprehensive Metabolic Panel 10/26/20 Range/Units 05:37 Sodium 139 (137-145) mmol/L Potassium 3.8 (3.6-5.0) mmol/L Chloride 97.6 L (98-107) mmol/L Carbon Dioxide 26 (22-30) mmol/L BUN 106 H (9-20) mg/dL Creatinine 4.0 H (0.8-1.3) mg/dL Glucose 84 (75-100) mg/dL Calcium 9.8 (8.4-10.2) mg/dL AST 22 (5-40) units/L ALT 11 (7-56) units/L Alkaline Phosphatase 67 (35-129) units/L Total Protein 7.4 (6.3-8.2) g/dL Albumin 3.8 L (3.9-5) g/dL - Imaging and Cardiology EKG: report reviewed, image reviewed Echo: report reviewed (08/27/2020 - mod concentric LVH, EF 55-69%, grade 2 diastolic dysfxn, increased LA volume, mod AV stenosis, 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
--- NOTE | 2020-10-26 11:00 | Progress Note ---
Assessment and Plan Patient sleeping. Not responding to verbal stimuli. Patient resting on High flow O2. On Vapotherm and FIO2 60%. O2 saturation 97%. BIPAP stand by in the room. Patient afebrile. No leukocytosis. Chest xray done 10/25/20 reported Prominent dif fuse interstitial lung markings again noted although significantly improved since the previous exam. Patient is on albuterol/atrovent aerosol treatments, S/C Heparin and famotidine. - Patient Problems (1) Acute respiratory failure Current Visit: Yes Status: Acute Qualifiers: Respiratory failure complication: hypoxia Qualified Code(s): J96.01 - Acute respiratory failure with hypoxia Plan to address problem: High flow O2, FIO2 60% BIPAP stand by in the room. Albuterol/atrovent aerosol treatments, S/C Heparin Famotidine. (2) Acidosis Current Visit: Yes Status: Acute Plan to address problem: Anion gap 19 to day. (3) Acute encephalopathy Current Visit: Yes Status: Acute Plan to address problem: Management as per primary care. (4) Acute heart failure with preserved ejection fraction (HFpEF) Current Visit: Yes Status: Acute Plan to address problem: Management as per cardiology. (5) Acute kidney injury superimposed on CKD Current Visit: Yes Status: Acute Plan to address problem: Management as per nephrolgy. (6) Anemia Current Visit: Yes Status: Acute (7) CAD (coronary artery disease) Current Visit: Yes Status: Chronic Plan to address problem: Management as per cardiology. (8) DM2 (diabetes mellitus, type 2) Current Visit: Yes Status: Chronic Plan to address problem: Management as per primary care. (9) H/O: CVA (cerebrovascular accident) Current Visit: Yes Status: Chronic Plan to address problem: Management as per primary care. (10) Hypertension Current Visit: Yes Status: Chronic Qualifiers: Hypertension type: essential hypertension Qualified Code(s): I10 - Essential (primary) hypertension Plan to address problem: Management as per primary care. Subjective Date of service: 10/26/20 Principal diagnosis: NNAMDI/CKD, NSTEMI Interval history: Patient sleeping. Not responding to verbal stimuli. Patient resting on High flow O2. On Vapotherm and FIO2 60%. O2 saturation 97%. BIPAP stand by in the room. Patient afebrile. No leukocytosis. Chest xray done 10/25/20 reported Prominent diffuse interstitial lung markings again noted although significantly improved since the previous exam. Patient is on albuterol/atrovent aerosol treatments, S/C Heparin and famotidine. Objective Vital Signs - 12hr 10/25/20 10/25/20 10/26/20 23:25 23:26 03:34 Temperature 98.2 F 98.2 F Pulse Rate Pulse Rate [ Anterior Bilateral Throughout] Respiratory 18 18 Rate Respiratory Rate [Anterior Bilateral Throughout] Blood Pressure 86/62 112/91 O2 Sat by Pulse 98 Oximetry 10/26/20 10/26/20 10/26/20 03:40 05:40 08:00 Temperature 98.0 F Pulse Rate 75 75 Pulse Rate [ 76 Anterior Bilateral Throughout] Respiratory 18 Rate Respiratory 18 Rate [Anterior Bilateral Throughout] Blood Pressure 167/59 167/59 O2 Sat by Pulse 98 96 Oximetry 10/26/20 10/26/20 08:30 09:16 Temperature 98.1 F Pulse Rate 81 Pulse Rate [ Anterior Bilateral Throughout] Respiratory 18 Rate Respiratory Rate [Anterior Bilateral Throughout] Blood Pressure 117/52 117/52 O2 Sat by Pulse 92 Oximetry Constitutional: no acute distress, asleep Eyes: non-icteric ENT: oropharynx moist Neck: supple, no lymphadenopathy, no JVD Effort: mildly labored Ascultation: Bilateral: diminished breath sounds, rhonchi Percussion: Bilateral: not dull Cardiovascular: regular rate and rhythm Gastrointestinal: normoactive bowel sounds, soft, non-tender, non-distended (protuberant) Integumentary: normal Extremities: no cyanosis, no edema, pulses normal, no ischemia or petechiae Neurologic: normal mental status, non-focal exam, pupils equal and round, motor strength normal and Psychiatric: mood appropriate, affect normal CBC and BMP: 10/27/20 03:50 10/27/20 03:50 ABG, PT/INR, D-dimer: ABG ABG pH 7.387 (7.320-7.450) 10/24/20 10:25 POC ABG pCO2 35.6 mmHg (32.0-48.0) 10/24/20 10:25 POC ABG pO2 64.0 mmHg (83-108) L 10/24/20 10:25 POC ABG HCO3 20.9 10/24/20 10:25 ABG O2 Saturation 90.7 (0-100) 10/24/20 10:25 PT/INR, D-dimer PT 15.9 Sec. (12.2-14.9) H 10/21/20 14:59 INR 1.22 (0.87-1.13) H 10/21/20 14:59 D-Dimer 2466.38 ng/mlDDU (0-234) H 10/21/20 03:14 Abnormal lab findings: Abnormal Labs 10/21/20 10/21/20 10/21/20 03:14 03:14 03:14 WBC 14.5 H RBC Hgb Hct RDW 16.1 H Lymph % (Auto) [place] % (Auto) Lymph # (Auto) [place] # (Auto) Seg Neutrophils % Seg Neuts % (Manual) 85.0 H Lymphocytes % (Manual) 7.0 L Seg Neutrophils # Seg Neutrophils # Man 12.3 H Lymphocytes # (Manual) 1.0 L Monocytes # (Manual) 0.9 H PT INR APTT 23.5 L D-Dimer 2466.38 H Heparin Anti-Xa Level POC ABG pO2 ABG Hemoglobin ABG Oxyhemoglobin ABG Sodium ABG Glucose Carboxyhemoglobin Chloride Carbon Dioxide 16 L D BUN 55 H Creatinine 3.7 H Glucose 333 H POC Glucose Hemoglobin A1c Calcium 8.3 L Troponin T NT-Pro-B Natriuret Pep Albumin Triglycerides Cholesterol LDL Cholesterol Direct HDL Cholesterol Arterial Blood Glucose 10/21/20 10/21/20 10/21/20 03:14 05:56 07:53 WBC 13.6 H RBC Hgb Hct RDW 16.4 H Lymph % (Auto) 3.7 L [place] % (Auto) Lymph # (Auto) 0.5 L [place] # (Auto) 0.9 H Seg Neutrophils % 89.6 H Seg Neuts % (Manual) Lymphocytes % (Manual) Seg Neutrophils # 12.2 H Seg Neutrophils # Man Lymphocytes # (Manual) Monocytes # (Manual) PT INR APTT D-Dimer Heparin Anti-Xa Level POC ABG pO2 ABG Hemoglobin ABG Oxyhemoglobin ABG Sodium ABG Glucose Carboxyhemoglobin Chloride Carbon Dioxide BUN Creatinine Glucose POC Glucose 307 H Hemoglobin A1c Calcium Troponin T 0.241 H* NT-Pro-B Natriuret Pep Albumin Triglycerides 154 H Cholesterol 212 H LDL Cholesterol Direct 137 H HDL Cholesterol 65 H Arterial Blood Glucose 10/21/20 10/21/20 10/21/20 07:53 10:52 10:55 WBC RBC Hgb Hct RDW Lymph % (Auto) [place] % (Auto) Lymph # (Auto) [place] # (Auto) Seg Neutrophils % Seg Neuts % (Manual) Lymphocytes % (Manual) Seg Neutrophils # Seg Neutrophils # Man Lymphocytes # (Manual) Monocytes # (Manual) PT INR APTT D-Dimer Heparin Anti-Xa Level POC ABG pO2 ABG Hemoglobin ABG Oxyhemoglobin ABG Sodium ABG Glucose Carboxyhemoglobin Chloride 97.4 L Carbon Dioxide 19 L BUN 63 H Creatinine 4.0 H Glucose 337 H POC Glucose 320 H Hemoglobin A1c Calcium 8.3 L Troponin T 0.730 H* D NT-Pro-B Natriuret Pep Albumin Triglycerides Cholesterol LDL Cholesterol Direct HDL Cholesterol Arterial Blood Glucose 10/21/20 10/21/20 10/21/20 14:59 14:59 14:59 WBC RBC Hgb 11.5 L Hct RDW Lymph % (Auto) [place] % (Auto) Lymph # (Auto) [place] # (Auto) Seg Neutrophils % Seg Neuts % (Manual) Lymphocytes % (Manual) Seg Neutrophils # Seg Neutrophils # Man Lymphocytes # (Manual) Monocytes # (Manual) PT 15.9 H INR 1.22 H APTT 135.3 H* D-Dimer Heparin Anti-Xa Level POC ABG pO2 ABG Hemoglobin ABG Oxyhemoglobin ABG Sodium ABG Glucose Carboxyhemoglobin Chloride Carbon Dioxide BUN Creatinine Glucose POC Glucose Hemoglobin A1c Calcium Troponin T 1.190 H* D NT-Pro-B Natriuret Pep Albumin Triglycerides Cholesterol LDL Cholesterol Direct HDL Cholesterol Arterial Blood Glucose 10/21/20 10/22/20 10/22/20 16:55 02:45 02:45 WBC 15.5 H RBC Hgb Hct RDW 16.2 H Lymph % (Auto) 8.2 L [place] % (Auto) 9.5 H Lymph # (Auto) [place] # (Auto) 1.5 H Seg Neutrophils % 81.3 H Seg Neuts % (Manual) Lymphocytes % (Manual) Seg Neutrophils # 12.6 H Seg Neutrophils # Man Lymphocytes # (Manual) Monocytes # (Manual) PT INR APTT D-Dimer Heparin Anti-Xa Level POC ABG pO2 ABG Hemoglobin ABG Oxyhemoglobin ABG Sodium ABG Glucose Carboxyhemoglobin Chloride Carbon Dioxide 20 L BUN 76 H Creatinine 4.4 H Glucose 113 H POC Glucose 312 H Hemoglobin A1c Calcium Troponin T NT-Pro-B Natriuret Pep Albumin Triglycerides Cholesterol LDL Cholesterol Direct HDL Cholesterol Arterial Blood Glucose 10/22/20 10/22/20 10/22/20 07:00 08:18 11:58 WBC RBC Hgb Hct RDW Lymph % (Auto) [place] % (Auto) Lymph # (Auto) [place] # (Auto) Seg Neutrophils % Seg Neuts % (Manual) Lymphocytes % (Manual) Seg Neutrophils # Seg Neutrophils # Man Lymphocytes # (Manual) Monocytes # (Manual) PT INR APTT D-Dimer Heparin Anti-Xa Level POC ABG pO2 ABG Hemoglobin ABG Oxyhemoglobin ABG Sodium ABG Glucose Carboxyhemoglobin Chloride Carbon Dioxide BUN Creatinine Glucose POC Glucose 181 H 237 H Hemoglobin A1c 7.8 H Calcium Troponin T NT-Pro-B Natriuret Pep Albumin Triglycerides Cholesterol LDL Cholesterol Direct HDL Cholesterol Arterial Blood Glucose 10/22/20 10/22/20 10/23/20 16:58 21:25 04:29 WBC RBC 3.49 L Hgb 10.4 L Hct 30.7 L RDW 15.9 H Lymph % (Auto) [place] % (Auto) Lymph # (Auto) [place] # (Auto) Seg Neutrophils % Seg Neuts % (Manual) Lymphocytes % (Manual) Seg Neutrophils # Seg Neutrophils # Man Lymphocytes # (Manual) Monocytes # (Manual) PT INR APTT D-Dimer Heparin Anti-Xa Level POC ABG pO2 ABG Hemoglobin ABG Oxyhemoglobin ABG Sodium ABG Glucose Carboxyhemoglobin Chloride Carbon Dioxide BUN Creatinine Glucose POC Glucose 273 H 272 H Hemoglobin A1c Calcium Troponin T NT-Pro-B Natriuret Pep Albumin Triglycerides Cholesterol LDL Cholesterol Direct HDL Cholesterol Arterial Blood Glucose 10/23/20 10/23/20 10/23/20 04:29 04:29 07:26 WBC RBC Hgb Hct RDW Lymph % (Auto) [place] % (Auto) Lymph # (Auto) [place] # (Auto) Seg Neutrophils % Seg Neuts % (Manual) Lymphocytes % (Manual) Seg Neutrophils # Seg Neutrophils # Man Lymphocytes # (Manual) Monocytes # (Manual) PT INR APTT D-Dimer Heparin Anti-Xa Level 0.20 L POC ABG pO2 ABG Hemoglobin ABG Oxyhemoglobin ABG Sodium ABG Glucose Carboxyhemoglobin Chloride Carbon Dioxide BUN 78 H Creatinine 4.3 H Glucose 139 H POC Glucose 158 H Hemoglobin A1c Calcium Troponin T NT-Pro-B Natriuret Pep Albumin Triglycerides Cholesterol LDL Cholesterol Direct HDL Cholesterol Arterial Blood Glucose 10/23/20 10/23/20 10/23/20 11:07 11:50 15:19 WBC RBC Hgb Hct RDW Lymph % (Auto) [place] % (Auto) Lymph # (Auto) [place] # (Auto) Seg Neutrophils % Seg Neuts % (Manual) Lymphocytes % (Manual) Seg Neutrophils # Seg Neutrophils # Man Lymphocytes # (Manual) Monocytes # (Manual) PT INR APTT D-Dimer Heparin Anti-Xa Level 0.27 L POC ABG pO2 ABG Hemoglobin ABG Oxyhemoglobin ABG Sodium ABG Glucose Carboxyhemoglobin Chloride Carbon Dioxide BUN Creatinine Glucose POC Glucose 201 H 324 H Hemoglobin A1c Calcium Troponin T NT-Pro-B Natriuret Pep Albumin Triglycerides Cholesterol LDL Cholesterol Direct HDL Cholesterol Arterial Blood Glucose 10/23/20 10/24/20 10/24/20 20:15 07:25 10:21 WBC RBC Hgb Hct RDW Lymph % (Auto) [place] % (Auto) Lymph # (Auto) [place] # (Auto) Seg Neutrophils % Seg Neuts % (Manual) Lymphocytes % (Manual) Seg Neutrophils # Seg Neutrophils # Man Lymphocytes # (Manual) Monocytes # (Manual) PT INR APTT D-Dimer Heparin Anti-Xa Level POC ABG pO2 ABG Hemoglobin ABG Oxyhemoglobin ABG Sodium ABG Glucose Carboxyhemoglobin Chloride Carbon Dioxide BUN Creatinine Glucose POC Glucose 259 H 145 H Hemoglobin A1c Calcium Troponin T 2.650 H* D NT-Pro-B Natriuret Pep Albumin Triglycerides Cholesterol LDL Cholesterol Direct HDL Cholesterol Arterial Blood Glucose 10/24/20 10/24/20 10/24/20 10:25 10:56 11:32 WBC RBC Hgb Hct RDW Lymph % (Auto) [place] % (Auto) Lymph # (Auto) [place] # (Auto) Seg Neutrophils % Seg Neuts % (Manual) Lymphocytes % (Manual) Seg Neutrophils # Seg Neutrophils # Man Lymphocytes # (Manual) Monocytes # (Manual) PT INR APTT D-Dimer Heparin Anti-Xa Level POC ABG pO2 64.0 L ABG Hemoglobin 11.3 L ABG Oxyhemoglobin 90.1 L ABG Sodium 134.0 L ABG Glucose 246 H Carboxyhemoglobin 0.4 L Chloride 94.8 L Carbon Dioxide BUN 88 H Creatinine 4.3 H Glucose 236 H POC Glucose 228 H Hemoglobin A1c Calcium Troponin T NT-Pro-B Natriuret Pep Albumin Triglycerides Cholesterol LDL Cholesterol Direct HDL Cholesterol Arterial Blood Glucose 246 H 10/24/20 10/24/20 10/25/20 16:36 20:32 04:46 WBC RBC Hgb Hct RDW Lymph % (Auto) [place] % (Auto) Lymph # (Auto) [place] # (Auto) Seg Neutrophils % Seg Neuts % (Manual) Lymphocytes % (Manual) Seg Neutrophils # Seg Neutrophils # Man Lymphocytes # (Manual) Monocytes # (Manual) PT INR APTT D-Dimer Heparin Anti-Xa Level POC ABG pO2 ABG Hemoglobin ABG Oxyhemoglobin ABG Sodium ABG Glucose Carboxyhemoglobin Chloride 95.4 L Carbon Dioxide BUN 94 H Creatinine 4.0 H Glucose 243 H POC Glucose 214 H 188 H Hemoglobin A1c Calcium Troponin T NT-Pro-B Natriuret Pep 4199 H Albumin 3.8 L Triglycerides Cholesterol LDL Cholesterol Direct HDL Cholesterol Arterial Blood Glucose 10/25/20 10/25/20 10/25/20 07:27 11:09 15:50 WBC RBC Hgb Hct RDW Lymph % (Auto) [place] % (Auto) Lymph # (Auto) [place] # (Auto) Seg Neutrophils % Seg Neuts % (Manual) Lymphocytes % (Manual) Seg Neutrophils # Seg Neutrophils # Man Lymphocytes # (Manual) Monocytes # (Manual) PT INR APTT D-Dimer Heparin Anti-Xa Level POC ABG pO2 ABG Hemoglobin ABG Oxyhemoglobin ABG Sodium ABG Glucose Carboxyhemoglobin Chloride Carbon Dioxide BUN Creatinine Glucose POC Glucose 271 H 301 H 126 H Hemoglobin A1c Calcium Troponin T NT-Pro-B Natriuret Pep Albumin Triglycerides Cholesterol LDL Cholesterol Direct HDL Cholesterol Arterial Blood Glucose 10/25/20 10/26/20 10/26/20 20:38 05:37 05:37 WBC RBC Hgb Hct 34.6 L RDW 15.6 H Lymph % (Auto) [place] % (Auto) Lymph # (Auto) [place] # (Auto) Seg Neutrophils % Seg Neuts % (Manual) Lymphocytes % (Manual) Seg Neutrophils # Seg Neutrophils # Man Lymphocytes # (Manual) Monocytes # (Manual) PT INR APTT D-Dimer Heparin Anti-Xa Level POC ABG pO2 ABG Hemoglobin ABG Oxyhemoglobin ABG Sodium ABG Glucose Carboxyhemoglobin Chloride 97.6 L Carbon Dioxide BUN 106 H Creatinine 4.0 H Glucose POC Glucose 165 H Hemoglobin A1c Calcium Troponin T 2.710 H* NT-Pro-B Natriuret Pep Albumin 3.8 L Triglycerides Cholesterol LDL Cholesterol Direct HDL Cholesterol Arterial Blood Glucose Allied health notes reviewed: nursing
[2020-10-26] MEDS ORDERED: HEPARIN 10,000 UNITS/10 ML VIAL IV PRN (11:26)
[2020-10-26] MEDS ORDERED: HEPARIN 10,000 UNITS/10 ML VIAL IV ONE (11:45)
[2020-10-26] MEDS: HEPARIN/ 0.45% NACL DRIP 25,000 UNIT/500 ML BAG IV SCH (13:11)
--- NOTE | 2020-10-26 14:43 | Progress Note ---
Assessment and Plan - Patient Problems (1) Acute heart failure with preserved ejection fraction (HFpEF) Current Visit: Yes Status: Acute Plan to address problem: continue with current diuretic regimen. Recommendations from cardiology appreciated. Counseled on importance of maintaining low-sodium diet as well as appropriate fluid restriction. Discontinue Diuril in the setting of elevated BUN but I would continue the current Lasix 80 mg IV twice a day dose for now until we see further improvement of the overall respiratory status. (2) Pulmonary edema Current Visit: Yes Status: Acute Qualifiers: Chronicity: acute Qualified Code(s): J81.0 - Acute pulmonary edema Plan to address problem: continue current diuretic regimen. (3) Acute kidney injury superimposed on CKD Current Visit: Yes Status: Acute Plan to address problem: patient remains in chronic kidney disease stage IV without any acute uremic symptoms or necessity to start hemodialysis at this time. He has a functional left upper extremity AV fistula without any issues currently. We will continue to monitor closely. (4) Acidosis Current Visit: Yes Status: Acute Plan to address problem: patient started on sodium bicarbonate supplementation. (5) DM2 (diabetes mellitus, type 2) Current Visit: Yes Status: Chronic Plan to address problem: diabetes management per primary attending. (6) Hypertension Current Visit: Yes Status: Chronic Qualifiers: Hypertension type: essential hypertension Qualified Code(s): I10 - Essential (primary) hypertension Plan to address problem: monitor blood pressure on the current regimen. Subjective Date of service: 10/26/20 Principal diagnosis: NNAMDI/CKD, NSTEMI Interval history: no acute changes overnight. Remains on high flow nasal cannula 60% FiO2. Renal function remained stable at this time. Objective - Vital Signs Vital signs: Vital Signs - 12hr 10/26/20 10/26/20 10/26/20 03:34 03:40 05:40 Temperature 98.0 F Pulse Rate 75 75 Pulse Rate [ Anterior Bilateral Throughout] Pulse Rate [ From Monitor] Respiratory 18 Rate Respiratory Rate [Anterior Bilateral Throughout] Blood Pressure 167/59 167/59 O2 Sat by Pulse 98 98 Oximetry 10/26/20 10/26/20 10/26/20 08:00 08:30 09:16 Temperature 98.1 F Pulse Rate 81 Pulse Rate [ 76 Anterior Bilateral Throughout] Pulse Rate [ From Monitor] Respiratory 18 Rate Respiratory 18 Rate [Anterior Bilateral Throughout] Blood Pressure 117/52 117/52 O2 Sat by Pulse 96 92 Oximetry 10/26/20 10/26/20 10/26/20 11:06 11:29 13:50 Temperature 98.3 F Pulse Rate 81 Pulse Rate [ 77 Anterior Bilateral Throughout] Pulse Rate [ 80 From Monitor] Respiratory 20 18 Rate Respiratory 18 Rate [Anterior Bilateral Throughout] Blood Pressure 147/61 O2 Sat by Pulse 96 97 Oximetry 10/26/20 13:51 Temperature Pulse Rate Pulse Rate [ Anterior Bilateral Throughout] Pulse Rate [ From Monitor] Respiratory Rate Respiratory Rate [Anterior Bilateral Throughout] Blood Pressure O2 Sat by Pulse 95 Oximetry - General Appearance General appearance: well-developed, appears stated age EENT: ATNC Neck: no JVD Respiratory: Present: Decreased Breath Sounds Cardiology: regular Gastrointestinal: normal Integumentary: no rash, warm and dry Musculoskeletal: deferred Psychiatric: cooperative - Lab 10/26/20 05:37 10/26/20 05:37 Most recent lab results ABG pH 7.387 (7.320-7.450) 10/24/20 10:25 ABG O2 Saturation 90.7 (0-100) 10/24/20 10:25 Calcium 9.8 mg/dL (8.4-10.2) 10/26/20 05:37 Magnesium 2.20 mg/dL (1.7-2.3) 10/24/20 10:56 - Imaging Chest x-ray: report reviewed - Allied health notes Allied health notes reviewed: nursing Medications & Allergies - Medications Allergies/Adverse Reactions: Allergies pollen extracts Allergy (Verified 10/21/20 05:23) Unknown Home Medications: Home Medications Medication Instructions Recorded Confirmed Last Taken Type Clopidogrel Bisulfate [Clopidogrel] 1 tab PO DAILY 03/13/14 10/21/20 10/18/20 History Tamsulosin HCl 1 tab PO DAILY 03/13/14 10/21/20 10/18/20 History Aspirin [Adult Aspirin] 81 mg PO DAILY 10/12/20 10/21/20 10/18/20 History AtorvaSTATin [Lipitor] 40 mg PO QHS 10/12/20 10/21/20 10/18/20 History Dicyclomine [Bentyl] 20 mg PO BID 10/12/20 10/21/20 10/18/20 History Finasteride [Proscar] 5 mg PO BID 10/12/20 10/21/20 10/18/20 History Insulin NPH Human Isophane 15 unit SQ BID 10/12/20 10/21/20 10/18/20 20:30 History [Novolin N] Insulin Regular, Human [Novolin R] 10 units SUB-Q BID 10/12/20 10/21/20 10/18/20 20:30 History Metoprolol [Lopressor TAB] 50 mg PO QDAY 10/12/20 10/21/20 10/18/20 20:30 History Sertraline [Zoloft] 100 mg PO QDAY 10/12/20 10/21/20 10/18/20 History amLODIPine 10 mg PO DAILY 10/12/20 10/21/20 10/18/20 20:30 History HYDROcodone/APAP 7.5-325 [[place] 1 each PO Q6HR PRN #40 tablet 10/19/20 10/21/20 Unknown Rx 7.5/325] Ergocalciferol (Vitamin D2) 1,250 unit PO DAILY 10/21/20 10/21/20 Unknown History [Vitamin D2] Active Medications: Generic Name Dose Route Start Last Admin Trade Name Freq PRN Reason Stop Dose Admin Acetaminophen 650 mg 10/21/20 05:28 Acetaminophen 325 Mg Tab PO Q4H PRN Pain MILD(1-3)/Fever >100.5/PRIETO Albuterol 2.5 mg 10/21/20 05:28 Albuterol 2.5 Mg/3 Ml Nebu IH Q4HRT PRN Shortness Of Breath Albuterol/Ipratropium 1 ampul 10/22/20 08:00 10/26/20 13:49 Ipratropium/Albuterol Sulfate 3 Ml Ampul.Neb IH 1 ampul TIDRT ALANNA Administration Amlodipine Besylate 10 mg 10/21/20 10:00 10/26/20 09:17 Amlodipine 10 Mg Tab PO Not Given DAILY ALANNA Aspirin 81 mg 10/21/20 10:00 10/26/20 09:16 Aspirin Ec 81 Mg Tab PO 81 mg DAILY ALANNA Administration Aspirin 325 mg 10/27/20 06:00 Aspirin Ec 325 Mg Tab PO 10/27/20 06:01 ONCE ONE Atorvastatin Calcium 40 mg 10/21/20 22:00 10/25/20 22:11 Atorvastatin 40 Mg Tab PO 40 mg QHS ALANNA Administration Cholecalciferol 2,000 unit 10/21/20 10:00 10/26/20 09:16 Cholecalciferol (Vit D3) 1000 Unit (25 Mcg) Tab PO 2,000 unit DAILY ALANNA Administration Clopidogrel Bisulfate 75 mg 10/21/20 10:00 10/26/20 09:16 Clopidogrel 75 Mg Tab PO 75 mg DAILY ALANNA Administration Famotidine 20 mg 10/21/20 10:00 10/26/20 09:16 Famotidine 20 Mg Tab PO 20 mg QAM ALANNA Administration Finasteride 5 mg 10/21/20 10:00 10/26/20 09:16 Finasteride 5 Mg Tab PO 5 mg BID ALANNA Administration Furosemide 80 mg 10/21/20 18:00 10/26/20 05:39 Furosemide 100 Mg/10 Ml Inj IV Not Given 0600,1800 [facility] Heparin Sodium (Porcine) 3,100 unit 10/26/20 11:26 Heparin 10,000 Units/10 Ml Vial 40 unit/kg (3100 unit) IV Q6H PRN Anti-Xa Assay < 0.1 units/ml Hydralazine HCl 25 mg 10/25/20 14:00 10/26/20 13:10 Hydralazine 25 Mg Tab PO 25 mg Q8HR ALANNA Administration Heparin Sodium/Sodium Chloride 25,000 unit in 500 mls @ 20 mls/hr 10/26/20 12:00 10/26/20 13:11 Heparin/ 0.45% Nacl-25,000 Unit/500 Ml IV 1,000 units/hr TITRATE ALANNA 20 mls/hr Administration Protocol 1,000 UNITS/HR Insulin Human Isoph/Insulin Regular 20 unit 10/21/20 09:00 10/26/20 12:48 Insulin Nph/Regular 70/30 Inj SUB-Q 20 unit BIDDIAB ALANNA Administration Insulin Human Lispro 0 unit 10/21/20 11:30 10/26/20 12:48 Insulin Lispro 100 Unit/Ml SUB-Q 4 unit ACHS [facility] Administration Protocol Metoprolol Tartrate 50 mg 10/22/20 17:00 10/26/20 09:16 Metoprolol Tartrate 50 Mg Tab PO 50 mg BID ALANNA Administration Nitroglycerin 0.4 mg 10/21/20 05:28 Nitroglycerin 0.4 Mg Tab Subl SL Q5M PRN Chest Pain Ondansetron HCl 4 mg 10/21/20 05:28 Ondansetron 4 Mg/2 Ml Inj IV Q8H PRN Nausea And Vomiting Sertraline HCl 100 mg 10/21/20 10:00 10/26/20 09:16 Sertraline 100 Mg Tab PO 100 mg QDAY ALANNA Administration Sodium Bicarbonate 650 mg 10/21/20 22:00 10/26/20 09:16 Sodium Bicarbonate 650 Mg Tab PO 650 mg BID ALANNA Administration Sodium Chloride 10 ml 10/21/20 10:00 10/26/20 09:17 Sodium Chloride 0.9% 10 Ml Flush Syringe IV Not Given BID ALANNA Sodium Chloride 10 ml 10/21/20 05:28 Sodium Chloride 0.9% 10 Ml Flush Syringe IV PRN PRN LINE FLUSH Tamsulosin HCl 0.4 mg 10/21/20 10:00 10/26/20 09:17 Tamsulosin 0.4 Mg Cap PO 0.4 mg DAILY ALANNA Administration Tramadol HCl 50 mg 10/21/20 05:28 10/24/20 21:19 Tramadol 50 Mg Tab PO 50 mg Q6H PRN Administration Pain, Moderate (4-6)
[2020-10-26 15:10] LABS: Hemoglobin 11.1 gm/dl (11.8-15.2)
[2020-10-26 15:14] LABS: Basophils % (Auto) 0.4 % (0.0-1.8); Eosinophils # (Auto) 0.2 K/mm3 (0.0-0.4); Eosinophils % (Auto) 2.7 % (0.0-4.3); Hematocrit 32.4 % (35.5-45.6); Hemoglobin 10.9 gm/dl (11.8-15.2); Lymphocytes # (Auto) 0.8 K/mm3 (1.2-5.4); Mean Corpuscular HGB Conc 34 % (32-34); Mean Corpuscular Volume 88 fl (84-94); Monocytes # (Auto) 0.5 K/mm3 (0.0-0.8); Monocytes % (Auto) 7.1 % (0.0-7.3); Platelet Count 252 K/mm3 (140-440); Red Cell Distribution Width 15.6 % (13.2-15.2)
[2020-10-26 15:19] LABS: INR 0.99 (0.87-1.13)
[2020-10-26] MEDS: traMADol 50 MG TAB PO PRN (17:33)
[2020-10-26 19:04] LABS: Creatine Kinase MB 7.7 ng/mL (0.0-4.0)
[2020-10-26] MEDS ORDERED: DEXTROSE 50% IN WATER (25GM) 50 ML SYRINGE IV ONE ×2 (20:29→21:32)
[2020-10-26] MEDS ORDERED: D5W/0.45% NACL 1,000 ML IV SCH (22:00)
[2020-10-26] MEDS: DOCUSATE SODIUM 100 MG CAP PO SCH (23:32)
[2020-10-27] MEDS ORDERED: traZODone 50 MG TAB PO PRN (01:29)
[2020-10-27] MEDS ORDERED: ALPRAZolam 0.25 MG TAB PO ONE (01:29)
[2020-10-27 03:59] LABS: Hematocrit 30.9 % (35.5-45.6); Hemoglobin 10.3 gm/dl (11.8-15.2); Mean Corpuscular HGB Conc 33 % (32-34); Mean Corpuscular Volume 89 fl (84-94); Platelet Count 258 K/mm3 (140-440); Red Blood Count 3.47 M/mm3 (3.65-5.03)
[2020-10-27 04:22] LABS: Creatine Kinase MB 7.6 ng/mL (0.0-4.0)
[2020-10-27 04:24] LABS: Albumin 3.6 g/dL (3.9-5); Calcium 8.6 mg/dL (8.4-10.2)
[2020-10-27] MEDS: hydrALAZINE 25 MG TAB PO SCH ×3 (05:14→22:17)
[2020-10-27] MEDS: FUROSEMIDE 100 MG/10 ML INJ IV SCH (05:15)
[2020-10-27] MEDS ORDERED: ASPIRIN EC 325 MG TAB PO ONE (06:00)
--- NOTE | 2020-10-27 07:03 | Progress Note ---
Assessment and Plan Assessment and Plan Problems #Acute respiratory failure Current Visit: Yes Status: Acute Qualifiers: Respiratory failure complication: hypoxia Qualified Code(s): J96.01 - Acute respiratory failure with hypoxia Plan to address problem: Secondary to pulmonary edema Oxygen supplementation Bronchodilators Diuretics Pulmonology and cardiology following. #NSTEMI Current Visit: Yes Status: Acute Plan to address problem: Continue aspirin and Plavix Statins Cardiology evaluation s/p Heparin drip x 48 hrs Plan for left heart cath per cardiology CTA chest requested #Pulmonary edema Current Visit: Yes Status: Acute Qualifiers: Chronicity: acute Qualified Code(s): J81.0 - Acute pulmonary edema Plan to address problem: Management as per above #CKD (chronic kidney disease) Current Visit: Yes Status: Acute Qualifiers: Chronic kidney disease stage: unspecified stage Qualified Code(s): N18.9 - Chronic kidney disease, unspecified Plan to address problem: Nephrology following #Hyperlipidemia Current Visit: Yes Status: Acute Plan to address problem: Statins #Diabetes mellitus Current Visit: Yes Status: Acute Plan to address problem: Continue insulin regimen Monitor blood glucose #Hypertension Current Visit: Yes Status: Acute Qualifiers: Hypertension type: essential hypertension Qualified Code(s): I10 - Essential (primary) hypertension Continue blood pressure medications # DVT prophylaxis Current Visit: Yes Status: Acute Plan to address problem: Heparin Subjective Date of service: 10/26/20 Principal diagnosis: NNAMDI/CKD, NSTEMI Interval history: 70-year-old male with past medical history of hypertension, hyperlipidemia and diabetes, Chronic kidney disease was brought to the emergency department via EMS from home with complaints of shortness of breath, nausea with vomiting and left upper arm pain that started earlier this evening. The patient was a short stay admission here yesterday, in order to go to the OR with vascular for placement of a left brachial AV graft so the patient can start getting dialysis. 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 When EMS arrived the patient was moaning, vomiting, appeared short of breath, and had a pulse ox seen to be in the 70s. In the emergency room patient is found to have acute respiratory failure, volume overload pulmonary edema. Patient troponin is 0.241 Patient this morning is in acute respiratory failure on BiPAP 10/22: Continue supportive care. Will obtain pulmonary consultation in addition to current management. Nephrology and cardiology input appreciated. Leukocytosis etiology not quite clear patient is afebrile will monitor closely i f worsening or development of fever will start patient on empiric antibiotic coverage. 10/23. Remains on BiPAP. On IV Lasix and Diuril. Nephrology following. No urgent indication for renal replacement therapy at this time per nephrology. 10/24. Off BIPAP. On oxygen supplementation. Has no complaints. Making good urine. On diuretics. Awaiting AM labs. No indication for MARKETING [employer]ATION [employer]NA[employer] per nephrology. 10/25. Patient had an episode of confusion last night. Try to get up from bed and fell. CT head negative for any acute pathology. Remains on IV diuretics. Renal function slightly better today. Nephrology following. He is still on oxygen supplementation-high flow oxygen. Cardiology and pulmonology on board 10/26 SOB better CK's normal Objective - Constitutional Vitals: Vital Signs - 12hr 10/26/20 10/26/20 10/26/20 20:00 20:39 22:00 Temperature 97.6 F Pulse Rate 68 72 Pulse Rate [ 73 From Monitor] Respiratory 18 18 Rate Blood Pressure 154/66 O2 Sat by Pulse 97 100 97 Oximetry 10/26/20 10/26/20 10/27/20 23:00 23:33 02:00 Temperature 98.0 F Pulse Rate 66 68 Pulse Rate [ From Monitor] Respiratory 18 Rate Blood Pressure 154/66 154/66 O2 Sat by Pulse 100 100 Oximetry 10/27/20 10/27/20 03:09 05:14 Temperature 97.4 F L Pulse Rate 63 63 Pulse Rate [ From Monitor] Respiratory 16 Rate Blood Pressure 125/54 125/54 O2 Sat by Pulse 99 Oximetry General appearance: Present: no acute distress, well-nourished - EENT Eyes: PERRL, EOM intact ENT: hearing intact, clear oral mucosa Ears: bilateral: normal - Neck Neck: supple, normal ROM - Respiratory Respiratory effort: normal Respiratory: bilateral: CTA - Breasts Breasts: normal - Cardiovascular Heart rate: 78 Rhythm: regular Heart Sounds: Present: S1 & S2. Absent: gallop, rub Extremities: pulses intact, No edema, normal color, Full ROM - Gastrointestinal General gastrointestinal: Present: soft, non-tender, non-distended, normal bowel sounds - Genitourinary Male genitourinary: normal - Integumentary Integumentary: clear, warm, dry - Musculoskeletal Musculoskeletal: 1, strength equal bilaterally - Neurologic Neurologic: moves all extremities - Psychiatric Psychiatric: memory intact, appropriate mood/affect, intact judgment & insight - Labs CBC & Chem 7: 10/27/20 03:50 10/27/20 03:50 Labs: Abnormal lab results 10/26/20 10/26/20 10/26/20 Range/Units 05:37 11:27 14:05 RBC (3.65-5.03) M/mm3 Hgb (11.8-15.2) gm/dl Hct (35.5-45.6) % RDW (13.2-15.2) % Lymph % (Auto) (13.4-35.0) % Lymph # (Auto) (1.2-5.4) K/mm3 Seg Neutrophils % (40.0-70.0) % APTT (24.2-36.6) Sec. Heparin Anti-Xa Level (0.3-0.7) U.I./ml Sodium 129 L D (137-145) mmol/L Chloride 91.9 L (98-107) mmol/L Carbon Dioxide 20 L (22-30) mmol/L BUN 104 H (9-20) mg/dL Creatinine 4.0 H 3.9 H (0.8-1.3) mg/dL Glucose 350 H (75-100) mg/dL POC Glucose 243 H (70-105) mg/dL Total Creatine Kinase (55-170) units/L CK-MB (CK-2) (0.0-4.0) ng/mL Total Protein (6.3-8.2) g/dL Albumin (3.9-5) g/dL 10/26/20 10/26/20 10/26/20 Range/Units 14:05 14:05 14:05 RBC (3.65-5.03) M/mm3 Hgb 10.9 L 11.1 L (11.8-15.2) gm/dl Hct 32.4 L 33.0 L (35.5-45.6) % RDW 15.6 H (13.2-15.2) % Lymph % (Auto) 10.0 L (13.4-35.0) % Lymph # (Auto) 0.8 L (1.2-5.4) K/mm3 Seg Neutrophils % 79.8 H (40.0-70.0) % APTT 139.0 H* (24.2-36.6) Sec. Heparin Anti-Xa Level (0.3-0.7) U.I./ml Sodium (137-145) mmol/L Chloride (98-107) mmol/L Carbon Dioxide (22-30) mmol/L BUN (9-20) mg/dL Creatinine (0.8-1.3) mg/dL Glucose (75-100) mg/dL POC Glucose (70-105) mg/dL Total Creatine Kinase (55-170) units/L CK-MB (CK-2) (0.0-4.0) ng/mL Total Protein (6.3-8.2) g/dL Albumin (3.9-5) g/dL 10/26/20 10/26/20 10/26/20 Range/Units 14:05 16:59 18:27 RBC (3.65-5.03) M/mm3 Hgb (11.8-15.2) gm/dl Hct (35.5-45.6) % RDW (13.2-15.2) % Lymph % (Auto) (13.4-35.0) % Lymph # (Auto) (1.2-5.4) K/mm3 Seg Neutrophils % (40.0-70.0) % APTT (24.2-36.6) Sec. Heparin Anti-Xa Level (0.3-0.7) U.I./ml Sodium (137-145) mmol/L Chloride (98-107) mmol/L Carbon Dioxide (22-30) mmol/L BUN (9-20) mg/dL Creatinine (0.8-1.3) mg/dL Glucose (75-100) mg/dL POC Glucose 224 H (70-105) mg/dL Total Creatine Kinase 395 H 392 H (55-170) units/L CK-MB (CK-2) 8.0 H 7.7 H (0.0-4.0) ng/mL Total Protein (6.3-8.2) g/dL Albumin (3.9-5) g/dL 10/26/20 10/26/20 10/26/20 Range/Units 18:27 18:27 20:27 RBC (3.65-5.03) M/mm3 Hgb (11.8-15.2) gm/dl Hct (35.5-45.6) % RDW (13.2-15.2) % Lymph % (Auto) (13.4-35.0) % Lymph # (Auto) (1.2-5.4) K/mm3 Seg Neutrophils % (40.0-70.0) % APTT (24.2-36.6) Sec. Heparin Anti-Xa Level 0.92 H (0.3-0.7) U.I./ml Sodium (137-145) mmol/L Chloride (98-107) mmol/L Carbon Dioxide (22-30) mmol/L BUN (9-20) mg/dL Creatinine (0.8-1.3) mg/dL Glucose 172 H (75-100) mg/dL POC Glucose 33 L (70-105) mg/dL Total Creatine Kinase (55-170) units/L CK-MB (CK-2) (0.0-4.0) ng/mL Total Protein (6.3-8.2) g/dL Albumin (3.9-5) g/dL 10/26/20 10/26/20 10/27/20 Range/Units 20:40 21:56 02:15 RBC (3.65-5.03) M/mm3 Hgb (11.8-15.2) gm/dl Hct (35.5-45.6) % RDW (13.2-15.2) % Lymph % (Auto) (13.4-35.0) % Lymph # (Auto) (1.2-5.4) K/mm3 Seg Neutrophils % (40.0-70.0) % APTT (24.2-36.6) Sec. Heparin Anti-Xa Level (0.3-0.7) U.I./ml Sodium (137-145) mmol/L Chloride (98-107) mmol/L Carbon Dioxide (22-30) mmol/L BUN (9-20) mg/dL Creatinine (0.8-1.3) mg/dL Glucose (75-100) mg/dL POC Glucose 130 H 69 L 166 H (70-105) mg/dL Total Creatine Kinase (55-170) units/L CK-MB (CK-2) (0.0-4.0) ng/mL Total Protein (6.3-8.2) g/dL Albumin (3.9-5) g/dL 10/27/20 10/27/20 10/27/20 Range/Units 03:50 03:50 03:50 RBC 3.47 L (3.65-5.03) M/mm3 Hgb 10.3 L (11.8-15.2) gm/dl Hct 30.9 L (35.5-45.6) % RDW 16.0 H (13.2-15.2) % Lymph % (Auto) (13.4-35.0) % Lymph # (Auto) (1.2-5.4) K/mm3 Seg Neutrophils % (40.0-70.0) % APTT (24.2-36.6) Sec. Heparin Anti-Xa Level (0.3-0.7) U.I./ml Sodium 135 L (137-145) mmol/L Chloride 95.8 L (98-107) mmol/L Carbon Dioxide 21 L (22-30) mmol/L BUN 98 H (9-20) mg/dL Creatinine 3.8 H (0.8-1.3) mg/dL Glucose 190 H (75-100) mg/dL POC Glucose (70-105) mg/dL Total Creatine Kinase 295 H (55-170) units/L CK-MB (CK-2) 7.6 H (0.0-4.0) ng/mL Total Protein 6.2 L (6.3-8.2) g/dL Albumin 3.6 L (3.9-5) g/dL HEART Score - HEART Score Troponin: Troponin T 2.710 ng/mL (0.00-0.029) H* 10/26/20 05:37
[2020-10-27] MEDS: IPRATROPIUM/ALBUTEROL SULFATE 3 ML AMPUL.NEB IH SCH ×3 (08:01→21:43)
--- NOTE | 2020-10-27 08:38 | Progress Note ---
Assessment and Plan Assessment and plan: 70-year-old male with past medical history of hypertension, hyperlipidemia and diabetes, Chronic kidney disease was brought to the emergency department via EMS from home with complaints of shortness of breath, nausea with vomiting and left upper arm pain that started earlier this evening. The patient was a short stay admission here yesterday, in order to go to the OR with vascular for placement of a left brachial AV graft so the patient can start getting dialysis. His requisition approver is Dr. Dangelo. When EMS arrived the patient was moaning, vomiting, appeared short of breath, and had a pulse ox seen to be in the 70s. In the emergency room patient is found to have acute respiratory failure, volume overload pulmonary edema. Patient troponin is 0.241 Patient this morning is in acute respiratory failure on BiPAP NSTEMI suspect type II in setting of progressive renal disease Elevated D-dimer Acute heart failure with preserved ejection fraction NNAMDI in setting of CKD Hospital course: 10/22: Continue supportive care. Will obtain pulmonary consultation in addition t o current management. Nephrology and cardiology input appreciated. Leukocytosis etiology not quite clear patient is afebrile will monitor closely if worsening or development of fever will start patient on empiric antibiotic coverage. 10/23. Remains on BiPAP. On IV Lasix and Diuril. Nephrology following. No urgent indication for renal replacement therapy at this time per nephrology. 10/24. Off BIPAP. On oxygen supplementation. Has no complaints. Making good urine. On diuretics. Awaiting AM labs. No indication for CORE SHAPER SIDES per nephrology. 10/25. Patient had an episode of confusion last night. Try to get up from bed and fell. CT head negative for any acute pathology. Remains on IV diuretics. Renal function slightly better today. Nephrology following. He is still on oxygen supplementation-high flow oxygen. Cardiology and pulmonology on board 10/27. Patient currently on high flow nasal cannula at 30 L/min with FiO2 50%. Continue to wean supplemental oxygen and BiPAP as clinically indicated. Continue hemodialysis per nephrology to optimize volume. Continue current cardiac regimen of amlodipine 10 mg daily, metoprolol 50 mg twice daily, ASA 81 mg daily, atorvastatin 40 mg nightly History Interval history: No new issues Hospitalist Physical - Constitutional Vitals: Temp Pulse Resp BP Pulse Ox 98.7 F 67 18 140/56 100 10/27/20 07:26 10/27/20 07:26 10/27/20 07:26 10/27/20 07:26 10/27/20 07:26 General appearance: Present: no acute distress, well-nourished - EENT Eyes: Present: PERRL, EOM intact ENT: hearing intact, clear oral mucosa, dentition normal - Neck Neck: Present: supple, normal ROM - Respiratory Respiratory effort: normal Respiratory: bilateral: CTA - Cardiovascular Rhythm: regular Heart Sounds: Present: S1 & S2. Absent: gallop, rub - Extremities Extremities: no ischemia, No edema, Full ROM - Abdominal General gastrointestinal: soft, non-tender, non-distended, normal bowel sounds - Integumentary Integumentary: Present: clear, warm, dry - Neurologic Neurologic: CNII-XII intact, moves all extremities HEART Score - HEART Score Troponin: Troponin T 2.710 ng/mL (0.00-0.029) H* 10/26/20 05:37 Results - Labs CBC & Chem 7: 10/27/20 03:50 10/27/20 03:50 Labs: Laboratory Last Values WBC 8.0 K/mm3 (4.5-11.0) 10/27/20 03:50 RBC 3.47 M/mm3 (3.65-5.03) L 10/27/20 03:50 Hgb 10.3 gm/dl (11.8-15.2) L 10/27/20 03:50 Hct 30.9 % (35.5-45.6) L 10/27/20 03:50 MCV 89 fl (84-94) 10/27/20 03:50 MCH 30 pg (28-32) 10/27/20 03:50 MCHC 33 % (32-34) 10/27/20 03:50 RDW 16.0 % (13.2-15.2) H 10/27/20 03:50 Plt Count 258 K/mm3 (140-440) 10/27/20 03:50 Lymph % (Auto) 10.0 % (13.4-35.0) L 10/26/20 14:05 [place] % (Auto) 7.1 % (0.0-7.3) 10/26/20 14:05 Eos % (Auto) 2.7 % (0.0-4.3) 10/26/20 14:05 Baso % (Auto) 0.4 % (0.0-1.8) 10/26/20 14:05 Lymph # (Auto) 0.8 K/mm3 (1.2-5.4) L 10/26/20 14:05 [place] # (Auto) 0.5 K/mm3 (0.0-0.8) 10/26/20 14:05 Eos # (Auto) 0.2 K/mm3 (0.0-0.4) 10/26/20 14:05 Baso # (Auto) 0.0 K/mm3 (0.0-0.1) 10/26/20 14:05 Add Manual Diff Complete 10/21/20 03:14 Total Counted 100 10/21/20 03:14 Seg Neutrophils % 79.8 % (40.0-70.0) H 10/26/20 14:05 Seg Neuts % (Manual) 85.0 % (40.0-70.0) H 10/21/20 03:14 Band Neutrophils % 1.0 % 10/21/20 03:14 Lymphocytes % (Manual) 7.0 % (13.4-35.0) L 10/21/20 03:14 Monocytes % (Manual) 6.0 % (0.0-7.3) 10/21/20 03:14 Basophils % (Manual) 1.0 % (0.0-1.8) 10/21/20 03:14 Nucleated RBC % Not Reportable 10/21/20 03:14 Seg Neutrophils # 6.1 K/mm3 (1.8-7.7) 10/26/20 14:05 Seg Neutrophils # Man 12.3 K/mm3 (1.8-7.7) H 10/21/20 03:14 Band Neutrophils # 0.1 K/mm3 10/21/20 03:14 Lymphocytes # (Manual) 1.0 K/mm3 (1.2-5.4) L 10/21/20 03:14 Abs React Lymphs (Man) 0.0 K/mm3 10/21/20 03:14 Monocytes # (Manual) 0.9 K/mm3 (0.0-0.8) H 10/21/20 03:14 Eosinophils # (Manual) 0.0 K/mm3 (0.0-0.4) 10/21/20 03:14 Basophils # (Manual) 0.1 K/mm3 (0.0-0.1) 10/21/20 03:14 Metamyelocytes # 0.0 K/mm3 10/21/20 03:14 Myelocytes # 0.0 K/mm3 10/21/20 03:14 Promyelocytes # 0.0 K/mm3 10/21/20 03:14 Blast Cells # 0.0 K/mm3 10/21/20 03:14 WBC Morphology Not Reportable 10/21/20 03:14 Hypersegmented Neuts Not Reportable 10/21/20 03:14 Hyposegmented Neuts Not Reportable 10/21/20 03:14 Hypogranular Neuts Not Reportable 10/21/20 03:14 Smudge Cells Not Reportable 10/21/20 03:14 Toxic Granulation Not Reportable 10/21/20 03:14 Toxic Vacuolation Not Reportable 10/21/20 03:14 Dohle Bodies Not Reportable 10/21/20 03:14 Pelger-Huet Anomaly Not Reportable 10/21/20 03:14 Linh Rods Not Reportable 10/21/20 03:14 Platelet Estimate Consistent w auto 10/21/20 03:14 Clumped Platelets Not Reportable 10/21/20 03:14 Plt Clumps, EDTA Not Reportable 10/21/20 03:14 Large Platelets Not Reportable 10/21/20 03:14 Giant Platelets Not Reportable 10/21/20 03:14 Platelet Satelliting Not Reportable 10/21/20 03:14 Plt Morphology Comment Not Reportable 10/21/20 03:14 RBC Morphology Normal 10/21/20 03:14 Dimorphic RBCs Not Reportable 10/21/20 03:14 Polychromasia Not Reportable 10/21/20 03:14 Hypochromasia Not Reportable 10/21/20 03:14 Poikilocytosis Not Reportable 10/21/20 03:14 Anisocytosis Not Reportable 10/21/20 03:14 Microcytosis Not Reportable 10/21/20 03:14 Macrocytosis Not Reportable 10/21/20 03:14 Spherocytes Not Reportable 10/21/20 03:14 Pappenheimer Bodies Not Reportable 10/21/20 03:14 Sickle Cells Not Reportable 10/21/20 03:14 Target Cells Not Reportable 10/21/20 03:14 Tear Drop Cells Not Reportable 10/21/20 03:14 Ovalocytes Not Reportable 10/21/20 03:14 Helmet Cells Not Reportable 10/21/20 03:14 [place] Bodies Not Reportable 10/21/20 03:14 [place] Rings Not Reportable 10/21/20 03:14 [place] Cells Not Reportable 10/21/20 03:14 Bite Cells Not Reportable 10/21/20 03:14 Crenated Cell Not Reportable 10/21/20 03:14 Elliptocytes Not Reportable 10/21/20 03:14 Acanthocytes (Spur) Not Reportable 10/21/20 03:14 Rouleaux Not Reportable 10/21/20 03:14 Hemoglobin C Crystals Not Reportable 10/21/20 03:14 Schistocytes Not Reportable 10/21/20 03:14 Malaria parasites Not Reportable 10/21/20 03:14 Shay Bodies Not Reportable 10/21/20 03:14 Hem Pathologist Commnt No 10/21/20 03:14 PT 13.7 Sec. (12.2-14.9) 10/27/20 03:50 INR 1.00 (0.87-1.13) 10/27/20 03:50 APTT 139.0 Sec. (24.2-36.6) H* 10/26/20 14:05 D-Dimer 2466.38 ng/mlDDU (0-234) H 10/21/20 03:14 Heparin Anti-Xa Level 0.45 U.I./ml (0.3-0.7) 10/27/20 03:50 ABG pH 7.387 (7.320-7.450) 10/24/20 10:25 POC ABG pCO2 35.6 mmHg (32.0-48.0) 10/24/20 10:25 POC ABG pO2 64.0 mmHg (83-108) L 10/24/20 10:25 POC ABG HCO3 20.9 10/24/20 10:25 ABG O2 Saturation 90.7 (0-100) 10/24/20 10:25 POC ABG Base Excess -3.5 10/24/20 10:25 ABG Hemoglobin 11.3 (12.0-17.5) L 10/24/20 10:25 ABG Oxyhemoglobin 90.1 (94-98) L 10/24/20 10:25 ABG Methemoglobin 0.3 (0.0-1.5) 10/24/20 10:25 ABG Sodium 134.0 mmol/L (136.0-145.0) L 10/24/20 10:25 ABG Potassium 3.8 mmol/L (3.40-4.50) 10/24/20 10:25 ABG Chloride 100.0 mmol/L (98-107) 10/24/20 10:25 ABG Glucose 246 mg/dL (65-95) H 10/24/20 10:25 Carboxyhemoglobin 0.4 (0.5-1.5) L 10/24/20 10:25 FiO2 % 50.0 10/24/20 10:25 Sodium 135 mmol/L (137-145) L 10/27/20 03:50 Potassium 4.3 mmol/L (3.6-5.0) 10/27/20 03:50 Chloride 95.8 mmol/L (98-107) L 10/27/20 03:50 Carbon Dioxide 21 mmol/L (22-30) L 10/27/20 03:50 Anion Gap 23 mmol/L 10/27/20 03:50 BUN 98 mg/dL (9-20) H 10/27/20 03:50 Creatinine 3.8 mg/dL (0.8-1.3) H 10/27/20 03:50 Estimated GFR 19 ml/min 10/27/20 03:50 BUN/Creatinine Ratio 26 % 10/27/20 03:50 Glucose 190 mg/dL (75-100) H 10/27/20 03:50 POC Glucose 166 mg/dL (70-105) H 10/27/20 02:15 Hemoglobin A1c 7.8 % (4-6) H 10/22/20 07:00 Calcium 8.6 mg/dL (8.4-10.2) 10/27/20 03:50 Magnesium 2.20 mg/dL (1.7-2.3) 10/24/20 10:56 Total Bilirubin 0.40 mg/dL (0.1-1.2) 10/27/20 03:50 AST 20 units/L (5-40) 10/27/20 03:50 ALT 12 units/L (7-56) 10/27/20 03:50 Alkaline Phosphatase 67 units/L (35-129) 10/27/20 03:50 Total Creatine Kinase 295 units/L (55-170) H 10/27/20 03:50 CK-MB (CK-2) 7.6 ng/mL (0.0-4.0) H 10/27/20 03:50 CK-MB (CK-2) Rel Index 2.5 (0-4) 10/27/20 03:50 Troponin T 2.710 ng/mL (0.00-0.029) H* 10/26/20 05:37 NT-Pro-B Natriuret Pep 4199 pg/mL (0-900) H 10/25/20 04:46 Total Protein 6.2 g/dL (6.3-8.2) L 10/27/20 03:50 Albumin 3.6 g/dL (3.9-5) L 10/27/20 03:50 Albumin/Globulin Ratio 1.4 % 10/27/20 03:50 Triglycerides 154 mg/dL (2-149) H 10/21/20 03:14 Cholesterol 212 mg/dL (50-199) H 10/21/20 03:14 LDL Cholesterol Direct 137 mg/dL (50-130) H 10/21/20 03:14 HDL Cholesterol 65 mg/dL (40-59) H 10/21/20 03:14 Cholesterol/HDL Ratio 3.26 % 10/21/20 03:14 Procalcitonin 0.82 ng/mL (<0.15) 10/25/20 04:46 Arterial Blood Glucose 246 mg/dL (65-95) H 10/24/20 10:25 Arterial Blood Ionized Calcium 4.6 mg/dL (4.6-5.3) 10/24/20 10:25 [place]/IV: Voiding Method Condom Catheter Active Medications - Current Medications Current Medications: Generic Name Dose Route Start Last Admin Trade Name Freq PRN Reason Stop Dose Admin Acetaminophen 650 mg 10/21/20 05:28 Acetaminophen 325 Mg Tab PO Q4H PRN Pain MILD(1-3)/Fever >100.5/PRIETO Albuterol 2.5 mg 10/21/20 05:28 Albuterol 2.5 Mg/3 Ml Nebu IH Q4HRT PRN Shortness Of Breath Albuterol/Ipratropium 1 ampul 10/22/20 08:00 10/27/20 08:01 Ipratropium/Albuterol Sulfate 3 Ml Ampul.Neb IH 1 ampul TIDRT ALANNA Administration Amlodipine Besylate 10 mg 10/21/20 10:00 10/26/20 09:17 Amlodipine 10 Mg Tab PO Not Given DAILY ALANNA Aspirin 81 mg 10/21/20 10:00 10/26/20 09:16 Aspirin Ec 81 Mg Tab PO 81 mg DAILY ALANNA Administration Atorvastatin Calcium 40 mg 10/21/20 22:00 10/26/20 23:33 Atorvastatin 40 Mg Tab PO 40 mg QHS ALANNA Administration Cholecalciferol 2,000 unit 10/21/20 10:00 10/26/20 09:16 Cholecalciferol (Vit D3) 1000 Unit (25 Mcg) Tab PO 2,000 unit DAILY ALANNA Administration Clopidogrel Bisulfate 75 mg 10/21/20 10:00 10/26/20 09:16 Clopidogrel 75 Mg Tab PO 75 mg DAILY ALANNA Administration Docusate Sodium 100 mg 10/26/20 22:00 10/26/20 23:32 Docusate Sodium 100 Mg Cap PO 100 mg BID ALANNA Administration Famotidine 20 mg 10/21/20 10:00 10/26/20 09:16 Famotidine 20 Mg Tab PO 20 mg QAM ALANNA Administration Finasteride 5 mg 10/21/20 10:00 10/26/20 23:32 Finasteride 5 Mg Tab PO 5 mg BID ALANNA Administration Furosemide 80 mg 10/21/20 18:00 10/27/20 05:15 Furosemide 100 Mg/10 Ml Inj IV 80 mg 0600,1800 ALANNA Administration Heparin Sodium (Porcine) 3,100 unit 10/26/20 11:26 Heparin 10,000 Units/10 Ml Vial 40 unit/kg (3100 unit) IV Q6H PRN Anti-Xa Assay < 0.1 units/ml Hydralazine HCl 25 mg 10/25/20 14:00 10/27/20 05:14 Hydralazine 25 Mg Tab PO 25 mg Q8HR ALANNA Administration Heparin Sodium/Sodium Chloride 25,000 unit in 500 mls @ 20 mls/hr 10/26/20 12:00 10/27/20 04:33 Heparin/ 0.45% Nacl-25,000 Unit/500 Ml IV 850 units/hr TITRATE ALANNA 17 mls/hr Titration Protocol 1,000 UNITS/HR Dextrose/Sodium Chloride 1,000 mls @ 75 mls/hr 10/26/20 22:00 10/26/20 21:37 D5/0.45ns IV 75 mls/hr DIRECT ALANNA Administration Insulin Human Isoph/Insulin Regular 20 unit 10/21/20 09:00 10/26/20 17:24 Insulin Nph/Regular 70/30 Inj SUB-Q 20 unit BIDDIAB ALANNA Administration Insulin Human Lispro 0 unit 10/21/20 11:30 10/26/20 23:34 Insulin Lispro 100 Unit/Ml SUB-Q Not Given ACHS [facility] Protocol Metoprolol Tartrate 50 mg 10/22/20 17:00 10/26/20 23:33 Metoprolol Tartrate 50 Mg Tab PO 50 mg BID ALANNA Administration Nitroglycerin 0.4 mg 10/21/20 05:28 Nitroglycerin 0.4 Mg Tab Subl SL Q5M PRN Chest Pain Ondansetron HCl 4 mg 10/21/20 05:28 Ondansetron 4 Mg/2 Ml Inj IV Q8H PRN Nausea And Vomiting Sertraline HCl 100 mg 10/21/20 10:00 10/26/20 09:16 Sertraline 100 Mg Tab PO 100 mg QDAY ALANNA Administration Sodium Bicarbonate 650 mg 10/21/20 22:00 10/26/20 23:33 Sodium Bicarbonate 650 Mg Tab PO 650 mg BID ALANNA Administration Sodium Chloride 10 ml 10/21/20 10:00 10/26/20 23:35 Sodium Chloride 0.9% 10 Ml Flush Syringe IV 10 ml BID ALANNA Administration Sodium Chloride 10 ml 10/21/20 05:28 Sodium Chloride 0.9% 10 Ml Flush Syringe IV PRN PRN LINE FLUSH Tamsulosin HCl 0.4 mg 10/21/20 10:00 10/26/20 09:17 Tamsulosin 0.4 Mg Cap PO 0.4 mg DAILY ALANNA Administration Tramadol HCl 50 mg 10/21/20 05:28 10/26/20 17:33 Tramadol 50 Mg Tab PO 50 mg Q6H PRN Administration Pain, Moderate (4-6) Trazodone HCl 50 mg 10/27/20 01:29 10/27/20 01:40 Trazodone 50 Mg Tab PO 50 mg QHS PRN Administration Insomnia
--- NOTE | 2020-10-27 10:02 | Progress Note ---
Assessment and Plan - Patient Problems (1) Acute heart failure with preserved ejection fraction (HFpEF) Current Visit: Yes Status: Acute Plan to address problem: continue with current diuretic regimen. Discussed case with cardiology and concerns over elevated troponin levels. Will attempt to optimize volume status with increased bumex 2mg IV BID (2) Pulmonary edema Current Visit: Yes Status: Acute Qualifiers: Chronicity: acute Qualified Code(s): J81.0 - Acute pulmonary edema Plan to address problem: Will adjust current diuretic regimen to bumex 2mg IV BID. (3) Acute kidney injury superimposed on CKD Current Visit: Yes Status: Acute Plan to address problem: patient remains in chronic kidney disease stage IV without any acute uremic symptoms or necessity to start hemodialysis at this time. He has a functional left upper extremity AV fistula without any issues currently. We will continue to monitor closely. (4) Acidosis Current Visit: Yes Status: Acute Plan to address problem: patient started on sodium bicarbonate supplementation. (5) DM2 (diabetes mellitus, type 2) Current Visit: Yes Status: Chronic Plan to address problem: diabetes management per primary attending. (6) Hypertension Current Visit: Yes Status: Chronic Qualifiers: Hypertension type: essential hypertension Qualified Code(s): I10 - Essential (primary) hypertension Plan to address problem: monitor blood pressure on the current regimen. Subjective Date of service: 10/27/20 Principal diagnosis: NNAMDI/CKD, NSTEMI Interval history: No acute changes overnight. Remains asymptomatic in regards to chest pain or discomfort. Elevated troponins noted over the past 48 hours. Remains on HFNC with Fio2 50%. Objective - Vital Signs Vital signs: Vital Signs - 12hr 10/26/20 10/26/20 10/26/20 22:00 23:00 23:33 Temperature 98.0 F Pulse Rate 72 66 68 Pulse Rate [ 73 From Monitor] Respiratory 18 18 Rate Blood Pressure 154/66 154/66 O2 Sat by Pulse 97 100 Oximetry 10/27/20 10/27/20 10/27/20 02:00 03:09 05:14 Temperature 97.4 F L Pulse Rate 63 63 Pulse Rate [ From Monitor] Respiratory 16 Rate Blood Pressure 125/54 125/54 O2 Sat by Pulse 100 99 Oximetry 10/27/20 07:26 Temperature 98.7 F Pulse Rate 67 Pulse Rate [ From Monitor] Respiratory 18 Rate Blood Pressure 140/56 O2 Sat by Pulse 100 Oximetry - General Appearance General appearance: well-developed, appears stated age EENT: ATNC Neck: no JVD Respiratory: Present: Decreased Breath Sounds Cardiology: regular Gastrointestinal: normal Integumentary: no rash Neurologic: no focal deficit Musculoskeletal: deferred Psychiatric: cooperative - Lab 10/27/20 03:50 10/27/20 03:50 Most recent lab results ABG pH 7.387 (7.320-7.450) 10/24/20 10:25 ABG O2 Saturation 90.7 (0-100) 10/24/20 10:25 Calcium 8.6 mg/dL (8.4-10.2) 10/27/20 03:50 Magnesium 2.20 mg/dL (1.7-2.3) 10/24/20 10:56 - Allied health notes Allied health notes reviewed: nursing Medications & Allergies - Medications Allergies/Adverse Reactions: Allergies pollen extracts Allergy (Verified 10/21/20 05:23) Unknown Home Medications: Home Medications Medication Instructions Recorded Confirmed Last Taken Type Clopidogrel Bisulfate [Clopidogrel] 1 tab PO DAILY 03/13/14 10/21/20 10/18/20 History Tamsulosin HCl 1 tab PO DAILY 03/13/14 10/21/20 10/18/20 History Aspirin [Adult Aspirin] 81 mg PO DAILY 10/12/20 10/21/20 10/18/20 History AtorvaSTATin [Lipitor] 40 mg PO QHS 10/12/20 10/21/20 10/18/20 History Dicyclomine [Bentyl] 20 mg PO BID 10/12/20 10/21/20 10/18/20 History Finasteride [Proscar] 5 mg PO BID 10/12/20 10/21/20 10/18/20 History Insulin NPH Human Isophane 15 unit SQ BID 10/12/20 10/21/20 10/18/20 20:30 History [Novolin N] Insulin Regular, Human [Novolin R] 10 units SUB-Q BID 10/12/20 10/21/20 10/18/20 20:30 History Metoprolol [Lopressor TAB] 50 mg PO QDAY 10/12/20 10/21/20 10/18/20 20:30 History Sertraline [Zoloft] 100 mg PO QDAY 10/12/20 10/21/20 10/18/20 History amLODIPine 10 mg PO DAILY 10/12/20 10/21/20 10/18/20 20:30 History HYDROcodone/APAP 7.5-325 [[place] 1 each PO Q6HR PRN #40 tablet 10/19/20 10/21/20 Unknown Rx 7.5/325] Ergocalciferol (Vitamin D2) 1,250 unit PO DAILY 10/21/20 10/21/20 Unknown History [Vitamin D2] Active Medications: Generic Name Dose Route Start Last Admin Trade Name Freq PRN Reason Stop Dose Admin Acetaminophen 650 mg 10/21/20 05:28 Acetaminophen 325 Mg Tab PO Q4H PRN Pain MILD(1-3)/Fever >100.5/PRIETO Albuterol 2.5 mg 10/21/20 05:28 Albuterol 2.5 Mg/3 Ml Nebu IH Q4HRT PRN Shortness Of Breath Albuterol/Ipratropium 1 ampul 10/22/20 08:00 10/27/20 08:01 Ipratropium/Albuterol Sulfate 3 Ml Ampul.Neb IH 1 ampul TIDRT [facility] Administration Amlodipine Besylate 10 mg 10/21/20 10:00 10/26/20 09:17 Amlodipine 10 Mg Tab PO Not Given DAILY [facility] Aspirin 81 mg 10/21/20 10:00 10/26/20 09:16 Aspirin Ec 81 Mg Tab PO 81 mg DAILY ALANNA Administration Atorvastatin Calcium 40 mg 10/21/20 22:00 10/26/20 23:33 Atorvastatin 40 Mg Tab PO 40 mg QHS ALANNA Administration Bumetanide 2 mg 10/27/20 18:00 Bumetanide 1 Mg/4 Ml Inj IV BID@0600,1800 [facility] Cholecalciferol 2,000 unit 10/21/20 10:00 10/26/20 09:16 Cholecalciferol (Vit D3) 1000 Unit (25 Mcg) Tab PO 2,000 unit DAILY ALANNA Administration Clopidogrel Bisulfate 75 mg 10/21/20 10:00 10/26/20 09:16 Clopidogrel 75 Mg Tab PO 75 mg DAILY ALANNA Administration Docusate Sodium 100 mg 10/26/20 22:00 10/26/20 23:32 Docusate Sodium 100 Mg Cap PO 100 mg BID ALANNA Administration Famotidine 20 mg 10/21/20 10:00 10/26/20 09:16 Famotidine 20 Mg Tab PO 20 mg QAM ALANNA Administration Finasteride 5 mg 10/21/20 10:00 10/26/20 23:32 Finasteride 5 Mg Tab PO 5 mg BID ALANNA Administration Heparin Sodium (Porcine) 3,100 unit 10/26/20 11:26 Heparin 10,000 Units/10 Ml Vial 40 unit/kg (3100 unit) IV Q6H PRN Anti-Xa Assay < 0.1 units/ml Hydralazine HCl 25 mg 10/25/20 14:00 10/27/20 05:14 Hydralazine 25 Mg Tab PO 25 mg Q8HR ALANNA Administration Heparin Sodium/Sodium Chloride 25,000 unit in 500 mls @ 20 mls/hr 10/26/20 1 2:00 10/27/20 04:33 Heparin/ 0.45% Nacl-25,000 Unit/500 Ml IV 850 units/hr TITRATE ALANNA 17 mls/hr Titration Protocol 1,000 UNITS/HR Insulin Human Lispro 0 unit 10/21/20 11:30 10/26/20 23:34 Insulin Lispro 100 Unit/Ml SUB-Q Not Given ACHS [facility] Protocol Metoprolol Tartrate 50 mg 10/22/20 17:00 10/26/20 23:33 Metoprolol Tartrate 50 Mg Tab PO 50 mg BID ALANNA Administration Nitroglycerin 0.4 mg 10/21/20 05:28 Nitroglycerin 0.4 Mg Tab Subl SL Q5M PRN Chest Pain Ondansetron HCl 4 mg 10/21/20 05:28 Ondansetron 4 Mg/2 Ml Inj IV Q8H PRN Nausea And Vomiting Sertraline HCl 100 mg 10/21/20 10:00 10/26/20 09:16 Sertraline 100 Mg Tab PO 100 mg QDAY ALANNA Administration Sodium Bicarbonate 650 mg 10/21/20 22:00 10/26/20 23:33 Sodium Bicarbonate 650 Mg Tab PO 650 mg BID ALANNA Administration Sodium Chloride 10 ml 10/21/20 10:00 10/26/20 23:35 Sodium Chloride 0.9% 10 Ml Flush Syringe IV 10 ml BID ALANNA Administration Sodium Chloride 10 ml 10/21/20 05:28 Sodium Chloride 0.9% 10 Ml Flush Syringe IV PRN PRN LINE FLUSH Tamsulosin HCl 0.4 mg 10/21/20 10:00 10/26/20 09:17 Tamsulosin 0.4 Mg Cap PO 0.4 mg DAILY ALANNA Administration Tramadol HCl 50 mg 10/21/20 05:28 10/26/20 17:33 Tramadol 50 Mg Tab PO 50 mg Q6H PRN Administration Pain, Moderate (4-6) Trazodone HCl 50 mg 10/27/20 01:29 10/27/20 01:40 Trazodone 50 Mg Tab PO 50 mg QHS PRN Administration Insomnia
[2020-10-27] MEDS: SERTRALINE 100 MG TAB PO SCH (10:12)
[2020-10-27] MEDS: SODIUM BICARBONATE 650 MG TAB PO SCH ×2 (10:13→22:17)
[2020-10-27] MEDS: DOCUSATE SODIUM 100 MG CAP PO SCH ×2 (10:13→22:17)
[2020-10-27] MEDS: CHOLECALCIFEROL (VIT D3) 1000 UNIT (25 mcg) TAB PO SCH (10:13)
[2020-10-27] MEDS: TAMSULOSIN 0.4 MG CAP PO SCH (10:13)
[2020-10-27] MEDS: FAMOTIDINE 20 MG TAB PO SCH (10:13)
[2020-10-27] MEDS: CLOPIDOGREL 75 MG TAB PO SCH (10:13)
[2020-10-27] MEDS: amLODIPine 10 MG TAB PO SCH (10:13)
[2020-10-27] MEDS: ASPIRIN EC 81 MG TAB PO SCH (10:13)
[2020-10-27] MEDS: METOPROLOL TARTRATE 50 MG TAB PO SCH ×2 (10:13→22:17)
[2020-10-27] MEDS: FINASTERIDE 5 MG TAB PO SCH ×2 (10:13→22:17)
[2020-10-27] MEDS: INSULIN LISPRO 100 UNIT/ML SUB-Q SCH ×4 (10:14→22:20)
--- NOTE | 2020-10-27 11:53 | Progress Note ---
Assessment and Plan Telemetry reviewed: Sinus rhythm 68. No events #NSTEMI suspect type II in setting of progressive renal disease * Patient is currently chest pain-free with no cardiac symptoms. * Recent Lexiscan stress MPI 08/27/2020 reviewed - inferoapical scar, no reversible ischemia noted. * Troponins are trending upwards. Continue heparin drip. * Plan for Lexiscan MPI stress test in a.m. N.p.o. after midnight #Elevated D-dimer * Management per primary team. CTA chest pending #Acute heart failure with preserved ejection fraction * Patient is on regular dialysis M/W/F. Volume optimization per nephrology * Continue current cardiac regimen amlodipine 10 mg daily, metoprolol 50 mg twice daily, ASA 81 mg daily, atorvastatin 40 mg nightly #NNAMDI in setting of CKD * In anticipation of hemodialysis, AV fistula was recently placed in left arm but is not serviceable until 2 weeks post procedure. Nephrology is following #DVT prophylaxis * Heparin gtt Lexiscan MPI stress test in a.m. We will follow This patient was seen in conjunction with Dr Samuel San who agrees with this assessment and plan of care - Patient Problems (1) Acute respiratory failure Current Visit: Yes Status: Acute Qualifiers: Respiratory failure complication: hypoxia Qualified Code(s): J96.01 - Acute respiratory failure with hypoxia (2) Acute heart failure with preserved ejection fraction (HFpEF) Current Visit: Yes Status: Acute (3) Acute kidney injury superimposed on CKD Current Visit: Yes Status: Acute (4) Anemia Current Visit: Yes Status: Acute (5) NSTEMI (non-ST elevated myocardial infarction) Current Visit: Yes Status: Acute Plan to address problem: ?Type 2 (in the setting of progressive renal disease) (6) CAD (coronary artery disease) Current Visit: Yes Status: Chronic (7) S/P PTCA (percutaneous transluminal coronary angioplasty) Current Visit: Yes Status: Chronic (8) Aortic stenosis Current Visit: Yes Status: Chronic (9) Hypertension Current Visit: Yes Status: Chronic Qualifiers: Hypertension type: essential hypertension Qualified Code(s): I10 - Essential (primary) hypertension (10) Hyperlipidemia Current Visit: Yes Status: Chronic Qualifiers: Hyperlipidemia type: mixed hyperlipidemia Qualified Code(s): E78.2 - Mixed hyperlipidemia (11) DM2 (diabetes mellitus, type 2) Current Visit: Yes Status: Chronic (12) PVD (peripheral vascular disease) Current Visit: Yes Status: Chronic (13) Aorto-iliac disease Current Visit: Yes Status: Chronic (14) H/O: CVA (cerebrovascular accident) Current Visit: Yes Status: Chronic (15) Frequent falls Current Visit: Yes Status: Chronic Subjective Date of service: 10/27/20 Principal diagnosis: NNAMDI/CKD, NSTEMI Interval history: Patient resting comfortably in bed. No shortness of breath or chest pain overnight Telemetry reviewed: Sinus rhythm 78. No events Objective Last Vital Signs Temp 98.7 F 10/27/20 07:26 Pulse 64 10/27/20 11:00 Resp 20 10/27/20 11:00 BP 140/56 10/27/20 07:26 Pulse Ox 95 10/27/20 11:00 - Physical Examination General: No Apparent Distress HEENT: Positive: EOMI, Normocephaly, Mucus Membranes Moist Neck: Positive: neck supple, trachea midline. Negative: JVD/HJR Cardiac: Positive: Reg Rate and Rhythm, S1/S2 Lungs: Positive: Normal Exam, Normal Breath Sounds Neuro: Positive: Grossly Intact Abdomen: Positive: Soft. Negative: Tender Skin: Negative: Rash Musculoskeletal: No Pain Extremities: Present: lower extr. pulses, warm. Absent: edema - Labs and Meds Cardiac Enzymes 10/26/20 10/26/20 10/27/20 Range/Units 14:05 18:27 03:50 AST 20 (5-40) units/L CK-MB (CK-2) 8.0 H 7.7 H (0.0-4.0) ng/mL 10/27/20 Range/Units 03:50 AST (5-40) units/L CK-MB (CK-2) 7.6 H (0.0-4.0) ng/mL Coagulation 10/26/20 10/27/20 Range/Units 14:05 03:50 PT 13.6 13.7 (12.2-14.9) Sec. INR 0.99 1.00 (0.87-1.13) APTT 139.0 H* (24.2-36.6) Sec. CBC 10/26/20 10/26/20 10/27/20 Range/Units 14:05 14:05 03:50 WBC 7.7 8.0 (4.5-11.0) K/mm3 RBC 3.70 3.47 L (3.65-5.03) M/mm3 Hgb 10.9 L 11.1 L 10.3 L (11.8-15.2) gm/dl Hct 32.4 L 33.0 L 30.9 L (35.5-45.6) % Plt Count 252 258 258 (140-440) K/mm3 Lymph # (Auto) 0.8 L (1.2-5.4) K/mm3 [place] # (Auto) 0.5 (0.0-0.8) K/mm3 Eos # (Auto) 0.2 (0.0-0.4) K/mm3 Baso # (Auto) 0.0 (0.0-0.1) K/mm3 Comprehensive Metabolic Panel 10/26/20 10/26/20 10/27/20 Range/Units 14:05 18:27 03:50 Sodium 129 L D 135 L (137-145) mmol/L Potassium 4.0 4.3 (3.6-5.0) mmol/L Chloride 91.9 L 95.8 L (98-107) mmol/L Carbon Dioxide 20 L 21 L (22-30) mmol/L BUN 104 H 98 H (9-20) mg/dL Creatinine 3.9 H 3.8 H (0.8-1.3) mg/dL Glucose 350 H 172 H 190 H (75-100) mg/dL Calcium 9.0 8.6 (8.4-10.2) mg/dL AST 20 (5-40) units/L ALT 12 (7-56) units/L Alkaline Phosphatase 67 (35-129) units/L Total Protein 6.2 L (6.3-8.2) g/dL Albumin 3.6 L (3.9-5) g/dL - Imaging and Cardiology EKG: report reviewed, image reviewed Echo: report reviewed (08/27/2020 - mod concentric LVH, EF 55-69%, grade 2 diastolic dysfxn, increased LA volume, mod AV stenosis, 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
--- NOTE | 2020-10-27 13:42 | Progress Note ---
Assessment and Plan Patient alert, awake. Oriented.Patient resting on High flow O2 , 6 litres and O2 saturation 99%. BIPAP stand by in the room. Patient afebrile. No leukocytosis. Chest xray done 10/25/20 reported Prominent diffuse interstitial lung markings again noted although significantly improved since the previous exam. Patient is on albuterol/atrovent aerosol treatments, S/C Heparin and famotidine. Patients bed side, explained patients respiratory status to her. - Patient Problems (1) Acute respiratory failure Current Visit: Yes Status: Acute Qualifiers: Respiratory failure complication: hypoxia Qualified Code(s): J96.01 - Acute respiratory failure with hypoxia Plan to address problem: High flow O2, ^ litres O2. BIPAP stand by in the room. Albuterol/atrovent aerosol treatments, Patient is on I/V Heparin.Heparin Famotidine. (2) Acidosis Current Visit: Yes Status: Acute Plan to address problem: Anion gap 23 to day. Management as per primary care and nephrology. (3) Acute encephalopathy Current Visit: Yes Status: Acute Plan to address problem: Management as per primary care. (4) Acute heart failure with preserved ejection fraction (HFpEF) Current Visit: Yes Status: Acute Plan to address problem: Management as per cardiology. (5) Acute kidney injury superimposed on CKD Current Visit: Yes Status: Acute Plan to address problem: Management as per nephrolgy. (6) Anemia Current Visit: Yes Status: Acute Plan to address problem: Management as per primary care. (7) CAD (coronary artery disease) Current Visit: Yes Status: Chronic Plan to address problem: Management as per cardiology. (8) DM2 (diabetes mellitus, type 2) Current Visit: Yes Status: Chronic Plan to address problem: Management as per primary care. (9) H/O: CVA (cerebrovascular accident) Current Visit: Yes Status: Chronic Plan to address problem: Management as per primary care. (10) Hypertension Current Visit: Yes Status: Chronic Qualifiers: Hypertension type: essential hypertension Qualified Code(s): I10 - Essential (primary) hypertension Plan to address problem: Management as per primary care. (11) NSTEMI (non-ST elevated myocardial infarction) Current Visit: Yes Status: Acute Plan to address problem: Management as per cardiology. Patient is on I/VV heparin. Subjective Date of service: 10/27/20 Principal diagnosis: NNAMDI/CKD, NSTEMI Interval history: Patient alert, awake. Oriented.Patient resting on High flow O2 , 6 litres and O2 saturation 99%. BIPAP stand by in the room. Patient afebrile. No leukocytosis. Chest xray done 10/25/20 reported Prominent diffuse interstitial lung markings again noted although significantly improved since the previous exam. Patient is on albuterol/atrovent aerosol treatments, S/C Heparin and famotidine. Patients bed side, explained patients respiratory status to her. Objective Vital Signs - 12hr 10/27/20 10/27/20 10/27/20 02:00 03:09 05:14 Temperature 97.4 F L Pulse Rate 63 63 Pulse Rate [ Anterior Bilateral Throughout] Pulse Rate [ Bilateral] Respiratory 16 Rate Respiratory Rate [Anterior Bilateral Throughout] Respiratory Rate [Bilateral ] Blood Pressure 125/54 125/54 O2 Sat by Pulse 100 99 Oximetry 10/27/20 10/27/20 10/27/20 07:26 08:00 09:35 Temperature 98.7 F Pulse Rate 67 Pulse Rate [ 82 Anterior Bilateral Throughout] Pulse Rate [ 92 H Bilateral] Respiratory 18 Rate Respiratory 18 Rate [Anterior Bilateral Throughout] Respiratory 18 Rate [Bilateral ] Blood Pressure 140/56 O2 Sat by Pulse 100 96 Oximetry 10/27/20 10/27/20 10/27/20 09:40 11:00 11:32 Temperature 98.9 F Pulse Rate 64 67 Pulse Rate [ Anterior Bilateral Throughout] Pulse Rate [ Bilateral] Respiratory 20 18 Rate Respiratory Rate [Anterior Bilateral Throughout] Respiratory Rate [Bilateral ] Blood Pressure 130/47 O2 Sat by Pulse 96 95 96 Oximetry 10/27/20 11:42 Temperature 98.2 F Pulse Rate 99 H Pulse Rate [ Anterior Bilateral Throughout] Pulse Rate [ Bilateral] Respiratory 18 Rate Respiratory Rate [Anterior Bilateral Throughout] Respiratory Rate [Bilateral ] Blood Pressure 172/89 O2 Sat by Pulse 98 Oximetry Constitutional: no acute distress, alert Eyes: non-icteric ENT: oropharynx moist Neck: supple, no lymphadenopathy, no JVD Effort: normal Ascultation: Bilateral: diminished breath sounds, rhonchi Percussion: Bilateral: not dull Cardiovascular: regular rate and rhythm Gastrointestinal: normoactive bowel sounds, soft, non-tender, non-distended (protuberant) Integumentary: normal Extremities: no cyanosis, no edema, pulses normal, no ischemia or petechiae Neurologic: normal mental status, non-focal exam, pupils equal and round, motor strength normal and Psychiatric: mood appropriate, affect normal CBC and BMP: 10/27/20 03:50 10/27/20 03:50 ABG, PT/INR, D-dimer: ABG ABG pH 7.387 (7.320-7.450) 10/24/20 10:25 POC ABG pCO2 35.6 mmHg (32.0-48.0) 10/24/20 10:25 POC ABG pO2 64.0 mmHg (83-108) L 10/24/20 10:25 POC ABG HCO3 20.9 10/24/20 10:25 ABG O2 Saturation 90.7 (0-100) 10/24/20 10:25 PT/INR, D-dimer PT 13.7 Sec. (12.2-14.9) 10/27/20 03:50 INR 1.00 (0.87-1.13) 10/27/20 03:50 D-Dimer 2466.38 ng/mlDDU (0-234) H 10/21/20 03:14 Abnormal lab findings: Abnormal Labs 10/21/20 10/21/20 10/21/20 03:14 03:14 03:14 WBC 14.5 H RBC Hgb Hct RDW 16.1 H Lymph % (Auto) [place] % (Auto) Lymph # (Auto) [place] # (Auto) Seg Neutrophils % Seg Neuts % (Manual) 85.0 H Lymphocytes % (Manual) 7.0 L Seg Neutrophils # Seg Neutrophils # Man 12.3 H Lymphocytes # (Manual) 1.0 L Monocytes # (Manual) 0.9 H PT INR APTT 23.5 L D-Dimer 2466.38 H Heparin Anti-Xa Level POC ABG pO2 ABG Hemoglobin ABG Oxyhemoglobin ABG Sodium ABG Glucose Carboxyhemoglobin Sodium Chloride Carbon Dioxide 16 L D BUN 55 H Creatinine 3.7 H Glucose 333 H POC Glucose Hemoglobin A1c Calcium 8.3 L Total Creatine Kinase CK-MB (CK-2) Troponin T NT-Pro-B Natriuret Pep Total Protein Albumin Triglycerides Cholesterol LDL Cholesterol Direct HDL Cholesterol Arterial Blood Glucose 10/21/20 10/21/20 10/21/20 03:14 05:56 07:53 WBC 13.6 H RBC Hgb Hct RDW 16.4 H Lymph % (Auto) 3.7 L [place] % (Auto) Lymph # (Auto) 0.5 L [place] # (Auto) 0.9 H Seg Neutrophils % 89.6 H Seg Neuts % (Manual) Lymphocytes % (Manual) Seg Neutrophils # 12.2 H Seg Neutrophils # Man Lymphocytes # (Manual) Monocytes # (Manual) PT INR APTT D-Dimer Heparin Anti-Xa Level POC ABG pO2 ABG Hemoglobin ABG Oxyhemoglobin ABG Sodium ABG Glucose Carboxyhemoglobin Sodium Chloride Carbon Dioxide BUN Creatinine Glucose POC Glucose 307 H Hemoglobin A1c Calcium Total Creatine Kinase CK-MB (CK-2) Troponin T 0.241 H* NT-Pro-B Natriuret Pep Total Protein Albumin Triglycerides 154 H Cholesterol 212 H LDL Cholesterol Direct 137 H HDL Cholesterol 65 H Arterial Blood Glucose 10/21/20 10/21/20 10/21/20 07:53 10:52 10:55 WBC RBC Hgb Hct RDW Lymph % (Auto) [place] % (Auto) Lymph # (Auto) [place] # (Auto) Seg Neutrophils % Seg Neuts % (Manual) Lymphocytes % (Manual) Seg Neutrophils # Seg Neutrophils # Man Lymphocytes # (Manual) Monocytes # (Manual) PT INR APTT D-Dimer Heparin Anti-Xa Level POC ABG pO2 ABG Hemoglobin ABG Oxyhemoglobin ABG Sodium ABG Glucose Carboxyhemoglobin Sodium Chloride 97.4 L Carbon Dioxide 19 L BUN 63 H Creatinine 4.0 H Glucose 337 H POC Glucose 320 H Hemoglobin A1c Calcium 8.3 L Total Creatine Kinase CK-MB (CK-2) Troponin T 0.730 H* D NT-Pro-B Natriuret Pep Total Protein Albumin Triglycerides Cholesterol LDL Cholesterol Direct HDL Cholesterol Arterial Blood Glucose 10/21/20 10/21/20 10/21/20 14:59 14:59 14:59 WBC RBC Hgb 11.5 L Hct RDW Lymph % (Auto) [place] % (Auto) Lymph # (Auto) [place] # (Auto) Seg Neutrophils % Seg Neuts % (Manual) Lymphocytes % (Manual) Seg Neutrophils # Seg Neutrophils # Man Lymphocytes # (Manual) Monocytes # (Manual) PT 15.9 H INR 1.22 H APTT 135.3 H* D-Dimer Heparin Anti-Xa Level POC ABG pO2 ABG Hemoglobin ABG Oxyhemoglobin ABG Sodium ABG Glucose Carboxyhemoglobin Sodium Chloride Carbon Dioxide BUN Creatinine Glucose POC Glucose Hemoglobin A1c Calcium Total Creatine Kinase CK-MB (CK-2) Troponin T 1.190 H* D NT-Pro-B Natriuret Pep Total Protein Albumin Triglycerides Cholesterol LDL Cholesterol Direct HDL Cholesterol Arterial Blood Glucose 10/21/20 10/22/20 10/22/20 16:55 02:45 02:45 WBC 15.5 H RBC Hgb Hct RDW 16.2 H Lymph % (Auto) 8.2 L [place] % (Auto) 9.5 H Lymph # (Auto) [place] # (Auto) 1.5 H Seg Neutrophils % 81.3 H Seg Neuts % (Manual) Lymphocytes % (Manual) Seg Neutrophils # 12.6 H Seg Neutrophils # Man Lymphocytes # (Manual) Monocytes # (Manual) PT INR APTT D-Dimer Heparin Anti-Xa Level POC ABG pO2 ABG Hemoglobin ABG Oxyhemoglobin ABG Sodium ABG Glucose Carboxyhemoglobin Sodium Chloride Carbon Dioxide 20 L BUN 76 H Creatinine 4.4 H Glucose 113 H POC Glucose 312 H Hemoglobin A1c Calcium Total Creatine Kinase CK-MB (CK-2) Troponin T NT-Pro-B Natriuret Pep Total Protein Albumin Triglycerides Cholesterol LDL Cholesterol Direct HDL Cholesterol Arterial Blood Glucose 10/22/20 10/22/20 10/22/20 07:00 08:18 11:58 WBC RBC Hgb Hct RDW Lymph % (Auto) [place] % (Auto) Lymph # (Auto) [place] # (Auto) Seg Neutrophils % Seg Neuts % (Manual) Lymphocytes % (Manual) Seg Neutrophils # Seg Neutrophils # Man Lymphocytes # (Manual) Monocytes # (Manual) PT INR APTT D-Dimer Heparin Anti-Xa Level POC ABG pO2 ABG Hemoglobin ABG Oxyhemoglobin ABG Sodium ABG Glucose Carboxyhemoglobin Sodium Chloride Carbon Dioxide BUN Creatinine Glucose POC Glucose 181 H 237 H Hemoglobin A1c 7.8 H Calcium Total Creatine Kinase CK-MB (CK-2) Troponin T NT-Pro-B Natriuret Pep Total Protein Albumin Triglycerides Cholesterol LDL Cholesterol Direct HDL Cholesterol Arterial Blood Glucose 10/22/20 10/22/20 10/23/20 16:58 21:25 04:29 WBC RBC 3.49 L Hgb 10.4 L Hct 30.7 L RDW 15.9 H Lymph % (Auto) [place] % (Auto) Lymph # (Auto) [place] # (Auto) Seg Neutrophils % Seg Neuts % (Manual) Lymphocytes % (Manual) Seg Neutrophils # Seg Neutrophils # Man Lymphocytes # (Manual) Monocytes # (Manual) PT INR APTT D-Dimer Heparin Anti-Xa Level POC ABG pO2 ABG Hemoglobin ABG Oxyhemoglobin ABG Sodium ABG Glucose Carboxyhemoglobin Sodium Chloride Carbon Dioxide BUN Creatinine Glucose POC Glucose 273 H 272 H Hemoglobin A1c Calcium Total Creatine Kinase CK-MB (CK-2) Troponin T NT-Pro-B Natriuret Pep Total Protein Albumin Triglycerides Cholesterol LDL Cholesterol Direct HDL Cholesterol Arterial Blood Glucose 10/23/20 10/23/20 10/23/20 04:29 04:29 07:26 WBC RBC Hgb Hct RDW Lymph % (Auto) [place] % (Auto) Lymph # (Auto) [place] # (Auto) Seg Neutrophils % Seg Neuts % (Manual) Lymphocytes % (Manual) Seg Neutrophils # Seg Neutrophils # Man Lymphocytes # (Manual) Monocytes # (Manual) PT INR APTT D-Dimer Heparin Anti-Xa Level 0.20 L POC ABG pO2 ABG Hemoglobin ABG Oxyhemoglobin ABG Sodium ABG Glucose Carboxyhemoglobin Sodium Chloride Carbon Dioxide BUN 78 H Creatinine 4.3 H Glucose 139 H POC Glucose 158 H Hemoglobin A1c Calcium Total Creatine Kinase CK-MB (CK-2) Troponin T NT-Pro-B Natriuret Pep Total Protein Albumin Triglycerides Cholesterol LDL Cholesterol Direct HDL Cholesterol Arterial Blood Glucose 10/23/20 10/23/20 10/23/20 11:07 11:50 15:19 WBC RBC Hgb Hct RDW Lymph % (Auto) [place] % (Auto) Lymph # (Auto) [place] # (Auto) Seg Neutrophils % Seg Neuts % (Manual) Lymphocytes % (Manual) Seg Neutrophils # Seg Neutrophils # Man Lymphocytes # (Manual) Monocytes # (Manual) PT INR APTT D-Dimer Heparin Anti-Xa Level 0.27 L POC ABG pO2 ABG Hemoglobin ABG Oxyhemoglobin ABG Sodium ABG Glucose Carboxyhemoglobin Sodium Chloride Carbon Dioxide BUN Creatinine Glucose POC Glucose 201 H 324 H Hemoglobin A1c Calcium Total Creatine Kinase CK-MB (CK-2) Troponin T NT-Pro-B Natriuret Pep Total Protein Albumin Triglycerides Cholesterol LDL Cholesterol Direct HDL Cholesterol Arterial Blood Glucose 10/23/20 10/24/20 10/24/20 20:15 07:25 10:21 WBC RBC Hgb Hct RDW Lymph % (Auto) [place] % (Auto) Lymph # (Auto) [place] # (Auto) Seg Neutrophils % Seg Neuts % (Manual) Lymphocytes % (Manual) Seg Neutrophils # Seg Neutrophils # Man Lymphocytes # (Manual) Monocytes # (Manual) PT INR APTT D-Dimer Heparin Anti-Xa Level POC ABG pO2 ABG Hemoglobin ABG Oxyhemoglobin ABG Sodium ABG Glucose Carboxyhemoglobin Sodium Chloride Carbon Dioxide BUN Creatinine Glucose POC Glucose 259 H 145 H Hemoglobin A1c Calcium Total Creatine Kinase CK-MB (CK-2) Troponin T 2.650 H* D NT-Pro-B Natriuret Pep Total Protein Albumin Triglycerides Cholesterol LDL Cholesterol Direct HDL Cholesterol Arterial Blood Glucose 10/24/20 10/24/20 10/24/20 10:25 10:56 11:32 WBC RBC Hgb Hct RDW Lymph % (Auto) [place] % (Auto) Lymph # (Auto) [place] # (Auto) Seg Neutrophils % Seg Neuts % (Manual) Lymphocytes % (Manual) Seg Neutrophils # Seg Neutrophils # Man Lymphocytes # (Manual) Monocytes # (Manual) PT INR APTT D-Dimer Heparin Anti-Xa Level POC ABG pO2 64.0 L ABG Hemoglobin 11.3 L ABG Oxyhemoglobin 90.1 L ABG Sodium 134.0 L ABG Glucose 246 H Carboxyhemoglobin 0.4 L Sodium Chloride 94.8 L Carbon Dioxide BUN 88 H Creatinine 4.3 H Glucose 236 H POC Glucose 228 H Hemoglobin A1c Calcium Total Creatine Kinase CK-MB (CK-2) Troponin T NT-Pro-B Natriuret Pep Total Protein Albumin Triglycerides Cholesterol LDL Cholesterol Direct HDL Cholesterol Arterial Blood Glucose 246 H 10/24/20 10/24/20 10/25/20 16:36 20:32 04:46 WBC RBC Hgb Hct RDW Lymph % (Auto) [place] % (Auto) Lymph # (Auto) [place] # (Auto) Seg Neutrophils % Seg Neuts % (Manual) Lymphocytes % (Manual) Seg Neutrophils # Seg Neutrophils # Man Lymphocytes # (Manual) Monocytes # (Manual) PT INR APTT D-Dimer Heparin Anti-Xa Level POC ABG pO2 ABG Hemoglobin ABG Oxyhemoglobin ABG Sodium ABG Glucose Carboxyhemoglobin Sodium Chloride 95.4 L Carbon Dioxide BUN 94 H Creatinine 4.0 H Glucose 243 H POC Glucose 214 H 188 H Hemoglobin A1c Calcium Total Creatine Kinase CK-MB (CK-2) Troponin T NT-Pro-B Natriuret Pep 4199 H Total Protein Albumin 3.8 L Triglycerides Cholesterol LDL Cholesterol Direct HDL Cholesterol Arterial Blood Glucose 10/25/20 10/25/20 10/25/20 07:27 11:09 15:50 WBC RBC Hgb Hct RDW Lymph % (Auto) [place] % (Auto) Lymph # (Auto) [place] # (Auto) Seg Neutrophils % Seg Neuts % (Manual) Lymphocytes % (Manual) Seg Neutrophils # Seg Neutrophils # Man Lymphocytes # (Manual) Monocytes # (Manual) PT INR APTT D-Dimer Heparin Anti-Xa Level POC ABG pO2 ABG Hemoglobin ABG Oxyhemoglobin ABG Sodium ABG Glucose Carboxyhemoglobin Sodium Chloride Carbon Dioxide BUN Creatinine Glucose POC Glucose 271 H 301 H 126 H Hemoglobin A1c Calcium Total Creatine Kinase CK-MB (CK-2) Troponin T NT-Pro-B Natriuret Pep Total Protein Albumin Triglycerides Cholesterol LDL Cholesterol Direct HDL Cholesterol Arterial Blood Glucose 10/25/20 10/26/20 10/26/20 20:38 05:37 05:37 WBC RBC Hgb Hct 34.6 L RDW 15.6 H Lymph % (Auto) [place] % (Auto) Lymph # (Auto) [place] # (Auto) Seg Neutrophils % Seg Neuts % (Manual) Lymphocytes % (Manual) Seg Neutrophils # Seg Neutrophils # Man Lymphocytes # (Manual) Monocytes # (Manual) PT INR APTT D-Dimer Heparin Anti-Xa Level POC ABG pO2 ABG Hemoglobin ABG Oxyhemoglobin ABG Sodium ABG Glucose Carboxyhemoglobin Sodium Chloride 97.6 L Carbon Dioxide BUN 106 H Creatinine 4.0 H Glucose POC Glucose 165 H Hemoglobin A1c Calcium Total Creatine Kinase CK-MB (CK-2) Troponin T 2.710 H* NT-Pro-B Natriuret Pep Total Protein Albumin 3.8 L Triglycerides Cholesterol LDL Cholesterol Direct HDL Cholesterol Arterial Blood Glucose 10/26/20 10/26/20 10/26/20 11:27 14:05 14:05 WBC RBC Hgb 10.9 L Hct 32.4 L RDW 15.6 H Lymph % (Auto) 10.0 L [place] % (Auto) Lymph # (Auto) 0.8 L [place] # (Auto) Seg Neutrophils % 79.8 H Seg Neuts % (Manual) Lymphocytes % (Manual) Seg Neutrophils # Seg Neutrophils # Man Lymphocytes # (Manual) Monocytes # (Manual) PT INR APTT D-Dimer Heparin Anti-Xa Level POC ABG pO2 ABG Hemoglobin ABG Oxyhemoglobin ABG Sodium ABG Glucose Carboxyhemoglobin Sodium 129 L D Chloride 91.9 L Carbon Dioxide 20 L BUN 104 H Creatinine 3.9 H Glucose 350 H POC Glucose 243 H Hemoglobin A1c Calcium Total Creatine Kinase CK-MB (CK-2) Troponin T NT-Pro-B Natriuret Pep Total Protein Albumin Triglycerides Cholesterol LDL Cholesterol Direct HDL Cholesterol Arterial Blood Glucose 10/26/20 10/26/20 10/26/20 14:05 14:05 14:05 WBC RBC Hgb 11.1 L Hct 33.0 L RDW Lymph % (Auto) [place] % (Auto) Lymph # (Auto) [place] # (Auto) Seg Neutrophils % Seg Neuts % (Manual) Lymphocytes % (Manual) Seg Neutrophils # Seg Neutrophils # Man Lymphocytes # (Manual) Monocytes # (Manual) PT INR APTT 139.0 H* D-Dimer Heparin Anti-Xa Level POC ABG pO2 ABG Hemoglobin ABG Oxyhemoglobin ABG Sodium ABG Glucose Carboxyhemoglobin Sodium Chloride Carbon Dioxide BUN Creatinine Glucose POC Glucose Hemoglobin A1c Calcium Total Creatine Kinase 395 H CK-MB (CK-2) 8.0 H Troponin T NT-Pro-B Natriuret Pep Total Protein Albumin Triglycerides Cholesterol LDL Cholesterol Direct HDL Cholesterol Arterial Blood Glucose 10/26/20 10/26/20 10/26/20 16:59 18:27 18:27 WBC RBC Hgb Hct RDW Lymph % (Auto) [place] % (Auto) Lymph # (Auto) [place] # (Auto) Seg Neutrophils % Seg Neuts % (Manual) Lymphocytes % (Manual) Seg Neutrophils # Seg Neutrophils # Man Lymphocytes # (Manual) Monocytes # (Manual) PT INR APTT D-Dimer Heparin Anti-Xa Level 0.92 H POC ABG pO2 ABG Hemoglobin ABG Oxyhemoglobin ABG Sodium ABG Glucose Carboxyhemoglobin Sodium Chloride Carbon Dioxide BUN Creatinine Glucose POC Glucose 224 H Hemoglobin A1c Calcium Total Creatine Kinase 392 H CK-MB (CK-2) 7.7 H Troponin T NT-Pro-B Natriuret Pep Total Protein Albumin Triglycerides Cholesterol LDL Cholesterol Direct HDL Cholesterol Arterial Blood Glucose 10/26/20 10/26/20 10/26/20 18:27 20:27 20:40 WBC RBC Hgb Hct RDW Lymph % (Auto) [place] % (Auto) Lymph # (Auto) [place] # (Auto) Seg Neutrophils % Seg Neuts % (Manual) Lymphocytes % (Manual) Seg Neutrophils # Seg Neutrophils # Man Lymphocytes # (Manual) Monocytes # (Manual) PT INR APTT D-Dimer Heparin Anti-Xa Level POC ABG pO2 ABG Hemoglobin ABG Oxyhemoglobin ABG Sodium ABG Glucose Carboxyhemoglobin Sodium Chloride Carbon Dioxide BUN Creatinine Glucose 172 H POC Glucose 33 L 130 H Hemoglobin A1c Calcium Total Creatine Kinase CK-MB (CK-2) Troponin T NT-Pro-B Natriuret Pep Total Protein Albumin Triglycerides Cholesterol LDL Cholesterol Direct HDL Cholesterol Arterial Blood Glucose 10/26/20 10/27/20 10/27/20 21:56 02:15 03:50 WBC RBC Hgb Hct RDW Lymph % (Auto) [place] % (Auto) Lymph # (Auto) [place] # (Auto) Seg Neutrophils % Seg Neuts % (Manual) Lymphocytes % (Manual) Seg Neutrophils # Seg Neutrophils # Man Lymphocytes # (Manual) Monocytes # (Manual) PT INR APTT D-Dimer Heparin Anti-Xa Level POC ABG pO2 ABG Hemoglobin ABG Oxyhemoglobin ABG Sodium ABG Glucose Carboxyhemoglobin Sodium 135 L Chloride 95.8 L Carbon Dioxide 21 L BUN 98 H Creatinine 3.8 H Glucose 190 H POC Glucose 69 L 166 H Hemoglobin A1c Calcium Total Creatine Kinase CK-MB (CK-2) Troponin T NT-Pro-B Natriuret Pep Total Protein 6.2 L Albumin 3.6 L Triglycerides Cholesterol LDL Cholesterol Direct HDL Cholesterol Arterial Blood Glucose 10/27/20 10/27/20 10/27/20 03:50 03:50 05:29 WBC RBC 3.47 L Hgb 10.3 L Hct 30.9 L RDW 16.0 H Lymph % (Auto) [place] % (Auto) Lymph # (Auto) [place] # (Auto) Seg Neutrophils % Seg Neuts % (Manual) Lymphocytes % (Manual) Seg Neutrophils # Seg Neutrophils # Man Lymphocytes # (Manual) Monocytes # (Manual) PT INR APTT D-Dimer Heparin Anti-Xa Level POC ABG pO2 ABG Hemoglobin ABG Oxyhemoglobin ABG Sodium ABG Glucose Carboxyhemoglobin Sodium Chloride Carbon Dioxide BUN Creatinine Glucose POC Glucose 163 H Hemoglobin A1c Calcium Total Creatine Kinase 295 H CK-MB (CK-2) 7.6 H Troponin T NT-Pro-B Natriuret Pep Total Protein Albumin Triglycerides Cholesterol LDL Cholesterol Direct HDL Cholesterol Arterial Blood Glucose 10/27/20 10/27/20 07:29 11:08 WBC RBC Hgb Hct RDW Lymph % (Auto) [place] % (Auto) Lymph # (Auto) [place] # (Auto) Seg Neutrophils % Seg Neuts % (Manual) Lymphocytes % (Manual) Seg Neutrophils # Seg Neutrophils # Man Lymphocytes # (Manual) Monocytes # (Manual) PT INR APTT D-Dimer Heparin Anti-Xa Level POC ABG pO2 ABG Hemoglobin ABG Oxyhemoglobin ABG Sodium ABG Glucose Carboxyhemoglobin Sodium Chloride Carbon Dioxide BUN Creatinine Glucose POC Glucose 219 H 229 H Hemoglobin A1c Calcium Total Creatine Kinase CK-MB (CK-2) Troponin T NT-Pro-B Natriuret Pep Total Protein Albumin Triglycerides Cholesterol LDL Cholesterol Direct HDL Cholesterol Arterial Blood Glucose Allied health notes reviewed: nursing
[2020-10-27] MEDS: INSULIN NPH/REGULAR 70/30 INJ SUB-Q SCH (14:14)
[2020-10-27] MEDS: BUMETANIDE 1 MG/4 ML INJ IV SCH (17:34)
[2020-10-27] MEDS: HEPARIN/ 0.45% NACL DRIP 25,000 UNIT/500 ML BAG IV SCH (17:36)
[2020-10-28 05:10] LABS: Hemoglobin 10.2 gm/dl (11.8-15.2); Mean Corpuscular HGB Conc 34 % (32-34); Mean Corpuscular Volume 86 fl (84-94); Platelet Count 279 K/mm3 (140-440); Red Cell Distribution Width 15.6 % (13.2-15.2)
[2020-10-28 05:26] LABS: Albumin 3.5 g/dL (3.9-5); Calcium 9.2 mg/dL (8.4-10.2)
[2020-10-28] MEDS: hydrALAZINE 25 MG TAB PO SCH ×3 (07:19→22:43)
[2020-10-28] MEDS: BUMETANIDE 1 MG/4 ML INJ IV SCH ×2 (07:19→17:11)
[2020-10-28] MEDS: IPRATROPIUM/ALBUTEROL SULFATE 3 ML AMPUL.NEB IH SCH ×3 (08:50→20:24)
[2020-10-28] MEDS: INSULIN LISPRO 100 UNIT/ML SUB-Q SCH ×4 (08:51→22:46)
[2020-10-28] MEDS: CHOLECALCIFEROL (VIT D3) 1000 UNIT (25 mcg) TAB PO SCH (09:00)
[2020-10-28] MEDS: FINASTERIDE 5 MG TAB PO SCH ×2 (09:01→22:43)
[2020-10-28] MEDS: SERTRALINE 100 MG TAB PO SCH (09:01)
[2020-10-28] MEDS: SODIUM BICARBONATE 650 MG TAB PO SCH ×2 (09:01→22:43)
[2020-10-28] MEDS: amLODIPine 10 MG TAB PO SCH (09:01)
[2020-10-28] MEDS: FAMOTIDINE 20 MG TAB PO SCH (09:01)
[2020-10-28] MEDS: DOCUSATE SODIUM 100 MG CAP PO SCH ×2 (09:01→22:43)
[2020-10-28] MEDS: ASPIRIN EC 81 MG TAB PO SCH (09:01)
[2020-10-28] MEDS: METOPROLOL TARTRATE 50 MG TAB PO SCH ×2 (09:01→22:44)
[2020-10-28] MEDS: CLOPIDOGREL 75 MG TAB PO SCH (09:01)
[2020-10-28] MEDS: TAMSULOSIN 0.4 MG CAP PO SCH (09:01)
--- NOTE | 2020-10-28 10:18 | Progress Note ---
Assessment and Plan - Patient Problems (1) Acute heart failure with preserved ejection fraction (HFpEF) Current Visit: Yes Status: Acute Plan to address problem: continue with current diuretic regimen. Discussed case with cardiology and concerns over elevated troponin levels. Will attempt to optimize volume status with increased bumex 2mg IV BID. (2) Pulmonary edema Current Visit: Yes Status: Acute Qualifiers: Chronicity: acute Qualified Code(s): J81.0 - Acute pulmonary edema Plan to address problem: Will have adjusted diuretic regimen to bumex 2mg IV BID. (3) Acute kidney injury superimposed on CKD Current Visit: Yes Status: Acute Plan to address problem: patient remains in chronic kidney disease stage IV without any acute uremic symptoms or necessity to start hemodialysis at this time. He has a newl left upper extremity AV graft without any issues currently. We will continue to mo nitor closely. (4) Acidosis Current Visit: Yes Status: Acute Plan to address problem: patient started on sodium bicarbonate supplementation. (5) DM2 (diabetes mellitus, type 2) Current Visit: Yes Status: Chronic Plan to address problem: diabetes management per primary attending. (6) Hypertension Current Visit: Yes Status: Chronic Qualifiers: Hypertension type: essential hypertension Qualified Code(s): I10 - Essential (primary) hypertension Plan to address problem: monitor blood pressure on the current regimen. Subjective Date of service: 10/28/20 Principal diagnosis: NNAMDI/CKD, NSTEMI Interval history: no acute issues overnight. Currently on 3 L of O2 via nasal cannula. Objective - Vital Signs Vital signs: Vital Signs - 12hr 10/27/20 10/27/20 10/28/20 22:17 22:48 03:10 Temperature 98.2 F 32.1 F L Pulse Rate 79 77 71 Pulse Rate [ From Monitor] Pulse Rate [ Left Posterior Tibial] Respiratory 18 17 Rate Blood Pressure 137/47 144/52 146/51 O2 Sat by Pulse 93 96 Oximetry 10/28/20 10/28/20 10/28/20 03:11 08:10 08:56 Temperature 98.2 F 98.5 F Pulse Rate 73 Pulse Rate [ 75 From Monitor] Pulse Rate [ 75 Left Posterior Tibial] Respiratory 22 17 Rate Blood Pressure 149/45 O2 Sat by Pulse 95 96 Oximetry 10/28/20 10/28/20 09:01 09:15 Temperature Pulse Rate 76 Pulse Rate [ From Monitor] Pulse Rate [ Left Posterior Tibial] Respiratory Rate Blood Pressure 143/58 O2 Sat by Pulse 98 Oximetry - General Appearance General appearance: well-developed, well-nourished, appears stated age EENT: PERRL Neck: no JVD Respiratory: Present: Decreased Breath Sounds Cardiology: regular Gastrointestinal: normal Integumentary: no rash Neurologic: no focal deficit Musculoskeletal: deferred Psychiatric: cooperative - Lab 10/28/20 04:00 10/28/20 04:00 Most recent lab results ABG pH 7.387 (7.320-7.450) 10/24/20 10:25 ABG O2 Saturation 90.7 (0-100) 10/24/20 10:25 Calcium 9.2 mg/dL (8.4-10.2) 10/28/20 04:00 Magnesium 2.20 mg/dL (1.7-2.3) 10/24/20 10:56 - Allied health notes Allied health notes reviewed: nursing Medications & Allergies - Medications Allergies/Adverse Reactions: Allergies pollen extracts Allergy (Verified 10/21/20 05:23) Unknown Home Medications: Home Medications Medication Instructions Recorded Confirmed Last Taken Type Clopidogrel Bisulfate [Clopidogrel] 1 tab PO DAILY 03/13/14 10/21/20 10/18/20 History Tamsulosin HCl 1 tab PO DAILY 03/13/14 10/21/20 10/18/20 History Aspirin [Adult Aspirin] 81 mg PO DAILY 10/12/20 10/21/20 10/18/20 History AtorvaSTATin [Lipitor] 40 mg PO QHS 10/12/20 10/21/20 10/18/20 History Dicyclomine [Bentyl] 20 mg PO BID 10/12/20 10/21/20 10/18/20 History Finasteride [Proscar] 5 mg PO BID 10/12/20 10/21/20 10/18/20 History Insulin NPH Human Isophane 15 unit SQ BID 10/12/20 10/21/20 10/18/20 20:30 History [Novolin N] Insulin Regular, Human [Novolin R] 10 units SUB-Q BID 10/12/20 10/21/20 10/18/20 20:30 History Metoprolol [Lopressor TAB] 50 mg PO QDAY 10/12/20 10/21/20 10/18/20 20:30 History Sertraline [Zoloft] 100 mg PO QDAY 10/12/20 10/21/20 10/18/20 History amLODIPine 10 mg PO DAILY 10/12/20 10/21/20 10/18/20 20:30 History HYDROcodone/APAP 7.5-325 [[place] 1 each PO Q6HR PRN #40 tablet 10/19/20 10/21/20 Unknown Rx 7.5/325] Ergocalciferol (Vitamin D2) 1,250 unit PO DAILY 10/21/20 10/21/20 Unknown History [Vitamin D2] Active Medications: Generic Name Dose Route Start Last Admin Trade Name Freq PRN Reason Stop Dose Admin Acetaminophen 650 mg 10/21/20 05:28 Acetaminophen 325 Mg Tab PO Q4H PRN Pain MILD(1-3)/Fever >100.5/PRIETO Albuterol 2.5 mg 10/21/20 05:28 Albuterol 2.5 Mg/3 Ml Nebu IH Q4HRT PRN Shortness Of Breath Albuterol/Ipratropium 1 ampul 10/22/20 08:00 10/28/20 08:50 Ipratropium/Albuterol Sulfate 3 Ml Ampul.Neb IH 1 ampul TIDRT ALANNA Administration Amlodipine Besylate 10 mg 10/21/20 10:00 10/28/20 09:01 Amlodipine 10 Mg Tab PO 10 mg DAILY ALANNA Administration Aspirin 81 mg 10/21/20 10:00 10/28/20 09:01 Aspirin Ec 81 Mg Tab PO 81 mg DAILY ALANNA Administration Atorvastatin Calcium 40 mg 10/21/20 22:00 10/27/20 22:17 Atorvastatin 40 Mg Tab PO 40 mg QHS ALANNA Administration Bumetanide 2 mg 10/27/20 18:00 10/28/20 07:19 Bumetanide 1 Mg/4 Ml Inj IV 2 mg BID@0600,1800 ALANNA Administration Cholecalciferol 2,000 unit 10/21/20 10:00 10/28/20 09:00 Cholecalciferol (Vit D3) 1000 Unit (25 Mcg) Tab PO 2,000 unit DAILY ALANNA Administration Clopidogrel Bisulfate 75 mg 10/21/20 10:00 10/28/20 09:01 Clopidogrel 75 Mg Tab PO 75 mg DAILY ALANNA Administration Docusate Sodium 100 mg 10/26/20 22:00 10/28/20 09:01 Docusate Sodium 100 Mg Cap PO 100 mg BID ALANNA Administration Famotidine 20 mg 10/21/20 10:00 10/28/20 09:01 Famotidine 20 Mg Tab PO 20 mg QAM ALANNA Administration Finasteride 5 mg 10/21/20 10:00 10/28/20 09:01 Finasteride 5 Mg Tab PO 5 mg BID ALANNA Administration Heparin Sodium (Porcine) 3,100 unit 10/26/20 11:26 Heparin 10,000 Units/10 Ml Vial 40 unit/kg (3100 unit) IV Q6H PRN Anti-Xa Assay < 0.1 units/ml Hydralazine HCl 25 mg 10/25/20 14:00 10/28/20 07:19 Hydralazine 25 Mg Tab PO 25 mg Q8HR ALANNA Administration Heparin Sodium/Sodium Chloride 25,000 unit in 500 mls @ 20 mls/hr 10/26/20 12:00 10/28/20 05:43 Heparin/ 0.45% Nacl-25,000 Unit/500 Ml IV 950 units/hr TITRATE ALANNA 19 mls/hr Titration Protocol 1,000 UNITS/HR Insulin Human Lispro 0 unit 10/21/20 11:30 10/28/20 08:51 Insulin Lispro 100 Unit/Ml SUB-Q 4 unit ACHS ALANNA Administration Protocol Metoprolol Tartrate 50 mg 10/22/20 17:00 10/28/20 09:01 Metoprolol Tartrate 50 Mg Tab PO 50 mg BID ALANNA Administration Nitroglycerin 0.4 mg 10/21/20 05:28 Nitroglycerin 0.4 Mg Tab Subl SL Q5M PRN Chest Pain Ondansetron HCl 4 mg 10/21/20 05:28 Ondansetron 4 Mg/2 Ml Inj IV Q8H PRN Nausea And Vomiting Sertraline HCl 100 mg 10/21/20 10:00 10/28/20 09:01 Sertraline 100 Mg Tab PO 100 mg QDAY ALANNA Administration Sodium Bicarbonate 650 mg 10/21/20 22:00 10/28/20 09:01 Sodium Bicarbonate 650 Mg Tab PO 650 mg BID ALANNA Administration Sodium Chloride 10 ml 10/21/20 10:00 10/28/20 09:02 Sodium Chloride 0.9% 10 Ml Flush Syringe IV 10 ml BID ALANNA Administration Sodium Chloride 10 ml 10/21/20 05:28 Sodium Chloride 0.9% 10 Ml Flush Syringe IV PRN PRN LINE FLUSH Tamsulosin HCl 0.4 mg 10/21/20 10:00 10/28/20 09:01 Tamsulosin 0.4 Mg Cap PO 0.4 mg DAILY ALANNA Administration Tramadol HCl 50 mg 10/21/20 05:28 10/26/20 17:33 Tramadol 50 Mg Tab PO 50 mg Q6H PRN Administration Pain, Moderate (4-6) Trazodone HCl 50 mg 10/27/20 01:29 10/27/20 01:40 Trazodone 50 Mg Tab PO 50 mg QHS PRN Administration Insomnia
--- NOTE | 2020-10-28 10:22 | Progress Note ---
Assessment and Plan Assessment and plan: 70-year-old male with past medical history of hypertension, hyperlipidemia and diabetes, Chronic kidney disease was brought to the emergency department via EMS from home with complaints of shortness of breath, nausea with vomiting and left upper arm pain that started earlier this evening. The patient was a short stay admission here yesterday, in order to go to the OR with vascular for placement of a left brachial AV graft so the patient can start getting dialysis. 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 Dangelo. When EMS arrived the patient was moaning, vomiting, appeared short of breath, and had a pulse ox seen to be in the 70s. In the emergency room patient is found to have acute respiratory failure, volume overload pulmonary edema. Patient troponin is 0.241 Patient this morning is in acute respiratory failure on BiPAP NSTEMI suspect type II in setting of progressive renal disease Elevated D-dimer Acute heart failure with preserved ejection fraction NNAMDI in setting of CKD Hospital course: 10/22: Continue supportive care. Will obtain pulmonary consultation in addition t o current management. Nephrology and cardiology input appreciated. Leukocytosis etiology not quite clear patient is afebrile will monitor closely if worsening or development of fever will start patient on empiric antibiotic coverage. 10/23. Remains on BiPAP. On IV Lasix and Diuril. Nephrology following. No urgent indication for renal replacement therapy at this time per nephrology. 10/24. Off BIPAP. On oxygen supplementation. Has no complaints. Making good urine. On diuretics. Awaiting AM labs. No indication for GENET[employer] COUNSELLOR per nephrology. 10/25. Patient had an episode of confusion last night. Try to get up from bed and fell. CT head negative for any acute pathology. Remains on IV diuretics. Renal function slightly better today. Nephrology following. He is still on oxygen supplementation-high flow oxygen. Cardiology and pulmonology on board 10/27. Patient currently on high flow nasal cannula at 30 L/min with FiO2 50%. Continue to wean supplemental oxygen and BiPAP as clinically indicated. Continue hemodialysis per nephrology to optimize volume. Continue current cardiac regimen of amlodipine 10 mg daily, metoprolol 50 mg twice daily, ASA 81 mg daily, atorvastatin 40 mg nightly 10/28. Patient with improvement of oxygen supplementation. Patient with 3 L of oxygen at 98%. Nephrology optimizing volume status with increase Bumex 2 mg IV twice daily. Patient remains in chronic kidney disease stage IV without any acute uremic symptoms or necessity to start hemodialysis at this time. PT evaluation History Interval history: No new issues Hospitalist Physical - Constitutional Vitals: Temp Pulse Resp BP Pulse Ox 98.5 F 76 17 143/58 98 10/28/20 08:10 10/28/20 09:01 10/28/20 08:56 10/28/20 09:01 10/28/20 09:15 General appearance: Present: no acute distress, well-nourished - EENT Eyes: Present: PERRL, EOM intact ENT: hearing intact, clear oral mucosa, dentition normal - Neck Neck: Present: supple, normal ROM - Respiratory Respiratory effort: normal Respiratory: bilateral: CTA - Cardiovascular Rhythm: regular Heart Sounds: Present: S1 & S2. Absent: gallop, rub - Extremities Extremities: no ischemia, No edema, Full ROM - Abdominal General gastrointestinal: soft, non-tender, non-distended, normal bowel sounds - Integumentary Integumentary: Present: clear, warm, dry - Neurologic Neurologic: CNII-XII intact, moves all extremities HEART Score - HEART Score Troponin: Troponin T 1.740 ng/mL (0.00-0.029) H* D 10/28/20 04:00 Results - Labs CBC & Chem 7: 10/28/20 04:00 10/28/20 04:00 Labs: Laboratory Last Values WBC 8.4 K/mm3 (4.5-11.0) 10/28/20 04:00 RBC 3.50 M/mm3 (3.65-5.03) L 10/28/20 04:00 Hgb 10.2 gm/dl (11.8-15.2) L 10/28/20 04:00 Hct 30.0 % (35.5-45.6) L 10/28/20 04:00 MCV 86 fl (84-94) 10/28/20 04:00 MCH 29 pg (28-32) 10/28/20 04:00 MCHC 34 % (32-34) 10/28/20 04:00 RDW 15.6 % (13.2-15.2) H 10/28/20 04:00 Plt Count 279 K/mm3 (140-440) 10/28/20 04:00 Lymph % (Auto) 10.0 % (13.4-35.0) L 10/26/20 14:05 Dare % (Auto) 7.1 % (0.0-7.3) 10/26/20 14:05 Eos % (Auto) 2.7 % (0.0-4.3) 10/26/20 14:05 Baso % (Auto) 0.4 % (0.0-1.8) 10/26/20 14:05 Lymph # (Auto) 0.8 K/mm3 (1.2-5.4) L 10/26/20 14:05 Dare # (Auto) 0.5 K/mm3 (0.0-0.8) 10/26/20 14:05 Eos # (Auto) 0.2 K/mm3 (0.0-0.4) 10/26/20 14:05 Baso # (Auto) 0.0 K/mm3 (0.0-0.1) 10/26/20 14:05 Add Manual Diff Complete 10/21/20 03:14 Total Counted 100 10/21/20 03:14 Seg Neutrophils % 79.8 % (40.0-70.0) H 10/26/20 14:05 Seg Neuts % (Manual) 85.0 % (40.0-70.0) H 10/21/20 03:14 Band Neutrophils % 1.0 % 10/21/20 03:14 Lymphocytes % (Manual) 7.0 % (13.4-35.0) L 10/21/20 03:14 Monocytes % (Manual) 6.0 % (0.0-7.3) 10/21/20 03:14 Basophils % (Manual) 1.0 % (0.0-1.8) 10/21/20 03:14 Nucleated RBC % Not Reportable 10/21/20 03:14 Seg Neutrophils # 6.1 K/mm3 (1.8-7.7) 10/26/20 14:05 Seg Neutrophils # Man 12.3 K/mm3 (1.8-7.7) H 10/21/20 03:14 Band Neutrophils # 0.1 K/mm3 10/21/20 03:14 Lymphocytes # (Manual) 1.0 K/mm3 (1.2-5.4) L 10/21/20 03:14 Abs React Lymphs (Man) 0.0 K/mm3 10/21/20 03:14 Monocytes # (Manual) 0.9 K/mm3 (0.0-0.8) H 10/21/20 03:14 Eosinophils # (Manual) 0.0 K/mm3 (0.0-0.4) 10/21/20 03:14 Basophils # (Manual) 0.1 K/mm3 (0.0-0.1) 10/21/20 03:14 Metamyelocytes # 0.0 K/mm3 10/21/20 03:14 Myelocytes # 0.0 K/mm3 10/21/20 03:14 Promyelocytes # 0.0 K/mm3 10/21/20 03:14 Blast Cells # 0.0 K/mm3 10/21/20 03:14 WBC Morphology Not Reportable 10/21/20 03:14 Hypersegmented Neuts Not Reportable 10/21/20 03:14 Hyposegmented Neuts Not Reportable 10/21/20 03:14 Hypogranular Neuts Not Reportable 10/21/20 03:14 Smudge Cells Not Reportable 10/21/20 03:14 Toxic Granulation Not Reportable 10/21/20 03:14 Toxic Vacuolation Not Reportable 10/21/20 03:14 Dohle Bodies Not Reportable 10/21/20 03:14 Pelger-Huet Anomaly Not Reportable 10/21/20 03:14 Linh Rods Not Reportable 10/21/20 03:14 Platelet Estimate Consistent w auto 10/21/20 03:14 Clumped Platelets Not Reportable 10/21/20 03:14 Plt Clumps, EDTA Not Reportable 10/21/20 03:14 Large Platelets Not Reportable 10/21/20 03:14 Giant Platelets Not Reportable 10/21/20 03:14 Platelet Satelliting Not Reportable 10/21/20 03:14 Plt Morphology Comment Not Reportable 10/21/20 03:14 RBC Morphology Normal 10/21/20 03:14 Dimorphic RBCs Not Reportable 10/21/20 03:14 Polychromasia Not Reportable 10/21/20 03:14 Hypochromasia Not Reportable 10/21/20 03:14 Poikilocytosis Not Reportable 10/21/20 03:14 Anisocytosis Not Reportable 10/21/20 03:14 Microcytosis Not Reportable 10/21/20 03:14 Macrocytosis Not Reportable 10/21/20 03:14 Spherocytes Not Reportable 10/21/20 03:14 Pappenheimer Bodies Not Reportable 10/21/20 03:14 Sickle Cells Not Reportable 10/21/20 03:14 Target Cells Not Reportable 10/21/20 03:14 Tear Drop Cells Not Reportable 10/21/20 03:14 Ovalocytes Not Reportable 10/21/20 03:14 Helmet Cells Not Reportable 10/21/20 03:14 [place] Bodies Not Reportable 10/21/20 03:14 [place] Rings Not Reportable 10/21/20 03:14 [place] Cells Not Reportable 10/21/20 03:14 Bite Cells Not Reportable 10/21/20 03:14 Crenated Cell Not Reportable 10/21/20 03:14 Elliptocytes Not Reportable 10/21/20 03:14 Acanthocytes (Spur) Not Reportable 10/21/20 03:14 Rouleaux Not Reportable 10/21/20 03:14 Hemoglobin C Crystals Not Reportable 10/21/20 03:14 Schistocytes Not Reportable 10/21/20 03:14 Malaria parasites Not Reportable 10/21/20 03:14 Shay Bodies Not Reportable 10/21/20 03:14 Hem Pathologist Commnt No 10/21/20 03:14 PT 13.7 Sec. (12.2-14.9) 10/27/20 03:50 INR 1.00 (0.87-1.13) 10/27/20 03:50 APTT 139.0 Sec. (24.2-36.6) H* 10/26/20 14:05 D-Dimer 1492.47 ng/mlDDU (0-234) H 10/28/20 04:00 Heparin Anti-Xa Level 0.24 U.I./ml (0.3-0.7) L 10/28/20 04:00 ABG pH 7.387 (7.320-7.450) 10/24/20 10:25 POC ABG pCO2 35.6 mmHg (32.0-48.0) 10/24/20 10:25 POC ABG pO2 64.0 mmHg (83-108) L 10/24/20 10:25 POC ABG HCO3 20.9 10/24/20 10:25 ABG O2 Saturation 90.7 (0-100) 10/24/20 10:25 POC ABG Base Excess -3.5 10/24/20 10:25 ABG Hemoglobin 11.3 (12.0-17.5) L 10/24/20 10:25 ABG Oxyhemoglobin 90.1 (94-98) L 10/24/20 10:25 ABG Methemoglobin 0.3 (0.0-1.5) 10/24/20 10:25 ABG Sodium 134.0 mmol/L (136.0-145.0) L 10/24/20 10:25 ABG Potassium 3.8 mmol/L (3.40-4.50) 10/24/20 10:25 ABG Chloride 100.0 mmol/L (98-107) 10/24/20 10:25 ABG Glucose 246 mg/dL (65-95) H 10/24/20 10:25 Carboxyhemoglobin 0.4 (0.5-1.5) L 10/24/20 10:25 FiO2 % 50.0 10/24/20 10:25 Sodium 135 mmol/L (137-145) L 10/28/20 04:00 Potassium 4.1 mmol/L (3.6-5.0) 10/28/20 04:00 Chloride 96.3 mmol/L (98-107) L 10/28/20 04:00 Carbon Dioxide 25 mmol/L (22-30) 10/28/20 04:00 Anion Gap 18 mmol/L 10/28/20 04:00 BUN 94 mg/dL (9-20) H 10/28/20 04:00 Creatinine 4.0 mg/dL (0.8-1.3) H 10/28/20 04:00 Estimated GFR 18 ml/min 10/28/20 04:00 BUN/Creatinine Ratio 24 % 10/28/20 04:00 Glucose 166 mg/dL (75-100) H 10/28/20 04:00 POC Glucose 232 mg/dL (70-105) H 10/28/20 08:49 Hemoglobin A1c 7.8 % (4-6) H 10/22/20 07:00 Calcium 9.2 mg/dL (8.4-10.2) 10/28/20 04:00 Magnesium 2.20 mg/dL (1.7-2.3) 10/24/20 10:56 Total Bilirubin 0.30 mg/dL (0.1-1.2) 10/28/20 04:00 AST 17 units/L (5-40) 10/28/20 04:00 ALT 9 units/L (7-56) 10/28/20 04:00 Alkaline Phosphatase 73 units/L (35-129) 10/28/20 04:00 Total Creatine Kinase 295 units/L (55-170) H 10/27/20 03:50 CK-MB (CK-2) 7.6 ng/mL (0.0-4.0) H 10/27/20 03:50 CK-MB (CK-2) Rel Index 2.5 (0-4) 10/27/20 03:50 Troponin T 1.740 ng/mL (0.00-0.029) H* D 10/28/20 04:00 NT-Pro-B Natriuret Pep 4199 pg/mL (0-900) H 10/25/20 04:46 Total Protein 6.6 g/dL (6.3-8.2) 10/28/20 04:00 Albumin 3.5 g/dL (3.9-5) L 10/28/20 04:00 Albumin/Globulin Ratio 1.1 % 10/28/20 04:00 Triglycerides 154 mg/dL (2-149) H 10/21/20 03:14 Cholesterol 212 mg/dL (50-199) H 10/21/20 03:14 LDL Cholesterol Direct 137 mg/dL (50-130) H 10/21/20 03:14 HDL Cholesterol 65 mg/dL (40-59) H 10/21/20 03:14 Cholesterol/HDL Ratio 3.26 % 10/21/20 03:14 Procalcitonin 0.82 ng/mL (<0.15) 10/25/20 04:46 Arterial Blood Glucose 246 mg/dL (65-95) H 10/24/20 10:25 Arterial Blood Ionized Calcium 4.6 mg/dL (4.6-5.3) 10/24/20 10:25 [place]/IV: Voiding Method Condom Catheter Active Medications - Current Medications Current Medications: Generic Name Dose Route Start Last Admin Trade Name Freq PRN Reason Stop Dose Admin Acetaminophen 650 mg 10/21/20 05:28 Acetaminophen 325 Mg Tab PO Q4H PRN Pain MILD(1-3)/Fever >100.5/PRIETO Albuterol 2.5 mg 10/21/20 05:28 Albuterol 2.5 Mg/3 Ml Nebu IH Q4HRT PRN Shortness Of Breath Albuterol/Ipratropium 1 ampul 10/22/20 08:00 10/28/20 08:50 Ipratropium/Albuterol Sulfate 3 Ml Ampul.Neb IH 1 ampul TIDRT ALANNA Administration Amlodipine Besylate 10 mg 10/21/20 10:00 10/28/20 09:01 Amlodipine 10 Mg Tab PO 10 mg DAILY ALANNA Administration Aspirin 81 mg 10/21/20 10:00 10/28/20 09:01 Aspirin Ec 81 Mg Tab PO 81 mg DAILY ALANNA Administration Atorvastatin Calcium 40 mg 10/21/20 22:00 10/27/20 22:17 Atorvastatin 40 Mg Tab PO 40 mg QHS ALANNA Administration Bumetanide 2 mg 10/27/20 18:00 10/28/20 07:19 Bumetanide 1 Mg/4 Ml Inj IV 2 mg BID@0600,1800 ALANNA Administration Cholecalciferol 2,000 unit 10/21/20 10:00 10/28/20 09:00 Cholecalciferol (Vit D3) 1000 Unit (25 Mcg) Tab PO 2,000 unit DAILY ALANNA Administration Clopidogrel Bisulfate 75 mg 10/21/20 10:00 10/28/20 09:01 Clopidogrel 75 Mg Tab PO 75 mg DAILY ALANNA Administration Docusate Sodium 100 mg 10/26/20 22:00 10/28/20 09:01 Docusate Sodium 100 Mg Cap PO 100 mg BID ALANNA Administration Famotidine 20 mg 10/21/20 10:00 10/28/20 09:01 Famotidine 20 Mg Tab PO 20 mg QAM ALANNA Administration Finasteride 5 mg 10/21/20 10:00 10/28/20 09:01 Finasteride 5 Mg Tab PO 5 mg BID ALANNA Administration Heparin Sodium (Porcine) 3,100 unit 10/26/20 11:26 Heparin 10,000 Units/10 Ml Vial 40 unit/kg (3100 unit) IV Q6H PRN Anti-Xa Assay < 0.1 units/ml Hydralazine HCl 25 mg 10/25/20 14:00 10/28/20 07:19 Hydralazine 25 Mg Tab PO 25 mg Q8HR ALANNA Administration Heparin Sodium/Sodium Chloride 25,000 unit in 500 mls @ 20 mls/hr 10/26/20 12:00 10/28/20 05:43 Heparin/ 0.45% Nacl-25,000 Unit/500 Ml IV 950 units/hr TITRATE ALANNA 19 mls/hr Titration Protocol 1,000 UNITS/HR Insulin Human Lispro 0 unit 10/21/20 11:30 10/28/20 08:51 Insulin Lispro 100 Unit/Ml SUB-Q 4 unit ACHS ALANNA Administration Protocol Metoprolol Tartrate 50 mg 10/22/20 17:00 10/28/20 09:01 Metoprolol Tartrate 50 Mg Tab PO 50 mg BID ALANNA Administration Nitroglycerin 0.4 mg 10/21/20 05:28 Nitroglycerin 0.4 Mg Tab Subl SL Q5M PRN Chest Pain Ondansetron HCl 4 mg 10/21/20 05:28 Ondansetron 4 Mg/2 Ml Inj IV Q8H PRN Nausea And Vomiting Sertraline HCl 100 mg 10/21/20 10:00 10/28/20 09:01 Sertraline 100 Mg Tab PO 100 mg QDAY ALANNA Administration Sodium Bicarbonate 650 mg 10/21/20 22:00 10/28/20 09:01 Sodium Bicarbonate 650 Mg Tab PO 650 mg BID ALANNA Administration Sodium Chloride 10 ml 10/21/20 10:00 10/28/20 09:02 Sodium Chloride 0.9% 10 Ml Flush Syringe IV 10 ml BID ALANNA Administration Sodium Chloride 10 ml 10/21/20 05:28 Sodium Chloride 0.9% 10 Ml Flush Syringe IV PRN PRN LINE FLUSH Tamsulosin HCl 0.4 mg 10/21/20 10:00 10/28/20 09:01 Tamsulosin 0.4 Mg Cap PO 0.4 mg DAILY ALANNA Administration Tramadol HCl 50 mg 10/21/20 05:28 10/26/20 17:33 Tramadol 50 Mg Tab PO 50 mg Q6H PRN Administration Pain, Moderate (4-6) Trazodone HCl 50 mg 10/27/20 01:29 10/27/20 01:40 Trazodone 50 Mg Tab PO 50 mg QHS PRN Administration Insomnia
--- NOTE | 2020-10-28 11:17 | Progress Note ---
Assessment and Plan Recent Lexiscan stress MPI 08/27/2020 reviewed - inferoapical scar, no reversible ischemia noted. Given absence of ischemic sx, recommend medical mgmt going forward. Will discontinue heparin gtt today. Continue ASA, Plavix, statin, and BB. Otherwise continue IV diuresis as per Nephro recs. Pt seen in conjunction with Dr. Samuel San, who agrees with the assessment and plan of care. - Patient Problems (1) Acute respiratory failure Current Visit: Yes Status: Acute Qualifiers: Respiratory failure complication: hypoxia Qualified Code(s): J96.01 - Acute respiratory failure with hypoxia (2) Acute heart failure with preserved ejection fraction (HFpEF) Current Visit: Yes Status: Acute (3) Acute kidney injury superimposed on CKD Current Visit: Yes Status: Acute (4) Anemia Current Visit: Yes Status: Acute (5) NSTEMI (non-ST elevated myocardial infarction) Current Visit: Yes Status: Acute Plan to address problem: Type 2 (in the setting of progressive renal disease) (6) CAD (coronary artery disease) Current Visit: Yes Status: Chronic (7) S/P PTCA (percutaneous transluminal coronary angioplasty) Current Visit: Yes Status: Chronic Plan to address problem: 2013 (8) Aortic stenosis Current Visit: Yes Status: Chronic (9) Hypertension Current Visit: Yes Status: Chronic Qualifiers: Hypertension type: essential hypertension Qualified Code(s): I10 - Essential (primary) hypertension (10) Hyperlipidemia Current Visit: Yes Status: Chronic Qualifiers: Hyperlipidemia type: mixed hyperlipidemia Qualified Code(s): E78.2 - Mixed hyperlipidemia (11) DM2 (diabetes mellitus, type 2) Current Visit: Yes Status: Chronic (12) PVD (peripheral vascular disease) Current Visit: Yes Status: Chronic (13) Aorto-iliac disease Current Visit: Yes Status: Chronic (14) H/O: CVA (cerebrovascular accident) Current Visit: Yes Status: Chronic (15) Frequent falls Current Visit: Yes Status: Chronic Subjective Date of service: 10/28/20 Principal diagnosis: NNAMDI/CKD, NSTEMI Interval history: On 3L NC upon assessment. Denies chest pain or any additional cardiac complaints. Tele reviewed - SR 80s w/PVCs, no events. Objective Last Vital Signs Temp 98.8 F 10/28/20 11:05 Pulse 75 10/28/20 11:05 Resp 18 10/28/20 11:05 BP 147/60 10/28/20 11:05 Pulse Ox 99 10/28/20 11:05 - Physical Examination General: No Apparent Distress HEENT: Positive: EOMI, Normocephaly, Mucus Membranes Moist Neck: Positive: neck supple, trachea midline. Negative: JVD/HJR Cardiac: Positive: Reg Rate and Rhythm, S1/S2 Lungs: Positive: Decreased Breath Sounds (bases) Neuro: Positive: Grossly Intact Abdomen: Positive: Soft. Negative: Tender Skin: Negative: Rash Musculoskeletal: No Pain Extremities: Present: lower extr. pulses, warm. Absent: edema - Labs and Meds Cardiac Enzymes 10/28/20 Range/Units 04:00 AST 17 (5-40) units/L CBC 10/28/20 Range/Units 04:00 WBC 8.4 (4.5-11.0) K/mm3 RBC 3.50 L (3.65-5.03) M/mm3 Hgb 10.2 L (11.8-15.2) gm/dl Hct 30.0 L (35.5-45.6) % Plt Count 279 (140-440) K/mm3 Comprehensive Metabolic Panel 10/28/20 Range/Units 04:00 Sodium 135 L (137-145) mmol/L Potassium 4.1 (3.6-5.0) mmol/L Chloride 96.3 L (98-107) mmol/L Carbon Dioxide 25 (22-30) mmol/L BUN 94 H (9-20) mg/dL Creatinine 4.0 H (0.8-1.3) mg/dL Glucose 166 H (75-100) mg/dL Calcium 9.2 (8.4-10.2) mg/dL AST 17 (5-40) units/L ALT 9 (7-56) units/L Alkaline Phosphatase 73 (35-129) units/L Total Protein 6.6 (6.3-8.2) g/dL Albumin 3.5 L (3.9-5) g/dL - Imaging and Cardiology EKG: report reviewed, image reviewed Echo: report reviewed (08/27/2020 - mod concentric LVH, EF 55-69%, grade 2 diastolic dysfxn, increased LA volume, mod AV stenosis, 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
--- NOTE | 2020-10-28 16:21 | Progress Note ---
Assessment and Plan Acute hypoxemic respiratory failure Acute pulmonary edema Acute on chronic kidney injury Cardiomyopathy (H/O CHF) Leukocytosis Hypertension History of diabetes History of nephrolithiasis Tobacco use disorder Mild metabolic acidosis, improving Hyperlipidemia Non-ST elevation myocardial infarction - continue diuresis - HD/UF per nephrology prescription (no acute indication) - change to prn BIPAP for increased work of breathing - continue care as below otherwise; - continue to wean supplemental oxygen to keep O2 sats > 90% - prn bronchodilators (MICHELET) with pulm hygiene per RT - continue to avoid nephrotoxins, renally dose all medications - mobility protocols to prevent pressure ulcers - PT/OT as tolerated - Wound care per RN/WCT - accuchecks with glycemic control per SSI for target blood glucose < 180 mg/dL - continued tobacco abstinence strongly counseled at the bedside - home oxygen evaluation at discharge - GI & VTE prophylaxis - Flu & pneumovax per protocol - Pulmonary out patient follow up for PFTs and optimization of respiratory status - continue other care per attending / other consultants - prn analgesia per pain score ... re-evaluate in am & prn Subjective Date of service: 10/28/20 Principal diagnosis: Ac. hypoxemic resp failure; Pulm edema; NNAMDI; H/O CHF; DM II; NSTEMI Interval history: Patient is seen today for: Acute hypoxemic respiratory failure; Acute pulmonary edema; NNAMDI on CKD; H/O CHF; Leukocytosis; DM II; NSTEMI Seen and examined at bedside; 24hour events reviewed; nursing and respiratory care staff consulted; no adverse overnight events reported to me; resting peacefully in bed; looks much better; no chest pain; no HD/UF yet Objective Vital Signs - 12hr 10/28/20 10/28/20 10/28/20 08:10 08:50 08:56 Temperature 98.5 F Pulse Rate 73 Pulse Rate [ 88 Anterior Bilateral Throughout] Pulse Rate [ 84 Bilateral] Pulse Rate [ 75 From Monitor] Pulse Rate [ 75 Left Posterior Tibial] Respiratory 22 17 Rate Respiratory 18 Rate [Anterior Bilateral Throughout] Respiratory 18 Rate [Bilateral ] Blood Pressure 149/45 O2 Sat by Pulse 95 96 Oximetry 10/28/20 10/28/20 10/28/20 09:01 09:15 11:05 Temperature 98.8 F Pulse Rate 76 75 Pulse Rate [ Anterior Bilateral Throughout] Pulse Rate [ Bilateral] Pulse Rate [ From Monitor] Pulse Rate [ Left Posterior Tibial] Respiratory 18 Rate Respiratory Rate [Anterior Bilateral Throughout] Respiratory Rate [Bilateral ] Blood Pressure 143/58 147/60 O2 Sat by Pulse 98 99 Oximetry 10/28/20 13:40 Temperature Pulse Rate 67 Pulse Rate [ Anterior Bilateral Throughout] Pulse Rate [ Bilateral] Pulse Rate [ From Monitor] Pulse Rate [ Left Posterior Tibial] Respiratory Rate Respiratory Rate [Anterior Bilateral Throughout] Respiratory Rate [Bilateral ] Blood Pressure 134/74 O2 Sat by Pulse Oximetry Constitutional: no acute distress, other (elderly male without increased respiratory effort at rest) Eyes: non-icteric ENT: oropharynx moist Neck: supple, no lymphadenopathy, no JVD Effort: mildly labored Ascultation: Bilateral: clear, diminished breath sounds Percussion: Bilateral: not dull Cardiovascular: regular rate and rhythm Gastrointestinal: normoactive bowel sounds, soft, non-tender, non-distended (protuberant) Integumentary: normal Extremities: no cyanosis, no edema, pulses normal, no ischemia or petechiae Neurologic: normal mental status, non-focal exam, pupils equal and round, motor strength normal and Psychiatric: mood appropriate, affect normal CBC and BMP: 10/28/20 04:00 10/29/20 07:47 ABG, PT/INR, D-dimer: ABG ABG pH 7.387 (7.320-7.450) 10/24/20 10:25 POC ABG pCO2 35.6 mmHg (32.0-48.0) 10/24/20 10:25 POC ABG pO2 64.0 mmHg (83-108) L 10/24/20 10:25 POC ABG HCO3 20.9 10/24/20 10:25 ABG O2 Saturation 90.7 (0-100) 10/24/20 10:25 PT/INR, D-dimer PT 13.7 Sec. (12.2-14.9) 10/27/20 03:50 INR 1.00 (0.87-1.13) 10/27/20 03:50 D-Dimer 1492.47 ng/mlDDU (0-234) H 10/28/20 04:00 Abnormal lab findings: Abnormal Labs 10/21/20 10/21/20 10/21/20 03:14 03:14 03:14 WBC 14.5 H RBC Hgb Hct RDW 16.1 H Lymph % (Auto) Giles % (Auto) Lymph # (Auto) Giles # (Auto) Seg Neutrophils % Seg Neuts % (Manual) 85.0 H Lymphocytes % (Manual) 7.0 L Seg Neutrophils # Seg Neutrophils # Man 12.3 H Lymphocytes # (Manual) 1.0 L Monocytes # (Manual) 0.9 H PT INR APTT 23.5 L D-Dimer 2466.38 H Heparin Anti-Xa Level POC ABG pO2 ABG Hemoglobin ABG Oxyhemoglobin ABG Sodium ABG Glucose Carboxyhemoglobin Sodium Chloride Carbon Dioxide 16 L D BUN 55 H Creatinine 3.7 H Glucose 333 H POC Glucose Hemoglobin A1c Calcium 8.3 L Total Creatine Kinase CK-MB (CK-2) Troponin T NT-Pro-B Natriuret Pep Total Protein Albumin Triglycerides Cholesterol LDL Cholesterol Direct HDL Cholesterol Arterial Blood Glucose 10/21/20 10/21/20 10/21/20 03:14 05:56 07:53 WBC 13.6 H RBC Hgb Hct RDW 16.4 H Lymph % (Auto) 3.7 L Giles % (Auto) Lymph # (Auto) 0.5 L Giles # (Auto) 0.9 H Seg Neutrophils % 89.6 H Seg Neuts % (Manual) Lymphocytes % (Manual) Seg Neutrophils # 12.2 H Seg Neutrophils # Man Lymphocytes # (Manual) Monocytes # (Manual) PT INR APTT D-Dimer Heparin Anti-Xa Level POC ABG pO2 ABG Hemoglobin ABG Oxyhemoglobin ABG Sodium ABG Glucose Carboxyhemoglobin Sodium Chloride Carbon Dioxide BUN Creatinine Glucose POC Glucose 307 H Hemoglobin A1c Calcium Total Creatine Kinase CK-MB (CK-2) Troponin T 0.241 H* NT-Pro-B Natriuret Pep Total Protein Albumin Triglycerides 154 H Cholesterol 212 H LDL Cholesterol Direct 137 H HDL Cholesterol 65 H Arterial Blood Glucose 10/21/20 10/21/20 10/21/20 07:53 10:52 10:55 WBC RBC Hgb Hct RDW Lymph % (Auto) Giles % (Auto) Lymph # (Auto) Giles # (Auto) Seg Neutrophils % Seg Neuts % (Manual) Lymphocytes % (Manual) Seg Neutrophils # Seg Neutrophils # Man Lymphocytes # (Manual) Monocytes # (Manual) PT INR APTT D-Dimer Heparin Anti-Xa Level POC ABG pO2 ABG Hemoglobin ABG Oxyhemoglobin ABG Sodium ABG Glucose Carboxyhemoglobin Sodium Chloride 97.4 L Carbon Dioxide 19 L BUN 63 H Creatinine 4.0 H Glucose 337 H POC Glucose 320 H Hemoglobin A1c Calcium 8.3 L Total Creatine Kinase CK-MB (CK-2) Troponin T 0.730 H* D NT-Pro-B Natriuret Pep Total Protein Albumin Triglycerides Cholesterol LDL Cholesterol Direct HDL Cholesterol Arterial Blood Glucose 10/21/20 10/21/20 10/21/20 14:59 14:59 14:59 WBC RBC Hgb 11.5 L Hct RDW Lymph % (Auto) Giles % (Auto) Lymph # (Auto) Giles # (Auto) Seg Neutrophils % Seg Neuts % (Manual) Lymphocytes % (Manual) Seg Neutrophils # Seg Neutrophils # Man Lymphocytes # (Manual) Monocytes # (Manual) PT 15.9 H INR 1.22 H APTT 135.3 H* D-Dimer Heparin Anti-Xa Level POC ABG pO2 ABG Hemoglobin ABG Oxyhemoglobin ABG Sodium ABG Glucose Carboxyhemoglobin Sodium Chloride Carbon Dioxide BUN Creatinine Glucose POC Glucose Hemoglobin A1c Calcium Total Creatine Kinase CK-MB (CK-2) Troponin T 1.190 H* D NT-Pro-B Natriuret Pep Total Protein Albumin Triglycerides Cholesterol LDL Cholesterol Direct HDL Cholesterol Arterial Blood Glucose 10/21/20 10/22/20 10/22/20 16:55 02:45 02:45 WBC 15.5 H RBC Hgb Hct RDW 16.2 H Lymph % (Auto) 8.2 L Giles % (Auto) 9.5 H Lymph # (Auto) Giles # (Auto) 1.5 H Seg Neutrophils % 81.3 H Seg Neuts % (Manual) Lymphocytes % (Manual) Seg Neutrophils # 12.6 H Seg Neutrophils # Man Lymphocytes # (Manual) Monocytes # (Manual) PT INR APTT D-Dimer Heparin Anti-Xa Level POC ABG pO2 ABG Hemoglobin ABG Oxyhemoglobin ABG Sodium ABG Glucose Carboxyhemoglobin Sodium Chloride Carbon Dioxide 20 L BUN 76 H Creatinine 4.4 H Glucose 113 H POC Glucose 312 H Hemoglobin A1c Calcium Total Creatine Kinase CK-MB (CK-2) Troponin T NT-Pro-B Natriuret Pep Total Protein Albumin Triglycerides Cholesterol LDL Cholesterol Direct HDL Cholesterol Arterial Blood Glucose 10/22/20 10/22/20 10/22/20 07:00 08:18 11:58 WBC RBC Hgb Hct RDW Lymph % (Auto) Giles % (Auto) Lymph # (Auto) Giles # (Auto) Seg Neutrophils % Seg Neuts % (Manual) Lymphocytes % (Manual) Seg Neutrophils # Seg Neutrophils # Man Lymphocytes # (Manual) Monocytes # (Manual) PT INR APTT D-Dimer Heparin Anti-Xa Level POC ABG pO2 ABG Hemoglobin ABG Oxyhemoglobin ABG Sodium ABG Glucose Carboxyhemoglobin Sodium Chloride Carbon Dioxide BUN Creatinine Glucose POC Glucose 181 H 237 H Hemoglobin A1c 7.8 H Calcium Total Creatine Kinase CK-MB (CK-2) Troponin T NT-Pro-B Natriuret Pep Total Protein Albumin Triglycerides Cholesterol LDL Cholesterol Direct HDL Cholesterol Arterial Blood Glucose 10/22/20 10/22/20 10/23/20 16:58 21:25 04:29 WBC RBC 3.49 L Hgb 10.4 L Hct 30.7 L RDW 15.9 H Lymph % (Auto) Giles % (Auto) Lymph # (Auto) Giles # (Auto) Seg Neutrophils % Seg Neuts % (Manual) Lymphocytes % (Manual) Seg Neutrophils # Seg Neutrophils # Man Lymphocytes # (Manual) Monocytes # (Manual) PT INR APTT D-Dimer Heparin Anti-Xa Level POC ABG pO2 ABG Hemoglobin ABG Oxyhemoglobin ABG Sodium ABG Glucose Carboxyhemoglobin Sodium Chloride Carbon Dioxide BUN Creatinine Glucose POC Glucose 273 H 272 H Hemoglobin A1c Calcium Total Creatine Kinase CK-MB (CK-2) Troponin T NT-Pro-B Natriuret Pep Total Protein Albumin Triglycerides Cholesterol LDL Cholesterol Direct HDL Cholesterol Arterial Blood Glucose 10/23/20 10/23/20 10/23/20 04:29 04:29 07:26 WBC RBC Hgb Hct RDW Lymph % (Auto) Giles % (Auto) Lymph # (Auto) Giles # (Auto) Seg Neutrophils % Seg Neuts % (Manual) Lymphocytes % (Manual) Seg Neutrophils # Seg Neutrophils # Man Lymphocytes # (Manual) Monocytes # (Manual) PT INR APTT D-Dimer Heparin Anti-Xa Level 0.20 L POC ABG pO2 ABG Hemoglobin ABG Oxyhemoglobin ABG Sodium ABG Glucose Carboxyhemoglobin Sodium Chloride Carbon Dioxide BUN 78 H Creatinine 4.3 H Glucose 139 H POC Glucose 158 H Hemoglobin A1c Calcium Total Creatine Kinase CK-MB (CK-2) Troponin T NT-Pro-B Natriuret Pep Total Protein Albumin Triglycerides Cholesterol LDL Cholesterol Direct HDL Cholesterol Arterial Blood Glucose 10/23/20 10/23/20 10/23/20 11:07 11:50 15:19 WBC RBC Hgb Hct RDW Lymph % (Auto) Giles % (Auto) Lymph # (Auto) Giles # (Auto) Seg Neutrophils % Seg Neuts % (Manual) Lymphocytes % (Manual) Seg Neutrophils # Seg Neutrophils # Man Lymphocytes # (Manual) Monocytes # (Manual) PT INR APTT D-Dimer Heparin Anti-Xa Level 0.27 L POC ABG pO2 ABG Hemoglobin ABG Oxyhemoglobin ABG Sodium ABG Glucose Carboxyhemoglobin Sodium Chloride Carbon Dioxide BUN Creatinine Glucose POC Glucose 201 H 324 H Hemoglobin A1c Calcium Total Creatine Kinase CK-MB (CK-2) Troponin T NT-Pro-B Natriuret Pep Total Protein Albumin Triglycerides Cholesterol LDL Cholesterol Direct HDL Cholesterol Arterial Blood Glucose 10/23/20 10/24/20 10/24/20 20:15 07:25 10:21 WBC RBC Hgb Hct RDW Lymph % (Auto) Giles % (Auto) Lymph # (Auto) Giles # (Auto) Seg Neutrophils % Seg Neuts % (Manual) Lymphocytes % (Manual) Seg Neutrophils # Seg Neutrophils # Man Lymphocytes # (Manual) Monocytes # (Manual) PT INR APTT D-Dimer Heparin Anti-Xa Level POC ABG pO2 ABG Hemoglobin ABG Oxyhemoglobin ABG Sodium ABG Glucose Carboxyhemoglobin Sodium Chloride Carbon Dioxide BUN Creatinine Glucose POC Glucose 259 H 145 H Hemoglobin A1c Calcium Total Creatine Kinase CK-MB (CK-2) Troponin T 2.650 H* D NT-Pro-B Natriuret Pep Total Protein Albumin Triglycerides Cholesterol LDL Cholesterol Direct HDL Cholesterol Arterial Blood Glucose 10/24/20 10/24/20 10/24/20 10:25 10:56 11:32 WBC RBC Hgb Hct RDW Lymph % (Auto) Giles % (Auto) Lymph # (Auto) Giles # (Auto) Seg Neutrophils % Seg Neuts % (Manual) Lymphocytes % (Manual) Seg Neutrophils # Seg Neutrophils # Man Lymphocytes # (Manual) Monocytes # (Manual) PT INR APTT D-Dimer Heparin Anti-Xa Level POC ABG pO2 64.0 L ABG Hemoglobin 11.3 L ABG Oxyhemoglobin 90.1 L ABG Sodium 134.0 L ABG Glucose 246 H Carboxyhemoglobin 0.4 L Sodium Chloride 94.8 L Carbon Dioxide BUN 88 H Creatinine 4.3 H Glucose 236 H POC Glucose 228 H Hemoglobin A1c Calcium Total Creatine Kinase CK-MB (CK-2) Troponin T NT-Pro-B Natriuret Pep Total Protein Albumin Triglycerides Cholesterol LDL Cholesterol Direct HDL Cholesterol Arterial Blood Glucose 246 H 10/24/20 10/24/20 10/25/20 16:36 20:32 04:46 WBC RBC Hgb Hct RDW Lymph % (Auto) Giles % (Auto) Lymph # (Auto) Giles # (Auto) Seg Neutrophils % Seg Neuts % (Manual) Lymphocytes % (Manual) Seg Neutrophils # Seg Neutrophils # Man Lymphocytes # (Manual) Monocytes # (Manual) PT INR APTT D-Dimer Heparin Anti-Xa Level POC ABG pO2 ABG Hemoglobin ABG Oxyhemoglobin ABG Sodium ABG Glucose Carboxyhemoglobin Sodium Chloride 95.4 L Carbon Dioxide BUN 94 H Creatinine 4.0 H Glucose 243 H POC Glucose 214 H 188 H Hemoglobin A1c Calcium Total Creatine Kinase CK-MB (CK-2) Troponin T NT-Pro-B Natriuret Pep 4199 H Total Protein Albumin 3.8 L Triglycerides Cholesterol LDL Cholesterol Direct HDL Cholesterol Arterial Blood Glucose 10/25/20 10/25/20 10/25/20 07:27 11:09 15:50 WBC RBC Hgb Hct RDW Lymph % (Auto) Giles % (Auto) Lymph # (Auto) Giles # (Auto) Seg Neutrophils % Seg Neuts % (Manual) Lymphocytes % (Manual) Seg Neutrophils # Seg Neutrophils # Man Lymphocytes # (Manual) Monocytes # (Manual) PT INR APTT D-Dimer Heparin Anti-Xa Level POC ABG pO2 ABG Hemoglobin ABG Oxyhemoglobin ABG Sodium ABG Glucose Carboxyhemoglobin Sodium Chloride Carbon Dioxide BUN Creatinine Glucose POC Glucose 271 H 301 H 126 H Hemoglobin A1c Calcium Total Creatine Kinase CK-MB (CK-2) Troponin T NT-Pro-B Natriuret Pep Total Protein Albumin Triglycerides Cholesterol LDL Cholesterol Direct HDL Cholesterol Arterial Blood Glucose 10/25/20 10/26/20 10/26/20 20:38 05:37 05:37 WBC RBC Hgb Hct 34.6 L RDW 15.6 H Lymph % (Auto) Giles % (Auto) Lymph # (Auto) Giles # (Auto) Seg Neutrophils % Seg Neuts % (Manual) Lymphocytes % (Manual) Seg Neutrophils # Seg Neutrophils # Man Lymphocytes # (Manual) Monocytes # (Manual) PT INR APTT D-Dimer Heparin Anti-Xa Level POC ABG pO2 ABG Hemoglobin ABG Oxyhemoglobin ABG Sodium ABG Glucose Carboxyhemoglobin Sodium Chloride 97.6 L Carbon Dioxide BUN 106 H Creatinine 4.0 H Glucose POC Glucose 165 H Hemoglobin A1c Calcium Total Creatine Kinase CK-MB (CK-2) Troponin T 2.710 H* NT-Pro-B Natriuret Pep Total Protein Albumin 3.8 L Triglycerides Cholesterol LDL Cholesterol Direct HDL Cholesterol Arterial Blood Glucose 10/26/20 10/26/20 10/26/20 11:27 14:05 14:05 WBC RBC Hgb 10.9 L Hct 32.4 L RDW 15.6 H Lymph % (Auto) 10.0 L Giles % (Auto) Lymph # (Auto) 0.8 L Giles # (Auto) Seg Neutrophils % 79.8 H Seg Neuts % (Manual) Lymphocytes % (Manual) Seg Neutrophils # Seg Neutrophils # Man Lymphocytes # (Manual) Monocytes # (Manual) PT INR APTT D-Dimer Heparin Anti-Xa Level POC ABG pO2 ABG Hemoglobin ABG Oxyhemoglobin ABG Sodium ABG Glucose Carboxyhemoglobin Sodium 129 L D Chloride 91.9 L Carbon Dioxide 20 L BUN 104 H Creatinine 3.9 H Glucose 350 H POC Glucose 243 H Hemoglobin A1c Calcium Total Creatine Kinase CK-MB (CK-2) Troponin T NT-Pro-B Natriuret Pep Total Protein Albumin Triglycerides Cholesterol LDL Cholesterol Direct HDL Cholesterol Arterial Blood Glucose 10/26/20 10/26/20 10/26/20 14:05 14:05 14:05 WBC RBC Hgb 11.1 L Hct 33.0 L RDW Lymph % (Auto) Giles % (Auto) Lymph # (Auto) Giles # (Auto) Seg Neutrophils % Seg Neuts % (Manual) Lymphocytes % (Manual) Seg Neutrophils # Seg Neutrophils # Man Lymphocytes # (Manual) Monocytes # (Manual) PT INR APTT 139.0 H* D-Dimer Heparin Anti-Xa Level POC ABG pO2 ABG Hemoglobin ABG Oxyhemoglobin ABG Sodium ABG Glucose Carboxyhemoglobin Sodium Chloride Carbon Dioxide BUN Creatinine Glucose POC Glucose Hemoglobin A1c Calcium Total Creatine Kinase 395 H CK-MB (CK-2) 8.0 H Troponin T NT-Pro-B Natriuret Pep Total Protein Albumin Triglycerides Cholesterol LDL Cholesterol Direct HDL Cholesterol Arterial Blood Glucose 10/26/20 10/26/20 10/26/20 16:59 18:27 18:27 WBC RBC Hgb Hct RDW Lymph % (Auto) Giles % (Auto) Lymph # (Auto) Giles # (Auto) Seg Neutrophils % Seg Neuts % (Manual) Lymphocytes % (Manual) Seg Neutrophils # Seg Neutrophils # Man Lymphocytes # (Manual) Monocytes # (Manual) PT INR APTT D-Dimer Heparin Anti-Xa Level 0.92 H POC ABG pO2 ABG Hemoglobin ABG Oxyhemoglobin ABG Sodium ABG Glucose Carboxyhemoglobin Sodium Chloride Carbon Dioxide BUN Creatinine Glucose POC Glucose 224 H Hemoglobin A1c Calcium Total Creatine Kinase 392 H CK-MB (CK-2) 7.7 H Troponin T NT-Pro-B Natriuret Pep Total Protein Albumin Triglycerides Cholesterol LDL Cholesterol Direct HDL Cholesterol Arterial Blood Glucose 10/26/20 10/26/20 10/26/20 18:27 20:27 20:40 WBC RBC Hgb Hct RDW Lymph % (Auto) Giles % (Auto) Lymph # (Auto) Giles # (Auto) Seg Neutrophils % Seg Neuts % (Manual) Lymphocytes % (Manual) Seg Neutrophils # Seg Neutrophils # Man Lymphocytes # (Manual) Monocytes # (Manual) PT INR APTT D-Dimer Heparin Anti-Xa Level POC ABG pO2 ABG Hemoglobin ABG Oxyhemoglobin ABG Sodium ABG Glucose Carboxyhemoglobin Sodium Chloride Carbon Dioxide BUN Creatinine Glucose 172 H POC Glucose 33 L 130 H Hemoglobin A1c Calcium Total Creatine Kinase CK-MB (CK-2) Troponin T NT-Pro-B Natriuret Pep Total Protein Albumin Triglycerides Cholesterol LDL Cholesterol Direct HDL Cholesterol Arterial Blood Glucose 10/26/20 10/27/20 10/27/20 21:56 02:15 03:50 WBC RBC Hgb Hct RDW Lymph % (Auto) Giles % (Auto) Lymph # (Auto) Giles # (Auto) Seg Neutrophils % Seg Neuts % (Manual) Lymphocytes % (Manual) Seg Neutrophils # Seg Neutrophils # Man Lymphocytes # (Manual) Monocytes # (Manual) PT INR APTT D-Dimer Heparin Anti-Xa Level POC ABG pO2 ABG Hemoglobin ABG Oxyhemoglobin ABG Sodium ABG Glucose Carboxyhemoglobin Sodium 135 L Chloride 95.8 L Carbon Dioxide 21 L BUN 98 H Creatinine 3.8 H Glucose 190 H POC Glucose 69 L 166 H Hemoglobin A1c Calcium Total Creatine Kinase CK-MB (CK-2) Troponin T NT-Pro-B Natriuret Pep Total Protein 6.2 L Albumin 3.6 L Triglycerides Cholesterol LDL Cholesterol Direct HDL Cholesterol Arterial Blood Glucose 10/27/20 10/27/20 10/27/20 03:50 03:50 05:29 WBC RBC 3.47 L Hgb 10.3 L Hct 30.9 L RDW 16.0 H Lymph % (Auto) Giles % (Auto) Lymph # (Auto) Giles # (Auto) Seg Neutrophils % Seg Neuts % (Manual) Lymphocytes % (Manual) Seg Neutrophils # Seg Neutrophils # Man Lymphocytes # (Manual) Monocytes # (Manual) PT INR APTT D-Dimer Heparin Anti-Xa Level POC ABG pO2 ABG Hemoglobin ABG Oxyhemoglobin ABG Sodium ABG Glucose Carboxyhemoglobin Sodium Chloride Carbon Dioxide BUN Creatinine Glucose POC Glucose 163 H Hemoglobin A1c Calcium Total Creatine Kinase 295 H CK-MB (CK-2) 7.6 H Troponin T NT-Pro-B Natriuret Pep Total Protein Albumin Triglycerides Cholesterol LDL Cholesterol Direct HDL Cholesterol Arterial Blood Glucose 10/27/20 10/27/20 10/27/20 07:29 11:08 15:15 WBC RBC Hgb Hct RDW Lymph % (Auto) Giles % (Auto) Lymph # (Auto) Giles # (Auto) Seg Neutrophils % Seg Neuts % (Manual) Lymphocytes % (Manual) Seg Neutrophils # Seg Neutrophils # Man Lymphocytes # (Manual) Monocytes # (Manual) PT INR APTT D-Dimer Heparin Anti-Xa Level POC ABG pO2 ABG Hemoglobin ABG Oxyhemoglobin ABG Sodium ABG Glucose Carboxyhemoglobin Sodium Chloride Carbon Dioxide BUN Creatinine Glucose POC Glucose 219 H 229 H 425 H Hemoglobin A1c Calcium Total Creatine Kinase CK-MB (CK-2) Troponin T NT-Pro-B Natriuret Pep Total Protein Albumin Triglycerides Cholesterol LDL Cholesterol Direct HDL Cholesterol Arterial Blood Glucose 10/27/20 10/27/20 10/28/20 16:32 20:45 04:00 WBC RBC Hgb Hct RDW Lymph % (Auto) Giles % (Auto) Lymph # (Auto) Giles # (Auto) Seg Neutrophils % Seg Neuts % (Manual) Lymphocytes % (Manual) Seg Neutrophils # Seg Neutrophils # Man Lymphocytes # (Manual) Monocytes # (Manual) PT INR APTT D-Dimer Heparin Anti-Xa Level POC ABG pO2 ABG Hemoglobin ABG Oxyhemoglobin ABG Sodium ABG Glucose Carboxyhemoglobin Sodium 135 L Chloride 96.3 L Carbon Dioxide BUN 94 H Creatinine 4.0 H Glucose 166 H POC Glucose 448 H 351 H Hemoglobin A1c Calcium Total Creatine Kinase CK-MB (CK-2) Troponin T 1.740 H* D NT-Pro-B Natriuret Pep Total Protein Albumin 3.5 L Triglycerides Cholesterol LDL Cholesterol Direct HDL Cholesterol Arterial Blood Glucose 10/28/20 10/28/20 10/28/20 04:00 04:00 08:49 WBC RBC 3.50 L Hgb 10.2 L Hct 30.0 L RDW 15.6 H Lymph % (Auto) Giles % (Auto) Lymph # (Auto) Giles # (Auto) Seg Neutrophils % Seg Neuts % (Manual) Lymphocytes % (Manual) Seg Neutrophils # Seg Neutrophils # Man Lymphocytes # (Manual) Monocytes # (Manual) PT INR APTT D-Dimer 1492.47 H Heparin Anti-Xa Level 0.24 L POC ABG pO2 ABG Hemoglobin ABG Oxyhemoglobin ABG Sodium ABG Glucose Carboxyhemoglobin Sodium Chloride Carbon Dioxide BUN Creatinine Glucose POC Glucose 232 H Hemoglobin A1c Calcium Total Creatine Kinase CK-MB (CK-2) Troponin T NT-Pro-B Natriuret Pep Total Protein Albumin Triglycerides Cholesterol LDL Cholesterol Direct HDL Cholesterol Arterial Blood Glucose 10/28/20 12:27 WBC RBC Hgb Hct RDW Lymph % (Auto) Giles % (Auto) Lymph # (Auto) Giles # (Auto) Seg Neutrophils % Seg Neuts % (Manual) Lymphocytes % (Manual) Seg Neutrophils # Seg Neutrophils # Man Lymphocytes # (Manual) Monocytes # (Manual) PT INR APTT D-Dimer Heparin Anti-Xa Level POC ABG pO2 ABG Hemoglobin ABG Oxyhemoglobin ABG Sodium ABG Glucose Carboxyhemoglobin Sodium Chloride Carbon Dioxide BUN Creatinine Glucose POC Glucose 177 H Hemoglobin A1c Calcium Total Creatine Kinase CK-MB (CK-2) Troponin T NT-Pro-B Natriuret Pep Total Protein Albumin Triglycerides Cholesterol LDL Cholesterol Direct HDL Cholesterol Arterial Blood Glucose Allied health notes reviewed: nursing
[2020-10-29] MEDS: hydrALAZINE 25 MG TAB PO SCH ×2 (06:37→16:07)
[2020-10-29] MEDS: BUMETANIDE 1 MG/4 ML INJ IV SCH (06:37)
[2020-10-29] MEDS: INSULIN LISPRO 100 UNIT/ML SUB-Q SCH ×2 (08:16→11:41)
[2020-10-29 08:32] LABS: Albumin 3.7 g/dL (3.9-5); Calcium 9.6 mg/dL (8.4-10.2)
--- NOTE | 2020-10-29 09:29 | Discharge Summary ---
Providers - Providers Date of Admission: 10/21/20 04:53 Date of discharge: 10/29/20 Attending physician: TERENCE CHASE 10/21/20 Consult to Cardiac Rehabilitation [CONS] Routine Reason For Exam: Phase I 10/21/20 04:10 Consult to Physician [CONS] Routine Comment: Consulting Provider: ALL GUADARRAMA Physician Instructions: Reason For Exam: Volume overload, CKD 10/21/20 05:29 Consult to Cardiology [CONS] Routine Consulting Provider: JHONATHAN CANCINO Reason For Exam: Elevated troponin 10/22/20 10:34 Physical Therapy Evaluation and Treat [CONS] Routine Comment: Reason For Exam: Please Eval for gait weakness 10/22/20 11:14 Consult to Physician [CONS] Routine Comment: Consulting Provider: CLAUS HARRIS Physician Instructions: Reason For Exam: SHORTNESS OF BREATH 10/28/20 10:22 Physical Therapy Evaluation and Treat [CONS] Routine Comment: Reason For Exam: deconditioning Primary care physician: GIDEON JACOBO Hospitalization Reason for admission: Shortness of breath Condition: Serious Hospital course: 70-year-old male with past medical history of hypertension, hyperlipidemia and diabetes, Chronic kidney disease was brought to the emergency department via EMS from home with complaints of shortness of breath, nausea with vomiting and left upper arm pain that started earlier this evening. The patient was a short stay admission here yesterday, in order to go to the OR with vascular for placement of a left brachial AV graft so the patient can start getting dialysis. 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 Dangelo. When EMS arrived the patient was moaning, vomiting, appeared short of breath, and had a pulse ox seen to be in the 70s. Patient was admitted with diagnosis of acute respiratory failure, NSTEMI suspect type II, volume overload, elevated D-dimer and acute heart failure with preserved ejection fraction with pulmonary edema. Patient troponin was 0.241 on admission Patient was noted to have acute respiratory failure initially required BiPAP. Hospital course: 10/22: Continue supportive care. Will obtain pulmonary consultation in addition to current management. Nephrology and cardiology input appreciated. Leukocytosis etiology not quite clear patient is afebrile will monitor closely if worsening or development of fever will start patient on empiric antibiotic coverage. 10/23. Remains on BiPAP. On IV Lasix and Diuril. Nephrology following. No urgent indication for renal replacement therapy at this time per nephrology. 10/24. Off BIPAP. On oxygen supplementation. Has no complaints. Making good urine. On diuretics. Awaiting AM labs. No indication for ACTUARIAL MANAGER per nephrology. 10/25. Patient had an episode of confusion last night. Try to get up from bed and fell. CT head negative for any acute pathology. Remains on IV diuretics. Renal function slightly better today. Nephrology following. He is still on oxygen supplementation-high flow oxygen. Cardiology and pulmonology on board 10/27. Patient currently on high flow nasal cannula at 30 L/min with FiO2 50%. Continue to wean supplemental oxygen and BiPAP as clinically indicated. Continue hemodialysis per nephrology to optimize volume. Continue current cardiac regimen of amlodipine 10 mg daily, metoprolol 50 mg twice daily, ASA 81 mg daily, atorvastatin 40 mg nightly 10/28. Patient with improvement of oxygen supplementation. Patient with 3 L of oxygen at 98%. Nephrology optimizing volume status with increase Bumex 2 mg IV twice daily. Patient remains in chronic kidney disease stage IV without any acute uremic symptoms or necessity to start hemodialysis at this time. PT evaluation 10/29. Patient's volume status improved to baseline and patient was satting 96% on room air at the time of discharge. Cardiology reported patient with recent Lexiscan stress MPI on 08/27/2020 that showed inferoapical scar, no reversible ischemia and felt no indication for repeat ischemic evaluation. Given absence of ischemic symptoms cardiology recommended medical management and heparin drip was discontinued. Patient is to continue aspirin, Plavix, statin and beta-bloc ker. Patient is felt to receive maximal hospital benefit and will be discharged home. Dedicated discharge time 35 minutes Disposition: [id number] TO HOME OR SELFCARE Final Discharge Diagnosis (Prints w/discharge instructions): acute respiratory failure, NSTEMI suspect type II, volume overload, elevated D-dimer and acute heart failure with preserved ejection fraction with pulmonary edema. Core Measure Documentation - Palliative Care Palliative Care/ Comfort Measures: Not Applicable - Core Measures Any of the following diagnoses?: acute PR, heart failure - Acute PR Discharge Requirements Aspirin at discharge: Yes RUSTY/ARB for LVSD if EF <40%: No Reason for no RUSTY/ARB: Renal impairment Beta benita at discharge: Yes Statin for LDL = or >100 mg/dl on DC: Yes - Heart Failure Discharge Requirements RUSTY/ARB for LVSD if EF <40%: No Reason for no RUSTY/ARB: Renal impairment Beta benita at discharge: Yes Exam - Constitutional Vitals: Temp Pulse Resp BP Pulse Ox 98.0 F 72 20 119/51 96 10/29/20 08:23 10/29/20 08:23 10/29/20 08:23 10/29/20 08:23 10/29/20 08:23 General appearance: Present: no acute distress, well-nourished - EENT Eyes: Present: PERRL ENT: hearing intact, clear oral mucosa - Neck Neck: Present: supple, normal ROM - Respiratory Respiratory effort: normal Respiratory: bilateral: CTA - Cardiovascular Heart Sounds: Present: S1 & S2. Absent: rub, click - Extremities Extremities: pulses symmetrical, No edema Peripheral Pulses: within normal limits - Abdominal General gastrointestinal: Present: soft, non-tender, non-distended, normal bowel sounds Male genitourinary: Present: normal - Integumentary Integumentary: Present: clear, warm, dry - Musculoskeletal Musculoskeletal: gait normal, strength equal bilaterally - Psychiatric Psychiatric: appropriate mood/affect, intact judgment & insight - Neurologic Neurologic: CNII-XII intact, moves all extremities Plan Activity: advance as tolerated Weight Bearing Status: Weight Bear as Tolerated Diet: low fat, low cholesterol, low salt Follow up with: GIDEON JACOBO MD [Primary Care Provider] - 3-5 Days BARRY CANCINO MD [Staff Physician] - 7 Days BREONNA HAM MD [Staff Physician] - 7 Days ALL GUADARRAMA DO [Staff Physician] - 7 Days Prescriptions: Aspirin [Adult Aspirin] 81 mg PO DAILY #30 amLODIPine 10 mg PO DAILY #30 hydrALAZINE [Apresoline TAB] 25 mg PO Q8HR #90 tablet Bumetanide [Bumex 1 mg tab] 1 mg PO 0600,1800 #60 tablet AtorvaSTATin [Lipitor] 40 mg PO QHS #30 Metoprolol [Lopressor TAB] 50 mg PO BID #60 tablet Clopidogrel [Plavix] 75 mg PO DAILY #30 tablet Finasteride [Proscar] 5 mg PO BID #60 Sodium Bicarbonate 650 mg PO BID #60 tablet Ergocalciferol (Vitamin D2) [Vitamin D2] 1,250 unit PO DAILY #30 Cholecalciferol Vit D3 [Vitamin D3 1,000 UNIT TAB] 2,000 unit PO DAILY #30 tablet
[2020-10-29] MEDS: SODIUM BICARBONATE 650 MG TAB PO SCH (09:58)
[2020-10-29] MEDS: CLOPIDOGREL 75 MG TAB PO SCH (09:58)
[2020-10-29] MEDS: FINASTERIDE 5 MG TAB PO SCH (09:58)
[2020-10-29] MEDS: ASPIRIN EC 81 MG TAB PO SCH (09:58)
[2020-10-29] MEDS: SERTRALINE 100 MG TAB PO SCH (09:58)
[2020-10-29] MEDS: CHOLECALCIFEROL (VIT D3) 1000 UNIT (25 mcg) TAB PO SCH (09:58)
[2020-10-29] MEDS: TAMSULOSIN 0.4 MG CAP PO SCH (09:58)
[2020-10-29] MEDS: FAMOTIDINE 20 MG TAB PO SCH (09:59)
[2020-10-29] MEDS: DOCUSATE SODIUM 100 MG CAP PO SCH (09:59)
[2020-10-29] MEDS: amLODIPine 10 MG TAB PO SCH (09:59)
[2020-10-29] MEDS: METOPROLOL TARTRATE 50 MG TAB PO SCH (10:00)
--- NOTE | 2020-10-29 12:27 | Progress Note ---
Assessment and Plan - Patient Problems (1) Acute heart failure with preserved ejection fraction (HFpEF) Current Visit: Yes Status: Acute Plan to address problem: continue with current diuretic regimen. we will switch his IV diuretic regimen to oral with Bumex 1 mg twice a day.. (2) Pulmonary edema Current Visit: Yes Status: Acute Qualifiers: Chronicity: acute Qualified Code(s): J81.0 - Acute pulmonary edema Plan to address problem: Will have adjusted diuretic regimen to bumex 1 mg oral twice a day. (3) Acute kidney injury superimposed on CKD Current Visit: Yes Status: Acute Plan to address problem: patient remains in chronic kidney disease stage IV without any acute uremic symptoms or necessity to start hemodialysis at this time. renal function is stable and there is no acute indications for renal replacement therapy at this time. From nephrology standpoint patient is stable for discharge with instructions to follow up with Dr. Dangelo in 1 week post discharge.. (4) Acidosis Current Visit: Yes Status: Acute Plan to address problem: patient started on sodium bicarbonate supplementation. (5) DM2 (diabetes mellitus, type 2) Current Visit: Yes Status: Chronic Plan to address problem: diabetes management per primary attending. (6) Hypertension Current Visit: Yes Status: Chronic Qualifiers: Hypertension type: essential hypertension Qualified Code(s): I10 - [facility] l (primary) hypertension Plan to address problem: monitor blood pressure on the current regimen. Subjective Date of service: 10/29/20 Principal diagnosis: Ac. hypoxemic resp failure; Pulm edema; NNAMDI; H/O CHF; DM II; NSTEMI Interval history: no acute issues this morning. He is on room air and with adequate O2 saturations. We will switch his IV diuretic regimen to oral in anticipation for discharge. Objective - Vital Signs Vital signs: Vital Signs - 12hr 10/29/20 10/29/20 10/29/20 04:24 04:45 06:37 Temperature 98.5 F Pulse Rate 77 Pulse Rate [ From Monitor] Pulse Rate [ Left Posterior Tibial] Respiratory 20 Rate Blood Pressure 163/39 163/39 O2 Sat by Pulse 96 93 Oximetry 10/29/20 10/29/20 10/29/20 08:23 09:59 10:00 Temperature 98.0 F Pulse Rate 72 72 70 Pulse Rate [ 70 From Monitor] Pulse Rate [ 70 Left Posterior Tibial] Respiratory 20 16 Rate Blood Pressure 119/51 119/51 119/51 O2 Sat by Pulse 96 97 Oximetry 10/29/20 10:13 Temperature Pulse Rate Pulse Rate [ From Monitor] Pulse Rate [ Left Posterior Tibial] Respiratory Rate Blood Pressure O2 Sat by Pulse 95 Oximetry - General Appearance General appearance: well-developed, well-nourished EENT: ATNC, PERRL Neck: no JVD Respiratory: Present: Clear to Ascultation Cardiology: regular Gastrointestinal: normal Integumentary: no rash Neurologic: no focal deficit Musculoskeletal: deferred Psychiatric: cooperative - Lab 10/28/20 04:00 10/29/20 07:47 Most recent lab results ABG pH 7.387 (7.320-7.450) 10/24/20 10:25 ABG O2 Saturation 90.7 (0-100) 10/24/20 10:25 Calcium 9.6 mg/dL (8.4-10.2) 10/29/20 07:47 Magnesium 2.20 mg/dL (1.7-2.3) 10/24/20 10:56 - Allied health notes Allied health notes reviewed: nursing Medications & Allergies - Medications Allergies/Adverse Reactions: Allergies pollen extracts Allergy (Verified 10/21/20 05:23) Unknown Home Medications: Home Medications Medication Instructions Recorded Confirmed Last Taken Type Clopidogrel Bisulfate [Clopidogrel] 1 tab PO DAILY 03/13/14 10/21/20 10/18/20 History Tamsulosin HCl 1 tab PO DAILY 03/13/14 10/21/20 10/18/20 History Dicyclomine [Bentyl] 20 mg PO BID 10/12/20 10/21/20 10/18/20 History Insulin NPH Human Isophane 15 unit SQ BID 10/12/20 10/21/20 10/18/20 20:30 History [Novolin N] Insulin Regular, Human [Novolin R] 10 units SUB-Q BID 10/12/20 10/21/20 10/18/20 20:30 History Sertraline [Zoloft] 100 mg PO QDAY 10/12/20 10/21/20 10/18/20 History HYDROcodone/APAP 7.5-325 [Breda 1 each PO Q6HR PRN #40 tablet 10/19/20 10/21/20 Unknown Rx 7.5-325 mg TAB] Aspirin [Adult Aspirin] 81 mg PO DAILY #30 10/29/20 Unknown Rx AtorvaSTATin [Lipitor] 40 mg PO QHS #30 10/29/20 Unknown Rx Bumetanide [Bumex 1 mg tab] 1 mg PO 0600,1800 #60 tablet 10/29/20 Unknown Rx Cholecalciferol Vit D3 [Vitamin D3 2,000 unit PO DAILY #30 tablet 10/29/20 Unknown Rx 1,000 UNIT TAB] Clopidogrel [Plavix] 75 mg PO DAILY #30 tablet 10/29/20 Unknown Rx Ergocalciferol (Vitamin D2) 1,250 unit PO DAILY #30 10/29/20 Unknown Rx [Vitamin D2] Famotidine [Pepcid] 20 mg PO QAM tablet 10/29/20 Unknown Rx Finasteride [Proscar] 5 mg PO BID #60 10/29/20 Unknown Rx Lispro Insulin [HumaLOG] 0 unit SUB-Q ACHS units 10/29/20 Unknown Rx Metoprolol [Lopressor TAB] 50 mg PO BID #60 tablet 10/29/20 Unknown Rx Sodium Bicarbonate 650 mg PO BID #60 tablet 10/29/20 Unknown Rx amLODIPine 10 mg PO DAILY #30 10/29/20 Unknown Rx hydrALAZINE [Apresoline TAB] 25 mg PO Q8HR #90 tablet 10/29/20 Unknown Rx traMADoL [Ultram 50 MG tab] 50 mg PO Q6H PRN tablet 10/29/20 Unknown Rx traZODone [Desyrel] 50 mg PO QHS PRN tablet 10/29/20 Unknown Rx Active Medications: Generic Name Dose Route Start Last Admin Trade Name Freq PRN Reason Stop Dose Admin Acetaminophen 650 mg 10/21/20 05:28 Acetaminophen 325 Mg Tab PO Q4H PRN Pain MILD(1-3)/Fever >100.5/PRIETO Albuterol 2.5 mg 10/21/20 05:28 Albuterol 2.5 Mg/3 Ml Nebu IH Q4HRT PRN Shortness Of Breath Amlodipine Besylate 10 mg 10/21/20 10:00 10/29/20 09:59 Amlodipine 10 Mg Tab PO 10 mg DAILY ALANNA Administration Aspirin 81 mg 10/21/20 10:00 10/29/20 09:58 Aspirin Ec 81 Mg Tab PO 81 mg DAILY ALANNA Administration Atorvastatin Calcium 40 mg 10/21/20 22:00 10/28/20 22:45 Atorvastatin 40 Mg Tab PO 40 mg QHS ALANNA Administration Bumetanide 1 mg 10/29/20 18:00 Bumetanide 1 Mg Tab PO 0600,1800 [facility] Cholecalciferol 2,000 unit 10/21/20 10:00 10/29/20 09:58 Cholecalciferol (Vit D3) 1000 Unit (25 Mcg) Tab PO 2,000 unit DAILY ALANNA Administration Clopidogrel Bisulfate 75 mg 10/21/20 10:00 10/29/20 09:58 Clopidogrel 75 Mg Tab PO 75 mg DAILY ALANNA Administration Docusate Sodium 100 mg 10/26/20 22:00 10/29/20 09:59 Docusate Sodium 100 Mg Cap PO 100 mg BID ALANNA Administration Famotidine 20 mg 10/21/20 10:00 10/29/20 09:59 Famotidine 20 Mg Tab PO 20 mg QAM ALANNA Administration Finasteride 5 mg 10/21/20 10:00 10/29/20 09:58 Finasteride 5 Mg Tab PO 5 mg BID ALANNA Administration Hydralazine HCl 25 mg 10/25/20 14:00 10/29/20 06:37 Hydralazine 25 Mg Tab PO 25 mg Q8HR [facility] Administration Insulin Human Lispro 0 unit 10/21/20 11:30 10/29/20 11:41 Insulin Lispro 100 Unit/Ml SUB-Q 8 unit ACHS [facility] Administration Protocol Metoprolol Tartrate 50 mg 10/22/20 17:00 10/29/20 10:00 Metoprolol Tartrate 50 Mg Tab PO 50 mg BID ALANNA Administration Nitroglycerin 0.4 mg 10/21/20 05:28 Nitroglycerin 0.4 Mg Tab Subl SL Q5M PRN Chest Pain Ondansetron HCl 4 mg 10/21/20 05:28 Ondansetron 4 Mg/2 Ml Inj IV Q8H PRN Nausea And Vomiting Sertraline HCl 100 mg 10/21/20 10:00 10/29/20 09:58 Sertraline 100 Mg Tab PO 100 mg QDAY ALANNA Administration Sodium Bicarbonate 650 mg 10/21/20 22:00 10/29/20 09:58 Sodium Bicarbonate 650 Mg Tab PO 650 mg BID ALANNA Administration Sodium Chloride 10 ml 10/21/20 10:00 10/29/20 10:00 Sodium Chloride 0.9% 10 Ml Flush Syringe IV 10 ml BID ALANNA Administration Sodium Chloride 10 ml 10/21/20 05:28 Sodium Chloride 0.9% 10 Ml Flush Syringe IV PRN PRN LINE FLUSH Tamsulosin HCl 0.4 mg 10/21/20 10:00 10/29/20 09:58 Tamsulosin 0.4 Mg Cap PO 0.4 mg DAILY ALANNA Administration Tramadol HCl 50 mg 10/21/20 05:28 10/26/20 17:33 Tramadol 50 Mg Tab PO 50 mg Q6H PRN Administration Pain, Moderate (4-6) Trazodone HCl 50 mg 10/27/20 01:29 10/27/20 01:40 Trazodone 50 Mg Tab PO 50 mg QHS PRN Administration Insomnia
[2020-10-29 12:48] VITALS: BP 149/56
--- NOTE | 2020-10-29 14:21 | Progress Note ---
Assessment and Plan Acute hypoxemic respiratory failure Acute pulmonary edema Acute on chronic kidney injury Cardiomyopathy (H/O CHF) Leukocytosis Hypertension History of diabetes History of nephrolithiasis Tobacco use disorder Mild metabolic acidosis, improving Hyperlipidemia Non-ST elevation myocardial infarction - diuresis per nephrology rec's - HD/UF per nephrology prescription (no acute indication) - prn BIPAP for increased work of breathing - continue to wean supplemental oxygen to keep O2 sats > 90% - prn bronchodilators (MICHELET) with pulm hygiene per RT - continue to avoid nephrotoxins, renally dose all medications - mobility protocols to prevent pressure ulcers - PT/OT as tolerated - Wound care per RN/WCT - accuchecks with glycemic control per SSI for target blood glucose < 180 mg/dL - continued tobacco abstinence strongly counseled at the bedside - home oxygen evaluation at discharge - GI & VTE prophylaxis - Flu & pneumovax per protocol - Pulmonary out patient follow up for PFTs and optimization of respiratory statu s - continue other care per attending / other consultants - prn analgesia per pain score ... re-evaluate in am & prn Subjective Date of service: 10/29/20 Principal diagnosis: Ac. hypoxemic resp failure; Pulm edema; NNAMDI; H/O CHF; DM II; NSTEMI Interval history: Patient is seen today for: Acute hypoxemic respiratory failure; Acute pulmonary edema; NNAMDI on CKD; H/O CHF; Leukocytosis; DM II; NSTEMI Seen and examined at bedside; 24hour events reviewed; nursing and respiratory care staff consulted; no adverse overnight events reported to me; resting peace fully in bed; no issues; tentative discharge today Objective Vital Signs - 12hr 10/29/20 10/29/20 10/29/20 04:24 04:45 06:37 Temperature 98.5 F Pulse Rate 77 Pulse Rate [ From Monitor] Pulse Rate [ Left Posterior Tibial] Respiratory 20 Rate Blood Pressure 163/39 163/39 O2 Sat by Pulse 96 93 Oximetry 10/29/20 10/29/20 10/29/20 08:23 09:59 10:00 Temperature 98.0 F Pulse Rate 72 72 70 Pulse Rate [ 70 From Monitor] Pulse Rate [ 70 Left Posterior Tibial] Respiratory 20 16 Rate Blood Pressure 119/51 119/51 119/51 O2 Sat by Pulse 96 97 Oximetry 10/29/20 10/29/20 10/29/20 10:13 11:48 11:58 Temperature 97.3 F L Pulse Rate 70 66 Pulse Rate [ From Monitor] Pulse Rate [ Left Posterior Tibial] Respiratory 20 Rate Blood Pressure 149/47 149/56 O2 Sat by Pulse 95 95 98 Oximetry Constitutional: no acute distress Eyes: non-icteric ENT: oropharynx moist Neck: supple, no lymphadenopathy, no JVD Effort: normal Ascultation: Bilateral: clear, diminished breath sounds Percussion: Bilateral: not dull Cardiovascular: regular rate and rhythm Gastrointestinal: normoactive bowel sounds, soft, non-tender, non-distended (protuberant) Integumentary: normal Extremities: no cyanosis, no edema, pulses normal, no ischemia or petechiae Neurologic: normal mental status, non-focal exam, pupils equal and round, motor strength normal and Psychiatric: mood appropriate, affect normal CBC and BMP: 10/28/20 04:00 10/29/20 07:47 ABG, PT/INR, D-dimer: ABG ABG pH 7.387 (7.320-7.450) 10/24/20 10:25 POC ABG pCO2 35.6 mmHg (32.0-48.0) 10/24/20 10:25 POC ABG pO2 64.0 mmHg (83-108) L 10/24/20 10:25 POC ABG HCO3 20.9 10/24/20 10:25 ABG O2 Saturation 90.7 (0-100) 10/24/20 10:25 PT/INR, D-dimer PT 13.7 Sec. (12.2-14.9) 10/27/20 03:50 INR 1.00 (0.87-1.13) 10/27/20 03:50 D-Dimer 1492.47 ng/mlDDU (0-234) H 10/28/20 04:00 Abnormal lab findings: Abnormal Labs 10/21/20 10/21/20 10/21/20 03:14 03:14 03:14 WBC 14.5 H RBC Hgb Hct RDW 16.1 H Lymph % (Auto) [place] % (Auto) Lymph # (Auto) [place] # (Auto) Seg Neutrophils % Seg Neuts % (Manual) 85.0 H Lymphocytes % (Manual) 7.0 L Seg Neutrophils # Seg Neutrophils # Man 12.3 H Lymphocytes # (Manual) 1.0 L Monocytes # (Manual) 0.9 H PT INR APTT 23.5 L D-Dimer 2466.38 H Heparin Anti-Xa Level POC ABG pO2 ABG Hemoglobin ABG Oxyhemoglobin ABG Sodium ABG Glucose Carboxyhemoglobin Sodium Chloride Carbon Dioxide 16 L D BUN 55 H Creatinine 3.7 H Glucose 333 H POC Glucose Hemoglobin A1c Calcium 8.3 L Total Creatine Kinase CK-MB (CK-2) Troponin T NT-Pro-B Natriuret Pep Total Protein Albumin Triglycerides Cholesterol LDL Cholesterol Direct HDL Cholesterol Arterial Blood Glucose 10/21/20 10/21/20 10/21/20 03:14 05:56 07:53 WBC 13.6 H RBC Hgb Hct RDW 16.4 H Lymph % (Auto) 3.7 L [place] % (Auto) Lymph # (Auto) 0.5 L [place] # (Auto) 0.9 H Seg Neutrophils % 89.6 H Seg Neuts % (Manual) Lymphocytes % (Manual) Seg Neutrophils # 12.2 H Seg Neutrophils # Man Lymphocytes # (Manual) Monocytes # (Manual) PT INR APTT D-Dimer Heparin Anti-Xa Level POC ABG pO2 ABG Hemoglobin ABG Oxyhemoglobin ABG Sodium ABG Glucose Carboxyhemoglobin Sodium Chloride Carbon Dioxide BUN Creatinine Glucose POC Glucose 307 H Hemoglobin A1c Calcium Total Creatine Kinase CK-MB (CK-2) Troponin T 0.241 H* NT-Pro-B Natriuret Pep Total Protein Albumin Triglycerides 154 H Cholesterol 212 H LDL Cholesterol Direct 137 H HDL Cholesterol 65 H Arterial Blood Glucose 10/21/20 10/21/20 10/21/20 07:53 10:52 10:55 WBC RBC Hgb Hct RDW Lymph % (Auto) [place] % (Auto) Lymph # (Auto) [place] # (Auto) Seg Neutrophils % Seg Neuts % (Manual) Lymphocytes % (Manual) Seg Neutrophils # Seg Neutrophils # Man Lymphocytes # (Manual) Monocytes # (Manual) PT INR APTT D-Dimer Heparin Anti-Xa Level POC ABG pO2 ABG Hemoglobin ABG Oxyhemoglobin ABG Sodium ABG Glucose Carboxyhemoglobin Sodium Chloride 97.4 L Carbon Dioxide 19 L BUN 63 H Creatinine 4.0 H Glucose 337 H POC Glucose 320 H Hemoglobin A1c Calcium 8.3 L Total Creatine Kinase CK-MB (CK-2) Troponin T 0.730 H* D NT-Pro-B Natriuret Pep Total Protein Albumin Triglycerides Cholesterol LDL Cholesterol Direct HDL Cholesterol Arterial Blood Glucose 10/21/20 10/21/20 10/21/20 14:59 14:59 14:59 WBC RBC Hgb 11.5 L Hct RDW Lymph % (Auto) [place] % (Auto) Lymph # (Auto) [place] # (Auto) Seg Neutrophils % Seg Neuts % (Manual) Lymphocytes % (Manual) Seg Neutrophils # Seg Neutrophils # Man Lymphocytes # (Manual) Monocytes # (Manual) PT 15.9 H INR 1.22 H APTT 135.3 H* D-Dimer Heparin Anti-Xa Level POC ABG pO2 ABG Hemoglobin ABG Oxyhemoglobin ABG Sodium ABG Glucose Carboxyhemoglobin Sodium Chloride Carbon Dioxide BUN Creatinine Glucose POC Glucose Hemoglobin A1c Calcium Total Creatine Kinase CK-MB (CK-2) Troponin T 1.190 H* D NT-Pro-B Natriuret Pep Total Protein Albumin Triglycerides Cholesterol LDL Cholesterol Direct HDL Cholesterol Arterial Blood Glucose 10/21/20 10/22/20 10/22/20 16:55 02:45 02:45 WBC 15.5 H RBC Hgb Hct RDW 16.2 H Lymph % (Auto) 8.2 L [place] % (Auto) 9.5 H Lymph # (Auto) [place] # (Auto) 1.5 H Seg Neutrophils % 81.3 H Seg Neuts % (Manual) Lymphocytes % (Manual) Seg Neutrophils # 12.6 H Seg Neutrophils # Man Lymphocytes # (Manual) Monocytes # (Manual) PT INR APTT D-Dimer Heparin Anti-Xa Level POC ABG pO2 ABG Hemoglobin ABG Oxyhemoglobin ABG Sodium ABG Glucose Carboxyhemoglobin Sodium Chloride Carbon Dioxide 20 L BUN 76 H Creatinine 4.4 H Glucose 113 H POC Glucose 312 H Hemoglobin A1c Calcium Total Creatine Kinase CK-MB (CK-2) Troponin T NT-Pro-B Natriuret Pep Total Protein Albumin Triglycerides Cholesterol LDL Cholesterol Direct HDL Cholesterol Arterial Blood Glucose 10/22/20 10/22/20 10/22/20 07:00 08:18 11:58 WBC RBC Hgb Hct RDW Lymph % (Auto) [place] % (Auto) Lymph # (Auto) [place] # (Auto) Seg Neutrophils % Seg Neuts % (Manual) Lymphocytes % (Manual) Seg Neutrophils # Seg Neutrophils # Man Lymphocytes # (Manual) Monocytes # (Manual) PT INR APTT D-Dimer Heparin Anti-Xa Level POC ABG pO2 ABG Hemoglobin ABG Oxyhemoglobin ABG Sodium ABG Glucose Carboxyhemoglobin Sodium Chloride Carbon Dioxide BUN Creatinine Glucose POC Glucose 181 H 237 H Hemoglobin A1c 7.8 H Calcium Total Creatine Kinase CK-MB (CK-2) Troponin T NT-Pro-B Natriuret Pep Total Protein Albumin Triglycerides Cholesterol LDL Cholesterol Direct HDL Cholesterol Arterial Blood Glucose 10/22/20 10/22/20 10/23/20 16:58 21:25 04:29 WBC RBC 3.49 L Hgb 10.4 L Hct 30.7 L RDW 15.9 H Lymph % (Auto) [place] % (Auto) Lymph # (Auto) [place] # (Auto) Seg Neutrophils % Seg Neuts % (Manual) Lymphocytes % (Manual) Seg Neutrophils # Seg Neutrophils # Man Lymphocytes # (Manual) Monocytes # (Manual) PT INR APTT D-Dimer Heparin Anti-Xa Level POC ABG pO2 ABG Hemoglobin ABG Oxyhemoglobin ABG Sodium ABG Glucose Carboxyhemoglobin Sodium Chloride Carbon Dioxide BUN Creatinine Glucose POC Glucose 273 H 272 H Hemoglobin A1c Calcium Total Creatine Kinase CK-MB (CK-2) Troponin T NT-Pro-B Natriuret Pep Total Protein Albumin Triglycerides Cholesterol LDL Cholesterol Direct HDL Cholesterol Arterial Blood Glucose 10/23/20 10/23/20 10/23/20 04:29 04:29 07:26 WBC RBC Hgb Hct RDW Lymph % (Auto) [place] % (Auto) Lymph # (Auto) [place] # (Auto) Seg Neutrophils % Seg Neuts % (Manual) Lymphocytes % (Manual) Seg Neutrophils # Seg Neutrophils # Man Lymphocytes # (Manual) Monocytes # (Manual) PT INR APTT D-Dimer Heparin Anti-Xa Level 0.20 L POC ABG pO2 ABG Hemoglobin ABG Oxyhemoglobin ABG Sodium ABG Glucose Carboxyhemoglobin Sodium Chloride Carbon Dioxide BUN 78 H Creatinine 4.3 H Glucose 139 H POC Glucose 158 H Hemoglobin A1c Calcium Total Creatine Kinase CK-MB (CK-2) Troponin T NT-Pro-B Natriuret Pep Total Protein Albumin Triglycerides Cholesterol LDL Cholesterol Direct HDL Cholesterol Arterial Blood Glucose 10/23/20 10/23/20 10/23/20 11:07 11:50 15:19 WBC RBC Hgb Hct RDW Lymph % (Auto) [place] % (Auto) Lymph # (Auto) [place] # (Auto) Seg Neutrophils % Seg Neuts % (Manual) Lymphocytes % (Manual) Seg Neutrophils # Seg Neutrophils # Man Lymphocytes # (Manual) Monocytes # (Manual) PT INR APTT D-Dimer Heparin Anti-Xa Level 0.27 L POC ABG pO2 ABG Hemoglobin ABG Oxyhemoglobin ABG Sodium ABG Glucose Carboxyhemoglobin Sodium Chloride Carbon Dioxide BUN Creatinine Glucose POC Glucose 201 H 324 H Hemoglobin A1c Calcium Total Creatine Kinase CK-MB (CK-2) Troponin T NT-Pro-B Natriuret Pep Total Protein Albumin Triglycerides Cholesterol LDL Cholesterol Direct HDL Cholesterol Arterial Blood Glucose 10/23/20 10/24/20 10/24/20 20:15 07:25 10:21 WBC RBC Hgb Hct RDW Lymph % (Auto) [place] % (Auto) Lymph # (Auto) [place] # (Auto) Seg Neutrophils % Seg Neuts % (Manual) Lymphocytes % (Manual) Seg Neutrophils # Seg Neutrophils # Man Lymphocytes # (Manual) Monocytes # (Manual) PT INR APTT D-Dimer Heparin Anti-Xa Level POC ABG pO2 ABG Hemoglobin ABG Oxyhemoglobin ABG Sodium ABG Glucose Carboxyhemoglobin Sodium Chloride Carbon Dioxide BUN Creatinine Glucose POC Glucose 259 H 145 H Hemoglobin A1c Calcium Total Creatine Kinase CK-MB (CK-2) Troponin T 2.650 H* D NT-Pro-B Natriuret Pep Total Protein Albumin Triglycerides Cholesterol LDL Cholesterol Direct HDL Cholesterol Arterial Blood Glucose 10/24/20 10/24/20 10/24/20 10:25 10:56 11:32 WBC RBC Hgb Hct RDW Lymph % (Auto) [place] % (Auto) Lymph # (Auto) [place] # (Auto) Seg Neutrophils % Seg Neuts % (Manual) Lymphocytes % (Manual) Seg Neutrophils # Seg Neutrophils # Man Lymphocytes # (Manual) Monocytes # (Manual) PT INR APTT D-Dimer Heparin Anti-Xa Level POC ABG pO2 64.0 L ABG Hemoglobin 11.3 L ABG Oxyhemoglobin 90.1 L ABG Sodium 134.0 L ABG Glucose 246 H Carboxyhemoglobin 0.4 L Sodium Chloride 94.8 L Carbon Dioxide BUN 88 H Creatinine 4.3 H Glucose 236 H POC Glucose 228 H Hemoglobin A1c Calcium Total Creatine Kinase CK-MB (CK-2) Troponin T NT-Pro-B Natriuret Pep Total Protein Albumin Triglycerides Cholesterol LDL Cholesterol Direct HDL Cholesterol Arterial Blood Glucose 246 H 10/24/20 10/24/20 10/25/20 16:36 20:32 04:46 WBC RBC Hgb Hct RDW Lymph % (Auto) [place] % (Auto) Lymph # (Auto) [place] # (Auto) Seg Neutrophils % Seg Neuts % (Manual) Lymphocytes % (Manual) Seg Neutrophils # Seg Neutrophils # Man Lymphocytes # (Manual) Monocytes # (Manual) PT INR APTT D-Dimer Heparin Anti-Xa Level POC ABG pO2 ABG Hemoglobin ABG Oxyhemoglobin ABG Sodium ABG Glucose Carboxyhemoglobin Sodium Chloride 95.4 L Carbon Dioxide BUN 94 H Creatinine 4.0 H Glucose 243 H POC Glucose 214 H 188 H Hemoglobin A1c Calcium Total Creatine Kinase CK-MB (CK-2) Troponin T NT-Pro-B Natriuret Pep 4199 H Total Protein Albumin 3.8 L Triglycerides Cholesterol LDL Cholesterol Direct HDL Cholesterol Arterial Blood Glucose 10/25/20 10/25/20 10/25/20 07:27 11:09 15:50 WBC RBC Hgb Hct RDW Lymph % (Auto) [place] % (Auto) Lymph # (Auto) [place] # (Auto) Seg Neutrophils % Seg Neuts % (Manual) Lymphocytes % (Manual) Seg Neutrophils # Seg Neutrophils # Man Lymphocytes # (Manual) Monocytes # (Manual) PT INR APTT D-Dimer Heparin Anti-Xa Level POC ABG pO2 ABG Hemoglobin ABG Oxyhemoglobin ABG Sodium ABG Glucose Carboxyhemoglobin Sodium Chloride Carbon Dioxide BUN Creatinine Glucose POC Glucose 271 H 301 H 126 H Hemoglobin A1c Calcium Total Creatine Kinase CK-MB (CK-2) Troponin T NT-Pro-B Natriuret Pep Total Protein Albumin Triglycerides Cholesterol LDL Cholesterol Direct HDL Cholesterol Arterial Blood Glucose 10/25/20 10/26/20 10/26/20 20:38 05:37 05:37 WBC RBC Hgb Hct 34.6 L RDW 15.6 H Lymph % (Auto) [place] % (Auto) Lymph # (Auto) [place] # (Auto) Seg Neutrophils % Seg Neuts % (Manual) Lymphocytes % (Manual) Seg Neutrophils # Seg Neutrophils # Man Lymphocytes # (Manual) Monocytes # (Manual) PT INR APTT D-Dimer Heparin Anti-Xa Level POC ABG pO2 ABG Hemoglobin ABG Oxyhemoglobin ABG Sodium ABG Glucose Carboxyhemoglobin Sodium Chloride 97.6 L Carbon Dioxide BUN 106 H Creatinine 4.0 H Glucose POC Glucose 165 H Hemoglobin A1c Calcium Total Creatine Kinase CK-MB (CK-2) Troponin T 2.710 H* NT-Pro-B Natriuret Pep Total Protein Albumin 3.8 L Triglycerides Cholesterol LDL Cholesterol Direct HDL Cholesterol Arterial Blood Glucose 10/26/20 10/26/20 10/26/20 11:27 14:05 14:05 WBC RBC Hgb 10.9 L Hct 32.4 L RDW 15.6 H Lymph % (Auto) 10.0 L [place] % (Auto) Lymph # (Auto) 0.8 L [place] # (Auto) Seg Neutrophils % 79.8 H Seg Neuts % (Manual) Lymphocytes % (Manual) Seg Neutrophils # Seg Neutrophils # Man Lymphocytes # (Manual) Monocytes # (Manual) PT INR APTT D-Dimer Heparin Anti-Xa Level POC ABG pO2 ABG Hemoglobin ABG Oxyhemoglobin ABG Sodium ABG Glucose Carboxyhemoglobin Sodium 129 L D Chloride 91.9 L Carbon Dioxide 20 L BUN 104 H Creatinine 3.9 H Glucose 350 H POC Glucose 243 H Hemoglobin A1c Calcium Total Creatine Kinase CK-MB (CK-2) Troponin T NT-Pro-B Natriuret Pep Total Protein Albumin Triglycerides Cholesterol LDL Cholesterol Direct HDL Cholesterol Arterial Blood Glucose 10/26/20 10/26/20 10/26/20 14:05 14:05 14:05 WBC RBC Hgb 11.1 L Hct 33.0 L RDW Lymph % (Auto) [place] % (Auto) Lymph # (Auto) [place] # (Auto) Seg Neutrophils % Seg Neuts % (Manual) Lymphocytes % (Manual) Seg Neutrophils # Seg Neutrophils # Man Lymphocytes # (Manual) Monocytes # (Manual) PT INR APTT 139.0 H* D-Dimer Heparin Anti-Xa Level POC ABG pO2 ABG Hemoglobin ABG Oxyhemoglobin ABG Sodium ABG Glucose Carboxyhemoglobin Sodium Chloride Carbon Dioxide BUN Creatinine Glucose POC Glucose Hemoglobin A1c Calcium Total Creatine Kinase 395 H CK-MB (CK-2) 8.0 H Troponin T NT-Pro-B Natriuret Pep Total Protein Albumin Triglycerides Cholesterol LDL Cholesterol Direct HDL Cholesterol Arterial Blood Glucose 10/26/20 10/26/20 10/26/20 16:59 18:27 18:27 WBC RBC Hgb Hct RDW Lymph % (Auto) [place] % (Auto) Lymph # (Auto) [place] # (Auto) Seg Neutrophils % Seg Neuts % (Manual) Lymphocytes % (Manual) Seg Neutrophils # Seg Neutrophils # Man Lymphocytes # (Manual) Monocytes # (Manual) PT INR APTT D-Dimer Heparin Anti-Xa Level 0.92 H POC ABG pO2 ABG Hemoglobin ABG Oxyhemoglobin ABG Sodium ABG Glucose Carboxyhemoglobin Sodium Chloride Carbon Dioxide BUN Creatinine Glucose POC Glucose 224 H Hemoglobin A1c Calcium Total Creatine Kinase 392 H CK-MB (CK-2) 7.7 H Troponin T NT-Pro-B Natriuret Pep Total Protein Albumin Triglycerides Cholesterol LDL Cholesterol Direct HDL Cholesterol Arterial Blood Glucose 10/26/20 10/26/20 10/26/20 18:27 20:27 20:40 WBC RBC Hgb Hct RDW Lymph % (Auto) [place] % (Auto) Lymph # (Auto) [place] # (Auto) Seg Neutrophils % Seg Neuts % (Manual) Lymphocytes % (Manual) Seg Neutrophils # Seg Neutrophils # Man Lymphocytes # (Manual) Monocytes # (Manual) PT INR APTT D-Dimer Heparin Anti-Xa Level POC ABG pO2 ABG Hemoglobin ABG Oxyhemoglobin ABG Sodium ABG Glucose Carboxyhemoglobin Sodium Chloride Carbon Dioxide BUN Creatinine Glucose 172 H POC Glucose 33 L 130 H Hemoglobin A1c Calcium Total Creatine Kinase CK-MB (CK-2) Troponin T NT-Pro-B Natriuret Pep Total Protein Albumin Triglycerides Cholesterol LDL Cholesterol Direct HDL Cholesterol Arterial Blood Glucose 10/26/20 10/27/20 10/27/20 21:56 02:15 03:50 WBC RBC Hgb Hct RDW Lymph % (Auto) [place] % (Auto) Lymph # (Auto) [place] # (Auto) Seg Neutrophils % Seg Neuts % (Manual) Lymphocytes % (Manual) Seg Neutrophils # Seg Neutrophils # Man Lymphocytes # (Manual) Monocytes # (Manual) PT INR APTT D-Dimer Heparin Anti-Xa Level POC ABG pO2 ABG Hemoglobin ABG Oxyhemoglobin ABG Sodium ABG Glucose Carboxyhemoglobin Sodium 135 L Chloride 95.8 L Carbon Dioxide 21 L BUN 98 H Creatinine 3.8 H Glucose 190 H POC Glucose 69 L 166 H Hemoglobin A1c Calcium Total Creatine Kinase CK-MB (CK-2) Troponin T NT-Pro-B Natriuret Pep Total Protein 6.2 L Albumin 3.6 L Triglycerides Cholesterol LDL Cholesterol Direct HDL Cholesterol Arterial Blood Glucose 10/27/20 10/27/20 10/27/20 03:50 03:50 05:29 WBC RBC 3.47 L Hgb 10.3 L Hct 30.9 L RDW 16.0 H Lymph % (Auto) [place] % (Auto) Lymph # (Auto) [place] # (Auto) Seg Neutrophils % Seg Neuts % (Manual) Lymphocytes % (Manual) Seg Neutrophils # Seg Neutrophils # Man Lymphocytes # (Manual) Monocytes # (Manual) PT INR APTT D-Dimer Heparin Anti-Xa Level POC ABG pO2 ABG Hemoglobin ABG Oxyhemoglobin ABG Sodium ABG Glucose Carboxyhemoglobin Sodium Chloride Carbon Dioxide BUN Creatinine Glucose POC Glucose 163 H Hemoglobin A1c Calcium Total Creatine Kinase 295 H CK-MB (CK-2) 7.6 H Troponin T NT-Pro-B Natriuret Pep Total Protein Albumin Triglycerides Cholesterol LDL Cholesterol Direct HDL Cholesterol Arterial Blood Glucose 10/27/20 10/27/20 10/27/20 07:29 11:08 15:15 WBC RBC Hgb Hct RDW Lymph % (Auto) [place] % (Auto) Lymph # (Auto) [place] # (Auto) Seg Neutrophils % Seg Neuts % (Manual) Lymphocytes % (Manual) Seg Neutrophils # Seg Neutrophils # Man Lymphocytes # (Manual) Monocytes # (Manual) PT INR APTT D-Dimer Heparin Anti-Xa Level POC ABG pO2 ABG Hemoglobin ABG Oxyhemoglobin ABG Sodium ABG Glucose Carboxyhemoglobin Sodium Chloride Carbon Dioxide BUN Creatinine Glucose POC Glucose 219 H 229 H 425 H Hemoglobin A1c Calcium Total Creatine Kinase CK-MB (CK-2) Troponin T NT-Pro-B Natriuret Pep Total Protein Albumin Triglycerides Cholesterol LDL Cholesterol Direct HDL Cholesterol Arterial Blood Glucose 10/27/20 10/27/20 10/28/20 16:32 20:45 04:00 WBC RBC Hgb Hct RDW Lymph % (Auto) [place] % (Auto) Lymph # (Auto) [place] # (Auto) Seg Neutrophils % Seg Neuts % (Manual) Lymphocytes % (Manual) Seg Neutrophils # Seg Neutrophils # Man Lymphocytes # (Manual) Monocytes # (Manual) PT INR APTT D-Dimer Heparin Anti-Xa Level POC ABG pO2 ABG Hemoglobin ABG Oxyhemoglobin ABG Sodium ABG Glucose Carboxyhemoglobin Sodium 135 L Chloride 96.3 L Carbon Dioxide BUN 94 H Creatinine 4.0 H Glucose 166 H POC Glucose 448 H 351 H Hemoglobin A1c Calcium Total Creatine Kinase CK-MB (CK-2) Troponin T 1.740 H* D NT-Pro-B Natriuret Pep Total Protein Albumin 3.5 L Triglycerides Cholesterol LDL Cholesterol Direct HDL Cholesterol Arterial Blood Glucose 10/28/20 10/28/20 10/28/20 04:00 04:00 08:49 WBC RBC 3.50 L Hgb 10.2 L Hct 30.0 L RDW 15.6 H Lymph % (Auto) [place] % (Auto) Lymph # (Auto) [place] # (Auto) Seg Neutrophils % Seg Neuts % (Manual) Lymphocytes % (Manual) Seg Neutrophils # Seg Neutrophils # Man Lymphocytes # (Manual) Monocytes # (Manual) PT INR APTT D-Dimer 1492.47 H Heparin Anti-Xa Level 0.24 L POC ABG pO2 ABG Hemoglobin ABG Oxyhemoglobin ABG Sodium ABG Glucose Carboxyhemoglobin Sodium Chloride Carbon Dioxide BUN Creatinine Glucose POC Glucose 232 H Hemoglobin A1c Calcium Total Creatine Kinase CK-MB (CK-2) Troponin T NT-Pro-B Natriuret Pep Total Protein Albumin Triglycerides Cholesterol LDL Cholesterol Direct HDL Cholesterol Arterial Blood Glucose 10/28/20 10/28/20 10/28/20 12:27 16:52 20:58 WBC RBC Hgb Hct RDW Lymph % (Auto) [place] % (Auto) Lymph # (Auto) [place] # (Auto) Seg Neutrophils % Seg Neuts % (Manual) Lymphocytes % (Manual) Seg Neutrophils # Seg Neutrophils # Man Lymphocytes # (Manual) Monocytes # (Manual) PT INR APTT D-Dimer Heparin Anti-Xa Level POC ABG pO2 ABG Hemoglobin ABG Oxyhemoglobin ABG Sodium ABG Glucose Carboxyhemoglobin Sodium Chloride Carbon Dioxide BUN Creatinine Glucose POC Glucose 177 H 228 H 279 H Hemoglobin A1c Calcium Total Creatine Kinase CK-MB (CK-2) Troponin T NT-Pro-B Natriuret Pep Total Protein Albumin Triglycerides Cholesterol LDL Cholesterol Direct HDL Cholesterol Arterial Blood Glucose 10/29/20 10/29/20 10/29/20 07:47 07:56 11:25 WBC RBC Hgb Hct RDW Lymph % (Auto) [place] % (Auto) Lymph # (Auto) [place] # (Auto) Seg Neutrophils % Seg Neuts % (Manual) Lymphocytes % (Manual) Seg Neutrophils # Seg Neutrophils # Man Lymphocytes # (Manual) Monocytes # (Manual) PT INR APTT D-Dimer Heparin Anti-Xa Level POC ABG pO2 ABG Hemoglobin ABG Oxyhemoglobin ABG Sodium ABG Glucose Carboxyhemoglobin Sodium Chloride 97.3 L Carbon Dioxide BUN 89 H Creatinine 3.9 H Glucose 216 H POC Glucose 209 H 310 H Hemoglobin A1c Calcium Total Creatine Kinase CK-MB (CK-2) Troponin T NT-Pro-B Natriuret Pep Total Protein Albumin 3.7 L Triglycerides Cholesterol LDL Cholesterol Direct HDL Cholesterol Arterial Blood Glucose Allied health notes reviewed: nursing
--- NOTE | 2020-10-29 16:50 | Progress Note ---
Assessment and Plan Recent Lexiscan stress MPI 08/27/2020 reviewed - inferoapical scar, no reversible ischemia noted. Given absence of ischemic sx, recommend medical mgmt going forward. Continue ASA, Plavix, statin, and BB. Otherwise stable cardiac status. No objections to discharge from a Cardiology standpoint. Follow-up with Dr. Marie in our [place] office on 11/17/2020 @ 11:45am ([phone]). Pt seen in conjunction with Dr. Samuel San, who agrees with the assessment and plan of care. - Patient Problems (1) Acute respiratory failure Status: Acute Qualifiers: Respiratory failure complication: hypoxia Qualified Code(s): J96.01 - Acute respiratory failure with hypoxia (2) Acute heart failure with preserved ejection fraction (HFpEF) Status: Acute (3) Acute kidney injury superimposed on CKD Status: Acute (4) Anemia Status: Acute (5) NSTEMI (non-ST elevated myocardial infarction) Status: Acute Plan to address problem: Type 2 (in the setting of progressive renal disease) (6) CAD (coronary artery disease) Status: Chronic (7) S/P PTCA (percutaneous transluminal coronary angioplasty) Status: Chronic Plan to address problem: 2014 (8) Aortic stenosis Status: Chronic (9) Hypertension Status: Chronic Qualifiers: Hypertension type: essential hypertension Qualified Code(s): I10 - Essential (primary) hypertension (10) Hyperlipidemia Status: Chronic Qualifiers: Hyperlipidemia type: mixed hyperlipidemia Qualified Code(s): E78.2 - Mixed hyperlipidemia (11) DM2 (diabetes mellitus, type 2) Status: Chronic (12) PVD (peripheral vascular disease) Status: Chronic (13) Aorto-iliac disease Status: Chronic (14) H/O: CVA (cerebrovascular accident) Status: Chronic (15) Frequent falls Status: Chronic Subjective Date of service: 10/29/20 Principal diagnosis: NNAMDI/CKD Interval history: Denies chest pain or any additional cardiac complaints. Tele reviewed - SR 70- 80s w/occasional PVCs, no events. Objective Last Vital Signs Temp 97.3 F L 10/29/20 11:48 Pulse 66 10/29/20 11:58 Resp 20 10/29/20 11:48 BP 149/56 10/29/20 11:58 Pulse Ox 98 10/29/20 11:58 - Physical Examination General: No Apparent Distress HEENT: Positive: EOMI, Normocephaly, Mucus Membranes Moist Neck: Positive: neck supple, trachea midline. Negative: JVD/HJR Cardiac: Positive: Reg Rate and Rhythm, S1/S2 Lungs: Positive: clear to auscultation Neuro: Positive: Grossly Intact Abdomen: Positive: Soft. Negative: Tender Skin: Negative: Rash Musculoskeletal: No Pain Extremities: Present: lower extr. pulses, warm. Absent: edema - Labs and Meds Cardiac Enzymes 10/29/20 Range/Units 07:47 AST 16 (5-40) units/L Comprehensive Metabolic Panel 10/29/20 Range/Units 07:47 Sodium 137 (137-145) mmol/L Potassium 4.4 (3.6-5.0) mmol/L Chloride 97.3 L (98-107) mmol/L Carbon Dioxide 26 (22-30) mmol/L BUN 89 H (9-20) mg/dL Creatinine 3.9 H (0.8-1.3) mg/dL Glucose 216 H (75-100) mg/dL Calcium 9.6 (8.4-10.2) mg/dL AST 16 (5-40) units/L ALT 11 (7-56) units/L Alkaline Phosphatase 65 (35-129) units/L Total Protein 7.1 (6.3-8.2) g/dL Albumin 3.7 L (3.9-5) g/dL - Imaging and Cardiology EKG: report reviewed, image reviewed Echo: report reviewed (08/27/2020 - mod concentric LVH, EF 55-69%, grade 2 diastolic dysfxn, increased LA volume, mod AV stenosis, 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, mild MR, mild-mod TR, RVSP 42 mmHg, trace anterior pericardial effusion) - Telemetry EKG Rhythm: Sinus Rhythm - EKG Sinus rhythms and dysrhythmias: sinus rhythm Repolarization changes or abnormalities: nonspecific abnormality, ST segment, and/or T wave Myocardial infarction: inferior NE (old age inde - Allied health notes Allied health notes reviewed: nursing
[2020-10-29] MEDS ORDERED: BUMETANIDE 1 MG TAB PO SCH (18:00)
--- NOTE | 2020-11-04 10:39 | Electrocardiograph Report ---
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
--- NOTE | 2020-11-04 11:06 | Electrocardiograph Report ---
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
== END 2020-10-29 16:14 | disposition home or self-care (01) | DRG 280 ==
LOC: ED 03:07 → IMCU 04:53 → 4A 08:50
PROVIDERS: ADMIT Hospitalist; ATTEND Hospitalist
PROC: 5A09457 Assistance with Respiratory Ventilation, 24-96 Consecutive Hours, Continuous Positive Airway Pressure (ICD-10-PCS; 2020-10-22)
PROC: 4A033R1 Measurement of Arterial Saturation, Peripheral, Percutaneous Approach (ICD-10-PCS; principal; 2020-10-24)
DX: I13.0 Hypertensive heart and chronic kidney disease with heart failure and stage 1 through stage 4 chronic kidney disease, or unspecified chronic kidney disease (principal); R65.11 Systemic inflammatory response syndrome (SIRS) of non-infectious origin with acute organ dysfunction; I21.A1 Myocardial infarction type 2; I50.31 Acute diastolic (congestive) heart failure; J96.01 Acute respiratory failure with hypoxia; E87.2 Acidosis; N17.9 Acute kidney failure, unspecified; E11.65 Type 2 diabetes mellitus with hyperglycemia; D72.829 Elevated white blood cell count, unspecified; E11.51 Type 2 diabetes mellitus with diabetic peripheral angiopathy without gangrene; E78.5 Hyperlipidemia, unspecified; N18.9 Chronic kidney disease, unspecified; D64.9 Anemia, unspecified; I25.10 Atherosclerotic heart disease of native coronary artery without angina pectoris; I35.0 Nonrheumatic aortic (valve) stenosis; E11.22 Type 2 diabetes mellitus with diabetic chronic kidney disease; Z79.4 Long term (current) use of insulin; I25.2 Old myocardial infarction; Z87.442 Personal history of urinary calculi; Z98.61 Coronary angioplasty status; Z87.891 Personal history of nicotine dependence; Z86.73 Personal history of transient ischemic attack (TIA), and cerebral infarction without residual deficits
CPT/HCPCS: 36415; 36600; 70450; 71045; 80048; 80053; 80061; 82550; 82553; 82805; 82947; 82962; 83036; 83735; 83880; 84145; 84484; 85007; 85014; 85018; 85025; 85027; 85049; 85379; 85520; 85610; 85730; 93005; 94640; 94644; 96374; 96375; G0378; A9270-GY; J1205; J1644; J1815; J1940; J2060; J2405